=== PATIENT | male | born 1950 | race Caucasian/White ===

== ENCOUNTER 2023-04-24 13:19 | Outpatient (OUT) | payer MEDICARE, SELFPAY ==
[2023-04-20 15:20] LABS: Prostate Specific Antigen Dx 0.36 ng/mL (<=4.00)
== END 2023-04-24 13:20 | disposition home or self-care (01) ==
LOC: LAB 13:19
PROVIDERS: PCP Internal Medicine; Visit Provider Urology
DX: C61 Malignant neoplasm of prostate (principal)
CPT/HCPCS: 36415; 84153

== ENCOUNTER 2023-06-10 14:20 | Outpatient (OUT) | payer MEDICARE, SELFPAY ==
--- NOTE | 2023-06-10 | US_ITS ---
The [address] [address] Patient Name: MONET LOPEZ MRN: [id number] date: 1950 Sex: M Assigned Patient Location: Current Patient Location: US Accession/Order Number: [id number] Exam Date: 06/10/2023 14:40 Report Date: 06/10/2023 16:54 At the request of: JACKELINE LO Procedure: US renal BI EXAMINATION: US renal BI HISTORY: Asymptomatic microscopic hematuria R31.21 COMPARISON: No relevant comparison available. TECHNIQUE: Ultrasound examination was performed of the bladder. FINDINGS: Right Kidney: Normal in size, contour and echotexture. No solid cortical mass, hydronephrosis or obstructing nephrolithiasis. The cortex measures 1.5 cm. Height: 5.8 cm Length: 9.3 cm Width: 4.9 cm Left Kidney: Normal in size, contour and echotexture. No solid cortical mass, hydronephrosis or obstructing nephrolithiasis. The cortex measures 1.5 cm Height: 6.7 cm Length: 9.9 cm Width: 5.1 cm Urinary bladder is prominent in size measuring 12.8 x 8.8 x 10.7 cm with volume of 839 mL US/US renal BI IMPRESSION: Large urinary bladder volume of 839 mL Electronically authenticated by: JACINTO VERONICA Date: 06/10/2023 16:54
== END 2023-06-10 14:21 | disposition home or self-care (01) ==
LOC: US 14:20
PROVIDERS: PCP Internal Medicine; Visit Provider Urology
DX: R31.21 Asymptomatic microscopic hematuria (principal)
CPT/HCPCS: 76775

== ENCOUNTER 2023-07-23 15:19 | Outpatient (OUT) | payer MEDICARE, SELFPAY ==
--- NOTE | 2023-07-23 15:21 | CA_ITS ---
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: : 1950 Requested By: MARI TAMEZ Order Number: [id number] Reading MD: MARI TAMEZ Interpretive Statements Predominant rhythm is sinus with average rate of 64 bpm Tachycardia - max rate of 148 bpm - 52 episodes of PSVT w/ longest duration of 13 beats - longest episode of 10min 59sec with rates between 105-119 bpm Bradycardia - min rate of 32 bpm - longest episode of 5hr 21min 6sec with rates between 30-52 bpm - several episodes of Mobitz type I AV block Ventricular ectopy - 66 total - 63 PVC Patient triggered events: none IMpression: Predominant rhythm is sinus with average rate of 64 bpm Fastest rate of 148 bpm and slowest rate of 32 bpm Minimum rate associated with Mobitz type I AV block 63 PVC 1 episode of NSVT of 3 beat duration No atrial fibrillation or significant pauses Electronically Signed On 08-05-2023 7:25:34 EDT by MARI TAMEZ
[2023-07-23 15:50] LABS: Thyroid Stimulating Hormone 1.858 uIU/mL (0.358-3.740)
== END 2023-07-23 15:20 | disposition home or self-care (01) ==
LOC: CARD 15:19
PROVIDERS: PCP Internal Medicine; Visit Provider Internal Medicine
DX: I48.0 Paroxysmal atrial fibrillation (principal); R55 Syncope and collapse
CPT/HCPCS: 36415; 84443; 93242

== ENCOUNTER 2023-08-21 12:37 | Outpatient (OUT) | payer MEDICARE, SELFPAY ==
--- NOTE | 2023-08-21 13:25 | CA_ITS ---
Patient Name: MONET LOPEZ MR#: [id number] : 1950 Exam Date: 08/21/2023 Ordering Doctor: DR MARI TAMEZ D.O. ECHOCARDIOGRAM REPORT PROCEDURE: CA ECHO DOPPLER COMPLETE INDICATIONS: Paroxysmal atrial fibrillation, syncope, hypertension COMPARISON: None. DESCRIPTION: COMPLETE ECHOCARDIOGRAM Real-time transthoracic echocardiography with 2D, M-mode, spectral and color flow Doppler performed. QUALITY: Technical quality was good. LEFT VENTRICLE: Normal chamber size. Mild concentric left ventricular hypertrophy. LV EF: Global left ventricular systolic function is normal; visually estimated ejection fraction is 55 to 60%. DIASTOLIC: Normal diastolic function. ATRIAL SEPTUM: Not well visualized. LEFT ATRIUM: Normal chamber size. RIGHT ATRIUM: Normal chamber size. RIGHT VENTRICLE: Normal chamber size. Normal right ventricular systolic function. TRICUSPID VALVE: Normal mobility and thickness. No stenosis with mild regurgitation. No evidence of pulmonary hypertension. RVSP 25 mmHg MITRAL VALVE: Normal mobility and thickness. No evidence of mitral valve stenosis. No mitral regurgitation. AORTIC VALVE: Normal trileaflet appearance. Moderately calcified aortic valve. No evidence of aortic valve stenosis. Trivial aortic regurgitation. AORTIC ROOT: Normal diameter and appearance. Aortic arch is normal in size. PULMONIC VALVE: Normal thickness and mobility. No stenosis. Trivial regurgitation. PERICARDIUM: No evidence of pericardial effusion. IVC: Not well visualized. CONCLUSION: 1. Global left ventricular systolic function is normal; visually estimated ejection fraction is 55 to 60% 2. Right ventricle is normal in size and systolic function 3. Mildly increased left ventricular wall thickness 4. Mild tricuspid regurgitation Adult Echocardiography Procedure Report Left Ventricle LVEDD (3.7 - 5.6 cm): 4.66 cm LVESD (2.2 - 4.0 cm): 3.28 cm LVIVS thickness (0.6 - 1.2 cm): 1.16 cm LVPW thickness (0.5 - 1.0 cm): 1.10 cm e': 0.10 m/s E - e': 7.15 LVOT Max Gradient: 2.47 mm[Hg] LVOT Area (cm2): 0.79 m/s Peak Velocity (LVOT): 0.79 m/s Mean Velocity (LVOT): 0.50 m/s LVOT Diameter 2.46 cm Left Atrium LA Volume Index (2D A2C): 35.65 ml/m2 Left Atrium Systolic Dimension: 5.15 cm Mitral Valve MV E to A Ratio: 1.06 Mitral Valve A-Wave Peak Velocity: 0.65 m/s Mitral Valve E-Wave Peak Velocity: 0.70 m/s Right Ventricle Aorta AO Root Diam: 3.87 cm Ascending Ao Diam: 3.17 cm Aortic Valve AoV Area (Peak Spenser): 2.98 cm2, 2.97 cm2 AoV Area (VTI): 2.91 cm2, 2.83 cm2 Peak Velocity(Antegrade Flow): 1.26 m/s, 1.25 m/s Peak Gradient(Antegrade Flow): 6.37 mm[Hg], 6.26 mm[Hg] Mean Velocity(Antegrade Flow): 0.84 m/s, 0.89 m/s Mean Gradient(Antegrade Flow): 3.36 mm[Hg], 3.56 mm[Hg] Velocity Time Integral: 29.14 cm, 27.44 cm Tricuspid Valve Peak Velocity (Regurgitant Flow): 2.33 m/s Pulmonic Valve Peak Velocity: 1.02 m/s Peak Gradient: 4.18 mm[Hg] Right Atrium Right Atrium Systolic Pressure: 41.63 ml, 41.63 ml Dictated by: Isaias Bazan M.D. on 08/21/2023 at 16:05 Approved by: Isaias Bazan M.D. on 08/21/2023 at 16:09
== END 2023-08-21 12:38 | disposition home or self-care (01) ==
LOC: CARD 12:37
PROVIDERS: PCP Internal Medicine; Visit Provider Internal Medicine
DX: I48.0 Paroxysmal atrial fibrillation (principal); R55 Syncope and collapse; I07.1 Rheumatic tricuspid insufficiency
CPT/HCPCS: 93306

== ENCOUNTER 2023-10-26 12:18 | Outpatient (OUT) | payer MEDICARE, SELFPAY ==
--- OUTSIDE RECORDS SUMMARY | 2023-10-26 12:22 | XMS_ITS | CCD ---
Author Name Unknown Address [address] [place] [address] Organization [facility] Care Team Providers Care [place] Name Role Phone MISC, DR BRADEN Admitting Unavailable MISC, DR BRADEN Attending Unavailable BALL, DR GUERRA Primary Care Unavailable MISC, DR BRADEN Consulting Unavailable MISC, DR BRADEN Admitting Unavailable MISC, DR BRADEN Attending Unavailable BALL, DR GUERRA Primary Care Unavailable BALL, DR GUERRA Admitting Unavailable BALL, DR GUERRA Attending Unavailable BALL, DR GUERRA Consulting Unavailable BALL, DR GUERRA Primary Care Unavailable MISC, DR BRADEN Consulting Unavailable MISC, DR BRADEN Admitting Unavailable MISC, DR BRADEN Attending Unavailable BALL, DR GUERRA Primary Care Unavailable Ball, Giacomo Unavailable MYA JOHNSON Attending Unavailable CHRISTIANSEN, Lexa Barlow Attending Unavailable CHRISTIANSEN, Lexa Barlow Attending Unavailable CHRISTIANSENLexa Attending Unavailable Allergies Allergy Classification Reported Allergen(s) Allergy Type Date of Onset Reaction(s) Facility (3 sources) Penicillins; Translations: [PENICILLINS] Drug allergy (disorder) 6 [facility] Repository (3 sources) Penicillin Drug Allergy Unknown Diurnal Other (6 sources) Substance with penicillin structure and antibacterial mechanism of action (substance) Drug allergy Comment:Azalea white Diurnal Other Medications Current Medications Medication Drug Class(es) Dates Sig (Normalized) Sig (Original) apixaban 5 mg oral tablet (7 sources) Factor Xa Inhibitor Start: 04-14-2023 take 1 tablet by mouth every twelve hours Eliquis 5 MG 1 tablet Orally Twice a day for 90 days Apr, Active atorvastatin 10 mg oral tablet (18 sources) HMG-CoA Reductase Inhibitor Start: 10-27-2022 take 1 tablet by mouth every twenty-four hours Atorvastatin Calcium 10 MG 1 tablet Orally Once a day Oct, Active finasteride 5 mg oral tablet (9 sources) 5-alpha Reductase Inhibitor Start: 10-31-2022 take 1 tablet by mouth every twenty-four hours Finasteride 5 MG 1 tablet Orally Once a day for 90 days Oct, Active metoprolol tartrate 25 mg oral tablet (18 sources) beta-Adrenergic Jay Start: 10-27-2022 take 1 tablet by mouth every twelve hours Metoprolol Tartrate 25 MG 1 tablet with food Orally Twice a day Oct, Active rivaroxaban (18 sources) Factor Xa Inhibitor Start: 10-27-2022 Xarelto 20 20 Once Orally Once a day Oct, Active take 1 tablet by tanvir th every twenty-four hours Xarelto 20 MG 1 tablet with food Orally Once a day Active tamsulosin hydrochloride 0.4 mg oral capsule (18 sources) alpha-Adrenergic Jay Start: 10-27-2022 take 1 capsule by mouth every twenty-four hours Tamsulosin HCl 0.4 MG 1 capsule Orally Once a day Oct, Active telmisartan 40 mg oral tablet (18 sources) Angiotensin 2 Receptor Jay Start: 10-27-2022 take 1 tablet by mouth every twenty-four hours Telmisartan 40 MG 1 tablet Orally Once a day Oct, Active Problems Active Problems Problem Classification Problem Date Documented Date Episodic/Chronic Acute bronchitis (9 sources) Acute bronchitis; Translations: [Acute bronchitis due to other specified organisms] Episodic Anxiety disorders (9 sources) Generalized anxiety disorder; Translations: [Generalized anxiety disorder] Chronic Cancer of prostate (16 sources) Malignant neoplasm of prostate; Translations: [Carcinoma of prostate] Onset: 12-31-2022 Chronic Cardiac dysrhythmias (17 sources) Paroxysmal atrial fibrillation; Translations: [Paroxysmal atrial fibrillation] Onset: 06-10-2023 Chronic Disorders of lipid metabolism (12 sources) Familial hypercholesterolemia; Translations: [Pure hypercholesterolemia] Onset: 01-01-2023 Chronic Essential hypertension (14 sources) Essential (primary) hypertension; Translations: [Essential hypertension] Onset: 01-01-2023 Chronic Genitourinary symptoms and ill-defined conditions (2 sources) Nocturia Episodic Hyperplasia of prostate (12 sources) Lower urinary tract symptoms due to benign prostatic hypertrophy; Translations: [Benign prostatic hyperplasia with lower urinary tract symptoms] Chronic Osteoarthritis (9 sources) Localized, primary osteoarthritis of the pelvic region and thigh; Translations: [Unilateral primary osteoarthritis, left hip] Chronic Other aftercare (1 source) Other senior living (current) drug therapy; Translations: [OTH ALF CURRENT DRUG THERAPY] Onset: 01-01-2023 Episodic Other aftercare (9 sources) H/O: high risk medication; Translations: [Other senior living (current) drug therapy] Episodic Other connective tissue disease (9 sources) History of total replacement of left hip joint; Translations: [Presence of left artificial hip joint] Chronic Other nutritional; endocrine; and metabolic disorders (9 sources) Obese class I; Translations: [Obesity, unspecified] Chronic Other nutritional; endocrine; and metabolic disorders (1 source) Obesity, unspecified Chronic Other upper respiratory infections (9 sources) Acute maxillary sinusitis; Translations: [Acute maxillary sinusitis, unspecified] Episodic Residual codes; unclassified (1 source) Procedure and treatment not carried out because of patient's decision for unspecified reasons Episodic Spondylosis; intervertebral disc disorders; other back problems (9 sources) Lumbar spondylosis; Translations: [Spondylosis without myelopathy or radiculopathy, lumbar region] Chronic Syncope (2 sources) Syncope and collapse Episodic Past or Other Problems Problem Classification Problem Date Documented Da te Episodic/Chronic Other screening for suspected conditions (not mental disorders or infectious disease) (4 sources) Encounter for screening, unspecified; Translations: [ENCOUNTER FOR SCREENING UNSPECIFIED] Onset: 06-23-2022 Episodic Results Test Name Value Interpretation Reference Range Facil ity RAD - Ultrasound Reporton RAD - Ultrasound Report [id number]. 00CD:127 Normal [facility] Office Visiton 06-10-2023 Follow-up visit [id number] Monet Bustillos II 1950 M Date Provider Department Center 06/10/2023 MYA WILSON Family History Problem Relation Age of Onset Alzheimer's disease Father Family Status - Relation Status Age at Father Level of Service:73760 [place] OFFICE/OUTPATIENT ESTABLISHED LOW MDM 20-29 MIN Reason for Visit and Comments: Follow-up [529507] - F/U [address] [facility] Operative Reporton Operative Report [id number]# 1.00CD:127 Normal [facility] Consent for Procedure/Surger yon 05-05-2023 Consent for Procedure/Surgery [id number]# 1.00CD:127 Normal [facility] Ambulatory Visit Summaryon 0 05-04-2023 Ambulatory Visit Summary MONET BUSTILLOS :1950 Visit Date:05/04/2023 Ambulatory Visit Instructions Your Diagnosis Prostate cancer BPH with urinary obstruction Asymptomatic microscopic hematuria Nocturia Erectile dysfunction Your Care Team Attending Physician - Lexa CHRISTIANSEN MD Primary Care Physician - GIACOMO RAGSDALE DO This Is Your Medications List Contact prescribing physician if questions or concerns apixaban (Eliquis 5 mg oral tablet) atorvastatin (atorvastatin 10 mg Tab) finasteride (finasteride 5 mg Tab) metoprolol (metoprolol 25 mg ER Tab) multivitamin (Multi Vitamin+) tamsulosin (Flomax 0.4 mg Cap) telmisartan (telmisartan 40 mg Tab) Procedures Performed Mixed beam EBRT (external beam radiation therapy) (03/06/2022), MRI-US fusion guided transrectal biopsy of prostate (12/12/2021), MRI of prostate (11/20/2021), Catheterization of right heart, Hip replacement. Discharge Vitals Heart Rate (Peripheral) 68 Respiratory Rate 16 Blood Pressure 130/74 Height 187 cm Height 74 in Weight 101 kg Weight 222.2 lb BMI 28.88 What to do next You Need to Schedule the Following Appointments Follow Up with WALLY PERALTA, Lexa Barlow, URL When: Comments: sched cysto 6 months w/ PSA Where: [facility] [address] , [place] [address] [phone] Medications What How Much When Instructions Unchanged apixaban (Eliquis 5 mg oral tablet) Contact prescribing physician if questions or concerns Unchanged atorvastatin (atorvastatin 10 mg Tab) By Mouth Every day Contact prescribing physician if questions or concerns Unchanged finasteride (finasteride 5 mg Tab) Contact prescribing physician if questions or concerns Unchanged metoprolol (metoprolol 25 mg ER Tab) By Mouth Every day Contact prescribing physician if questions or concerns Unchanged multivitamin (Multi Vitamin+) Contact prescribing physician if questions or concerns Unchanged tamsulosin (Flomax 0.4 mg Cap) 1 Capsules By Mouth 2 times a day Contact prescribing physician if questions or concerns Unchanged telmisartan (telmisartan 40 mg Tab) Contact prescribing physician if questions or concerns Allergies penicillins (Moderate) Problems Ongoing - Any problem that you are currently receiving treatment for. Anticoagulated Asymptomatic microscopic hematuria Atrial fibrillation Benign prostatic hyperplasia (BPH) with post-void dribbling BPH with urinary obstruction Elevated PSA Erectile dysfunction Hypertension Nocturia Prostate cancer Education Materials Prostate Cancer The prostate is a small gland that produces fluid that makes up semen (seminal fluid). It is located below the bladder in men, in front of the rectum. Prostate cancer is the abnormal growth of cells in the prostate gland. What are the causes? The exact cause of this condition is not known. What increases the risk? You are more likely to develop this condition if: ? You are 65 years of age or older. ? You have a family history of prostate cancer. ? You have a family history of breast and ovarian cancer. ? You have genes that are passed from parent to child (inherited), such as BRCA1 and BRCA2. ? You have White syndrome. men and men of descent are diagnosed with prostate cancer at higher rates than other men. The reasons for this are not well understood and are likely due to a combination of genetic and environmental factors. What are the signs or symptoms? Symptoms of this condition include: ? Problems with urination. This may include: ? A weak or interrupted flow of urine. ? Trouble starting or stopping urination. ? Trouble emptying the bladder all the way. ? The need to urinate more often, especially at night. ? Blood in urine or semen. ? Persistent pain or discomfort in the lower back, lower abdomen, or hips. ? Trouble getting an erection. ? Weakness or numbness in the legs or feet. How is this diagnosed? This condition can be diagnosed with: ? A digital rectal exam. For this exam, a health care provider inserts a gloved finger into the rectum to feel the prostate gland. ? A blood test called a prostate-specific antigen (PSA) test. ? A procedure in which a sample of tissue is taken from the prostate and checked under a microscope (prostate biopsy). ? An imaging test called transrectal ultrasonography. Once the condition is diagnosed, tests will be done to determine how far the cancer has spread. This is called staging the cancer. Staging may involve imaging tests, such as a bone scan, CT scan, PET scan, or MRI. Stages of prostate cancer The stages of prostate cancer are as follows: ? Stage 1 (I). At this stage, the cancer is found in the prostate only. The cancer is not visible on imaging tests, and it is usually found by accident, such as during prostate surgery. ? Stage 2 (II). (more content not included)... Normal [facility] Patient Educationon 05-04-20 Patient Education Oncology Prostate Cancer The prostate is a small gland that produces fluid that makes up semen (seminal fluid). It is located below the bladder in men, in front of the rectum. Prostate cancer is the abnormal growth of cells in the prostate gland. What are the causes? The exact cause of this condition is not known. What increases the risk? You are more likely to develop this condition if: ? You are 65 years of age or older. ? You have a family history of prostate cancer. ? You have a family history of breast and ovarian cancer. ? You have genes that are passed from parent to child (inherited), such as BRCA1 and BRCA2. ? You have White syndrome. men and men of descent are diagnosed with prostate cancer at higher rates than other men. The reasons for this are not well understood and are likely due to a combination of genetic and environmental factors. What are the signs or symptoms? Symptoms of this condition include: ? Problems with urination. This may include: ? A weak or interrupted flow of urine. ? Trouble starting or stopping urination. ? Trouble emptying the bladder all the way. ? The need to urinate more often, especially at night. ? Blood in urine or semen. ? Persistent pain or discomfort in the lower back, lower abdomen, or hips. ? Trouble getting an erection. ? Weakness or numbness in the legs or feet. How is this diagnosed? This condition can be diagnosed with: ? A digital rectal exam. For this exam, a health care provider inserts a gloved finger into the rectum to feel the prostate gland. ? A blood test called a prostate-specific antigen (PSA) test. ? A procedure in which a sample of tissue is taken from the prostate and checked under a microscope (prostate biopsy). ? An imaging test called transrectal ultrasonography. Once the condition is diagnosed, tests will be done to determine how far the cancer has spread. This is called staging the cancer. Staging may involve imaging tests, such as a bone scan, CT scan, PET scan, or MRI. Stages of prostate cancer The stages of prostate cancer are as follows: ? Stage 1 (I). At this stage, the cancer is found in the prostate only. The cancer is not visible on imaging tests, and it is usually found by accident, such as during prostate surgery. ? Stage 2 (II). At this stage, the cancer is more advanced than it is in stage 1, but the cancer has not spread outside the prostate. ? Stage 3 (III). At this stage, the cancer has spread beyond the outer layer of the prostate to nearby tissues. The cancer may be found in the seminal vesicles, which are near the bladder and the prostate. ? Stage 4 (IV). At this stage, the cancer has spread to other parts of the body, such as the lymph nodes, bones, bladder, rectum, liver, or lungs. Prostate cancer grading Prostate cancer is also graded according to how the cancer cells look under a microscope. This is called the Sudheer score and the total score can range from 6?10, indicating how likely it is that the cancer will spread (metastasize) to other parts of the body. The higher the score, the greater the likelihood that the cancer will spread. ? Sudheer 6 or lower: This indicates that the cancer cells look similar to normal prostate cells (well differentiated). ? [place] 7: This indicates that the cancer cells look somewhat similar to normal prostate cells (moderately differentiated). ? Sudheer 8, 9, or 10: This indicates that the cancer cells look very different than normal prostate cells (poorly differentiated). How is this treated? Treatment for this condition depends on several factors, including the stage of the cancer, your age, personal preferences, and your overall health. Talk with your health care provider about treatment options that are recommended for you. Common treatments include: ? Observation for early stage prostate cancer (active surveillance). This involves having exams, blood tests, and in some cases, more biopsies. For some men, this is the only treatment needed. ? Surgery. Types of surgeries include: ? Open surgery (radical prostatectomy). In this surgery, a larger incision is made to remove the prostate. ? A laparoscopic radical prostatectomy. This is a surgery to remove the prostate and lymph nodes through several small incisions. It is often referred to as a minimally invasive surgery. ? A robotic radical prostatectomy. This is laparoscopic surgery to remove the prostate and lymph nodes with the help of robotic arms that are controlled by the surgeon. ? Cryoablation. This is surgery to freeze and destroy cancer cells. ? Radiation treatment. Types of radiation treatment include: ? External beam radiation. This type aims beams of radiation from outside the body at the prostate to destroy cancerous cells. ? Brachytherapy. This type uses radioactive needles, seeds, wires, or tubes that are implanted into the prostate gland. Like external be (more content not included)... Normal [facility] Reminderson 05-04-2023 Reminders - From: Colleen Souza To: EMETERIO Christiansen; Sent: 05/04/2023 16:42:47 EDT Show up: 10/04/2023 15:42:00 EST Subject: PSA Reminder Message Please Remember to:_have pt get PSA done prior to appt. Comments:_ Normal [facility] Urology Office/Clinic Noteon 05-04-2023 Urology Office/Clinic Note Chief Complaint Follow up to Radiation Therapy HPI Staff 16m DX: Prostate Cancer, BPH & Elevated PSA *Finasteride 5mg (last filled by Dr Ragsdale) QD & Tamsulosin 0.4mg BID therapy. Pt was referred to Dr Hammonds for radiation consult at time of last encounter. However pt went and saw Dr Surendra Alanis from [facility]. S/P EBRT 03/06/22. PSA 07/02/22 0.87 PSA 12/30/22 0.47 PSA 04/20/23 0.36 Per pt, will not follow up with Radiation Oncology. Will continue to see PRW for PSA monitoring. Occasional weak stream. Denies pain and blood in urine. Occasional burning sensation. Not often. Still getting up 1-3x/night to void. Occasional hesitancy. Occasional mild post void dribbling. Feels empty after voiding. History of Present Illness Tests reviewed: reviewed UA, PSA I have reviewed the previous health record information and history for this patient from Dr. Christiansen. I have reviewed and verified the staff HPI to be accurate for this encounter. There have been no associated fever, chills, flank pain, or blood in the urine. Denies any urinary infections since last encounter. Review of Systems PHQ Score Initial Depression Screen Score: 0 ROS - Provider Constitutional: denies weight loss, denies hot flashes. Eyes: denies eye problems. Gastrointestinal: denies nausea, denies vomiting. Cardiovascular: denies chest pain or angina. Integumentary: no dryness Musculoskeletal: denies musculoskeletal symptoms. ENMT: denies otolaryngeal symptoms. Respiratory: no shortness of breath. Heme/Lymph: denies easy bleeding tendency, denies easy bruising tendency. Psychiatric: no confusion, no anxiety. Genitourinary: See HPI. Physical Exam Vitals & Measurements HR: 68(Peripheral) RR: 16 BP: 130/74 HT: 74 in HT: 187 cm WT: 101 kg WT: 222.2 lb BMI: 28.88 General Appearance: alert, no distress, well nourished, well developed male. Genitourinary: normal scrotum, normal testes, normal urethra, normal epididymis, normal vas deferens/spermatic cord. Flank Pain: none. Bladder: nonpalpable. Assessment/Plan 1. Prostate cancer (C61: Malignant neoplasm of prostate) MRI fusion Bx done 12/12/21 shows 80% of 4 cores POS w/Sudheer 3+4= 7 w/perineural invasion.[1] Pt saw Dr. Alanis at [facility] for radiation treatment for 4-6 weeks (pt is unsure how long) which was completed in 03/2022. PSA 10/17/21 - 2.6 (Finasteride 5.2) 07/02/22 - 0.87 (Finasteride 1.74) 12/30/22 - 0.47 (Finasteride 0.94) 04/20/23 - 0.36 (Finasteride 0.72) Follow up in 6 months with PSA. All questions/concerns were discussed. Pt to call the office if he encounters any issues prior. Pt acknowledges understanding. 2. BPH with urinary obstruction (N40.1: Benign prostatic hyperplasia with lower urinary tract symptoms) Pt continues taking Finasteride 5mg QD and Tamsulosin 0.4mg BID. Pt reports he does have some hesitancy but has always been able to void. Unsure if he empties completely but feels he may empty due to steady stream. States his sxs have improved in the past year. Explained to pt he is on both classes of prostate medications at this time. Discussed option to switch to Dutasteride but pt is uninterested at this time due to reduced urinary complications. 3. Asymptomatic microscopic hematuria (R31.21: Asymptomatic microscopic hematuria) UA today shows moderate blood. Denies seeing any visible blood. Advised pt this is likely due to radiation but will need further evaluation. Will schedule cystoscopy. The risks and benefits for cystoscopy have been discussed. The risks include bleeding, infection, and irritation of the bladder and urinary channel, among others. The patient, after being informed of procedural details and after questions have been answered, wishes to proceed. Full informed consent has been obtained. Will order Local anesthesia. 4. Nocturia (R35.1: Nocturia) 2-3x/night. Unchanged from prior office visit. 5. Erectile dysfunction (N52.9: Male erectile dysfunction, unspecified) Pt states he is able to achieve an erection but is unable to ejaculate. Pt understands this can occur after radiation treatment. Pt states this is not of concern at his age. Follow-up With When Contact Information WALLY PERALTA, Lexa Barlow, URL [facility] [address] [place] [address] [phone] Additional Instructions: sched cysto 6 months w/ PSA Patient Education Prostate Cancer Colleen Shankar, personally scribed for Dr. Christiansen on 05/04/2023 11:26:02. . Documentation recorded by the thuibColleen estevez, accurately reflects the services(s) I performed and decisions made by me. Authenticated by Dr. Christiansen on 05/04/2023 11:34:30. Problem List/Past Medical History Ongoing Anticoagulated Asymptomatic microscopic hematuria Atrial fibrillation Benign prostatic hyperplasia (BPH) with post-void dribbling BPH with urinary obstruction Elevated PSA Erectile dysfunction Hypertension N (more content not included)... Normal [facility] Comment on above: Result Comment: Elec tronically Signed By: Lexa CHRISTIANSEN MD\.br\Date and Time Signed: 05/04/23 11:34 EDT\.br\Electronically Co-Signed By: Colleen Souza\.br\Date and Time Co-Signed: 05/04/23 11:26 EDT Lab Reportson 04-21-2023 Lab Reports [id number] .00CD:127 Normal [facility] Consultation Noteon 01-21-20 Consultation Note [id number] .00CD:127 Normal [facility] CBC AUTO DIFFon 12-31-2022 BASO # 0.0 103/ul Normal 0.0-0.1 [facility] Comment on above: Performed By: #### C BC #### [facility] [address] [place] [address] Dr. Henry Marin Basophils/100 WBC (Bld) 0.8 % Normal 0.2-2.0 [facility] Comment on above: Performed By: #### C BC #### [facility] [address] [address] [address] Henry Marin EO # 0.2 103/ul Normal 0.0-0.7 [facility] Comment on above: Performed By: #### C BC #### [facility] [address] [place] [address] Dr. Henry Marin Eosinophils/100 WBC (Bld) 3.6 % Normal 0.9-7.0 [facility] Comment on above: Performed By: #### C BC #### [facility] [address] [place] [address] Dr. Henry Marin Erythrocyte distribution width (RBC) [Ratio] 13.2 % Normal 11.0-15.0 [facility] Comment on above: Performed By: #### C BC #### [facility] [address] [place] [address] Dr. Henry Marin Hematocrit (Bld) [Volume fraction] 45.3 % Normal 42.0-54.0 [facility] Comment on above: Performed By: #### C BC #### [facility] [address] [place] [address] Dr. Henry Marin Hemoglobin (Bld) [Mass/Vol] 15.7 g/dL Normal 14.0-18.0 [facility] Comment on above: Performed By: #### C BC #### [facility] [address] [place] [address] Dr. Henry Marin IG # 0.00 10e3/ul Normal 0.00-0.03 [facility] Comment on above: Performed By: #### C BC #### [facility] [address] [place] [address] Dr. Henry Marin IG % 0.0 % Normal 0.0-0.5 [facility] Comment on above: Performed By: #### C BC #### [facility] [address] [place] [address] Dr. Henry Marin LYMPH # 1.7 103/ul Normal 1.2-3.8 [facility] Comment on above: Performed By: #### C BC #### [facility] [facility] [address] [place] [address] Dr. Henry Marin Lymphocytes/100 WBC (Bld) 34.8 % Normal 20.5-60.0 [facility] Comment on above: Performed By: #### C BC #### [facility] [address] [place] [address] Dr. Henry Marin MANUAL DIFF REQ NO Normal [facility] Comment on above: Performed By: #### C BC #### [facility] [address] [place] [address] Dr. Henry Marin MCH (RBC) [Entitic mass] 32.6 pg Normal 25.9-34.0 [facility] Comment on above: Performed By: #### C BC #### [facility] [address] [place] [address] Dr. Henry Marin MCHC (RBC) [Mass/Vol] 34.7 g/dL Normal 29.9-35.2 [facility] Comment on above: Performed By: #### C BC #### [facility] [address] [place] [address] Dr. Henry Marin MCV (RBC) [Entitic vol] 94.0 fL Normal 80.0-94.0 [facility] Comment on above: Performed By: #### C BC #### [facility] [address] [place] [address] Dr. Henry Marin MONO # 0.6 103/ul Normal 0.3-0.8 [facility] Comment on above: Performed By: #### C BC #### [facility] [address] [place] [address] Dr. Henry Marin Monocytes/100 WBC (Bld) 13.0 % Critically high 1.7-12.0 [facility] Comment on above: Performed By: #### C BC #### [facility] [address] [place] [address] Dr. Henry Marin NEUT # 2.3 103/ul Normal 1.4-6.5 [facility] Comment on above: Performed By: #### C BC #### [facility] [address] [place] [address] Dr. Henry Marin Neutrophils/100 WBC (Bld) 47.8 % Normal 43.0-75.0 [facility] Comment on above: Performed By: #### C BC #### [facility] [address] [place] [address] Dr. Henry Marin Platelet mean volume (Bld) [Entitic vol] 9.7 fL Normal 9.5-13.5 [facility] Comment on above: Performed By: #### C BC #### [facility] [address] [place] [address] Dr. Henry Marin PLT 135 103/ul Critically low 150-[address] [facility] Comment on above: Performed By: #### C BC #### [facility] [address] [place] [address] Dr. Henry Marin RBC 4.82 106/ul Normal 4.70-6.10 [facility] Comment on above: Performed By: #### C BC #### [facility] [address] [place] [address] Dr. Henry Marin WBC 4.8 103/ul Normal 4.0-11.0 [facility] Comment on above: Performed By: #### C BC #### [facility] [address] [address] [address] Henry Marin LIPID PROFILEon 12-31-2022 CHOL-HDL RATIO NORM SEE BELOW Normal [facility] Comment on above: Result Comment: 3.3 - 4.4 LOW RISK 4.4 - 7.1 AVERAGE RISK 7.1 - 11.0 MODERATE RISK >11.0 HIGH RISK Performed By: #### B MP, ALT, LIPID #### [facility] [address] [address] [address] Henry Marin Cholesterol [Mass/Vol] 169 mg/dL Normal <=200 [facility] Comment on above: Performed By: #### B MP, ALT, LIPID #### [facility] [address] [address] [address] Henry Marin Cholesterol in HDL [Mass/Vol] 59 mg/dL Normal 40-60 [facility] Comment on above: Performed By: #### B MP, ALT, LIPID #### [facility] [address] [address] [address] Henry Marin Cholesterol in LDL [Mass/Vol] 91.6 mg/dL Normal [facility] Comment on above: Performed By: #### B MP, ALT, LIPID #### [facility] [address] [address] [address] Henry Marin Cholesterol.total/ Cholesterol in HDL [Mass ratio] 2.9 {ratio} Normal [facility] Comment on above: Performed By: #### B MP, ALT, LIPID #### [facility] [address] [address] [address] Henry Marin HDL NORMAL > or = 60 mg/dl - LO W CARDIOVASCULAR RISK <40 mg/dl - HIGH CARDIOVASCULAR RISK Normal [facility] Comment on above: Performed By: #### B MP, ALT, LIPID #### [facility] [address] [address] [address] Henry Marin LDL CALC NORMAL SEE BELOW Normal [facility] Comment on above: Result Comment: <100 mg/dl OPTIMAL 100 - 129 mg/dl NEAR OR ABOVE OPTIMAL 130 - 159 mg/dl BORDERLINE HIGH 160 - 189 mg/dl HIGH >190 mg/dl VERY HIGH Performed By: #### B MP, ALT, LIPID #### [facility] [address] [place] [address] Dr. Henry Marin Triglyceride [Mass/Vol] 92 mg/dL Normal <=150 [facility] Comment on above: Performed By: #### B MP, ALT, LIPID #### [facility] [address] [place] [address] Dr. Henry Marin VLDL CALC 18.4 mg/dL Normal [facility] Comment on above: Performed By: #### B MP, ALT, LIPID #### [facility] [address] [place] [address] Dr. Henry Marin PROF CHEM 8 (BAS METB)on Anion gap [Moles/Vol] 11.8 mmol/L Normal [facility] Comment on above: Performed By: #### B MP, ALT, LIPID #### [facility] [address] [place] [address] Dr. Henry Marin Calcium [Mass/Vol] 8.6 mg/dL Normal 8.5-10.1 [facility] Comment on above: Performed By: #### B MP, ALT, LIPID #### [facility] [address] [place] [address] Dr. Henry Marin Chloride [Moles/Vol] 106 mmol/L Normal 98-107 [facility] Comment on above: Performed By: #### B MP, ALT, LIPID #### [facility] [address] [place] [address] Dr. Henry Marin CO2 [Moles/Vol] 28.3 mmol/L Normal 21.0-32.0 [facility] Comment on above: Performed By: #### B MP, ALT, LIPID #### [facility] [address] [place] [address] Dr. Henry Marin Creatinine [Mass/Vol] 1.01 mg/dL Normal 0.70-1.30 [facility] Comment on above: Performed By: #### B MP, ALT, LIPID #### [facility] [address] [address] [address] Henry Marin EGFR-AF SLOVAK >60 Normal >=60 [facility] Comment on above: Performed By: #### B MP, ALT, LIPID #### [facility] [address] [address] [address] Henry Marin EGFR-NON AF [place]OVAK >60 Normal >=60 [facility] Comment on above: Performed By: #### B MP, ALT, LIPID #### [facility] [address] [address] [address] Henry Marin Glucose [Mass/Vol] 106 mg/dL Normal 74-106 [facility] Comment on above: Performed By: #### B MP, ALT, LIPID #### [facility] [address] [place] [address] Dr. Henry Marin Potassium [Moles/Vol] 4.1 mmol/L Normal 3.5-5.1 [facility] Comment on above: Performed By: #### B MP, ALT, LIPID #### [facility] [address] [place] [address] Dr. Henry Marin Sodium [Moles/Vol] 142 mmol/L Normal 136-145 [facility] Comment on above: Performed By: #### B MP, ALT, LIPID #### [facility] [address] [place] [address] Dr. Henry Marin Urea nitrogen [Mass/Vol] 13.0 mg/dL Normal 7.0-18.0 [facility] Comment on above: Performed By: #### B MP, ALT, LIPID #### [facility] [address] [place] [address] Dr. Henry Marin Urea nitrogen/Creatinin e [Mass ratio] 12.9 mg/mg Normal [facility] Comment on above: Performed By: #### B MP, ALT, LIPID #### [facility] [address] [place] [address] Dr. Henry Marin SGPTon 12-31-2022 ALT [Catalytic activity/Vol] 23 U/L Normal 16-63 [facility] Comment on above: Performed By: #### B MP, ALT, LIPID #### [facility] [address] [address] [address] Henry Marin Consultation Noteon 07-16-20 Consultation Note [id number] Normal [facility] Blood Urea Nitrogenon 2021 Urea nitrogen [Mass/Vol] 10 mg/dL Normal 9-23 [facility] Comment on above: Order Comment: STAT FOR MRI Performed By: #### C REAT, BUN #### [facility] [address] [place] [address] [place] Creatinineon 11-20-2021 Creatinine [Mass/Vol] 1.00 mg/dL Normal 0.64-1.27 [facility] Comment on above: Order Comment: STAT FOR MRI Performed By: #### C REAT, BUN #### [facility] [address] [place] [address] [place] Creatinine Clr Calc Pharmacy 86.83 [facility] Comment on above: Order Comment: STAT FOR MRI Result Comment: PERF ORMED BY: [place] [address] PATHOLOGIST SENIOR BIOSTATISTICIAN GUSTAVO CHANDLER M.D. Performed By: #### C REAT, BUN #### [facility] [address] [place] [address] Estimated GFR ( Arielle > 60 [facility] Comment on above: Order Comment: STAT FOR MRI Result Comment: GFR estimated reference range: According to KDOQI guidelines, <60 ml/min/1.73m2 is sufficient to diagnose a patient with chronic kidney disease. Performed By: #### C REAT, BUN #### [facility] [address] [place] [address] [place] Estimated GFR (Non- Am > 60 [facility] Comment on above: Order Comment: STAT FOR MRI Performed By: #### C REAT, BUN #### [facility] [address] [place] [address] [place] MR prostate wo/w conon 11-20 MR prostate wo/w con [facility] [place] [address] [place] [address] MRI Report Signed Patient: Monet Bustillos MR#: [id number] : 1950 Acct:[id number] Age/Sex: 70 / M ADM Date: 11/20/21 Loc: MR Room: Type: [facility] Attending Dr: Lexa Christiansen MD Ordering Provider: Lexa Christiansen MD Date of Service: 11/20/21 MR/MR prostate wo/w con: ELEVATED PSA, R97.20 Copies to: Lexa Christiansen MD EXAMINATION: MR prostate wo/w con HISTORY: Elevated PSA COMPARISON: NONE TECHNIQUE: Multiparametric imaging of the prostate gland was performed with IV contrast. FINDINGS: Prostate Dimensions: 4.3 x 3.9 x 4.2 cm Prostate Volume: 37 mL Peripheral Zone: A focal area of T2 hypointensity is identified involving the posterolateral aspect of the right peripheral zone at the level of the base measuring 13 x 7 mm with associated restricted diffusion and low ADC value. Please see series 5 image 31, series 950 image 17. There is associated abnormal enhancement. There appears to be subtle extension past the prostate capsule suggestive of extracapsular extension. Additional focal area of T2 hypointensity is identified involving the posterior aspect of the right peripheral zone at the level of the mid gland measuring 4 x 4 mm with associated low ADC value. Please see series 5 image 33 and series 950 image 19. There is associated abnormal enhancement. Central/Transitional Zone: BPH changes. No focal T2 or ADC map abnormalities identified to suggest prostate malignancy. No suspicious abnormal enhancement. Seminal Vesicles: Unremarkable Neurovascular bundles: Questionable right-sided neurovascular bundle involvement. Lymphadenopathy: No evidence of lymphadenopathy. Bladder: No focal abnormality. Bowel: The visualized bowel is without acute abnormality. Peritoneal Cavity: No free fluid. Bones: No suspicious bony lesion. MR/MR prostate wo/w con IMPRESSION: 1. A focal area of T2 hypointensity is identified involving the posterolateral aspect of the right peripheral zone at the level of the base measuring 13 x 7 mm with associated restricted diffusion and low ADC value. There is evidence of extracapsular extension with possibly right neurovascular bundle involvement. PI-RADS 5. Targeting on biopsy is recommended. 2. Additional focal area of T2 hypointensity is identified involving the posterior aspect of the right peripheral zone at the level of the mid gland measuring 4 x 4 mm with associated low ADC value. PI-RADS 4. Targeting of this area on biopsy is suggested. Impression dictated by: Kolby Dinero Jr., D.O.11/20/2021 3:11 PM Dictation Location: [place] [address] Transcribed By: [facility] 11/20/21 1511 Dictated By: Kolby Dinero Jr, DO 11/20/21 1454 Signed By: 11/20/21 1511 [facility] Vital Signs Date Time Vital Sign Value Performing Clinician Facility 07-21-2023 14:00-0400 Body height 182.88 cm Giacomo Ball Other [facility] 07-21-2023 14:00-0400 Body mass index (BMI) [Ratio] 29.83 kg/m2 Giac[facility] Ball Other [facility] 07-21-2023 14:00-0400 Body weight 99.79 kg Giacomo Ball Other [facility] 07-21-2023 14:00-0400 Diastolic blood pressure 65 mm[Hg] Giacomo Ball Other [facility] Other 07-21-2023 14:00-0400 Respiratory rate 12 /min Giacomo Ball Other [facility] Other 07-21-2023 14:00-0400 Systolic blood pressure 114 mm[Hg] Giacomo Ball Other [facility] 01-16-2023 12:00-0400 Body height 182.88 cm Giacomo Ball Other [facility] 01-16-2023 12:00-0400 Body mass index (BMI) [Ratio] 30.92 kg/m2 Giacomo Ball Other [facility] 01-16-2023 12:00-0400 Body weight 103.42 kg Giacomo Ragsdale Other [facility] Other 01-16-2023 12:00-0400 Diastolic blood pressure 67 mm[Hg] Giacomo Ball Other [facility] Other 01-16-2023 12:00-0400 Respiratory rate 12 /min Giacomo Ball Other [facility] Other 01-16-2023 12:00-0400 Systolic blood pressure 115 mm[Hg] Giacomo Ball Other [facility] Other Encounters Encounter Date Encounter Type Care Provider Facility Start: 08-24-2023 End: 08-24-2023 ambulatory Giacomo Ragsdale Other [facility] Other Start: 08-24-2023 Telephone encounter Giacomo Ball [facility] Start: 08-06-2023 End: 08-06-2023 ambulatory Giacomo Ball Other [facility] Start: 08-06-2023 Telephone encounter Giacomo Ball [facility] Start: 08-05-2023 End: 08-05-2023 ambulatory Giacomo Ball Other [facility] Start: 08-05-2023 Telephone encounter Giacomo Ball [facility] Start: 07-23-2023 End: 07-23-2023 ambulatory Giacomo Ball Other [facility] Start: 07-23-2023 Telephone encounter Giacomo Ball [facility] Start: 07-21-2023 End: 07-21-2023 ambulatory Giacomo Ball Other [facility] Start: 07-21-2023 Office outpatient visit 25 minutes Giacomo Ball [facility] Start: 06-10-2023 End: 06-10-2023 ambulatory [facility] Start: 05-19-2023 End: 05-20-2023 ambulatory Lexa Barlow [place] Facility:CD:[id number] Start: 05-04-2023 End: 05-05-2023 ambulatory Lexa CHRISTIANSEN Facility:[facility] Start: 04-14-2023 End: 04-14-2023 ambulatory Giacomo Ragsdale Other [facility] Start: 04-14-2023 Telephone encounter Giacomo Ragsdale [facility] Start: 01-19-2023 End: 01-19-2023 ambulatory Giacomo Ragsdale Other [facility] Start: 01-19-2023 Telephone encounter [facility] Start: 01-16-2023 End: 01-16-2023 ambulatory Giacomo Jn Other [facility] Start: 01-16-2023 Patient encounter procedure Giacomo Ragsdale [facility] Start: 12-31-2022 End: 01-01-[address] DOCTOR MORE Facility:[facility] Start: 07-02-2022 End: 07-03-[address] DOCTOR MORE Facility:[facility] Start: 06-23-2022 End: 06-24-[address] DOCTOR MORE Facility: Procedures Date Procedure Procedure Detail Performing Clinician Start: 12-31-[address] DOCTOR MORE Comment on above: Performed By: #### P SAD #### [facility] [address] [place] [address] Dr. Henry Marin Start: 07-02-[address] DOCTOR MORE Comment on above: Performed By: #### P SAD #### [facility] [address] [place] [address] Dr. Henry Marin Plan of Treatment Date Care Activity Detail Author Start: 11-02-2023 ambulatory Ambulatory Facility:[facility] Immunizations Immunization Date Immunization Notes Care Provider Fa cility 06-18-2022 COVID-19 Moderna (BIvalent) Giacomo Ragsdale Other [facility] 08-04-2021 COVID-19 Vaccine Moderna - Documentation Purposes Only Giacomo Ragsdale Other [facility] Other 12-13-2020 COVID-19 Vaccine Moderna - Documentation Purposes Only Giacomo Ragsdale Other [facility] Other 11-15-2020 COVID-19 Vaccine Moderna - Documentation Purposes Only Giacomo Ragsdale Other [facility] Other 07-17-2017 diphtheria, tetanus toxoids and acellular pertussis vaccine, unspecified formulation Giacomo Ragsdale Other [facility] Other Payers Date Payer Category Payer Medicare [id number] 1961 Private Health Insurance CLI [id number] 1950 Unknown [id number] 2.16.84 [id number] 1950 Unknown [id number] 2.16.84 [id number] 1950 Unknown [id number] 2.16.84 [id number] 1950 Unknown [id number] 2.16.84 [id number] 1950 Unknown [id number] 2.16.8 [id number] 1950 Unknown [id number] 2.16.8 [id number] 1950 Unknown [id number] 2.16.8 [id number] Unknown [id number] [id number]. [id number] Social History Date Type Detail Facility Sex Assigned At [facility] Other Evaluation note 08-05-2023 Note Date & Type Note Facility 08-05-2023 Evaluation note Encounter Date Diagnosis Assessment Notes Aug, Paroxysmal atrial fibrillation (ICD-10 - I48.0) Aug, Syncope, unspecified syncope type (ICD-10 - R55) [facility] Other Evaluation note 07-23-2023 Note Date & Type Note Facility 07-23-2023 Evaluation note Encounter Date Diagnosis Assessment Notes Jul, Benign prostatic hyperplasia with lower urinary tract symptoms (ICD-10 - N40.1) [facility] Other Evaluation note 07-21-2023 Note Date & Type Note Facility 07-21-2023 Evaluation note Encounter Date Diagnosis Assessment Notes Jul, Primary hypertension (ICD-10 - I10) This patient is instructed to consume a healthy, low-fat, low-salt diet. They are also encouraged to continue exercise to achieve/maintain a normal BMI. Discussed possible overtreatment, monitor for now. Jul, Paroxysmal atrial fibrillation (ICD-10 - I48.0) This patient is in NSR or rate controlled. This patient is anticoagulated to prevent thromboembolic events. 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 No bleeding complications Jul, Hyperlipidemia type II (ICD-10 - E78.01) Instructed on diet and exercise with continued statin therapy.Discussed the beneficial effects of lowering cholesterol in reducing the risk for cerebrovascular and cardiovascular disease. Jul, Syncope, unspecified syncope type (ICD-10 - R55) Abrupt loss of consciousness w/o apparent warning or prodrome. No postictal confusion and no loss of bowel/bladder function. Not associated w/ straining or change in body position. Suggest Holter and TSH - bradycardia? Jul, Benign prostatic hyperplasia with lower urinary tract symptoms (ICD-10 - N40.1) Symptoms tolerable - taking Flomax bid Jul, Nocturia (ICD-10 - R35.1) Jul, Prostate cancer (ICD-10 - C61) Group 2, [place] 3+4, External beam radiation No s/s recurrence, f/u [facility] Other Progress note 06-10-2023 Note Date & Type Note Facility 06-10-2023 Note [facility] Subjective Monet Bustillos II is a 72 y.o. year old male patient being seen for Follow-up (F/U 1 year ) Patient Active Problem List Diagnosis Paroxysmal atrial fibrillation (CMS/HCC) Primary hypertension PAC (premature atrial contraction) Family History Problem Relation Name Age of Onset Alzheimer's disease Father HPI Mr Bustillos is seen in follow up on paroxysmal atrial fibrillation currently on eliquis. He has normal coronaries by cardiac catheterization in 2016. He has hypertension on treatment with telmisartan. At a prior visit I reduced metoprolol to 12.5 mg twice daily due to bradycardia. He has been well. He has no chest pain. He has no dyspnea on exertion. He does not feel palpitations. He has mild lower extremity swelling. In the past year he was diagnosed with prostate cancer and received radiation therapy. He otherwise is doing well. Review of Systems Cardiovascular: Negative for chest pain, dyspnea on exertion, irregular heartbeat, leg swelling, orthopnea, palpitations and syncope. Respiratory: Negative for cough and shortness of breath. Musculoskeletal: Negative for arthritis, falls and neck pain. Gastrointestinal: Negative for diarrhea and dysphagia. Neurological: Negative for light-headedness and loss of balance. Objective Visit Vitals BP 119/74 (BP Location: Right arm, Patient Position: Sitting, BP Cuff Size: Adult) Pulse 59 Ht 1.83 m (6' 0.05 ) Wt 101 kg (222 lb 6.4 oz) SpO2 99% BMI 30.12 kg/m??? BSA 2.27 m??? Physical Exam Constitutional: Appearance: He is well-developed. He is not ill-appearing. HENT: Head: Normocephalic and atraumatic. Nose: Nose normal. Eyes: General: No scleral icterus. Pupils: Pupils are equal, round, and reactive to light. Neck: Thyroid: No thyromegaly. Vascular: No JVD. Cardiovascular: Rate and Rhythm: Normal rate and regular rhythm. Pulses: Radial pulses are 2+ on the right side and 2+ on the left side. Heart sounds: Normal heart sounds. No murmur heard. No friction rub. No gallop. Pulmonary: Effort: Pulmonary effort is normal. No respiratory distress. Breath sounds: Normal breath sounds. No wheezing or rales. Chest: Chest wall: No tenderness. Abdominal: General: Bowel sounds are normal. There is no distension. Palpations: Abdomen is soft. Tenderness: There is no abdominal tenderness. Musculoskeletal: General: No swelling. Cervical back: Neck supple. Skin: General: Skin is warm and dry. Neurological: General: No focal deficit present. Mental Status: He is alert and oriented to person, place, and time. Psychiatric: Mood and Affect: Mood normal. Behavior: Behavior is cooperative. Judgment: Judgment normal. Allergies Allergies Allergen Reactions Penicillins GI intolerance Medications Current Outpatient Medications: atorvastatin (Lipitor) 10 mg tablet, Take 1 tablet by mouth once daily as directed., Disp: , Rfl: Eliquis 5 mg tablet, Take 1 tablet by mouth in the morning and at bedtime., Disp: , Rfl: metoprolol tartrate (Lopressor) 25 mg tablet, Take 12.5 mg by mouth in the morning and at bedtime., Disp: , Rfl: multivitamin with iron-minerals 9 mg iron/15 mL liquid, Take by mouth in the morning., Disp: , Rfl: tamsulosin (Flomax) 0.4 mg 24 hr capsule, Take 1 capsule by mouth in the morning and at bedtime., Disp: , Rfl: telmisartan (MIcarDIS) 40 mg tablet, Take 1 tablet by mouth once daily as directed., Disp: , Rfl: Recent Labs blood testing 12/31/2022: Hemoglobin 15.7, platelets 135, potassium 4.1, BUN 13, creatinine 1.01, EGFR more than 60, cholesterol 169, HDL 59, LDL 92, triglycerides 92. Blood testing 12/05/2021: Hemoglobin 16.1, platelets 125, BUN 14, creatinine 1.07, potassium 4.6. CBC, BMP 08/31/2018: normal Imaging and other tests Prior testing: ECG 09/06/2018: sinus bradycardia with 1st degree AV block and PACs. HR 53 bpm. No change since last visit of 07/04/2016: In 11/2015 he underwent a stress test due to dyspnea on exertion. He developed SVT and then AF, was started on pradaxa and metoprolol. Cardiac cath showed normal coronary arteries and normal LV function. His echocardiogram had shown mild biatrial dilatation. His thyroid testing was ok. He was also found to have PACs on ECG in clinic in 12/14/2015. His event recorder in November 2015 showed sinus bradycardia, PACs, rate 49-60 bpm. His EP study in 11/2015 failed to induce arrhythmias. Cardiac cath 11/2015 1. The coronary arteries are normal. 2. The left ventricular systolic function is normal with an ejection fraction estimated at 60% Assessment/Plan Diagnoses and all orders for this visit: Paroxysmal atrial fibrillation (CMS/HCC) Primary hypertension PAC (premature atrial contraction) He seems to be doing well. He has no major issues. His blood pressure and heart rate are well controlled. 1. continue metoprolol 12.5 mg t (more content not included)... [facility] Evaluation note 04-14-2023 Note Date & Type Note Facility 04-14-2023 Evaluation note Encounter Date Diagnosis Assessment Notes Apr, Paroxysmal atrial fibrillation (ICD-10 - I48.0) [facility] [employer] Other Evaluation note 01-19-2023 Note Date & Type Note Facility 01-19-2023 Evaluation note Encounter Date Diagnosis Assessment Notes Jan, Prostate cancer (ICD-10 - C61) Group 2, [place] 3+4, External beam radiation [facility] [employer] Other Evaluation note 01-16-2023 Note Date & Type Note Facility 01-16-2023 Evaluation note Encounter Date Diagnosis Assessment Notes Jan, Medicare annual wellness visit, subsequent (ICD-10 - Z00.00) Personalized health advice was given to the beneficiary including a written plan for screenings discussed and provided. Advanced care planning reviewed and/or information given as requested. Additional counseling was provided here today in regards to, [ ]. The above visit was performed by [ ], under direct supervision of [ ]. Document reviewed and amended by provider signed below. Jan, Primary hypertension (ICD-10 - I10) This patient is instructed to consume a healthy, low-fat, low-salt diet. They are also encouraged to continue exercise to achieve/maintain a normal BMI. Jan, Paroxysmal atrial fibrillation (ICD-10 - I48.0) This patient is in NSR or rate controlled. This patient is anticoagulated to prevent thromboembolic events. 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 Discussed switching Xarelto to Eliquis. Jan, Hyperlipidemia type II (ICD-10 - E78.01) Diet and exercise with continued statin therapy. 14 Jan, 2023 Prostate cancer (ICD-10 - C61) Group 2, Sudheer 3+4, External beam radiation No s/s recurrence. f/u Urology Jan, Obesity (BMI 30.0-34.9) (ICD-10 - E66.9) This patient has been instructed on a low-fat, high-fiber diet. They are instructed to reduce calories, portion sizes and snacks. It is recommended that they exercise for 30 minutes, 3-5 times weekly. 14 Jan, 2023 Benign prostatic hyperplasia with lower urinary tract symptoms (ICD-10 - N40.1) Jan, Nocturia (ICD-10 - R35.1) Jan, Colon cancer screening declined (ICD-10 - Z53.20) Diurnal Other Evaluation note Note Date & Type Note Facility Evaluation note No Information [facility] Other History general Narrative - Reported Note Date & Type Note Facility History general Narrative - Reported Type Medical History Prostate cancer Medical History Obesity Medical History Paroxysmal atrial fibrillation Medical History Benign prostatic hyp erplasia with lower urinary tract symptoms Medical History Primary localized os teoarthritis of left hip Medical History Hyperlipidemia type II Medical History History of total lef t hip replacement Medical History FRANCIS (generalized anxiety disorde r) Medical History High risk medication use Medical History Lumbar spondylosis Medical History Acute non-recurrent maxillary sinusitis Medical History Acute bronchitis due to other specified organisms Surgical History BIOPSY OF PROSTATE U SING MRI-ULTRASOUND FUSION GUIDANCE Surgical History LEFT TOTAL HIP ARTHROPLASTY 2019 Surgical History RIGHT TIB FIB FIXATION 2006 Surgical History LHC 11/2015 Hospitalization History see surgical history Diurnal Other History general Narrative - Reported Note Date & Type Note Facility History general Narrative - Reported Type Medical History Prostate cancer Medical History Obesity Medical History Paroxysmal atrial fibrillation Medical History Benign prostatic hyp erplasia with lower urinary tract symptoms Medical History Primary localized os teoarthritis of left hip Medical History Hyperlipidemia type II Medical History History of total lef t hip replacement Medical History FRANCIS (generalized anxiety disorde r) Medical History High risk medication use Medical History Lumbar spondylosis Medical History Acute non-recurrent maxillary sinusitis Medical History Acute bronchitis due to other specified organisms Surgical History BIOPSY OF PROSTATE U SING MRI-ULTRASOUND FUSION GUIDANCE Surgical History LEFT TOTAL HIP ARTHROPLASTY 2019 Surgical History RIGHT TIB FIB FIXATION 2006 Surgical History C 11/2015 Surgical History Cystoscopy 05/2023 Hospitalization History see surgical history Diurnal Other Summary Purpose Family History No Family History Records FoundNo Family History Records FoundNo Family History Records FoundNo Family History Records Found Advance Directives No Advanced Directives Records FoundNo Advanced Directives Records FoundNo Advanced Directives Records FoundNo Advanced Directives Records Found Additional Source Comments (unrecognized sect ion and content) No Status Records FoundNo Status Records FoundNo Status Records FoundNo Status Records Found INFORMATION SOURCE (unrecogn ized section and content) DATE CREATED AUTHOR 12/23/2021 [facility] DATE CREATED AUTHOR AUTHOR'S ORGANIZ ATION 01/03/2023 [facility] DATE CREATED AUTHOR AUTHOR'S ORGANIZ ATION 06/11/2023 [facility] DATE CREATED AUTHOR AUTHOR'S ORGANIZ ATION 06/14/2023 [facility] REASON FOR VISIT (unrecogniz ed section and content) wellnessNo InformationSwitch ing to Eliquis6 month Follow upLab resultsNo InformationNo InformationHolter resultsEcho results FOR RECORDS PERTAINING TO PATIENTS WHO ARE OR HAVE BEEN ENROLLED IN A CHEMICAL DEPENDENCY/SUBSTANCEABUSE PROGRAM, SOME INFORMATION MAY BE OMITTED. This clinical summary was aggregated from multiple sources. Caution should be exercised in using it in the provision of clinical care. This summary normalizes information from multiple sources, and as a consequence, information in this document may materially change the coding, format and clinical context of patient data. In addition, data may be omitted in some cases. CLINICAL DECISIONS SHOULD BE BASED ON THE PRIMARY CLINICAL RECORDS. [facility]. provides no warranty or guarantee of the accuracy or completeness of information in this document.
[2023-10-26 14:18] LABS: Prostate Specific Antigen Dx 0.24 ng/mL (<=4.00)
== END 2023-10-26 12:19 | disposition home or self-care (01) ==
LOC: LAB 12:19
PROVIDERS: PCP Internal Medicine; Visit Provider Urology
DX: C61 Malignant neoplasm of prostate (principal)
CPT/HCPCS: 36415; 84153

== ENCOUNTER 2023-11-04 16:51 | Outpatient (OUT) | payer MEDICARE, SELFPAY ==
--- OUTSIDE RECORDS SUMMARY | 2023-11-04 16:56 | XMS_ITS | CCD ---
Author Name Unknown Address [address] [place] [address] Organization [facility] Care Team Providers Care Abatement Worker Name Role Phone MISC, DR BRADEN Admitting [...] MISC, DR BRADEN Consulting Unavailable MISC, DR BARDEN Admitting Unavailable MISC, DR BRADEN Attending Unavailable BALL, DR GUERRA Primary Care Unavailable Giacomo Ragsdale Unavailable MYA JOHNSON Attending Unavailable GIACOMO RAGSDALE Primary Care Physician Lexa CHRISTIANSEN Attending Unavailable WALLY, Lexa Barlow Attending Unavailable Lexa CHRISTIANSEN Attending Unavailable Lexa CHRISTIANSEN Attending Unavailable Allergies Allergy Classification Reported Allergen(s) Allergy Type Date of Onset Reaction(s) Facility (4 sources) Penicillins; Translations: [PENICILLINS] Drug allergy (disorder) 6 Vomiting (disorder), Moderate (severity modifier) (qualifier value) [facility] (3 sources) Penicillin Drug Allergy Unknown Adform Other (6 sources) Substance with penicillin structure and antibacterial mechanism of action (substance) Drug allergy Comment:Azalea white Adform Other Medications Current Medications Medication Drug Class(es) Dates Sig (Normalized) Sig (Original) apixaban 5 mg oral tablet (8 sources) Factor Xa Inhibitor Start: 04-14-2023 Eliquis 5 mg oral tablet Refills(s) 0 Start Date: 05/04/23 Status: Ordered atorvastatin 10 mg oral tablet (19 sources) HMG-CoA Reductase Inhibitor Start: 12-24-2020 take 1 tablet by mouth every twenty-four hours Atorvastatin Calcium 10 MG 1 tablet Orally Once a day Oct, Active doxycycline hyclate 100 mg oral capsule (1 source) Tetracycline-cla ss Drug Start: 11-02-2023 End: 12-02-2023 take 1 capsule by mouth once daily doxycycline hyclate 100 mg Cap 100 mg = 1 cap(s), Oral, Daily, X 30 day(s), # 30 cap(s), Refills(s) 0, Pharmacy: [facility] [id number], 187, cm, 11/02/23 13:01:00 EST, Height/Length Dosing, 101, kg, 11/02/23 13:01:00 EST, Weight Dosing Start Date: 11/02/23 Stop Date: 12/02/23 Status: Ordered finasteride 5 mg oral tablet (10 sources) 5-alpha Reductase Inhibitor Start: 11-02-2023 End: 10-27-2024 take 1 tablet by mouth once daily finasteride 5 mg Tab 5 mg = 1 tab(s), Oral, Daily, X 90 day(s), # 90 tab(s), Refills(s) 3, Pharmacy: [facility], 187, cm, 11/02/23 13:01:00 EST, Height/Length Dosing, 101, kg, 11/02/23 13:01:00 EST, Weight Dosing Start Date: 11/02/23 Stop Date: 10/27/24 Status: Ordered Start: 10-31-2022 take 1 tablet by tanvir every twenty-four hours Finasteride 5 MG 1 tablet Orally Once a day for 90 days Oct, Active metoprolol tartrate 25 mg oral tablet (19 sources) beta-Adrenergic Jay Start: 10-27-2022 take 1 tablet by mouth every twelve hours Metoprolol Tartrate 25 MG 1 tablet with food Orally Twice a day Oct, Active Start: 10-12-2019 take 1 mg by mouth once daily metoprolol 25 mg ER Tab mg tab(s), Oral, Daily, Refills(s) 0 Start Date: 10/12/19 Status: Ordered Multi Vitamin+ (1 source) Start: 10-12-2019 Multi Vitamin+ Refill(s) 0 Start Date: 10/12/19 Status: Ordered rivaroxaban (18 sources) Factor Xa Inhibitor Start: 10-27-2022 Xarelto 20 20 Once Orally Once a day Oct, Active take 1 tablet by tanvir every twenty-four hours Xarelto 20 MG 1 tablet with food Orally Once a day Active tamsulosin hydrochloride 0.4 mg oral capsule (19 sources) alpha-Adrenergic Jay Start: 11-02-2023 take 1 capsule by mouth twice daily Flomax 0.4 mg Cap 0.4 mg = 1 cap(s), Oral, BID, # 180 cap(s), Refills(s) 3, Pharmacy: [facility], 187, cm, 11/02/23 13:01:00 EST, Height/Length Dosing, 101, kg, 11/02/23 13:01:00 EST, Weight Dosing Start Date: 11/02/23 Status: Ordered Start: 10-27-2022 take [address] [facility] every twenty-four hours Tamsulosin HCl 0.4 MG 1 capsule Orally Once a day Oct, Active telmisartan 40 mg oral tablet (19 sources) Angiotensin 2 Receptor Jay Start: 10-27-2022 telmisartan 40 mg Ta b Refills(s) 0 Start Date: 05/04/23 Status: Ordered Problems Problem Classification Problem Date Documented Date Episodic/Chronic Acute bronchitis (9 sources) Acute bronchitis; Translations: [Acute bronchitis due to other specified organisms] Episodic Anxiety disorders (9 sources) Generalized anxiety disorder; Translations: [Generalized anxiety disorder] Chronic Cancer of prostate (18 sources) Malignant neoplasm of prostate; Translations: [Carcinoma of prostate] Onset: 12-31-2022 Chronic Cardiac dysrhythmias (18 sources) Paroxysmal atrial fibrillation; Translations: [Paroxysmal atrial fibrillation] Onset: 06-10-2023 Chronic Disorders of lipid metabolism (12 sources) Familial hypercholesterolemia; Translations: [Pure hypercholesterolemia] Onset: 01-01-2023 Chronic Essential hypertension (15 sources) Essential (primary) hypertension; Translations: [Essential hypertension] Onset: 01-01-2023 Chronic Genitourinary symptoms and ill-defined conditions (7 sources) Nocturia; Translations: [Nocturia] Onset: 11-02-2023 Episodic Hyperplasia of prostate (15 sources) Lower urinary tract symptoms due to benign prostatic hypertrophy; Translations: [Benign prostatic hyperplasia with lower urinary tract symptoms] Onset: 11-02-2023 Chronic Osteoarthritis (9 sources) Localized, primary osteoarthritis of the pelvic region and thigh; Translations: [Unilateral primary osteoarthritis, left hip] Chronic Other aftercare (1 source) Other correction (current) drug therapy; Translations: [[facility] CURRENT DRUG [facility]ERAPY] Onset: 01-01-2023 Episodic Other aftercare (9 sources) H/O: high risk medication; Translations: [Other moth exterminator (current) drug therapy] Episodic Other connective tissue disease (9 sources) History of total replacement of left hip joint; Translations: [Presence of left artificial hip joint] Chronic Other male genital disorders (2 sources) Male erectile dysfunction, unspecified; Translations: [Erectile dysfunction] Onset: 11-02-2023 Chronic Other nutritional; endocrine; and metabolic disorders (9 sources) Obese class I; Translations: [Obesity, unspecified] Chronic Other nutritional; endocrine; and metabolic disorders (1 source) Obesity, unspecified Chronic Other screening for suspected conditions (not mental disorders or infectious disease) (5 sources) Encounter for screening, unspecified; Translations: [Raised prostate specific antigen] Onset: 06-23-2022 Episodic Other upper respiratory infections (9 sources) Acute maxillary sinusitis; Translations: [Acute maxillary sinusitis, unspecified] Episodic Residual codes; unclassified (1 source) Procedure and treatment not carried out because of patient's decision for unspecified reasons Episodic Spondylosis; intervertebral disc disorders; other back problems (9 sources) Lumbar spondylosis; Translations: [Spondylosis without myelopathy or radiculopathy, lumbar region] Chronic Syncope (2 sources) Syncope and collapse Episodic Unclassified (1 source) Asymptomatic microscopic hematuria 05-04-2023 Unclassified (1 source) Drug therapy finding 10-17-2019 Results Test Name Value Interpretation Reference Range Facil ity Patient Educationon 11-02-19 24 Patient Education Urology Clean Intermittent Catheterization, Male Clean intermittent catheterization (CIC) is a procedure to remove urine from the bladder by placing a small, flexible tube (catheter) into the bladder though the urethra. The urethra is a tube in the body that carries urine from the bladder out of the body. CIC may be done when: ? You cannot completely empty your bladder on your own. This may be due to a blockage in the bladder or urethra. ? Your bladder leaks urine. This may happen when the muscles or nerves near the bladder are not working normally, so the bladder overflows. Your health care provider will show you how to perform CIC and will help you to become comfortable performing this procedure at home. Your health care provider will also help you to get the home care supplies that are needed for this procedure. Supplies needed: ? Germ-free (sterile), water-based lubricant. ? A container for urine collection. You may also use the toilet to dispose of urine from the catheter. ? A catheter. Your health care provider will determine the best size for you. ? Use this catheter size: ? Clean gloves. ? Soap and water. ? Towel. How to perform this procedure: Most people need CIC at least 4 times per day to adequately empty the bladder. Your health care provider will tell you how often you should perform CIC. ? Number of times per day to perform CIC: To perform CIC, follow these steps: 1. Wash your hands with soap and water. If soap and water are not available, use hand iron and steel work supervisor. 2. Clean your penis with soap and water. Dry the tip of your penis completely. 3. Prepare the supplies that you will use during the procedure. Open the catheter package and lubricant. 4. Get in a comfortable position. Possible positions include: ? Sitting on a toilet, a chair, or the edge of a bed. ? Standing near a toilet. ? Lying down with your head raised on pillows and your knees pointing to the ceiling. You may wish to place a waterproof mat or pad under you. 5. If you are using a urine collection container, position it between your legs. 6. Urinate, if you are able. 7. Put on gloves. 8. Apply lubricant to about 2 inches (5 cm) of the tip of the catheter. 9. Set the catheter down on a clean, dry surface within reach. 10. Gently stretch your penis out from your body. Pull back any skin that covers the end of your penis (foreskin). Clean the end of your penis with medicated sterile swabs as told by your health care provider. 11. Hold your penis upward at a 45?60 degree angle. This helps to straighten the urethra. 12. Slowly insert the lubricated catheter straight into your urethra until urine flows freely. This is usually about 6?8 inches (15?20 cm). 13. When urine starts to flow freely, insert the catheter 1 inch (3 cm) more. Allow urine to drain into the toilet or the urine collection container. 14. When urine stops flowing, slowly remove the catheter. 15. Note the color, amount, and odor of the urine. 16. Measure your urine and note the amount, if told by your health care provider. 17. Discard the urine in the toilet. 18. Clean your penis using soap and water. 19. Move the foreskin back in place, if applicable. 20. If you are using a single-use catheter, discard the catheter and supplies. 21. Wash your hands with soap and water. 22. If you are using a reusable catheter, follow package instructions about how to clean the catheter after each use. How often should I perform this procedure? ? Do CIC to empty your bladder every 4?6 hours or as often as told by your health care provider. ? If you have symptoms of too much urine in your bladder (overdistension) and you are not able to urinate, perform CIC. Symptoms of overdistension may include: ? Restlessness. ? Sweating or chills. ? Headache. ? Flushed or pale skin. ? Bloated lower abdomen. What are the risks? Generally, this is a safe procedure, however problems may occur, including: ? Infection. ? Injury to the urethra. ? Irritation of the urethra. Follow these instructions at home General instructions ? Drink enough fluid to keep your urine pale yellow. ? Dispose of a multiple use catheter when it becomes dry, brittle, or cloudy. This usually happens after you use the catheter for 1 week. ? Avoid caffeine. Caffeine may make you need to urinate more frequently and more urgently. ? When traveling, bring extra supplies with you in case of delays. Keep supplies with you in a place that you can access easily. If traveling by plane: ? Make sure that the lubricant in your carry-on bag is less than 3.4 ounces (100 mL). ? Use a single-use catheter. It may be difficult to clean a reusable catheter in a small bathroom. ? Take [id number] and prescription medicines only as told by your he (more content not included)... Normal [facility] Urology Office/Clinic Noteon 11-02-2023 Urology Office/Clinic Note Chief Complaint 6m PSA HPI Staff 6 month f//u with PSA. Previous dx of prostate cancer (radiation completed by Dr. Alanis 03/2022), BPH with urinary obstruction, asymptomatic microhematuria, nocturia and erectile dysfunction. Current PSA done 10/26/23 is 0.24 and previous done 04/20/23 was 0.36. Finasteride 5mg QD and Tamsulosin 0.4mg BID. S/P Cysto 05/19/23 MICHELLE 06/10/23 PSA 10/26/23- 0.24 Pt voided in RR located in waiting room. Unable to provide additional urine specimen. Denies pain/burning and visible blood in urine. Occasional hesitancy & unsteady stream, has been getting better. Getting up 1-2x/night to void. No changes. Occasional leaking after he has finished voiding. Denies any concerns at this time. PVR >759ml History of Present Illness Tests reviewed: reviewed PSA, PVRs I have reviewed the previous health record information and history for this patient from Dr. Christiansen. I have reviewed and verified the staff HPI to be accurate for this encounter. Review of Systems PHQ Score Initial Depression Screen Score: 0 SCORE ROS - Provider Constitutional: denies weight loss, [...] HPI. Physical Exam Vitals & Measurements HR: 57(Peripheral) RR: 16 BP: 132/77 HT: 74 in HT: 187 cm WT: 101 kg WT: 222.2 lb BMI: 28.88 General Appearance: alert, no distress, well nourished, well developed male. Genitourinary: normal scrotum, normal testes, normal urethra, normal epididymis, normal vas deferens/spermatic cord. Flank Pain: none. Bladder: nonpalpable. Assessment/Plan Pt here with his today. 1. Urinary retention (R33.9: Retention of urine, unspecified) MICHELLE 06/10/23 [facility] - Large urinary bladder volume 839mL. No hydro. States he voids and his stream stops but he is unable to restart it. PVR today >759mL. Advised pt he is retaining a significant amount of urine. Recommended him to try emptying again. Repeat PVR was >450mL. States he felt he emptied well. Pt's reports pt seems he empties well but admits he does not void very often. Also if he sits to void, pt does dribble some. Denies any infections. UA today negative for blood and infection. Discussed he is still not emptying completely. Educated pt on etiologies of urinary retention, such as enlarged prostate causing obstruction and weakened bladder muscle. Advised pt operative intervention is not recommended due to increased risk with hx of radiation. Discussed options of CIC vs Vaughn catheter placement. Recommended pt to start CIC (clean intermittent catheterization) to intermittently empty the urinary bladder. We taught the technique, with instruction to measure the residual urine by straight catheterizing after first attempting to void. The risks of CIC were discussed, including bleeding, infection and causing UTI's (although urinary retention itself is also a risk). Questions were answered and the patient verbalized understanding. Straight catheters are provided. Prescription for catheters will be provided in the near future. Due to pt starting to CIC and likely being colonized, recommended pt to start low dose daily abx to prevent infection. Pt agrees with plan. -Record PVRs when CIC, pt to call with volumes after 1wk -Take doxycycline 100mg qd #30. Rx sent to [facility]. 2. BPH with urinary obstruction (N40.1: Benign prostatic hyperplasia with lower urinary tract symptoms) Taking Finasteride 5mg QD and Tamsulosin 0.4mg BID. -See #1 3. Prostate cancer (C61: Malignant neoplasm of prostate) PSA 10/17/21 - 2.6 (Finasteride 5.2) 07/02/22 - 0.87 (Finasteride 1.74) 12/30/22 - 0.47 (Finasteride 0.94) 04/20/23 - 0.36 (Finasteride 0.72) 10/26/23 - 0.24 (Finasteride 0.48) MRI fusion Bx done 12/12/21 shows 80% of 4 cores POS w/[place] 3+4= 7 w/perineural invasion.[ Pt saw Dr. Alanis at [facility] for radiation treatment for 4-6 weeks (pt is unsure how long) which was completed in 03/2022. Discussed PSA level w/ pt. Has decreased from prior. Will continue to monitor. -PSA in 6 mos 4. Asymptomatic microscopic hematuria (R31.21: Asymptomatic microscopic hematuria) S/p Cysto 05/19/23 - no bladder tumors. MICHELLE 06/10/23 [facility] - neg for stones. No sample provided for UA today. UA previously showed moderate blood. Denies gross hematuria. 5. Nocturia (R35.1: Nocturia) 1-2x/night, unchanged from prior office visit. 6. Erectile dysfunction (N52.9: Male erectile dysfunction, unspecified) Secondary to prostate radiation treatment. Not of concern. Follow-up With When Contact Information Lexa CHRISTIANSEN MD, URL [facility] 2 (more content not included)... Normal [facility] Comment on above: Result Comment: Elec tronically Signed By: Lexa CHRISTIANSEN MD\.br\Date and Time Signed: 11/02/23 14:45 EST\.br\Electronically Co-Signed By: Colleen Souza\.br\Date and Time Co-Signed: 11/02/23 14:42 EST Lab Reportson 10-27-2023 Lab Reports [id number]#1. 00TIFF [facility] RAD - Ultrasound Reporton RAD - Ultrasound Report [id number]#1. 00CD:127 [facility] Office Visiton 06-10-2023 Follow-up visit [id number] Monet Bustillos Paul II 1950 M Date Provider Department Center 06/10/2023 MYA WILSON [place] Family History Problem Relation Age of Onset Alzheimer's disease Father Family Status - Relation Status Age at Father Level of Service:31261 [place] OFFICE/OUTPATIENT ESTABLISHED LOW MDM 20-29 MIN Reason for Visit and Comments: Follow-up [727802] - F/U 1 year Normal [facility] Operative Reporton Operative Report [id number]# 1.00CD:127 Normal [facility] Consent for Procedure/Surger yon 05-05-2023 Consent for Procedure/Surgery [id number]# 1.00CD:127 Normal [facility] Ambulatory Visit Summaryon 0 05-04-2023 Ambulatory Visit Summary JESSICA MONET Paul :1950 Visit Date:05/04/2023 Ambulatory Visit Instructions Your [...] Schedule the Following Appointments Follow Up with Lexa CHRISTIANSEN MD, URL When: Comments: sched cysto 6 months w/ PSA Where: [facility] [address], [place] [address]- [phone] Medications What How Much When Instructions Unchanged [...] 2 (II). (more content not included)... Normal [facility] Patient Educationon 05-04-20 23 Patient Education Oncology Prostate Cancer The prostate [...] under a microscope. This is called the [place] score and the total score can range from 6?10, indicating how likely it is that the cancer will spread (metastasize) to other parts of the body. The higher the score, the greater the likelihood that the cancer will spread. ? [place] 6 or lower: This indicates that the cancer cells look similar to normal prostate cells (well differentiated). ? Sudheer 7: This indicates that the cancer cells look somewhat similar to normal prostate cells (moderately differentiated). ? [place] 8, 9, or 10: This indicates that [...] external be (more content not included)... Normal [facility] Reminderson 05-04-2023 Reminders - From: Colleen Souza To: EMETERIO Christiansen; Sent: 05/04/2023 16:42:47 EDT Show up: 10/04/2023 15:42:00 EST Subject: PSA Reminder Message Please Remember to:_have pt get PSA done prior to appt. Comments:_ Normal [facility] Urology Office/Clinic Noteon 05-04-2023 Urology Office/Clinic Note Chief Complaint Follow up to Radiation Therapy HPI Staff 16m DX: Prostate Cancer, BPH & Elevated PSA *Finasteride 5mg (last filled by Dr Ragsdale) QD & Tamsulosin 0.4mg BID therapy. Pt was referred to Dr Hammonds for radiation consult at time of last encounter. However pt went and saw Dr Surendra Alanis from [facility]. S/P EBRT 03/06/22. PSA 07/02/22 0.87 PSA [...] 12/12/21 shows 80% of 4 cores POS w/[place] 3+4= 7 w/perineural invasion.[1] Pt saw Dr. Alanis at [facility] for radiation treatment for 4-6 weeks (pt [...] Lexa Barlow, URL [facility] [address], [place] [address]- [phone] Additional Instructions: sched cysto 6 months w/ PSA Patient Education Prostate Cancer IColleen, personally scribed for Dr. Christiansen on 05/04/2023 11:26:02. . Documentation recorded by the scribe, Colleen Souza, accurately reflects the services(s) I performed and decisions made by me. Authenticated by Dr. Christiansen on 05/04/2023 11:34:30. Problem List/Past Medical History Ongoing Anticoagulated Asymptomatic microscopic hematuria Atrial fibrillation Benign prostatic hyperplasia (BPH) with post-void dribbling BPH with urinary obstruction Elevated PSA Erectile dysfunction Hypertension N (more content not included)... Normal [facility] Comment on above: Result Comment: Elec tronically Signed By: Lexa CHRISTIANSEN MD\.br\Date and Time Signed: 05/04/23 11:34 EDT\.br\Electronically Co-Signed By: Colleen Souza\.br\Date and Time Co-Signed: 05/04/23 11:26 EDT Lab Reportson 04-21-2023 Lab Reports [id number] .00CD:127 Normal [facility] Consultation Noteon 01-21-20 Consultation Note [id number] .00CD:127 Normal [facility] CBC AUTO DIFFon 12-31-2022 BASO # 0.0 103/ul Normal 0.0-0.1 [facility] Comment on above: Performed By: #### C BC #### [facility] [address] [place] [address] Dr. Henry Marin Basophils/100 WBC (Bld) 0.8 % Normal 0.2-2.0 [facility] Comment on above: Performed By: #### C BC #### [facility] [address] [place] [address] Dr. Henry Marin EO # 0.2 103/ul Normal 0.0-0.7 [facility] Comment on above: Performed By: #### C BC #### [facility] [address] [place] [address] Dr. Henry Marin Eosinophils/100 WBC (Bld) 3.6 % Normal 0.9-7.0 [facility] Comment on above: Performed By: #### C BC #### [facility] [address] [place] [address] Dr. Henry Marin Erythrocyte distribution width (RBC) [Ratio] 13.2 % Normal 11.0-15.0 [facility] Comment on above: Performed By: #### C BC #### [facility] [address] [place] [address] Dr. Henry Marin Hematocrit (Bld) [Volume fraction] 45.3 % Normal 42.0-54.0 [facility] Comment on above: Performed By: #### C BC #### [facility] [address] [place] [address] Dr. Henry Marin Hemoglobin (Bld) [Mass/Vol] 15.7 g/dL Normal 14.0-18.0 [facility] Comment on above: Performed By: #### C BC #### [facility] [address] [place] [address] Dr. Henry Marin IG # 0.00 10e3/ul Normal 0.00-0.03 [facility] Comment on above: Performed By: #### C BC #### [facility] [address] [place] [address] Dr. Henry Marin IG % 0.0 % Normal 0.0-0.5 [facility] Comment on above: Performed By: #### C BC #### [facility] [address] [place] [address] Dr. Henry Marin LYMPH # 1.7 103/ul Normal 1.2-3.8 [facility] Comment on above: Performed By: #### C BC #### [facility] [address] [place] [address] Dr. Henry Marin Lymphocytes/100 WBC (Bld) 34.8 % Normal 20.5-60.0 [facility] Comment on above: Performed By: #### C BC #### [facility] [address] [place] [address] Dr. Henry Marin MANUAL DIFF REQ NO Normal [facility] Comment on above: Performed By: #### C BC #### [facility] [address] [place] [address] Dr. Henry Marin MCH (RBC) [Entitic mass] 32.6 pg Normal 25.9-34.0 [facility] Comment on above: Performed By: #### C BC #### [facility] [address] [place] [address] Dr. Henry Marin MCHC (RBC) [Mass/Vol] 34.7 g/dL Normal 29.9-35.2 [facility] Comment on above: Performed By: #### C BC #### [facility] [address] [place] [address] Dr. Henry Marin MCV (RBC) [Entitic vol] 94.0 fL Normal 80.0-94.0 [facility] Comment on above: Performed By: #### C BC #### [facility] [address] [place] [address] Dr. Henry Marin MONO # 0.6 103/ul Normal 0.3-0.8 [facility] Comment on above: Performed By: #### C BC #### [facility] [address] [place] [address] Dr. Henry Marin Monocytes/100 WBC (Bld) 13.0 % Critically high 1.7-12.0 [facility] Comment on above: Performed By: #### C BC #### [facility] [address] [place] [address] Dr. Henry Marin NEUT # 2.3 103/ul Normal 1.4-6.5 [facility] Comment on above: Performed By: #### C BC #### [facility] [address] [place] [address] Dr. Henry Marin Neutrophils/100 WBC (Bld) 47.8 % Normal 43.0-75.0 [facility] Comment on above: Performed By: #### C BC #### [facility] [address] [place] [address] Dr. Henry Marin Platelet mean volume (Bld) [Entitic vol] 9.7 fL Normal 9.5-13.5 [facility] Comment on above: Performed By: #### C BC #### [facility] [address] [place] [address] Dr. Henry Marin PLT 135 103/ul Critically low 150-450 [facility] Comment on above: Performed By: #### C BC #### [facility] [address] [address] [address] Henry Marin RBC 4.82 106/ul Normal 4.70-6.10 [facility] Comment on above: Performed By: #### C BC #### [facility] [address] [address] [address] Henry Marin WBC 4.8 103/ul Normal 4.0-11.0 [facility] Comment on above: Performed By: #### C BC #### [facility] [address] [address] [address] Henry Marin LIPID PROFILEon 12-31-2022 CHOL-HDL RATIO NORM SEE BELOW Normal [facility] Comment on above: Result Comment: 3.3 - 4.4 LOW RISK 4.4 - 7.1 AVERAGE RISK 7.1 - 11.0 MODERATE RISK >11.0 HIGH RISK Performed By: #### B MP, ALT, LIPID #### [facility] [address] [place] [address] Dr. Henry Marin Cholesterol [Mass/Vol] 169 mg/dL Normal <=200 [facility] Comment on above: Performed By: #### B MP, ALT, LIPID #### [facility] [address] [place] [address] Dr. Henry Marin Cholesterol in HDL [Mass/Vol] 59 mg/dL Normal 40-60 [facility] Comment on above: Performed By: #### B MP, ALT, LIPID #### [facility] [address] [address] [address] Henry Marin Cholesterol in LDL [Mass/Vol] 91.6 mg/dL Normal [facility] Comment on above: Performed By: #### B MP, ALT, LIPID #### [facility] [address] [place] [address] Dr. Henry Marin Cholesterol.total/ Cholesterol in HDL [Mass ratio] 2.9 {ratio} Normal [facility] Comment on above: Performed By: #### B MP, ALT, LIPID #### [facility] [address] [address] [address] Henry Marin HDL NORMAL > or = 60 mg/dl - LO W CARDIOVASCULAR RISK <40 mg/dl - HIGH CARDIOVASCULAR RISK Normal [facility] Comment on above: Performed By: #### B MP, ALT, LIPID #### [facility] [address] [address] [address] Henry Marin LDL CALC NORMAL SEE BELOW Normal [facility] Comment on above: Result Comment: <100 mg/dl OPTIMAL 100 - 129 mg/dl NEAR OR ABOVE OPTIMAL 130 - 159 mg/dl BORDERLINE HIGH 160 - 189 mg/dl HIGH >190 mg/dl VERY HIGH Performed By: #### B MP, ALT, LIPID #### [facility] [address] [address] [address] Henry Marin Triglyceride [Mass/Vol] 92 mg/dL Normal <=150 [facility] Comment on above: Performed By: #### B MP, ALT, LIPID #### [facility] [address] [address] [address] Henry Marin VLDL CALC 18.4 mg/dL Normal [facility] Comment on above: Performed By: #### B MP, ALT, LIPID #### [facility] [address] [address] [address] Henry Marin PROF CHEM 8 (BAS METB)on Anion gap [Moles/Vol] 11.8 mmol/L Normal [facility] Comment on above: Performed By: #### B MP, ALT, LIPID #### [facility] [address] [address] [address] Henry Marin Calcium [Mass/Vol] 8.6 mg/dL Normal 8.5-10.1 [facility] Comment on above: Performed By: #### B MP, ALT, LIPID #### [facility] [address] [address] [address] Henry Marin Chloride [Moles/Vol] 106 mmol/L Normal 98-107 [facility] Comment on above: Performed By: #### B MP, ALT, LIPID #### [facility] [address] [address] [address] Henry Marin CO2 [Moles/Vol] 28.3 mmol/L Normal 21.0-32.0 [facility] Comment on above: Performed By: #### B MP, ALT, LIPID #### [facility] [address] [address] [address] Henry Marin Creatinine [Mass/Vol] 1.01 mg/dL Normal 0.70-1.30 [facility] Comment on above: Performed By: #### B MP, ALT, LIPID #### [facility] [address] [address] [address] Henry Marin EGFR-AF IVORIAN >60 Normal >=60 [facility] Comment on above: Performed By: #### B MP, ALT, LIPID #### [facility] [address] [address] [address] Henry Marin EGFR-NON AF IVORIAN >60 Normal >=60 [facility] Comment on above: Performed By: #### B MP, ALT, LIPID #### [facility] [address] [address] [address] Henry Marin Glucose [Mass/Vol] 106 mg/dL Normal 74-106 [facility] Comment on above: Performed By: #### B MP, ALT, LIPID #### [facility] [address] [address] [address] Henry Marin Potassium [Moles/Vol] 4.1 mmol/L Normal 3.5-5.1 [facility] Comment on above: Performed By: #### B MP, ALT, LIPID #### [facility] [address] [address] [address] Henry Marin Sodium [Moles/Vol] 142 mmol/L Normal 136-145 [facility] Comment on above: Performed By: #### B MP, ALT, LIPID #### [facility] [address] [address] [address] Henry Marin Urea nitrogen [Mass/Vol] 13.0 mg/dL Normal 7.0-18.0 [facility] Comment on above: Performed By: #### B MP, ALT, LIPID #### [facility] [address] [place], [place] [address] Dr. Henry Marin Urea nitrogen/Creatinin e [Mass ratio] 12.9 mg/mg Normal [facility] Comment on above: Performed By: #### B MP, ALT, LIPID #### [facility] [address] [place], [place] [address] Dr. Henry Marin SGPTon 12-31-2022 ALT [Catalytic activity/Vol] 23 U/L Normal 16-63 [facility] Comment on above: Performed By: #### B MP, ALT, LIPID #### [facility] [address] [place], [place] [address] Dr. Henry Marin Blood Urea Nitrogenon 2021 Urea nitrogen [Mass/Vol] 10 mg/dL Normal 9-23 [facility] Comment on above: Order Comment: STAT FOR MRI Performed By: #### C REAT, BUN #### [facility] [address] [place] [address] [place] Creatinineon 11-20-2021 Creatinine [Mass/Vol] 1.00 mg/dL Normal 0.64-1.27 [facility] Comment on above: Order Comment: STAT FOR MRI Performed By: #### C REAT, BUN #### [facility] [address] [place] [address] [place] Creatinine Clr Calc Pharmacy 86.83 Normal [facility] Comment on above: Order Comment: STAT FOR MRI Result Comment: PERF ORMED BY: [place] [address] PATHOLOGIST [employer] GUSTAVO CHANDLER M.D. Performed By: #### C REAT, BUN #### [facility] [address] Estimated GFR ( Arielle > 60 Normal [facility] Comment on above: Order Comment: STAT FOR MRI Result Comment: GFR estimated reference range: According to KDOQI guidelines, <60 ml/min/1.73m2 is sufficient to diagnose a patient with chronic kidney disease. Performed By: #### C REAT, BUN #### [facility] [address] [place] [address] [place] Estimated GFR (Non- Am > 60 Normal [facility] Comment on above: Order Comment: STAT FOR MRI Performed By: #### C GHULAM CANTU #### [facility] [address] MR prostate wo/w conon 11-20 MR prostate wo/w con [facility] [place] [address] [place] [address] MRI Report Signed Patient: Monet Bustillos MR#: [id number] : 1950 Acct:[id number] Age/Sex: 70 / M ADM Date: 11/20/21 Loc: MR Room: Type: [facility] Attending Dr: Lexa Christiansen MD Ordering Provider: [...] suggested. Impression dictated by: Kolby Dinero Jr., Anatoly11/20/2021 3:11 PM Dictation Location: [facility]--11 Transcribed By: [facility] 11/20/21 1511 Dictated By: Kolby Dinero Jr, DO 11/20/21 1454 Signed By: 11/20/21 1511 [facility] Vital Signs Date Time Vital Sign Value Performing Clinician Facility 11-02-2023 12:57-0500 Blood Pressure Location Lexa CHRISTIANSEN [facility] 11-02-2023 12:57-0500 Diastolic blood pressure 77 mm[Hg] Lexa CHRISTIANSEN [facility] 11-02-2023 12:57-0500 Heart rate 57 /min Lexa CHRISTIANSEN [facility] 11-02-2023 12:57-0500 Respiratory rate 16 /min Lexa CHRISTIANSEN [facility] 11-02-2023 12:57-0500 Systolic blood pressure 132 mm[Hg] Lexa CHRISTIANSEN [facility] 07-21-2023 14:00-0400 Body height 182.88 cm Giacomo Ragsdale Other [facility] Other 07-21-2023 14:00-0400 Body mass index (BMI) [Ratio] 29.83 kg/m2 Giacomo Ragsdale Other [facility] 07-21-2023 14:00-0400 Body weight 99.79 kg Giacomo Ball Other [facility] Other 07-21-2023 14:00-0400 Diastolic blood pressure 65 mm[Hg] Giacomo Ball Other [facility] Other 07-21-2023 14:00-0400 Respiratory rate 12 /min Giacomo Ball Other [facility] Other 07-21-2023 14:00-0400 Systolic blood pressure 114 mm[Hg] Giacomo Ball Other [facility] Other 01-16-2023 12:00-0400 Body height 182.88 cm Giacomo Ball Other [facility] Other 01-16-2023 12:00-0400 Body mass index (BMI) [Ratio] 30.92 kg/m2 Giacomo Ball Other [facility] Other 01-16-2023 12:00-0400 Body weight 103.42 kg Giacomo Ball Other [facility] Other 01-16-2023 12:00-0400 Diastolic blood pressure 67 mm[Hg] Giacomo Ball Other [facility] Other 01-16-2023 12:00-0400 Respiratory rate 12 /min Giacomo Ball Other [facility] Other 01-16-2023 12:00-0400 Systolic blood pressure 115 mm[Hg] Giacomo Ball Other [facility] Other Encounters Encounter Date Encounter Type Care Provider Facility Start: 05-06-2024 ambulatory Lexa Tejeda ty:[facility] Start: 11-02-2023 End: 11-03-2023 ambulatory Lexa CHRISTIANSEN Facility:[facility] Start: 11-02-2023 End: 11-02-2023 Patient encounter procedure Lexa CHRISTIANSEN [facility] Start: 08-24-2023 End: 08-24-2023 ambulatory Giacomo Jn Other [facility] Other Start: 08-24-2023 Telephone encounter Giacomo Ragsdale [facility] Start: 08-06-2023 End: 08-06-2023 ambulatory Giacomo Ragsdale Other [facility] Other Start: 08-06-2023 Telephone encounter Giacomo Jn [facility] Start: 08-05-2023 End: 08-05-2023 ambulatory Giacomo Ragsdale Other [facility] Other Start: 08-05-2023 Telephone encounter Giacomo Ragsdale [facility] Start: 07-23-2023 End: 07-23-2023 ambulatory Giacomo Ragsdale Other [facility] Other Start: 07-23-2023 Telephone encounter Giacomo Ragsdale [facility] Start: 07-21-2023 End: 07-21-2023 ambulatory Giacomo Ragsdale Other [facility] Other Start: 07-21-2023 Office outpatient visit 25 minutes Giacomo Ragsdale [facility] Start: 06-10-2023 End: 06-10-2023 ambulatory [facility] Start: 05-19-2023 End: 05-20-2023 ambulatory Lexa CHRISTIANSEN Facility:[id number] Start: 05-04-2023 End: 05-05-2023 ambulatory Lexa CHRISTIANSEN Facility:[facility] Start: 04-14-2023 End: 04-14-2023 ambulatory Giacomo Ragsdale Other [facility] Other Start: 04-14-2023 Telephone encounter Giacomo Oh [facility] Start: 01-19-2023 End: 01-19-2023 ambulatory Giacomo Ragsdale Other [facility] Other Start: 01-19-2023 Telephone encounter Giacomo [facility] Start: 01-16-2023 End: 01-16-2023 ambulatory Giacomo Ragsdale Other [facility] Other Start: 01-16-2023 Patient encounter procedure Giacomo Ragsdale [facility] Start: 12-31-2022 End: 01-01-[address] DOCTOR MORE Facility:[facility] Start: 07-02-2022 End: 07-03-[address] DOCTOR MORE Facility:[facility] Start: 06-23-2022 End: 06-24-[address] DOCTOR MORE Facility:[facility] Procedures Date Procedure Procedure Detail Performing Clinician Start: 05-19-2023 Transurethral cystoscopy Lexa CHRISTIANSEN Start: 12-31-[address] DOCTOR MORE Comment on above: Performed By: #### P SAD #### [facility] [address] [place] [address] Dr. Henry Marin Start: 07-02-[address] DOCTOR MORE Comment on above: Performed By: #### P SAD #### [facility] [address] [place] [address] Dr. Henry Marin Start: 03-06-2022 Mixed beam external beam radiation therapy Lexa CHRISTIANSEN Start: 12-12-2021 MRI-US fusion guided transrectal biopsy of prostate Lexa CHRISTIANSEN Start: 11-20-2021 MRI of prostate Lexa CHRISTIANSEN Catheterization of r ight heart Lexa CHRISTIANSEN Prosthetic arthropla sty of the hip Lexa CHRISTIANSEN Immunizations Immunization Date Immunization Notes Care Provider Marquez corral 06-18-2022 COVID-19 Moderna (BIvalent) Giacomo Ragsdale Other [facility] Comment on above: Result Comment: 2022: [id number] 08-04-2021 COVID-19 Vaccine Moderna - Documentation Purposes Only Giacomo Ragsdale Other [facility] 12-19-2020 SARS-CoV-2 (COVID-19 ) Ad26 vaccine, recombinant Lexabruce CHRISTIANSEN [facility] 12-13-2020 COVID-19 Vaccine Moderna - Documentation Purposes Only Giacomo Ragsdale Other [facility] Comment on above: Result Comment: 2022: [id number] 11-15-2020 COVID-19 Vaccine Moderna - Documentation Purposes Only Giacomo Ragsdale Other [facility] Other 11-15-2020 SARS-CoV-2 (COVID-19 ) Ad26 vaccine, recombinant Lexa CHRISTIANSEN [facility] 07-17-2017 diphtheria, tetanus toxoids and acellular pertussis vaccine, unspecified formulation Giacomo Ragsdale Other [facility] Other Payers Date Payer Category Payer Medicare [id number] 1961 Private Health Insurance CLI [id number] 1950 Unknown [id number] 2.16.84 [id number] 1950 Unknown [id number] 2.16.84 [id number] 1950 Unknown [id number] 2.16.84 [id number] 1950 Unknown [id number] 2.16.84 [id number] 1950 Unknown [id number] 2.16.8 [id number] 1950 Unknown [id number] 2.16.8 [id number] 1950 Unknown [id number] 2.16.8 [id number] 1950 Unknown [id number] 2.16.8 [id number] Unknown [id number] [id number]. [id number] Social History Date Type Detail Facility Sex Assigned At [facility] Start: 11-02-2023 Tobacco smoking status Ex-smoker (fi nding) [facility] Tobacco smoking status Never [facility] Functional Status Date Assessment Result Facility 11-02-2023 Functional Status N/A [facility] Clinical Notes 01-16-2023 to 11-02-2023 Note Date & Type Note Facility 11-02-2023 Hospital Discharg e instructions Patient Education 11/02/2023 14:27:57 Clean Intermittent Catheterization, Male Clean Intermittent Catheterization, Male Clean intermittent catheterization (CIC) is a procedure to remove urine from the bladder by placing a small, flexible tube (catheter) into the bladder though the urethra. The urethra is a tube in the body that carries urine from the bladder out of the body. CIC may be done when: You cannot completely empty your bladder on your own. This may be due to a blockage in the bladder or urethra. Your bladder leaks urine. This may happen when the muscles or nerves near the bladder are not working normally, so the bladder overflows. Your health care provider will show you how to perform CIC and will help you to become comfortable performing this procedure at home. Your health care provider will also help you to get the home care supplies that are needed for this procedure. Supplies needed: Germ-free (sterile), water-based lubricant. A container for urine collection. You may also use the toilet to dispose of urine from the catheter. A catheter. Your health care provider will determine the best size for you. ?Use this catheter size: Clean gloves. Soap and water. Towel. How to perform this procedure: Most people need CIC at least 4 times per day to adequately empty the bladder. Your health care provider will tell you how often you should perform CIC. Number of times per day to perform CIC: To perform CIC, follow these steps: 1.Wash your hands with soap and water. If soap and water are not available, use hand iron and steel work supervisor. 2.Clean your penis with soap and water. Dry the tip of your penis completely. 3.Prepare the supplies that you will use during the procedure. Open the catheter package and lubricant. 4.Get in a comfortable position. Possible positions include: Sitting on a toilet, a chair, or the edge of a bed. Standing near a toilet. Lying down with your head raised on pillows and your knees pointing to the ceiling. You may wish to place a waterproof mat or pad under you. 5.If you are using a urine collection container, position it between your legs. 6.Urinate, if you are able. 7.Put on gloves. 8.Apply lubricant to about 2 inches (5 cm) of the tip of the catheter. 9.Set the catheter down on a clean, dry surface within reach. 10.Gently stretch your penis out from your body. Pull back any skin that covers the end of your penis (foreskin). Clean the end of your penis with medicated sterile swabs as told by your health care provider. 11.Hold your penis upward at a 45 60 degree angle. This helps to straighten the urethra. 12.Slowly insert the lubricated catheter straight into your urethra until urine flows freely. This is usually about 6 8 inches (15 20 cm). 13.When urine starts to flow freely, insert the catheter 1 inch (3 cm) more. Allow urine to drain into the toilet or the urine collection container. 14.When urine stops flowing, slowly remove the catheter. 15.Note the color, amount, and odor of the urine. 16.Measure your urine and note the amount, if told by your health care provider. 17.Discard the urine in the toilet. 18.Clean your penis using soap and water. 19.Move the foreskin back in place, if applicable. 20.If you are using a single-use catheter, discard the catheter and supplies. 21.Wash your hands with soap and water. 22.If you are using a reusable catheter, follow package instructions about how to clean the catheter after each use. How often should I perform this procedure? Do CIC to empty your bladder every 4 6 hours or as often as told by your health care provider. If you have symptoms of too much urine in your bladder (overdistension) and you are not able to urinate, perform CIC. Symptoms of overdistension may include: ?Restlessness. ?Sweating or chills. ?Headache. ?Flushed or pale skin. ?Bloated lower abdomen. What are the risks? Generally, this is a safe procedure, however problems may occur, including: Infection. Injury to the urethra. Irritation of the urethra. Follow these instructions at home General instructions Drink enough fluid to keep your urine pale yellow. Dispose of a multiple use catheter when it becomes dry, brittle, or cloudy. This usually happens after you use the catheter for 1 week. Avoid caffeine. Caffeine may make you need to urinate more frequently and more urgently. When traveling, bring extra supplies with you in case of delays. Keep supplies with you in a place that you can access easily. If traveling by plane: ?Make sure that the lubricant in your carry-on bag is less than 3.4 ounces (100 mL). ?Use a single-use catheter. It may be difficult to clean a reusable catheter in a small bathroom. Take iphb-rdm-riacese and prescription medicines only as told by your health care provider. Keep all follow-up visits as told by your health care provider. This is important. Contact a health care provider if you: Have difficulty performing CIC. Have urine leaking during CIC. Have: ?Dark or cloudy urine. ?Blood in your urine or in your catheter. ?A change in the smell of your urine or discharge. ?A burning feeling while you urinate. Feel nauseous or you vomit. Have pain in your abdomen, your back, or your sides below your ribs. Have swelling or redness around the opening of your urethra. Develop a rash or sores on your skin. Get help right away if you have: A fever. Symptoms that do not go away after 3 days. Symptoms that suddenly get worse. Severe pain. A decrease in the amount of urine that drains from your bladder. Summary Clean intermittent catheterization (CIC) is a procedure to remove urine from the bladder by placing a small, flexible tube (catheter) into the bladder though the urethra. Your health care provider will show you how to perform CIC and will help you to become comfortable performing this procedure at home. Most people need CIC at least 4 times per day to adequately empty the bladder. This information is not intended to replace advice given to you by your health care provider. Make sure you discuss any questions you have with your health care provider. Document Revised: 07/28/2022 Document Reviewed: 07/28/2022 [employer] Patient Education 2022 [email or web address] 11/02/2023 14:17:10 Acute Urinary Retention, Male Acute Urinary Retention, Male Acute urinary retention is a condition in which a person is unable to pass urine or can only pass a little urine. This condition can happen suddenly and last for a short time. If left untreated, it can become long-term (chronic) and result in kidney damage or other serious complications. What are the causes? This condition may be caused by: Obstruction or narrowing of the tube that drains the bladder (urethra). This may be caused by surgery, problems with nearby organs, or injury to the bladder or urethra. Problems with the nerves in the bladder. Tumors in the area of the pelvis, bladder, or urethra. Certain medicines. Bladder or urinary tract infection. Constipation. What increases the risk? This condition is more likely to develop in older men. As men age, their prostate may become larger and may start to press or squeeze on the bladder or the urethra. Other chronic health conditions can increase the risk of acute urinary retention. These include: Diseases such as multiple sclerosis. Spinal cord injuries. Diabetes. Degenerative cognitive conditions, such as delirium or dementia. Psychological conditions. A man may hold his urine due to trauma or because he does not want to use the bathroom. What are the signs or symptoms? Symptoms of this condition include: Trouble urinating. Pain in the lower abdomen. How is this diagnosed? This condition is diagnosed based on a physical exam and your medical history. You may also have other tests, including: An ultrasound of the bladder or kidneys or both. Blood tests. A urine analysis. Additional tests may be needed, such as a CT scan, MRI, and kidney or bladder function tests. How is this treated? Treatment for this condition may include: Medicines. Placing a thin, sterile tube (catheter) into the bladder to drain urine out of the body. This is called an indwelling urinary catheter. After it is inserted, the catheter is held in place with a small balloon that is filled with sterile water. Urine drains from the catheter into a collection bag outside of the body. Behavioral therapy. Treatment for other conditions. If needed, you may be treated in the hospital for kidney function problems or to manage other complications. Follow these instructions at home: Medicines Take xiyf-gso-uwzxiah and prescription medicines only as told by your health care provider. Avoid certain medicines, such as decongestants, antihistamines, and some prescription medicines. Do not take any medicine unless your health care provider approves. If you were prescribed an antibiotic medicine, take it as told by your health care provider. Do not stop using the antibiotic even if you start to feel better. General instructions Do not use any products that contain nicotine or tobacco. These products include cigarettes, chewing tobacco, and vaping devices, such as e-cigarettes. If you need help quitting, ask your health care provider. Drink enough fluid to keep your urine pale yellow. If you have an indwelling urinary catheter, follow the instructions from your health care provider. Monitor any changes in your symptoms. Tell your health care provider about any changes. If instructed, monitor your blood pressure at home. Report changes as told by your health care provider. Keep all follow-up visits. This is important. Contact a health care provider if: You have uncomfortable bladder contractions that you cannot control (spasms). You leak urine with the spasms. Get help right away if: You have chills or a fever. You have blood in your urine. You have a catheter and the following happens: ?Your catheter stops draining urine. ?Your catheter falls out. Summary Acute urinary retention is a condition in which a person is unable to pass urine or can only pass a little urine. If left untreated, this condition can result in kidney damage or other serious complications. An enlarged prostate may cause this condition. As men age, their prostate gland may become larger and may press or squeeze on the bladder or the urethra. Treatment for this condition may include medicines and placement of an indwelling urinary catheter. Monitor any changes in your symptoms. Tell your health care provider about any changes. This information is not intended to replace advice given to you by your health care provider. Make sure you discuss any questions you have with your health care provider. Document Revised: 06/12/2021 Document Reviewed: 06/12/2021 [employer] Patient Education 2022 [email or web address]. Follow Up Care 05/04/2023 11:36:31 With:WALLY PERALTA, Lexa Barlow, URL Address: [facility] [address] , [place] [address]- [phone] When: Unknown Comments:f/u in 6 mos w/ PSA [facility] [place] 08-05-2023 Evaluation note Encounter Date Diagnosis Assessment Notes Aug, Paroxysmal atrial fibrillation (ICD-10 - I48.0) Aug, Syncope, unspecified syncope type (ICD-10 - R55) [facility] Other 10-19-2023 Evaluation note* Encounter Date Diagnosis Assessment Notes Treatment Notes Treatment Clinical Notes Jul, Benign prostatic hyperplasia with lower urinary tract symptoms (ICD-10 - N40.1) [facility] Other 10-17-2023 Evaluation note* Encounter Date Diagnosis Assessment Notes Treatment Notes Treatment Clinical Notes Jul, Primary hypertension (ICD-10 - I10) [...] are maintaining regular scheduled 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 No bleeding complications Jul, Hyperlipidemia type II [...] Prostate cancer (ICD-10 - C61) Group 2, [place] 3+4, External beam radiation No s/s recurrence, f/u [employer] Other 09-06-2023 [facility] Subjective Monet Bustillos II is a [...] metoprolol 12.5 mg t (more content not included)...[facility]07-11-2023 Evaluation note* Encounter Date Diagnosis Assessment Notes Treatment Notes Treatment Clinical Notes Apr, Paroxysmal atrial fibrillation (ICD-10 - I48.0) [employer] Other 04-17-2023 Evaluation note* Encounter Date Diagnosis Assessment Notes Treatment Notes Treatment Clinical Notes Jan, Prostate cancer (ICD-10 - C61) Group 2, [place] 3+4, External beam radiation [facility] Other 04-14-2023 Evaluation note* Encounter Date Diagnosis Assessment Notes Treatment Notes Treatment Clinical Notes Jan, Medicare annual wellness visit, subsequent [...] are maintaining regular scheduled 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 Discussed switching Xarelto to Eliquis. Jan, Hyperlipidemia type II (ICD-10 - E78.01) Diet and exercise with continued statin therapy. Jan, Prostate cancer (ICD-10 - C61) Group 2, [place] 3+4, External beam radiation No s/s recurrence. f/u Urology Jan, Obesity (BMI 30.0-34.9) (ICD-10 - E66.9) This patient has been instructed on a low-fat, high-fiber diet. They are instructed to reduce calories, portion sizes and snacks. It is recommended that they exercise for 30 minutes, 3-5 times weekly. Jan, Benign prostatic hyperplasia with lower urinary tract symptoms (ICD-10 - N40.1) Jan, Nocturia (ICD-10 - R35.1) Jan, Colon cancer screening declined (ICD-10 - Z53.20) [facility] Other Evaluation + Plan note Future Appointments Appointment Date:05/06/2024 08:00:00 AM Scheduled Provider:Lexa CHRISTIANSEN MD Location:[facility] Appointment Type:URO Office Visit Diagnostic Tests Pending * PSA Total 11/02/23 [facility] evaluation noteNo Information[employer] Other History general Narrative - Reported* Type Description Date Medical History Prostate cancer Medical History Obesity Medical History Paroxysmal atrial fibrillation Medical History Benign prostatic hyp erplasia with lower urinary tract symptoms Medical History Primary localized osteoarthritis of left hip Medical History Hyperlipidemia type II Medical History History of total left hip replac ement Medical History FRANCIS (generalized anxiety disorde r) Medical History High risk medication use Medical History Lumbar spondylosis Medical History Acute non-recurrent maxillary si nusitis Medical History Acute bronchitis due to other sp ecified organisms Surgical History BIOPSY OF PROSTATE U SING MRI-ULTRASOUND FUSION GUIDANCE Surgical History LEFT TOTAL HIP ARTHROPLASTY 2019 Surgical History RIGHT TIB FIB FIXATION 2006 Surgical History [facility] 11/2015 Hospitalization History see surgical history [facility] Other Histipl general Narrative - Reported* Type Description Date Medical History Prostate cancer Medical History Obesity Medical History Paroxysmal atrial fibrillation Medical History Benign prostatic hyp erplasia with lower urinary tract symptoms Medical History Primary localized osteoarthritis of left hip Medical History Hyperlipidemia type II Medical History History of total left hip replac ement Medical History FRANCIS (generalized anxiety disorde r) Medical History High risk medication use Medical History Lumbar spondylosis Medical History Acute non-recurrent maxillary si nusitis Medical History Acute bronchitis due to other sp ecified organisms Surgical History BIOPSY OF PROSTATE U SING MRI-ULTRASOUND FUSION GUIDANCE Surgical History LEFT TOTAL HIP ARTHROPLASTY 2019 Surgical History RIGHT TIB FIB FIXATION 2006 Surgical History [facility] 11/2015 Surgical History Cystoscopy 05/2023 Hospitalization History see surgical history [facility] Other Hospital course Narrative No data available for this section [facility] progress note No data available for this section [facility] Summary Purpose Family History No Family History Records FoundNo Family History Records FoundNo Family History Records Found No data available for this section No Family History Records Found Advance Directives No Advanced Directives Records FoundNo Advanced Directives Records FoundNo Advanced Directives Records FoundNo Advanced Directives Records Found Additional Source Comments (unrecognized sect ion and content) No Status Records FoundNo Status Records FoundNo Status Records FoundNo Status Records Found INFORMATION SOURCE (unrecogn ized section and content) DATE CREATED AUTHOR 12/23/2021 [facility] DATE CREATED AUTHOR AUTHOR'S ORGANIZ ATION 01/03/2023 [facility] [place] [facility] DATE CREATED AUTHOR AUTHOR'S ORGANIZ ATION 06/11/2023 [facility] DATE CREATED AUTHOR AUTHOR'S ORGANIZ ATION 11/03/2023 [facility] REASON FOR VISIT (unrecogniz ed section and content) wellnessNo InformationSwitch ing to Eliquis6 month Follow upLab resultsNo InformationNo InformationHolter resultsEcho results Patient Care team informatio n (unrecognized section and content) Personnel Name: GIACOMO RAGSDALE DO Address: Address: [address] [facility] [place], [place] [address] FOR RECORDS PERTAINING TO PATIENTS WHO ARE [...] BE BASED ON THE PRIMARY CLINICAL RECORDS. [facility] provides no warranty or guarantee of the accuracy or completeness of information in this document.
[2023-11-04 17:35] LABS: Basophils Percent Auto 0.6 % (0.2-2.0); Eosinophils Absolute Auto 0.1 10^3/uL (0.0-0.7); Eosinophils Percent Auto 2.3 % (0.9-7.0); Hematocrit 43.5 % (42.0-54.0); Hemoglobin 14.8 g/dL (14.0-18.0); Immature Granulocytes Abs Auto 0.01 10^3/uL (0.00-0.03); Immature Granulocytes Pct Auto 0.2 % (0.0-0.5); Lymphocytes Absolute Auto 1.7 10^3/uL (1.2-3.8); Lymphocytes Percent Auto 31.6 % (20.5-60.0); Mean Corpuscular Hemoglobin 32.1 pg (25.9-34.0); Mean Corpuscular Volume 94.4 fL (80.0-94.0); Mean Platelet Volume 10.6 fL (9.5-13.5); Monocytes Absolute Auto 0.7 10^3/uL (0.3-0.8); Monocytes Percent Auto 12.8 % (1.7-12.0); Neutrophils Absolute Auto 2.7 10^3/uL (1.4-6.5); Neutrophils Percent Auto 52.5 % (43.0-75.0); Platelet Count 131 10^3/uL (150-450); Red Blood Count 4.61 10^6/uL (4.70-6.10); Red Cell Distribution Width 13.3 % (11.0-15.0); White Blood Count 5.2 10^3/uL (4.0-11.0)
== END 2023-11-04 16:52 | disposition home or self-care (01) ==
PROVIDERS: PCP Internal Medicine; Visit Provider Internal Medicine
DX: K62.5 Hemorrhage of anus and rectum (principal)
CPT/HCPCS: 36415; 85025

== ENCOUNTER 2024-01-13 12:14 | Outpatient (OUT) | payer MEDICARE, SELFPAY ==
[2024-01-13 14:16] LABS: Alanine Aminotransferase 19 U/L (16-63); Albumin Globulin Ratio 1.2; Albumin Level 3.6 g/dL (3.4-5.0); Alkaline Phosphatase 74 U/L (46-116); Aspartate Amino Transferase 18 U/L (15-37); BUN Creatinine Ratio 11.6; Bilirubin Total 1.7 mg/dL (0.2-1.0); Calcium 9.2 mg/dL (8.5-10.1); Carbon Dioxide 25.6 mmol/L (21.0-32.0); Chloride 105 mmol/L (98-107); Chol HDL Ratio 2.6; Cholesterol 155 mg/dL (<=200); Estimated GFR (African America >60 (>=60); Estimated GFR (Non-African Ame >60 (>=60); Globulin 3.1 g/dL; Glucose 97 mg/dL (74-106); HDL Cholesterol 59 mg/dL (40-60); LDL Cholesterol Calculated 84.8 mg/dL; Potassium 4.6 mmol/L (3.5-5.1); Sodium 140 mmol/L (136-145); Total Protein 6.7 g/dL (6.4-8.2); Triglycerides 56 mg/dL (<=150); VLDL CHOLESTEROL 11.2 mg/dL
[2024-01-13 14:39] LABS: Prostate Specific Antigen Scrn 0.24 ng/mL (<=4.00)
[2024-01-13 14:44] LABS: Basophils Percent Auto 0.7 % (0.2-2.0); Eosinophils Absolute Auto 0.1 10^3/uL (0.0-0.7); Eosinophils Percent Auto 2.4 % (0.9-7.0); Hematocrit 44.1 % (42.0-54.0); Hemoglobin 14.8 g/dL (14.0-18.0); Lymphocytes Absolute Auto 1.5 10^3/uL (1.2-3.8); Lymphocytes Percent Auto 32.5 % (20.5-60.0); Mean Corpuscular HGB Conc 33.6 g/dL (29.9-35.2); Mean Corpuscular Volume 95.2 fL (80.0-94.0); Monocytes Absolute Auto 0.7 10^3/uL (0.3-0.8); Monocytes Percent Auto 14.7 % (1.7-12.0); Neutrophils Absolute Auto 2.3 10^3/uL (1.4-6.5); Neutrophils Percent Auto 49.7 % (43.0-75.0); Platelet Count 133 10^3/uL (150-450); Red Blood Count 4.63 10^6/uL (4.70-6.10); Red Cell Distribution Width 13.2 % (11.0-15.0); White Blood Count 4.6 10^3/uL (4.0-11.0)
== END 2024-01-13 12:15 | disposition home or self-care (01) ==
LOC: LAB 12:14
PROVIDERS: PCP Internal Medicine; Visit Provider Internal Medicine
DX: E78.00 Pure hypercholesterolemia, unspecified (principal); I10 Essential (primary) hypertension; I48.0 Paroxysmal atrial fibrillation; Z79.01 Long term (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 of anticoagulants; Z12.5 Encounter for screening for malignant neoplasm of prostate
CPT/HCPCS: 36415; 80053; 80061; 85025; G0103

== ENCOUNTER 2024-04-04 16:44 | Outpatient (OUT) | payer MEDICARE, SELFPAY ==
--- NOTE | 2024-04-04 16:48 | XR_ITS ---
The [address] [address] Patient Name: MONET LOPEZ MRN: [id number] date: 1950 Sex: M Assigned Patient Location: [facility] Current Patient Location: Accession/Order Number: [id number] Exam Date: 04/04/2024 16:49 Report Date: 04/06/2024 06:52 At the request of: MARI TAMEZ Procedure: XR chest 2V EXAMINATION: XR chest 2V HISTORY: Cough R05.9 COMPARISON: XR chest 12/05/2021 FINDINGS: LUNGS: No significant pulmonary parenchymal abnormalities. VASCULATURE: No increased pulmonary vasculature. PLEURA: No pneumothorax, effusion, or pleural thickening. CARDIAC: No cardiomegaly or cardiac silhouette abnormality. MEDIASTINUM: No visible mass or adenopathy. BONES: No fracture or visible bone lesion. OTHER: Negative. XR/XR chest 2V IMPRESSION: 1. No appreciable acute cardiopulmonary process. 2. Stable mild chronic interstitial changes. Electronically authenticated by: BRIGIDA RANGEL Date: 04/06/2024 06:52
--- OUTSIDE RECORDS SUMMARY | 2024-04-04 16:50 | XMS_ITS | CCD ---
Author Organization [facility] Care Team Providers Care Music Supervisor Name Role Phone ROSALVAC, DOCTOR Admitting Unavailable MISC, DR BRADEN Attending Unavailable [...] Unavailable BALL, DR GUERRA Primary Care Unavailable Jn, Giacomo Unavailable MYA JOHNSON Attending Unavailable BALL, GIACOMO Primary Care Physician Lexa CHRISTIANSEN Attending Unavailable CHRISTIANSEN, Lexa Barlow Attending Unavailable CHRISTIANSEN, Lexa Barlow Attending Unavailable CHRISTIANSEN, Lexa Barlow Attending Unavailable CHRISTIANSEN, Lexa Barlow Attending Unavailable CHRISTIANSEN, Lexa R Attending Unavailable CHRISTIANSEN, Lexa R Attending Unavailable CHRISTIANSEN, Lexa Barlow Admitting Unavailable CHRISTIANSEN, Lexa Barlow Attending Unavailable NILL, Yadiel Barlow Attending Unavailable BALL, GIACOMO Referring Unavailable JR. MIKA, MYA Kwan Attending Unavaila ble JR. MIKA, MYA Kwan Referring Unavaila ble Allergies Allergy Classification Reported Allergen(s) Allergy Type Date of Onset Reaction(s) Facility (9 sources) Penicillins; Translations: [PENICILLINS] Drug allergy (disorder) 6 Vomiting (disorder), Moderate (severity modifier) (qualifier value) [facility] Repository (3 sources) Penicillin Drug Allergy Unknown blinkbox music Other (8 sources) Substance with penicillin structure and antibacterial mechanism of action (substance) Drug allergy Comment:Azalea white blinkbox music Other Medications Current Medications Medication Drug Class(es) Dates Sig (Normalized) Sig (Original) apixaban 5 mg oral tablet (14 sources) Factor Xa Inhibitor Start: 04-14-2023 take 1 tablet by mouth twice daily Eliquis 5 mg oral tablet 5 mg = 1 tab(s), Oral, BID, Refills(s) 0 Start Date: 05/04/23 Status: Ordered atorvastatin 10 mg oral tablet (20 sources) HMG-CoA Reductase Inhibitor Start: 12-24-2020 take 1 tablet by mouth once daily atorvastatin 10 mg Tab 10 mg = 1 tab(s), Oral, Daily, Refills(s) 0 Start Date: 12/24/20 Status: Ordered doxycycline hyclate 100 mg oral capsule (5 sources) Tetracycline-cla ss Drug Start: 12-07-2023 take 1 capsule by mouth once daily at mealtime doxycycline hyclate 100 mg Cap 100 mg = 1 cap(s), Oral, Daily, may take with food to minimize abdominal discomfort, # 30 cap(s), Refills(s) 0, Pharmacy: [facility] [id number], 187, cm, 11/02/23 13:01:00 EST, Height/Length Dosing, 101, kg, 11/02/23 13:01:00 EST, Weight Dosing Start Date: 12/07/23 Status: Ordered Start: 11-02-2023 End: 12-02-2023 take 1 capsule by mouth once daily doxycycline hyclate 100 mg Cap 100 mg = 1 cap(s), Oral, Daily, X 30 day(s), # 30 cap(s), Refills(s) 0, Pharmacy: [facility] [id number], 187, cm, 11/02/23 13:01:00 EST, Height/Length Dosing, 101, kg, 11/02/23 13:01:00 EST, Weight Dosing Start Date: 11/02/23 Stop Date: 12/02/23 Status: Ordered finasteride 5 mg oral tablet (16 sources) 5-alpha Reductase Inhibitor Start: 10-31-2022 End: 10-27-2024 take 1 tablet by mouth once daily finasteride 5 mg Tab 5 mg = 1 tab(s), Oral, Daily, X 90 day(s), # 90 tab(s), Refills(s) 3, Pharmacy: [facility], 187, cm, 11/02/23 13:01:00 EST, Height/Length Dosing, 101, kg, 11/02/23 13:01:00 EST, Weight Dosing Start Date: 11/02/23 Stop Date: 10/27/24 Status: Ordered levoFLOXacin 500 mg oral tablet (2 sources) Quinolone Antimicrobial Start: 12-14-2023 End: 12-28-2023 take 1 tablet by mouth every twenty-four hours Levaquin 500 mg Tab 500 mg = 1 tab(s), Oral, q24hr, X 14 day(s), # 14 tab(s), Refills(s) 0, Pharmacy: [facility] [id number], 187, cm, 12/14/23 10:52:00 EDT, Height/Length Dosing, 101, kg, 12/14/23 10:52:00 EDT, Weight Dosing Start Date: 12/14/23 Stop Date: 12/28/23 Status: Ordered lidocaine hydrochloride 0.02 mg/mg topical gel (3 sources) Antiarrhythmic, Amide Local Anesthetic Start: 11-30-2023 apply 0.1 g topically once lidocaine Top 2% Gel w/Appl 30 mL 0.1 gm, 5 mL, Topical, Once, 30 mL, Refill(s) 2, Apply topically prior to cathing, [facility] [id number], 187, cm, 11/02/23 13:01:00 EST, Height/Length Dosing, 101, kg, 11/02/23 13:01:00 EST, Weight Dosing Start Date: 11/30/23 Status: Ordered metoprolol tartrate 25 mg oral tablet (20 sources) beta-Adrenergic Jay Start: 11-27-2023 take 1 tablet by mouth twice daily Metoprolol tartrate 25 mg Tab 25 mg = 1 tab(s), Oral, BID, Refills(s) 0 Start Date: 11/27/23 Status: Ordered Start: 10-27-2022 take 1 tablet by tanvir th every twelve hours Metoprolol Tartrate 25 MG 1 tablet with food Orally Twice a day Oct, Active Start: 10-12-2019 take 1 mg by mouth once daily metoprolol 25 mg ER Tab mg tab(s), Oral, Daily, Refills(s) 0 Start Date: 10/12/19 Status: Ordered Multi Vitamin+ (5 sources) Start: 10-12-2019 Multi Vitamin+ Refill(s) 0 Start Date: 10/12/19 Status: Ordered rivaroxaban (20 sources) Factor Xa Inhibitor Start: 10-27-2022 Xarelto 20 20 Once Orally Once a day Oct, Active take 1 tablet by tanvir every twenty-four hours Xarelto 20 MG 1 tablet with food Orally Once a day Active tamsulosin hydrochloride 0.4 mg oral capsule (20 sources) alpha-Adrenergic Jay Start: 11-02-2023 take 1 capsule by mouth twice daily Flomax 0.4 mg Cap 0.4 mg = 1 cap(s), Oral, BID, # 180 cap(s), Refills(s) 3, Pharmacy: [facility], 187, cm, 11/02/23 13:01:00 EST, Height/Length Dosing, 101, kg, 11/02/23 13:01:00 EST, Weight Dosing Start Date: 11/02/23 Status: Ordered Start: 10-27-2022 take 1 capsule by [facility] [place] every twenty-four hours Tamsulosin HCl 0.4 MG 1 capsule Orally Once a day Oct, Active telmisartan 40 mg oral tablet (20 sources) Angiotensin 2 Receptor Jay Start: 10-27-2022 take 1 tablet by mouth once daily telmisartan 40 mg Tab 40 mg = 1 tab(s), Oral, Daily, Refills(s) 0 Start Date: 05/04/23 Status: Ordered Problems Problem Classification Problem Date Documented Da te Episodic/Chronic Acute bronchitis (11 sources) Acute bronchitis; Translations: [Acute bronchitis due to other specified organisms] Episodic Anal and rectal conditions (1 source) Radiation proctitis Episodic Anxiety disorders (14 sources) Generalized anxiety disorder; Translations: [Generalized anxiety disorder] 11-27-2023 Chronic Cancer of prostate (20 sources) Malignant neoplasm of prostate; Translations: [Carcinoma of prostate] Onset: 12-31-2022 Chronic Cardiac dysrhythmias (20 sources) Paroxysmal atrial fibrillation; Translations: [Paroxysmal atrial fibrillation] Onset: 06-10-2023 Chronic Disorders of lipid metabolism (17 sources) Familial hypercholesterolemia ; Translations: [Pure hypercholesterolemia ] Onset: 01-01-2023 Chronic Essential hypertension (20 sources) Essential (primary) hypertension; Translations: [Essential hypertension] Onset: 01-01-2023 Chronic Gastrointestinal hemorrhage (1 source) Hemorrhage of anus and rectum Episodic Genitourinary symptoms and ill-defined conditions (19 sources) Nocturia; Translations: [Nocturia] Onset: 11-02-2023 Episodic Hyperplasia of prostate (20 sources) Lower urinary tract symptoms due to benign prostatic hypertrophy; Translations: [Benign prostatic hyperplasia with lower urinary tract symptoms] Onset: 11-02-2023 Chronic Inflammatory conditions of male genital organs (3 sources) Prostatitis; Translations: [Inflammatory disease of prostate, unspecified] Onset: 12-14-2023 Episodic Osteoarthritis (11 sources) Localized, primary osteoarthritis of the pelvic region and thigh; Translations: [Unilateral primary osteoarthritis, left hip] Chronic Other aftercare (1 source) Other care home (current) drug therapy; Translations: [OTH LONGTERM CURRENT DRUG THERAPY] Onset: 01-01-2023 Episodic Other aftercare (11 sources) H/O: high risk medication; Translations: [Other care home (current) drug therapy] Episodic Other aftercare (2 sources) Long-term current use of anticoagulant; Translations: [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 (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 of anticoagulants] Episodic Other aftercare (1 source) 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 helper (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 of anticoagulants Episodic Other connective tissue disease (11 sources) History of total replacement of left hip joint; Translations: [Presence of left artificial hip joint] Chronic Other male genital disorders (7 sources) Male erectile dysfunction, unspecified; Translations: [Erectile dysfunction] Onset: 11-02-2023 Chronic Other nutritional; endocrine; and metabolic disorders (11 sources) Obese class I; Translations: [Obesity, unspecified] Chronic Other nutritional; endocrine; and metabolic disorders (1 source) Obesity, unspecified Chronic Other nutritional; endocrine; and metabolic disorders (3 sources) Obesity 11-27-2023 Chronic Other screening for suspected conditions (not mental disorders or infectious disease) (9 sources) Encounter for screening, unspecified; Translations: [Raised prostate specific antigen] Onset: 06-23-2022 Episodic Other upper respiratory infections (11 sources) Acute maxillary sinusitis; Translations: [Acute maxillary sinusitis, unspecified] Episodic Residual codes; unclassified (1 source) Procedure and treatment not carried out because of patient's decision for unspecified reasons Episodic Spondylosis; intervertebral disc disorders; other back problems (14 sources) Lumbar spondylosis; Translations: [Spondylosis without myelopathy or radiculopathy, lumbar region] 11-27-2023 Chronic Syncope (2 sources) Syncope and collapse Episodic Unclassified (5 sources) Asymptomatic microscopic hematuria 05-04-2023 Unclassified (5 sources) Drug therapy finding 10-17-2019 Results Test Name Value Interpretation Reference Range Facil ity Retail - Clinical Noteon Retail - Clinical Note [id number] .00TIFF Normal [facility] Retail - Clinical Noteon Retail - Clinical Note [id number] .00TIFF Normal [facility] C Urineon 12-16-2023 Bacteria identified Cx Nom (U) Microbiology PROCEDURE: Urine Culture [R1] SOURCE: U Cath BODY SITE: COLLECTED DATE/TIME: 12/14/2023 10:54 EDT RECEIVED DATE/TIME: 12/14/2023 17:56 EDT START DATE/TIME: 12/14/2023 17:56 EDT FREE TEXT SOURCE: mora CHRISTIANSEN MD, Lexa CHRISTIANSEN MD, Lexa Barlow FINAL REPORTS Final Report [] Verified Date/Time: 12/16/2023 09:41 EDT >100,000 cfu/ml Klebsiella pneumoniae SUSCEPTIBILITY RESULTS LEGEND: S=Susceptible, N/R=Not Reported, Blank=Data not available, or drug not advisable or tested, I=Intermediate, ESBL=Extended spectrum beta-lactamase, R=Resistant, TFG=Thymidine-depende nt strain, BARNEY=Beta-lactamase positive, LILLY=mcg/m;(mg/L), S*=Predicted susceptible interp, R*=Predicted resistant interp Klepne Antibiotic LILLY Dilutn LILLY Interp Amikacin <=16 S Ampicillin >16 R Ampicillin/ >16/8 R Sulbactam Aztreonam <=4 S Cefazolin 8 S Cefepime <=2 S Cefoxitin 16 I Ceftazidime <=1 S Ceftazidime/ <=8 S Avibactam Ceftriaxone <=1 S Ciprofloxacin <=1 S Ertapenem <=0.5 S Gentamicin <=4 S Levofloxacin <=2 S Meropenem <=1 S Nitrofurantoin >64 R Piperacillin/ <=16 S Tazobactam Tetracycline >8 R Tigecycline <=2 S Tobramycin <=4 S Trimethoprim/ <=2/38 S Sulfa Performing Locations R1: This test was performed at: [facility], [address] [place] [address], [id number] , , [facility] Comment on above: Performed By: #### [id number] ####[facility] [id number] [place] [address] Ambulatory Visit Summaryon 0 12-14-2023 Ambulatory Visit Summary MONET BUSTILLOS :1950 Visit Date:12/14/2023 Ambulatory Visit Instructions Your Diagnosis Urinary retention Prostatitis BPH with urinary obstruction Prostate cancer Asymptomatic microscopic hematuria Erectile dysfunction Your Care Team Attending Physician - KULDIP PERALTA, Lexa Barlow Primary Care Physician - GIACOMO RAGSDALE DO This Is Your Medications List levofloxacin (Levaquin 500 mg Tab) Contact prescribing physician if questions or concerns apixaban (Eliquis 5 mg oral tablet) atorvastatin (atorvastatin 10 mg Tab) doxycycline (doxycycline hyclate 100 mg Cap) finasteride (finasteride 5 mg Tab) lidocaine topical (lidocaine Top 2% Gel w/Appl 30 mL) metoprolol (Metoprolol tartrate 25 mg Tab) multivitamin (Multi Vitamin+) tamsulosin (Flomax 0.4 mg Cap) telmisartan (telmisartan 40 mg Tab) Procedures Performed Cystoscopy (05/19/2023), Mixed beam EBRT (external beam radiation therapy) (03/06/2022), MRI-US fusion guided transrectal biopsy of prostate (12/12/2021), MRI of prostate (11/20/2021), Catheterization of right heart, Closed fracture of tibia AND fibula, Hip replacement. Discharge Vitals Height 187 cm Height 74 in Weight 101 kg Weight 222.2 lb BMI 28.88 What to do next Scheduled Follow-Up Appointments Thursday 8:00 AM EDT With: KULDIP PERALTA, Lexa Barlow Where: [facility] Patient Educationon 12-14-19 Patient Education Urology Indwelling Urinary Catheter Insertion, Care After This sheet gives you information about how to care for yourself after your procedure. Your health care provider may also give you more specific instructions. If you have problems or questions, contact your health care provider. What can I expect after the procedure? After the procedure, it is common to have: ? Slight discomfort around your urethra where the catheter enters your body. Follow these instructions at home: General instructions ? Keep the drainage bag at or below the level of your bladder. By doing this, your urine can only drain out instead of going back into your body. ? Secure the catheter tubing and drainage bag to your leg or thigh to keep it from moving. ? Check the catheter tubing regularly to make sure there are no kinks or blockages. ? Take showers daily to keep the catheter clean. Do not take a bath. ? Do not pull on your catheter. ? Disconnect the tubing and drainage bag as little as possible. ? Empty the drainage bag every 2?4 hours, or more often if needed. Do not let the bag get completely full. ? Wash your hands with soap and water before and after touching the catheter, tubing, or drainage bag. ? Do not let the drainage bag or catheter tubing touch the floor. ? Drink enough fluids to keep your urine pale yellow, or as told by your health care provider. How to remove the catheter Remove the catheter only if told by your health care provider. Follow instructions from your health care provider about when and how to remove the catheter. For most catheters, you will need to take the following steps: 1. Prepare your supplies. You will need a: ? Syringe. This would be given to you by your health care provider. ? Towel. ? Wastebasket. 2. Empty the drainage bag if needed. 3. Wash your hands with soap and warm water. 4. Remove the tape that secures the catheter to your leg or thigh. 5. Get into a comfortable position, such as: ? Lying down with your head raised on pillows and your knees pointing to the ceiling. ? Sitting on a chair or the edge of a bed. 6. Place the towel under you to catch any spilled urine. 7. Put the syringe into the balloon port of the catheter. Use a firm push and twist motion to fit the syringe into the balloon port. 8. The water from the balloon will empty into the syringe. 9. Gently pull out the catheter once the balloon is empty. ? If the catheter doesn't slide easily, do not use force. Let your health care provider know that you are not able to remove the catheter. 10. Throw the used catheter and the syringe in the wastebasket. 11. Wipe any spilled urine or water with the towel. 12. Wash your hands with soap and warm water. Safety Let your health care provider know if: ? Your bladder is full, but you are not able to urinate. ? You have removed the catheter, but you are not able to urinate after 8 hours. Contact a health care provider if: ? Your urine: ? Looks cloudy. ? Has a bad smell. ? Stops flowing into the drainage bag. ? Your catheter: ? Gets clogged. ? Starts to leak. ? You feel pain or pressure in the bladder area. ? You have back pain. ? Your drainage bag or tubing looks dirty. Get help right away if: ? You have a fever or chills. ? You have severe pain in your back or your lower abdomen. ? You have warmth, redness, swelling, or pain in the urethra area. ? You notice blood in your urine. ? Your catheter gets pulled out. Summary ? Wash your hands with soap and water before and after touching the catheter, tubing, or drainage bag. ? Do not pull on your catheter or try to remove it. ? Keep the drainage bag at or below the level of your bladder, but do not let the drainage bag or catheter tubing touch the floor. ? Get help right away if you have a fever, chills, or any other signs of infection. This information is not intended to replace advice given to you by your health care provider. Make sure you discuss any questions you have with your health care provider. Document Revised: 12/11/2021 Document Reviewed: 09/06/2021 [employer] Patient Education ? 2021 [employer]. Indwelling Urinary Catheter Insertion For people with certain conditions, urine is not able to move normally through the urethra. The urethra is the part of the body that drains urine from the bladder. An indwelling urinary catheter may be needed if you have urinary retention problems or bladder obstruction. It may also be needed during and after surgical procedures and for other medical conditions. An indwelling urinary catheter is a thin, germ-free (sterile) tube that is placed into the bladder through the urethra to help drain urine out of the body. After the catheter is inserted, it is held in place by a small balloon on the catheter. The small balloon is filled with sterile water. Urine d (more content not included)... Normal [facility] Urology Office/Clinic Noteon 12-14-2023 Urology Office/Clinic Note Chief Complaint uti symptoms-retention HPI Staff Patient here today for UTI symptoms ongoing since thursday- Abdomen pain, fever( on Thursday and Thu), states that patient has been having pinkish urine when he self caths and intermittent burning when he urinates on his own. also stated that the only catheter that has been working for them is the red rubber coude cath. Patient does take doxycycline 100mg qd and states she has been having him take it BID since symptoms started. PVR today IO was 575ml History of Present Illness Tests reviewed: reviewed UA, PVRs I have reviewed the previous health [...] See HPI. Physical Exam Vitals & Measurements HT: 74 in HT: 187 cm WT: 101 kg WT: 222.2 lb BMI: 28.88 General Appearance: alert, no distress, well nourished, well developed male. Genitourinary: normal scrotum, normal testes, normal urethra, normal epididymis, normal vas deferens/spermatic cord. Flank Pain: none. Bladder: nonpalpable. 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 1. Urinary retention (R33.9: Retention of urine, unspecified) MICHELLE 06/10/23 [facility] - Large urinary bladder volume 839mL. No hydro. Not a candidate for operative intervention due to increased risk with hx of radiation. PVR (cc): 11/02/23 - >759, >450 after voiding again 11/16/23 - 609 12/14/23 - 575 Given doxycycline 100mg qd #30 at last OV due to starting CIC to prevent infection. Pt's has been doing CIC. Had difficulty using 16 Fr coude catheters supplied so switched to rubber coude catheter. Did have some blood in urine, likely due to resistance with CIC. Reports they ran out of catheters over the weekend and were unable to obtain any. PVR today 575 mL. Advised pt that he is not emptying well and will require catheterization. Discussed placing Vaughn catheter for a few weeks to prevent renal failure. Pt agrees to proceed. The Vaughn was placed in the office today with no difficulties, and flushes appropriately to ensure proper placement. -Increase water intake - to remove catheter in 2 wks then restart CIC 2. Prostatitis (N41.9: Inflammatory disease of prostate, unspecified) Had a fever this past Thursday. Has been having frequency and burning with urination over the past 4 days. Pt was already taking doxycycline 100mg qd for CIC. states she increased dosage to bid. UA today shows large blood, large leuks, and positive nitrites. Discussed he likely has prostatitis. Will need to consider other abx given UTI sxs have not subsided. Has been drinking cranberry juice and water. Recommended pt to increase water intake to 10 bottles per day as urine is concentrated. -Urine sample sent for culture. -Take Levaquin 500mg q24hr x14 days. Rx sent to [place]. SEs discussed. Pt to stop and call our office if he experiences any SEs. -Increase water intake 3. BPH with urinary obstruction (N40.1: Benign prostatic hyperplasia with lower urinary tract symptoms) Taking Finasteride 5mg QD and Tamsulosin 0.4mg BID. -See #1 [1] 4. Prostate cancer (C61: Malignant neoplasm of prostate) PSA 10/17/21 - 2.6 (Finasteride 5.2) 07/02/22 - 0.87 (Finasteride 1.74) 12/30/22 - 0.47 (Finasteride 0.94) 04/20/23 - 0.36 (Finasteride 0.72) 10/26/23 - 0.24 (Finasteride 0.48) MRI fusion Bx done 12/12/21 shows 80% of 4 cores POS w/Sudheer 3+4= 7 w/perineural invasion.[ Pt saw Dr. Alanis at [facility] for radiation treatment for 4-6 weeks (pt is unsure how long) which was completed in 03/2022. [2] -PSA in 5 mos 5. Asymptomatic microscopic hematuria (R31.21: Asymptomatic microscopic hematuria) S/p Cysto 05/19/23 - no bladder tumors. MICHELLE 06/10/23 [facility] - neg for stones. -See #1 and 2 6. Erectile dysfunction (N52.9: Male erectile dysfunction, unspecified) Secondary to prostate radiation treatment. Not of concern. [3] Follow-up With When Contact Information KULDIP PERALTA, Lexa Barlow, URL [facility] [address], [place] [address] [phone] Additional Instructions: pt to call w/ update Patient Education Indwelling Urinary Catheter Insertion, Care After Indwelling Urinary Catheter Insertion IColleen, personally scribed for Dr. Christiansen on 12/14/2023 11:44:53. Electronically signed by ed (more content not included)... Normal [facility] Comment on above: Result Comment: Elec tronically Signed By: Lexa CHRISTIANSEN MD\.br\Date and Time Signed: 12/14/23 11:46 EDT\.br\Electronically Co-Signed By: Colleen Souza\.br\Date and Time Co-Signed: 12/14/23 11:45 EDT Retail - Clinical Noteon Retail - Clinical Note [id number] .00TIFF Normal [facility] Urology Office/Clinic Noteon 12-09-2023 Urology Office/Clinic Note Chief Complaint 6m PSA [...] 12/12/21 shows 80% of 4 cores POS w/Pryor 3+4= 7 w/perineural invasion.[ Pt saw Dr. Alanis at [facility] for radiation treatment for 4-6 [...] of concern. Follow-up With When Contact Information KULDIP PERALTA, Lexa Barlow, [facility] 2 (more content not included)... Normal [facility] Comment on above: Result Comment: Elec tronically Signed By: Aleena Akins\Date and Time Signed: 12/09/23 15:45 EST Pre-Certification Formon Pre-Certification Form [id number] .00TIFF [facility] Ambulatory Visit Summaryon 0 12-07-2023 Ambulatory Visit Summary MONET BUSTILLOS :1950 Visit Date:12/07/2023 Ambulatory Visit Instructions Your Diagnosis Urinary retention Your Care Team Attending Physician - Lexa CHRISTIANSEN MD Primary Care Physician - GIACOMO RAGSDALE DO This Is Your Medications List apixaban (Eliquis 5 mg oral tablet) atorvastatin (atorvastatin 10 mg Tab) doxycycline (doxycycline hyclate 100 mg Cap) finasteride (finasteride 5 mg Tab) lidocaine topical (lidocaine Top 2% Gel w/Appl 30 mL) metoprolol (Metoprolol tartrate 25 mg Tab) multivitamin (Multi Vitamin+) tamsulosin (Flomax 0.4 mg Cap) telmisartan (telmisartan 40 mg Tab) Procedures Performed Cystoscopy (05/19/2023), Mixed beam EBRT (external beam radiation therapy) (03/06/2022), MRI-US fusion guided transrectal biopsy of prostate (12/12/2021), MRI of prostate (11/20/2021), Catheterization of right heart, Closed fracture of tibia AND fibula, Hip replacement. What to do next Scheduled Follow-Up Appointments Thursday 8:00 AM EDT With: Lexa CHRISTIANSEN MD Where: [facility] Physician Referralon 024 Physician Referral [id number] .[id number] [facility] Patient Educationon 11-02-19 24 Patient Education Urology [...] and water are not available, use hand technology professional. 2. Clean your penis with soap and [...] catheter in a small bathroom. ? Take kmsv-byx-ackispb and prescription medicines only as told by your he (more content not included)... Normal [facility] Lab Reportson 10-27-2023 Lab Reports [id number]. 00TIFF Normal [facility] RAD - Ultrasound Reporton RAD - Ultrasound Report [id number]. 00CD:127 Normal [facility] Office Visiton 06-10-2023 Follow-up visit [id number] Monet Bustillos II 1950 M Date Provider Department Center 06/10/2023 Betito-MYA JOHNSON [facility] [place] Family History Problem Relation Age of Onset Alzheimer's disease Father Family Status - Relation Status Age at Father Level of Service:98133 GA OFFICE/OUTPATIENT ESTABLISHED LOW MDM 20-29 MIN Reason for Visit and Comments: Follow-up [657883] - F/U 1 year Normal [facility] Operative Reporton Operative Report [id number]# 1.00CD:127 [facility] Consent for Procedure/Surger yon 05-05-2023 Consent for Procedure/Surgery [id number] 1.00CD:127 [facility] Ambulatory Visit Summaryon 0 05-04-2023 Ambulatory Visit Summary MONET BUSTILLOS :1950 Visit Date:05/04/2023 Ambulatory Visit Instructions Your Diagnosis Prostate cancer BPH with urinary obstruction Asymptomatic microscopic hematuria Nocturia Erectile dysfunction Your Care Team Attending Physician - KULDIP PERALTA, Lexa Barlow Primary Care Physician - GIACOMO RAGSDALE DO [...] Schedule the Following Appointments Follow Up with KULDIP PERALTA, Lexa Barlow, [facility]vy When: Comments: sched cysto 6 months w/ PSA Where: [facility] [address], [place] [address]- [phone] Medications What How Much When Instructions Unchanged [...] 2 (II). (more content not included)... Normal [facility] Patient Educationon 05-04-20 Patient Education Oncology Prostate [...] likelihood that the cancer will spread. ? Pryor 6 or lower: This indicates that the [...] external be (more content not included)... Normal [facility] Reminderson 05-04-2023 Reminders - From: Colleen Souza To: EMETERIO Gonzalez Recalls Kuldip; Sent: 05/04/2023 16:42:47 EDT Show up: 10/04/2023 15:42:00 EST Subject: PSA Reminder Message Please Remember to:_have pt get PSA done prior to appt. Comments:_ Normal [facility] Urology Office/Clinic Noteon 05-04-2023 Urology Office/Clinic Note Chief Complaint Follow up to Radiation Therapy HPI Staff 16m DX: Prostate Cancer, BPH & Elevated PSA *Finasteride 5mg (last filled by Dr Ragsdale) QD & Tamsulosin 0.4mg BID therapy. Pt was referred to Dr Hammonds for radiation consult at time of last encounter. However pt went and saw Dr Surendra Alanis from [facility]. S/P EBRT 03/06/22. PSA 07/02/22 [...] w/perineural invasion.[1] Pt saw Dr. Alanis at [facility] for radiation treatment for 4-6 [...] his age. Follow-up With When Contact Information Lexa CHRISTIANSEN MD, URL [facility] [address] [place] [address] [phone] Additional Instructions: sched cysto 6 months w/ PSA Patient Education Prostate Cancer I, Colleen Souza, personally scribed for Dr. Christiansen on 05/04/2023 11:26:02. . Documentation recorded by the scribeColleen, accurately reflects the services(s) I performed and decisions made by me. Authenticated by Dr. Christiansen on 05/04/2023 11:34:30. Problem List/Past Medical History Ongoing Anticoagulated Asymptomatic microscopic hematuria Atrial fibrillation Benign prostatic hyperplasia (BPH) with post-void dribbling BPH with urinary obstruction Elevated PSA Erectile dysfunction Hypertension N (more content not included)... Normal [facility] Comment on above: Result Comment: Elec tronically Signed By: Lexa CHRISTIANSEN MD\.br\Date and Time Signed: 05/04/23 11:34 EDT\.br\Electronically Co-Signed By: Colleen Souza\.br\Date and Time Co-Signed: 05/04/23 11:26 EDT Lab Reportson 04-21-2023 Lab Reports [id number] .00CD:127 Normal [facility] Consultation Noteon 01-21-20 Consultation Note [id number] .00CD:127 Normal [facility] CBC AUTO DIFFon 12-31-2022 BASO # 0.0 103/ul Normal 0.0-0.1 [facility] Comment on above: Performed By: #### C BC #### [facility] [address] [place] [address] Dr. Henry Marin Basophils/100 WBC (Bld) 0.8 % Normal 0.2-2.0 [facility] Comment on above: Performed By: #### C BC #### [facility] [address] [address] [address] Henry Marin EO # 0.2 103/ul Normal 0.0-0.7 [facility] Comment on above: Performed By: #### C BC #### [facility] [address] [place] [address] Dr. Henry Marin Eosinophils/100 WBC (Bld) 3.6 % Normal 0.9-7.0 [facility] Comment on above: Performed By: #### C BC #### [facility] [address] [place] [address] Dr. Henry Marin Erythrocyte distribution width (RBC) [Ratio] 13.2 % Normal 11.0-15.0 [facility] Comment on above: Performed By: #### C BC #### [facility] [address] [place] [address] Dr. Henry Marin Hematocrit (Bld) [Volume fraction] 45.3 % Normal 42.0-54.0 [facility] Comment on above: Performed By: #### C BC #### [facility] [address] [place] [address] Dr. Henry Marin Hemoglobin (Bld) [Mass/Vol] 15.7 g/dL Normal 14.0-18.0 [facility] Comment on above: Performed By: #### C BC #### [facility] [address] [place] [address] Dr. Henry Marin IG # 0.00 10e3/ul Normal 0.00-0.03 [facility] Comment on above: Performed By: #### C BC #### [facility] [address] [place] [address] Dr. Henry Marin IG % 0.0 % Normal 0.0-0.5 [facility] Comment on above: Performed By: #### C BC #### [facility] [address] [place] [address] Dr. Henry Marin LYMPH # 1.7 103/ul Normal 1.2-3.8 [facility] Comment on above: Performed By: #### C BC #### [facility] [address] [place] [address] Dr. Henry Marin Lymphocytes/100 WBC (Bld) 34.8 % Normal 20.5-60.0 [facility] Comment on above: Performed By: #### C BC #### [facility] [address] [place] [address] Dr. Henry Marin MANUAL DIFF REQ NO Normal [facility] Comment on above: Performed By: #### C BC #### [facility] [address] [place] [address] Dr. Henry Marin MCH (RBC) [Entitic mass] 32.6 pg Normal 25.9-34.0 [facility] Comment on above: Performed By: #### C BC #### [facility] [address] [place] [address] Dr. Henry Marin MCHC (RBC) [Mass/Vol] 34.7 g/dL Normal 29.9-35.2 [facility] Comment on above: Performed By: #### C BC #### [facility] [address] [place] [address] Dr. Henry Marin MCV (RBC) [Entitic vol] 94.0 fL Normal 80.0-94.0 [facility] Comment on above: Performed By: #### C BC #### [facility] [address] [place] [address] Dr. Henry Marin MONO # 0.6 103/ul Normal 0.3-0.8 [facility] Comment on above: Performed By: #### C BC #### [facility] [address] [place] [address] Dr. Henry Marin Monocytes/100 WBC (Bld) 13.0 % Critically high 1.7-12.0 [facility] Comment on above: Performed By: #### C BC #### [facility] [address] [place] [address] Dr. Henry Marin NEUT # 2.3 103/ul Normal 1.4-6.5 [facility] Comment on above: Performed By: #### C BC #### [facility] [address] [place] [address] Dr. Henry Marin Neutrophils/100 WBC (Bld) 47.8 % Normal 43.0-75.0 [facility] Comment on above: Performed By: #### C BC #### [facility] [address] [place] [address] Dr. Henry Marin Platelet mean volume (Bld) [Entitic vol] 9.7 fL Normal 9.5-13.5 [facility] Comment on above: Performed By: #### C BC #### [facility] [address] [place] [address] Dr. Henry Marin PLT 135 103/ul Critically low 150-450 [facility] Comment on above: Performed By: #### C BC #### [facility] [address] [place] [address] Dr. Henry Marin RBC 4.82 106/ul Normal 4.70-6.10 [facility] Comment on above: Performed By: #### C BC #### [facility] [address] [place] [address] Dr. Henry Marin WBC 4.8 103/ul Normal 4.0-11.0 [facility] Comment on above: Performed By: #### C BC #### [facility] [address] [place] [address] Dr. Henry Marin LIPID PROFILEon 12-31-2022 CHOL-HDL RATIO NORM SEE BELOW Normal [facility] Comment on above: Result Comment: 3.3 - 4.4 LOW RISK 4.4 - 7.1 AVERAGE RISK 7.1 - 11.0 MODERATE RISK >11.0 HIGH RISK Performed By: #### B MP, ALT, LIPID #### [facility] [address] [place] [address] Dr. Henry Marin Cholesterol [Mass/Vol] 169 mg/dL Normal <=200 [facility] Comment on above: Performed By: #### B MP, ALT, LIPID #### [facility] [address] [place] [address] Dr. Henry Marin Cholesterol in HDL [Mass/Vol] 59 mg/dL Normal 40-60 [facility] Comment on above: Performed By: #### B MP, ALT, LIPID #### [facility] [address] [place], [place] [id number] Dr. Henry Marin Cholesterol in LDL [Mass/Vol] 91.6 mg/dL Normal [facility] Comment on above: Performed By: #### B MP, ALT, LIPID #### [facility] [address] [place] [address] Dr. Henry Marin Cholesterol.total/ Cholesterol in HDL [Mass ratio] 2.9 {ratio} Normal [facility] Comment on above: Performed By: #### B MP, ALT, LIPID #### [facility] [address] [place] [address] Dr. Henry Marin HDL NORMAL > or = 60 mg/dl - LO W CARDIOVASCULAR RISK <40 mg/dl - HIGH CARDIOVASCULAR RISK Normal [facility] Comment on above: Performed By: #### B MP, ALT, LIPID #### [facility] [address] [place] [address] Dr. Henry Mairn LDL CALC NORMAL SEE BELOW Normal [facility] Comment on above: Result Comment: <100 mg/dl OPTIMAL 100 - 129 mg/dl NEAR OR ABOVE OPTIMAL 130 - 159 mg/dl BORDERLINE HIGH 160 - 189 mg/dl HIGH >190 mg/dl VERY HIGH Performed By: #### B MP, ALT, LIPID #### [facility] [address] [place] [address] Dr. Henry Marin Triglyceride [Mass/Vol] 92 mg/dL Normal <=150 [facility] Comment on above: Performed By: #### B MP, ALT, LIPID #### [facility] [address] [place] [address] Dr. Henry Marin VLDL CALC 18.4 mg/dL Normal [facility] Comment on above: Performed By: #### B MP, ALT, LIPID #### [facility] [address] [address] [address] Henry Marin PROF CHEM 8 (BAS METB)on Anion gap [Moles/Vol] 11.8 mmol/L Normal [facility] Comment on above: Performed By: #### B MP, ALT, LIPID #### [facility] [address] [place] [address] Dr. Henry Marin Calcium [Mass/Vol] 8.6 mg/dL Normal 8.5-10.1 [facility] Comment on above: Performed By: #### B MP, ALT, LIPID #### [facility] [address] [address] [address] Henry Marin Chloride [Moles/Vol] 106 mmol/L Normal 98-107 [facility] Comment on above: Performed By: #### B MP, ALT, LIPID #### [facility] [address] [address] [address] Henry Marin CO2 [Moles/Vol] 28.3 mmol/L Normal 21.0-32.0 [facility] Comment on above: Performed By: #### B MP, ALT, LIPID #### [facility] [address] [place] [address] Dr. Henry Marin Creatinine [Mass/Vol] 1.01 mg/dL Normal 0.70-1.30 [facility] Comment on above: Performed By: #### B MP, ALT, LIPID #### [facility] [address] [place] [address] Dr. Henry Marin EGFR-AF MACEDONIAN >60 Normal >=60 [facility] Comment on above: Performed By: #### B MP, ALT, LIPID #### [facility] [address] [place] [address] Dr. Henry Marin EGFR-NON AF MACEDONIAN >60 Normal >=60 [facility] Comment on above: Performed By: #### B MP, ALT, LIPID #### [facility] [address] [address] [address] Henry Marin Glucose [Mass/Vol] 106 mg/dL Normal 74-106 [facility] Comment on above: Performed By: #### B MP, ALT, LIPID #### [facility] [address] [place] [address] Dr. Henry Marin Potassium [Moles/Vol] 4.1 mmol/L Normal 3.5-5.1 [facility] Comment on above: Performed By: #### B MP, ALT, LIPID #### [facility] [address] [place] [address] Dr. Henry Marin Sodium [Moles/Vol] 142 mmol/L Normal 136-145 [facility] Comment on above: Performed By: #### B MP, ALT, LIPID #### [facility] [address] [address] [address] Henry Marin Urea nitrogen [Mass/Vol] 13.0 mg/dL Normal 7.0-18.0 [facility] Comment on above: Performed By: #### B MP, ALT, LIPID #### [facility] [address] [address] [address] Henry Marin Urea nitrogen/Creatinin e [Mass ratio] 12.9 mg/mg Normal [facility] Comment on above: Performed By: #### B MP, ALT, LIPID #### [facility] [address] [address] [address] Henry Marin SGPTon 12-31-2022 ALT [Catalytic activity/Vol] 23 U/L Normal 16-63 [facility] Comment on above: Performed By: #### B MP, ALT, LIPID #### [facility] [address] [address] [address] Henry Marin Blood Urea Nitrogenon 2021 Urea nitrogen [Mass/Vol] 10 mg/dL Normal 9-23 [facility] Comment on above: Order Comment: STAT FOR MRI Performed By: #### C REAT, BUN #### [facility] [address] [place] [address] [place] Creatinineon 11-20-2021 Creatinine [Mass/Vol] 1.00 mg/dL Normal 0.64-1.27 [facility] Comment on above: Order Comment: STAT FOR MRI Performed By: #### C REAT, BUN #### [facility] [address] [place] [address] [place] Creatinine Clr Calc Pharmacy 86.[address] [facility] Comment on above: Order Comment: STAT FOR MRI Result Comment: PERF ORMED BY: [place] [address] PATHOLOGIST SURGERY AIDE GUSTAVO CHANDLER M.D. Performed By: #### C REAT, BUN #### [facility] [address] [place] [address] [place] Estimated GFR ( Arielle > [address] [facility] Comment on above: Order Comment: STAT FOR MRI Result Comment: GFR estimated reference range: According to KDOQI guidelines, <60 ml/min/1.73m2 is sufficient to diagnose a patient with chronic kidney disease. Performed By: #### C REAT, BUN #### [facility] [address] Estimated GFR (Non- Am > [address] [facility] Comment on above: Order Comment: STAT FOR MRI Performed By: #### C REAT, BUN #### [facility] [address] MR prostate wo/w conon 11-20 MR prostate wo/w con [facility] [place] [address] [place] [address] MRI Report Signed Patient: Monet Bustillos MR#: [id number] : 1950 Acct:[id number] Age/Sex: 70 / M ADM Date: 11/20/21 Loc: Room: Type: [facility] Attending Dr: Lexa Christiansen MD Ordering Provider: [...] Dinero Jr., D.O.11/20/2021 3:11 PM Dictation Location: [facility]- Transcribed By: [facility] 11/20/21 1511 Dictated By: Kolby Dinero Jr, DO 11/20/21 1454 Signed By: 11/20/21 1511 [facility] Vital Signs Date Time Vital Sign Value Performing Clinician Facility 11-04-2023 15:45-0500 Body height 182.88 cm Giacomo Ragsdale Other [employer] Other 11-04-2023 15:45-0500 Body mass index (BMI) [Ratio] 30.11 kg/m2 Giacomo [employer] Other [employer] Other 11-04-2023 15:45-0500 Body weight 100.7 kg Giacomo [employer] Other [employer] Other 11-04-2023 15:45-0500 Diastolic blood pressure 78 mm[Hg] Giacomo [employer] Other [employer] Other 11-04-2023 15:45-0500 Respiratory rate 12 /min Giacomo Ball Other [employer] Other 11-04-2023 15:45-0500 Systolic blood pressure 123 mm[Hg] Giacomo Ball Other [employer] Other 11-02-2023 12:57-0500 Blood Pressure Location Lexabruce CHRISTIANSEN [facility] 11-02-2023 12:57-0500 Diastolic blood pressure 77 mm[Hg] Lexa CHRISTIANSEN [facility] 11-02-2023 12:57-0500 Heart rate 57 /min Lexabruce CHRISTIANSEN [facility] 11-02-2023 12:57-0500 Respiratory rate 16 /min Lexabruce CHRISTIANSEN [facility] 11-02-2023 12:57-0500 Systolic blood pressure 132 mm[Hg] Lexa CHRISTIANSEN [facility] 07-21-2023 14:00-0400 Body height 182.88 cm Giacomo Ball Other [facility] [employer] Other 07-21-2023 14:00-0400 Body mass index (BMI) [Ratio] 29.83 kg/m2 Giacomo Ball Other [employer] Other 07-21-2023 14:00-0400 Body weight 99.79 kg Giacomo Ball Other [employer] Other 07-21-2023 14:00-0400 Diastolic blood pressure 65 mm[Hg] Giacomo Ball Other [employer] Other 07-21-2023 14:00-0400 Respiratory rate 12 /min Giacomo Ball Other [employer] Other 07-21-2023 14:00-0400 Systolic blood pressure 114 mm[Hg] Giacomo Ball Other [employer] Other 01-16-2023 12:00-0400 Body height 182.88 cm Giacomo Ball Other [employer] Other 01-16-2023 12:00-0400 Body mass index (BMI) [Ratio] 30.92 kg/m2 Giacomo Ball Other [employer] Other 01-16-2023 12:00-0400 Body weight 103.42 kg Giacomo Ball Other [employer] Other 01-16-2023 12:00-0400 Diastolic blood pressure 67 mm[Hg] Giacomo Ball Other [employer] Other 01-16-2023 12:00-0400 Respiratory rate 12 /min Giacomo Ball Other [employer] Other 01-16-2023 12:00-0400 Systolic blood pressure 115 mm[Hg] Giacomo Ball Other [employer] Other Encounters Encounter Date Encounter Type Care Provider Facility Start: 03-21-2024 End: 03-21-2024 ambulatory MYA PAN Not Available Start: 12-14-2023 End: 12-15-2023 ambulatory Lexa CHRISTIANSEN Facility:[place] Start: 12-14-2023 End: 12-14-2023 Patient encounter procedure Lexa CHRISTIANSEN [facility] Start: 12-14-2023 End: 12-14-2023 Lab Drop off Lexa CHRISTIANSEN [facility] Start: 12-09-2023 ambulatory Yadiel Barlow CHAYA Facility : [place] Start: 12-07-2023 End: 12-08-2023 ambulatory Lexa CHRISTIANSEN Facility:[facility] [place] Start: 12-07-2023 End: 12-07-2023 Patient encounter procedure [facility]STIANSEN [facility] Start: 11-16-2023 End: 11-17-2023 ambulatory Lexa CHRISTIANSEN Facility:[facility] [place] Start: 11-16-2023 End: 11-16-2023 Patient encounter procedure Lexa CHRISTIANSEN [facility] Start: 11-09-2023 ambulatory Lexa CHRISTIANSEN Facility : [place] Start: 11-05-2023 End: 11-05-2023 ambulatory Giacomo Jn Other [employer] Other Start: 11-05-2023 Telephone encounter [address]omo Ragsdale [facility] Start: 11-04-2023 End: 11-04-2023 ambulatory Giacomo Ragsdale Other [employer] Other Start: 11-04-2023 Office outpatient visit 15 minutes Giacomo Ragsdale [facility] Start: 11-02-2023 End: 11-03-2023 ambulatory Lexabruce CHRISTIANSEN Facility:[facility] [place] Start: 11-02-2023 End: 11-02-2023 Patient encounter procedure Lexa CHRISTIANSEN [facility] Start: 08-24-2023 End: 08-24-2023 ambulatory Giacomo Ragsdale Other [employer] Other Start: 08-24-2023 Telephone encounter Giacomo Ragsdale [facility] Start: 08-06-2023 End: 08-06-2023 ambulatory Giacomo Ragsdale Other [employer] Other Start: 08-06-2023 Telephone encounter Giacomo Ragsdale [facility] Start: 08-05-2023 End: 08-05-2023 ambulatory Giacomo Ragsdale Other [employer] Other Start: 08-05-2023 Telephone encounter Giacomo Ragsdale [facility] Start: 07-23-2023 End: 07-23-2023 ambulatory Giacomo Ragsdale Other [employer] Other Start: 07-23-2023 Telephone encounter Giacomo Ragsdale [facility] Start: 07-21-2023 End: 07-21-2023 ambulatory Giacomo Ragsdale Other [employer] Other Start: 07-21-2023 Office outpatient visit 25 minutes Giacomo Ragsdale [facility] Start: 06-10-2023 End: 06-10-2023 ambulatory [facility] Start: 05-19-2023 End: 05-20-2023 ambulatory Lexa CHRISTIANSEN Facility:[id number] Start: 05-04-2023 End: 05-05-2023 ambulatory Lexa CHRISTIANSEN Facility:[facility] [place] Start: 04-14-2023 End: 04-14-2023 ambulatory Giacomo Ragsdale Other [employer] Other Start: 04-14-2023 Telephone encounter Giacomo Ragsdale [facility] Start: 01-19-2023 End: 01-19-2023 ambulatory Giacomo Ragsdale Other [employer] Other Start: 01-19-2023 Telephone encounter Giacomo Ragsdale [facility] Start: 01-16-2023 End: 01-16-2023 ambulatory Giacomo Ragsdale Other [employer] Other Start: 01-16-2023 Patient encounter procedure Giacomo Ragsdale [facility] Start: 12-31-2022 End: 01-01-[address] DOCTOR MORE Facility:[facility] Start: 07-02-2022 End: 07-03-[address] DOCTOR MORE Facility:[facility] Start: 06-23-2022 End: 06-24-[address] DOCTOR MORE Facility:[facility] Procedures Date Procedure Procedure Detail Performing Clinician Start: 05-19-2023 Transurethral cystoscopy Lexa CHRISTIANSEN Start: 12-31-[address] DOCTOR MORE Comment on above: Performed By: #### P SAD #### [facility] [address] [place] [address] Dr. Henry Marin Start: 07-02-[address] DOCTOR MORE Comment on above: Performed By: #### P SAD #### [facility] [address] [place] [address] Dr. Henry Marin Start: 03-06-2022 Mixed beam external beam radiation therapy Lexa CHRISTIANSEN Start: 12-12-2021 MRI-US fusion guided transrectal biopsy of prostate Lexa CHRISTIANSEN Start: 11-20-2021 MRI of prostate Lexa CHRISTIANSEN Catheterization of r ight heart Lexa CHRISTIANSEN Closed fracture of t ibia AND fibula (disorder) Lexa CHRISTIANSEN Prosthetic arthropla sty of the hip Lexa CHRISTIANSEN Plan of Treatment Date Care Activity Detail Author Start: 05-06-2024 ambulatory Ambulatory Facility:[facility] [place] Immunizations Immunization Date Immunization Notes Care Provider Fa cility 06-18-2022 COVID-19 Moderna (BIvalent) Giacomo Ragsdale Other [facility] Comment on above: Result Comment: 2022: [id number] 08-04-2021 COVID-19 Vaccine Moderna - Documentation Purposes Only Giacomo Ragsdale Other [facility] 12-19-2020 SARS-CoV-2 (COVID-19 ) Ad26 vaccine, recombinant Lexa CHRISTIANSEN [facility] 12-13-2020 COVID-19 Vaccine Moderna - Documentation Purposes Only Giacomo Ragsdale Other [facility] Comment on above: Result Comment: 2022: TPV70 11-15-2020 COVID-19 Vaccine Moderna - Documentation Purposes Only Giacomo Ragsdale Other [employer] Other 11-15-2020 SARS-CoV-2 (COVID-19 ) Ad26 vaccine, recombinant Lexabruce CHRISTIANSEN [facility] 07-17-2017 diphtheria, tetanus toxoids and acellular pertussis vaccine, unspecified formulation Giacomo Ragsdale Other [employer] Other Payers Date Payer Category Payer Medicare [id number] 1959 Private Health Insurance CLI [id number] 1950 Unknown [id number] 2.16.84 [id number] 1948 Unknown [id number] 2.16.84 0.1.704868.3.579.2.593 1948 Unknown [id number] 2.16.84 0.1.157254.3.579.2.593 1948 Unknown [id number] 2.16.84 0.1.082651.3.579.2.593 1948 Unknown [id number] 2.16.8 40.1.122460.3.579.2.727 1948 Unknown [id number] 2.16.8 40.1.678348.3.579.2.727 1948 Unknown [id number] 2.16.8 40.1.970832.3.579.2.727 1948 Unknown [id number] 2.16.8 40.1.821123.3.579.2.727 1948 Unknown [id number] 2.16.8 40.1.800143.3.579.2.727 1948 Unknown [id number] 2.16.8 40.1.122177.3.579.2.727 1948 Unknown [id number] 2.16.8 40.1.470532.3.579.2.727 1948 Unknown [id number] 2.16.8 40.1.003259.3.579.2.727 1948 Unknown [id number] 2.16.8 40.1.840402.3.579.2.727 1948 Unknown [id number] 2.16.84 0.1.041073.3.579.2.1259 1948 Unknown [id number] 2.16.84 0.1.852276.3.579.2.1259 Unknown [id number] 2.16. [id number] Social History Date Type Detail Facility Sex Assigned At [facility] Start: 11-02-2023 Tobacco smoking status Ex-smoker (fi nding) [facility] Tobacco smoking status Never [facility] Functional Status Date Assessment Result Facility 12-14-2023 Functional Status N/A [facility] 11-02-2023 Functional Status N/A [facility] Clinical Notes 01-16-2023 to 12-14-2023 Note Date & Type Note Facility 12-14-2023 Hospital Discharg e instructions Patient Education 12/14/2023 11:40:01 Indwelling Urinary Catheter Insertion, Care After Indwelling Urinary Catheter Insertion, Care After This sheet gives you information about how to care for yourself after your procedure. Your health care provider may also give you more specific instructions. If you have problems or questions, contact your health care provider. What can I expect after the procedure? After the procedure, it is common to have: Slight discomfort around your urethra where the catheter enters your body. Follow these instructions at home: General instructions Keep the drainage bag at or below the level of your bladder. By doing this, your urine can only drain out instead of going back into your body. Secure the catheter tubing and drainage bag to your leg or thigh to keep it from moving. Check the catheter tubing regularly to make sure there are no kinks or blockages. Take showers daily to keep the catheter clean. Do not take a bath. Do not pull on your catheter. Disconnect the tubing and drainage bag as little as possible. Empty the drainage bag every 2 4 hours, or more often if needed. Do not let the bag get completely full. Wash your hands with soap and water before and after touching the catheter, tubing, or drainage bag. Do not let the drainage bag or catheter tubing touch the floor. Drink enough fluids to keep your urine pale yellow, or as told by your health care provider. How to remove the catheter Remove the catheter only if told by your health care provider. Follow instructions from your health care provider about when and how to remove the catheter. For most catheters, you will need to take the following steps: 1.Prepare your supplies. You will need a: Syringe. This would be given to you by your health care provider. Towel. Wastebasket. 2.Empty the drainage bag if needed. 3.Wash your hands with soap and warm water. 4.Remove the tape that secures the catheter to your leg or thigh. 5.Get into a comfortable position, such as: Lying down with your head raised on pillows and your knees pointing to the ceiling. Sitting on a chair or the edge of a bed. 6.Place the towel under you to catch any spilled urine. 7.Put the syringe into the balloon port of the catheter. Use a firm push and twist motion to fit the syringe into the balloon port. 8.The water from the balloon will empty into the syringe. 9.Gently pull out the catheter once the balloon is empty. If the catheter doesn't slide easily, do not use force. Let your health care provider know that you are not able to remove the catheter. 10.Throw the used catheter and the syringe in the wastebasket. 11.Wipe any spilled urine or water with the towel. 12.Wash your hands with soap and warm water. Safety Let your health care provider know if: Your bladder is full, but you are not able to urinate. You have removed the catheter, but you are not able to urinate after 8 hours. Contact a health care provider if: Your urine: ?Looks cloudy. ?Has a bad smell. ?Stops flowing into the drainage bag. Your catheter: ?Gets clogged. ?Starts to leak. You feel pain or pressure in the bladder area. You have back pain. Your drainage bag or tubing looks dirty. Get help right away if: You have a fever or chills. You have severe pain in your back or your lower abdomen. You have warmth, redness, swelling, or pain in the urethra area. You notice blood in your urine. Your catheter gets pulled out. Summary Wash your hands with soap and water before and after touching the catheter, tubing, or drainage bag. Do not pull on your catheter or try to remove it. Keep the drainage bag at or below the level of your bladder, but do not let the drainage bag or catheter tubing touch the floor. Get help right away if you have a fever, chills, or any other signs of infection. This information is not intended to replace advice given to you by your health care provider. Make sure you discuss any questions you have with your health care provider. Document Revised: 12/11/2021 Document Reviewed: 09/06/2021 [employer] Patient Education 2021 [email or web address]. 12/14/2023 11:40:01 Indwelling Urinary Catheter Insertion Indwelling Urinary Catheter Insertion For people with certain conditions, urine is not able to move normally through the urethra. The urethra is the part of the body that drains urine from the bladder. An indwelling urinary catheter may be needed if you have urinary retention problems or bladder obstruction. It may also be needed during and after surgical procedures and for other medical conditions. An indwelling urinary catheter is a thin, germ-free (sterile) tube that is placed into the bladder through the urethra to help drain urine out of the body. After the catheter is inserted, it is held in place by a small balloon on the catheter. The small balloon is filled with sterile water. Urine drains from the catheter into a drainage bag outside of the body. Tell a health care provider about: Any allergies you have. Any surgeries you have had. Any medical conditions you have. Any bleeding problems you have. What are the risks? Generally, this is a safe procedure. However, problems may occur, including: Infection. Bleeding. Damage to nearby structures or organs. What happens before the procedure? Your health care provider will inspect your urethra before inserting the catheter. Ask your health care provider what steps will be taken to help prevent infection. These steps may include washing your skin with a germ-killing soap. What happens during the procedure? A lubricant will be placed on the catheter to make it easy to insert it into the urethra. The catheter will be inserted into the urethra until you can see urine flowing into the drainage bag. After the urine starts to flow, the catheter may be inserted another couple of inches (about 5 cm). Sterile water will be used to inflate the balloon to hold the catheter in place. After the catheter balloon is inflated, it will be pulled back so it is against the narrow opening at the end of the bladder. Your health care provider will check for urine flow into the drainage bag. The procedure may vary among health care providers and hospitals. What happens after the procedure? Urine in the drainage bag will be emptied and measured by your health care provider while you are in the hospital. Your health care provider will remove the catheter for you. This will be done when the catheter is no longer necessary, which is likely to be before you leave the hospital. Summary An indwelling catheter is a sterile tube that is placed into the bladder through the urethra to help drain urine out of the body. The catheter will be removed when it is no longer needed. This information is not intended to replace advice given to you by your health care provider. Make sure you discuss any questions you have with your health care provider. Document Revised: 05/21/2022 Document Reviewed: 05/21/2022 [employer] Patient Education 2022 [email or web address]. Follow Up Care 12/14/2023 08:48:07 With:KULDIP PERALTA, Lexa Barlow, URL Address: [facility] [address] , [place] [address]- [phone] When: Unknown Comments:pt to call w/ update [facility] [place] 11-04-2023 Evaluation note Encounter Date Diagnosis Assessment Notes Oct, Rectal bleeding (ICD-10 - K62.5) Continue Xarelto but if bleeding increases, notify the office immediately. CBC to exclude severe anemia. Oct, Radiation proctitis (ICD-10 - K62.7) Avoid straining, increase fluids and fiber. Oct, Prostate cancer (ICD-10 - C61) Group 2, Pryor 3+4, External beam radiation No s/s recurrence Oct, Chronic anticoagulation (ICD-10 - Z79.01) May increase severity of bleeding. [employer] Other 01-29-2024 Hospital Discharge instructions Patient Education 11/02/2023 14:27:57 Clean Intermittent Catheterization, Male Clean Intermittent Catheterization, Male Clean intermittent catheterization (CIC) is a procedure to remove urine from the bladder by placinga small, flexible tube (catheter) into the bladder though the urethra. The urethra is a tube in thebody that carries urine from the bladder out [...] also help you to get the home caresupplies that are needed for this procedure. Supplies [...] and water are not available, use hand technology professional. 2.Clean your penis with soap and water. [...] pointing to the ceiling. You may wish toplace a waterproof mat or pad under you. [...] reusable catheter in a small bathroom. Take qipo-rud-subfwpr and prescription medicines only as told by [...] to remove urine from the bladder by placinga small, flexible tube (catheter) into the bladder [...] provider. Document Revised: 07/28/2022 Document Reviewed: 07/28/2022 [employer] Patient Education 2022 [email or web address]. 11/02/2023 14:17:10 Acute Urinary Retention, Male Acute Urinary Retention, Male Acute urinary retention is a condition in which a person is unable to pass urine or can only pass alittle urine. This condition can happen suddenly and [...] As men age, their prostate may become largerand may start to press or squeeze on the bladder or the urethra. Other chronic health conditions can increase the risk of acute urinary retention. These include: Diseases such as multiple sclerosis. Spinal cord injuries. Diabetes. Degenerative cognitive conditions, such as delirium or dementia. Psychological conditions. A man may hold his urine due to trauma or because he does not want to usethe bathroom. What are the signs or symptoms? [...] Follow these instructions at home: Medicines Take mesi-qzu-jbgcxii and prescription medicines only as told by your health care provider. Avoid certain medicines, such as decongestants, antihistamines, and some prescription medicines. Do not take any medicine unless your health care provider approves. If you were prescribed an antibiotic medicine, take it as told by your health care provider. Do notstop using the antibiotic even if you start to feel better. General instructions Do not use any products that contain nicotine or tobacco. These products include cigarettes, chewing tobacco, and vaping devices, such as e-cigarettes. If you need help quitting, ask your health careprovider. Drink enough fluid to keep your urine [...] to pass urine or can only pass alittle urine. If left untreated, this condition can [...] provider. Document Revised: 06/12/2021 Document Reviewed: 06/12/2021 [employer] Patient Education 2022 LayerGloss Follow Up Care 05/04/2023 11:36:31 With:KULDIP PERALTA, Lexa Barlow, URL Address: [facility] [address], [place] [address]- [phone] When: Unknown Comments:f/[facility] in 6 mos w/ [facility]* Encounter Date Diagnosis Assessment Notes Treatment Notes Treatment Clinical Notes Aug, Paroxysmal atrial fibrillation (ICD-10 - I48.0) Aug, Syncope, unspecified syncope type (ICD-10 - R55) [employer] Other 10-19-2023 Evaluation note* Encounter Date Diagnosis Assessment Notes Treatment Notes Treatment Clinical Notes Jul, Benign prostatic hyperplasia with lower urinary tract symptoms (ICD-10 - N40.1) [employer] Other 10-17-2023 Evaluation note* Encounter Date Diagnosis [...] 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 No bleeding complications Jul, Hyperlipidemia type II [...] Sudheer 3+4, External beam radiation No s/s recurrence, f/u [employer] Other 09-06-2023 [facility] Subjective Monet Bustillos II is a [...] metoprolol 12.5 mg t (more content not included)...[facility]07-11-2023 Evaluation note* Encounter Date Diagnosis Assessment Notes Treatment Notes Treatment Clinical Notes Apr, Paroxysmal atrial fibrillation (ICD-10 - I48.0) [facility] [employer] Other 04-17-2023 Evaluation note* Encounter Date Diagnosis Assessment Notes Treatment Notes Treatment Clinical Notes Jan, Prostate cancer (ICD-10 - C61) Group 2, Sudheer 3+4, External beam radiation [facility] [employer] Other 04-14-2023 Evaluation note* Encounter Date Diagnosis [...] 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 Discussed switching Xarelto to Eliquis. 14 Jan, 2023 Hyperlipidemia type II (ICD-10 - E78.01) Diet and exercise with continued statin therapy. 14 Jan, 2023 Prostate cancer (ICD-10 - C61) Group 2, Pryor 3+4, External beam radiation No s/s recurrence. [...] Colon cancer screening declined (ICD-10 - Z53.20) [employer] Other Evaluation + Plan note Future Appointments Appointment Date:05/06/2024 08:00:00 AM Scheduled Provider:Lexa CHRISTIANSEN MD Location:[facility] Appointment Type:URO Office Visit Diagnostic Tests Pending * PSA Total 11/02/23 [facility] evaluation + Plan note Future Appointments Appointment Date:12/09/2023 01:20:00 PM Scheduled Provider:Yadiel JAIN MD Location: [place] Appointment Type: Appointment Date:05/06/2024 08:00:00 AM Scheduled Provider:Lexa CHRISTIANSEN MD Location:[facility] Appointment Type:URO Office Visit [facility] evaluation + Plan note Future Appointments Appointment Date:05/06/2024 08:00:00 AM Scheduled Provider:Lexa CHRISTIANSEN MD Location:[facility] Appointment Type:URO Office Visit [facility] evaluation + Plan note Future Appointments Appointment Date:05/06/2024 08:00:00 AM Scheduled Provider:Lexa CHRISTIANSEN MD Location:[facility] Appointment Type:URO Office Visit Diagnostic Tests Pending * [facility] note[facility] InformationNort J C Lads Other History general Narrative - Reported* Type [...] RIGHT TIB FIB FIXATION 2006 Surgical History [facility] 11/2015 Hospitalization History see surgical history [employer] Other Hiswtwy general Narrative - Reported* Type Description Date [...] RIGHT TIB FIB FIXATION 2006 Surgical History [facility] 11/2015 Surgical History Cystoscopy 05/2023 Hospitalization History see surgical history [employer] Other Hospital course Narrative No data available for this section [facility] Hospital Discharge instructions No data available for this section [facility] progress note No data available for this section [facility] reason for referral (narrative)* Reason Referral for colonos copy Diagnosis 1 Rectal bleeding (K62 .5) Referral Organization [facility] joni Referring Provider First Name Giacomo Referring Provider Last Name Jn Referring Provider Specialty Internal Me dicine Referred Organization [facility] Referred Provider Yadiel Jain Referred Address [address], [place],[address] Referred Provider Specialty Surgery Referral Priority Routine General Notes Mr. Bustillos, who is anticoagulated for atrial fibrillation with a history of pelvic radiation for prostate cancer, presents w/ rectal bleeding. He has notice blood with wiping and on his underwear. He is being referred for colonoscopy. Clinical Notes Include [employer] Other Summary Purpose Family History No Family History Records FoundNo Family History Records FoundNo Family History Records Found No data available for this section No data available for this section No data available for this section No data available for this section No data available for this section No Family History Records FoundNo Family History [...] content) DATE CREATED AUTHOR 12/23/2021 [facility] DATE CREATED AUTHOR AUTHOR'S ORGANIZ ATION 01/03/[address] [facility] DATE CREATED AUTHOR AUTHOR'S ORGANIZ ATION 06/11/2023 [facility] DATE CREATED AUTHOR AUTHOR'S ORGANIZ ATION 12/24/2023 [facility] DATE CREATED AUTHOR AUTHOR'S ORGANIZ ATION 03/26/2024 [facility] EPIC REASON FOR VISIT (unrecogniz ed section and content) wellnessNo InformationSwitch ing to Eliquis6 month Follow upLab resultsNo InformationNo InformationHolter resultsEcho resultsLab resultsRECTAL BLEEDOING Patient Care team informatio n (unrecognized section and content) Personnel Name: GIACOMO RAGSDALE DO Address: Address: [address] [facility] [place] Personnel Name: GIACOMO RAGSDALE DO Address: Address: [address] [facility] [place] [address] Personnel Name: GIACOMO RAGSDALE DO Address: Address: [address] [facility] [place] [address] Personnel Name: GIACOMO RAGSDALE DO Address: Address: [address] [facility] [place] [address] Personnel Name: GIACOMO RAGSDALE DO Address: Address: [address] [facility] [place] [address] FOR RECORDS PERTAINING TO PATIENTS WHO ARE [...] BE BASED ON THE PRIMARY CLINICAL RECORDS. [facility]. provides no warranty or guarantee of the accuracy or completeness of information in this document.
== END 2024-04-04 16:45 | disposition home or self-care (01) ==
LOC: RAD 16:44
PROVIDERS: PCP Internal Medicine; Visit Provider Internal Medicine
DX: R05.9 Cough, unspecified (principal)
CPT/HCPCS: 71046

== ENCOUNTER 2024-04-26 08:27 | Outpatient (OUT) | payer MEDICARE, SELFPAY ==
--- OUTSIDE RECORDS SUMMARY | 2024-04-26 08:30 | XMS_ITS | CCD ---
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 BRENNAN GEORGE C Attending Unavaila kasia BRENNAN JR., GEORGE C Referring Unavaila ble KULDIP, Lexa Barlow Attending Unavailable CHRISTIANSEN, Lexa Barlow Attending Unavailable CHRISTIANSEN, Lexa Barlow Attending Unavailable CHRISTIANSEN, Lexa Barlow Attending Unavailable CHRISTIANSEN, Lexa R Attending Unavailable CHRISTIANSEN, Lexa Barlow Attending Unavailable CHRISTIANSEN, Lexa Barlow Attending Unavailable CHRISTIANSEN, Lexa Barlow Admitting Unavailable CHRISTIANSEN, Lexa Barlow Attending Unavailable NILL, Yadiel Barlow Attending Unavailable BALL, GIACOMO Referring Unavailable Allergies Allergy Classification Reported Allergen(s) Allergy Type Date of Onset Reaction(s) Facility (9 sources) Penicillins; Translations: [PENICILLINS] Drug allergy (disorder) 6 Vomiting (disorder), Moderate (severity modifier) (qualifier value) [facility] Repository (3 sources) Penicillin Drug Allergy Unknown [facility] Other (8 sources) Substance with penicillin structure and antibacterial mechanism of action (substance) Drug allergy Comment:Azalea white [facility] Other Medications Current Medications Medication Drug Class(es) [...] discomfort, # 30 cap(s), Refills(s) 0, Pharmacy: [facility] [id number], 187, cm, 11/02/23 13:01:00 EST, Height/Length Dosing, 101, kg, 11/02/23 13:01:00 EST, Weight Dosing Start Date: 12/07/23 Status: Ordered Start: 11-02-2023 End: 12-02-2023 take 1 capsule by mouth once daily doxycycline hyclate 100 mg Cap 100 mg = 1 cap(s), Oral, Daily, X 30 day(s), # 30 cap(s), Refills(s) 0, Pharmacy: [facility] [id number], 187, cm, 11/02/23 13:01:00 EST, Height/Length Dosing, [...] day(s), # 14 tab(s), Refills(s) 0, Pharmacy: [facility] [id number], 187, cm, 12/14/23 10:52:00 EDT, Height/Length Dosing, 101, kg, 12/14/23 10:52:00 EDT, Weight Dosing Start Date: 12/14/23 Stop Date: 12/28/23 Status: Ordered lidocaine hydrochloride 0.02 mg/mg topical gel (3 sources) Antiarrhythmic, Amide Local Anesthetic Start: 11-30-2023 apply 0.1 g topically once lidocaine Top 2% Gel w/Appl 30 mL 0.1 gm, 5 mL, Topical, Once, 30 mL, Refill(s) 2, Apply topically prior to cathing, 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] Onset: 01-01-2023 Episodic Other aftercare (11 sources) H/O: high risk medication; Translations: [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) drug therapy] Episodic Other aftercare (2 sources) Long-term current use of anticoagulant; Translations: [alf (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 of anticoagulants] Episodic Other aftercare (1 source) 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 Episodic Other connective [...] - Clinical Noteon Retail - Clinical Note [id number] .00TIFF Normal [facility] Retail - Clinical Noteon Retail - Clinical Note [id number] .00TIFF Normal [facility] C Urineon 12-16-2023 Bacteria identified Cx Nom [...] Locations R1: This test was performed at: [facility], [address] [place] [address], [address]- , , [facility] Comment on above: Performed By: #### 2 [id number] ####[facility] [address] [place] [address] Ambulatory Visit Summaryon 0 12-14-2023 Ambulatory Visit [...] PERALTA, Lexa Barlow Where: [facility] Patient Educationon 12-14-19 Patient Education Urology Indwelling [...] provider. Document Revised: 12/11/2021 Document Reviewed: 09/06/2021 [employer] Patient Education ? 2021 [employer]. Indwelling Urinary Catheter Insertion For people with [...] Urine d (more content not included)... 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 Alanis at [facility] for radiation treatment for 4-6 weeks [...] [facility] [address], [place] [address] [phone] Additional Instructions: pt to call w/ update Patient Education Indwelling Urinary Catheter Insertion, Care After Indwelling Urinary Catheter Insertion IColleen, personally scribed for Dr. Christiansen on 12/14/2023 11:44:53. Electronically signed by ed (more content not included)... Normal [facility] Comment on above: Result Comment: Elec tronically Signed By: Lexa CHRISTIANSEN MD\.br\Date and Time Signed: 12/14/23 11:46 EDT\.br\Electronically Co-Signed By: Colleen Souza\.br\Date and Time Co-Signed: 12/14/23 11:45 EDT Retail - Clinical Noteon Retail - Clinical Note [id number] .00TIFF Normal [facility] Urology Office/Clinic Noteon 12-09-2023 Urology Office/Clinic Note [...] w/perineural invasion.[ Pt saw Dr. Alanis at [facility] for radiation treatment for 4-6 weeks [...] Urology 2 (more content not included)... Normal [facility] Comment on above: Result Comment: Elec tronically Signed By: Aleena Akins\Date and Time Signed: 12/09/23 15:45 EST Pre-Certification Formon Pre-Certification Form [id number] .00TIFF [facility] Ambulatory Visit Summaryon 0 12-07-2023 Ambulatory Visit [...] Lexa CHRISTIANSEN MD Where: [facility] Physician Referralon 024 Physician Referral [id number] .00TIFF [facility] Patient Educationon 11-02-19 24 Patient Education Urology [...] and water are not available, use hand supervisor type disk quality control. 2. Clean your penis with soap and [...] catheter in a small bathroom. ? Take abyg-zrn-ysebopq and prescription medicines only as told by your he (more content not included)... Normal [facility] Lab Reportson 10-27-2023 Lab Reports [id number]. 00TIFF Normal [facility] RAD - Ultrasound Reporton RAD - Ultrasound Report [id number]. 00CD:127 Normal [facility] Office Visiton 06-10-2023 Follow-up visit [id number] Monet Bustillos II 1950 M Date Provider Department Center 06/10/2023 Betito-MYA JOHNSON [facility] Kenton Parrish Family History Problem Relation Age of Onset Alzheimer's disease Father Family Status - Relation Status Age at Father Level of Service:11281 NM OFFICE/OUTPATIENT ESTABLISHED LOW MDM 20-29 MIN Reason for Visit and Comments: Follow-up [183985] - F/U 1 year Normal [facility] Operative Reporton Operative Report [id number] 1.00CD:127 [facility] Consent for Procedure/Surger yon 05-05-2023 Consent for Procedure/Surgery [id number] 1.00CD:127 [facility] Ambulatory Visit Summaryon 0 05-04-2023 Ambulatory Visit [...] PSA Where: [facility] [address], [place] [address]- [phone] Medications What How Much When Instructions Unchanged [...] 2 (II). (more content not included)... Normal [facility] Patient Educationon 05-04-20 Patient Education Oncology Prostate [...] to normal prostate cells (well differentiated). ? Dryden 7: This indicates that the cancer cells look somewhat similar to normal prostate cells (moderately differentiated). ? Dryden 8, 9, or 10: This indicates that [...] external be (more content not included)... Normal [facility] Reminderson 05-04-2023 Reminders - From: Colleen Souza To: EMETERIO Gonzalez Recalls Kuldip; Sent: 05/04/2023 16:42:47 EDT Show up: 10/04/2023 15:42:00 EST Subject: PSA Reminder Message Please Remember to:_have pt get PSA done prior to appt. Comments:_ Normal [facility] Urology Office/Clinic Noteon 05-04-2023 Urology Office/Clinic Note Chief Complaint Follow up to Radiation Therapy HPI Staff 16m DX: Prostate Cancer, BPH & Elevated PSA *Finasteride 5mg (last filled by Dr Ragsdale) QD & Tamsulosin 0.4mg BID therapy. Pt was referred to Dr Hammonds for radiation consult at time of last encounter. However pt went and saw Dr Surendra Alanis from [facility]. S/P EBRT 03/06/22. 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 Alanis at [facility] for radiation treatment for 4-6 weeks [...] MD, URL [facility] [address] [place] [phone] Additional Instructions: sched cysto 6 months w/ [...] Hypertension N (more content not included)... Normal [facility] Comment on above: Result Comment: Elec tronically Signed By: Lexa CHRISTIANSEN MD\.br\Date and Time Signed: 05/04/23 11:34 EDT\.br\Electronically Co-Signed By: Colleen Souza\.br\Date and Time Co-Signed: 05/04/23 11:26 EDT CBC AUTO DIFFon 12-31-2022 BASO # 0.0 103/ul Normal 0.0-0.1 [facility] Comment on above: Performed By: #### C BC #### [facility] [address] [address] [address] Henry Marin Basophils/100 WBC (Bld) 0.8 % Normal 0.2-2.0 [facility] Comment on above: Performed By: #### C BC #### [facility] [address] [address] [address] Henry Marin EO # 0.2 103/ul Normal 0.0-0.7 [facility] Comment on above: Performed By: #### C BC #### [facility] [address] [address] [address] Henry Marin Eosinophils/100 WBC (Bld) 3.6 % Normal 0.9-7.0 [facility] Comment on above: Performed By: #### C BC #### [facility] [address] [place] [address] Dr. Henry Marin Erythrocyte distribution width (RBC) [Ratio] 13.2 % Normal 11.0-15.0 [facility] Comment on above: Performed By: #### C BC #### [facility] [address] [place] [address] Dr. Henry Marin Hematocrit (Bld) [Volume fraction] 45.3 % Normal 42.0-54.0 [facility] Comment on above: Performed By: #### C BC #### [facility] [address] [place] [address] Dr. Henry Marin Hemoglobin (Bld) [Mass/Vol] 15.7 g/dL Normal 14.0-18.0 [facility] Comment on above: Performed By: #### C BC #### [facility] [address] [place] [address] Dr. Henry Marin IG # 0.00 10e3/ul Normal 0.00-0.03 [facility] Comment on above: Performed By: #### C BC #### [facility] [address] [place] [address] Dr. Henry Marin IG % 0.0 % Normal 0.0-0.5 [facility] Comment on above: Performed By: #### C BC #### [facility] [address] [place] [address] Dr. Henry Marin LYMPH # 1.7 103/ul Normal 1.2-3.8 [facility] Comment on above: Performed By: #### C BC #### [facility] [address] [place] [address] Dr. Henry Marin Lymphocytes/100 WBC (Bld) 34.8 % Normal 20.5-60.0 [facility] Comment on above: Performed By: #### C BC #### [facility] [address] [place] [address] Dr. Henry Marin MANUAL DIFF REQ NO Normal [facility] Comment on above: Performed By: #### C BC #### [facility] [address] [place] [address] Dr. Henry Marin MCH (RBC) [Entitic mass] 32.6 pg Normal 25.9-34.0 [facility] Comment on above: Performed By: #### C BC #### [facility] [address] [place] [address] Dr. Henry Marin MCHC (RBC) [Mass/Vol] 34.7 g/dL Normal 29.9-35.2 [facility] Comment on above: Performed By: #### C BC #### [facility] [address] [place] [address] Dr. Henry Marin MCV (RBC) [Entitic vol] 94.0 fL Normal 80.0-94.0 [facility] Comment on above: Performed By: #### C BC #### [facility] [address] [place] [address] Dr. Henry Marin MONO # 0.6 103/ul Normal 0.3-0.8 [facility] Comment on above: Performed By: #### C BC #### [facility] [address] [place] [address] Dr. Henry Marin Monocytes/100 WBC (Bld) 13.0 % Critically high 1.7-12.0 [facility] Comment on above: Performed By: #### C BC #### [facility] [address] [place] [address] Dr. Henry Marin NEUT # 2.3 103/ul Normal 1.4-6.5 [facility] Comment on above: Performed By: #### C BC #### [facility] [address] [place] [address] Dr. Henry Marin Neutrophils/100 WBC (Bld) 47.8 % Normal 43.0-75.0 [facility] Comment on above: Performed By: #### C BC #### [facility] [address] [place] [address] Dr. Henry Marin Platelet mean volume (Bld) [Entitic vol] 9.7 fL Normal 9.5-13.5 [facility] Comment on above: Performed By: #### C BC #### [facility] [address] [address] [address] Henry Marin PLT 135 103/ul Critically low 150-[address] [facility] Comment on above: Performed By: #### C BC #### [facility] [address] [address] [address] Henry Marin RBC 4.82 106/ul Normal 4.70-6.10 [facility] Comment on above: Performed By: #### C BC #### [facility] [address] [address] [address] Henry Marin WBC 4.8 103/ul Normal 4.0-11.0 [facility] Comment on above: Performed By: #### C BC #### [facility] [address] [place] [address] Dr. Henry Marin LIPID PROFILEon 12-31-2022 CHOL-HDL RATIO NORM SEE BELOW Normal [facility] Comment on above: Result Comment: 3.3 - 4.4 LOW RISK 4.4 - 7.1 AVERAGE RISK 7.1 - 11.0 MODERATE RISK >11.0 HIGH RISK Performed By: #### B MP, ALT, LIPID #### [facility] [address] [place] [address] Dr. Henry Marin Cholesterol [Mass/Vol] 169 mg/dL Normal <=200 [facility] Comment on above: Performed By: #### B MP, ALT, LIPID #### [facility] [address] [place] [address] Dr. Henry Marin Cholesterol in HDL [Mass/Vol] 59 mg/dL Normal 40-60 [facility] Comment on above: Performed By: #### B MP, ALT, LIPID #### [facility] [address] [place] [address] Dr. Henry Marin Cholesterol in LDL [Mass/Vol] 91.6 mg/dL Normal [facility] Comment on above: Performed By: #### B MP, ALT, LIPID #### [facility] [address] [place] [address] Dr. Henry Marin Cholesterol.total/ Cholesterol in HDL [Mass ratio] 2.9 {ratio} Normal [facility] Comment on above: Performed By: #### B MP, ALT, LIPID #### [facility] [address] [address] [address] Henry Marin HDL NORMAL > or = 60 mg/dl - LO W CARDIOVASCULAR RISK <40 mg/dl - HIGH CARDIOVASCULAR RISK Normal [facility] Comment on above: Performed By: #### B MP, ALT, LIPID #### [facility] [address] [address] [address] Henry Marin LDL CALC NORMAL SEE BELOW Normal [facility] Comment on above: Result Comment: <100 mg/dl OPTIMAL 100 - 129 mg/dl NEAR OR ABOVE OPTIMAL 130 - 159 mg/dl BORDERLINE HIGH 160 - 189 mg/dl HIGH >190 mg/dl VERY HIGH Performed By: #### B MP, ALT, LIPID #### [facility] [address] [place] [address] Dr. Henry Marin Triglyceride [Mass/Vol] 92 mg/dL Normal <=150 [facility] Comment on above: Performed By: #### B MP, ALT, LIPID #### [facility] [address] [address] [address] Henry Marin VLDL CALC 18.4 mg/dL Normal [facility] Comment on above: Performed By: #### B MP, ALT, LIPID #### [facility] [address] [address] [address] Henry Marin PROF CHEM 8 (BAS METB)on Anion gap [Moles/Vol] 11.8 mmol/L Normal [facility] Comment on above: Performed By: #### B MP, ALT, LIPID #### [facility] [address] [address] [address] Henry Marin Calcium [Mass/Vol] 8.6 mg/dL Normal 8.5-10.1 [facility] Comment on above: Performed By: #### B MP, ALT, LIPID #### [facility] [address] [address] [address] Henry Marin Chloride [Moles/Vol] 106 mmol/L Normal 98-107 [facility] Comment on above: Performed By: #### B MP, ALT, LIPID #### [facility] [address] [address] [address] Henry Mrain CO2 [Moles/Vol] 28.3 mmol/L Normal 21.0-32.0 [facility] Comment on above: Performed By: #### B MP, ALT, LIPID #### [facility] [address] [address] [address] Henry Marin Creatinine [Mass/Vol] 1.01 mg/dL Normal 0.70-1.30 [facility] Comment on above: Performed By: #### B MP, ALT, LIPID #### [facility] [address] [address] [address] Henry Marin EGFR-AF TURKMEN >60 Normal >=60 [facility] Comment on above: Performed By: #### B MP, ALT, LIPID #### [facility] [address] [address] [address] Henry Marin EGFR-NON AF TURKMEN >60 Normal >=60 [facility] Comment on above: Performed By: #### B MP, ALT, LIPID #### [facility] [address] [address] [address] Henry Marin Glucose [Mass/Vol] 106 mg/dL Normal 74-106 [facility] Comment on above: Performed By: #### B MP, ALT, LIPID #### [facility] [address] [address] [address] Henry Marin Potassium [Moles/Vol] 4.1 mmol/L Normal 3.5-5.1 [facility] Comment on above: Performed By: #### B MP, ALT, LIPID #### [facility] [address] [address] [address] Henry Marin Sodium [Moles/Vol] 142 mmol/L Normal 136-145 [facility] Comment on above: Performed By: #### B MP, ALT, LIPID #### [facility] [address] [address] [address] Henry Marin Urea nitrogen [Mass/Vol] 13.0 mg/dL Normal 7.0-18.0 [facility] Comment on above: Performed By: #### B MP, ALT, LIPID #### [facility] [address] [address] [address] Henry Marin Urea nitrogen/Creatinin e [Mass ratio] 12.9 mg/mg Normal [facility] Comment on above: Performed By: #### B MP, ALT, LIPID #### [facility] [address] [address] [address] Henry Marin SGPTon 12-31-2022 ALT [Catalytic activity/Vol] 23 U/L Normal 16-63 [facility] Comment on above: Performed By: #### B MP, ALT, LIPID #### [facility] [address] [place] [address] Dr. Henry Marin Blood Urea Nitrogenon 2021 Urea nitrogen [Mass/Vol] 10 mg/dL Normal 9-23 [facility] Comment on above: Order Comment: STAT FOR MRI Performed By: #### C REAT, BUN #### [facility] [address] [place] [address] [place] Creatinineon 11-20-2021 Creatinine [Mass/Vol] 1.00 mg/dL Normal 0.64-1.27 [facility] Comment on above: Order Comment: STAT FOR MRI Performed By: #### C REAT, BUN #### [facility] [address] [place] [address] [place] Creatinine Clr Calc Pharmacy 86.83 Normal [facility] Comment on above: Order Comment: STAT FOR MRI Result Comment: PERF ORMED BY: [place] [address] PATHOLOGIST BANK TELLER MACHINE MECHANIC GUSTAVO CHANDLER M.D. Performed By: #### C REAT, BUN #### [facility] [address] [place] [address] Estimated GFR ( Arielle > 60 Normal [facility] Comment on above: Order Comment: STAT FOR MRI Result Comment: GFR estimated reference range: According to KDOQI guidelines, <60 ml/min/1.73m2 is sufficient to diagnose a patient with chronic kidney disease. Performed By: #### C REAT, BUN #### [facility] [address] Estimated GFR (Non- Am > 60 Normal [facility] Comment on above: Order Comment: STAT FOR MRI Performed By: #### C GHULAM CANTU #### [facility] [address] MR prostate wo/w conon 11-20 MR prostate wo/w con [facility] [address] [place] [address] [place] [address] MRI Report Signed Patient: Monet Bustillos MR#: [id number] : 1950 Acct:[id number] Age/Sex: 70 / M ADM Date: 11/20/21 Loc: Room: Type: [facility] Attending Dr: Lexa Christiansen MD Ordering [...] suggested. Impression dictated by: Kolby Dinero Jr., ManOPeggy11/20/2021 3:11 PM Dictation Location: [place] [address] Transcribed By: [facility] 11/20/21 1511 Dictated By: Kolby Dinero Jr, DO 11/20/21 1454 Signed By: 11/20/21 1511 [facility] Vital Signs Date Time Vital Sign Value Performing Clinician Facility 11-04-2023 15:45-0500 Body height 182.88 cm [employer] Other [facility] Other 11-04-2023 15:45-0500 Body mass index (BMI) [Ratio] 30.11 kg/m2 Giacomo Playhem Other [facility] Other 11-04-2023 15:45-0500 Body weight 100.7 kg Giacomo Playhem Other [facility] Other 11-04-2023 15:45-0500 Diastolic blood pressure 78 mm[Hg] Giacomo Playhem Other [facility] Other 11-04-2023 15:45-0500 Respiratory rate 12 /min Giacomo Playhem Other [facility] Other 11-04-2023 15:45-0500 Systolic blood pressure 123 mm[Hg] Giacomo Playhem Other [facility] Other 11-02-2023 12:57-0500 Blood Pressure Location Lexa CHRISTIANSEN [facility] 11-02-2023 12:57-0500 Diastolic blood pressure 77 mm[Hg] Lexa CHRISTIANSEN [facility] 11-02-2023 12:57-0500 Heart rate 57 /min Lexabruce CHRISTIANSEN [facility] 11-02-2023 12:57-0500 Respiratory rate 16 /min Lexa CHRISTIANSEN [facility] 11-02-2023 12:57-0500 Systolic blood pressure 132 mm[Hg] Lexa CHRISTIANSEN [facility] 07-21-2023 14:00-0400 Body height 182.88 cm Giacomo Ball Other [facility] [employer] Other 07-21-2023 14:00-0400 Body mass index (BMI) [Ratio] 29.83 kg/m2 Giacomo Ball Other [facility] [employer] Other 07-21-2023 14:00-0400 Body weight 99.79 kg Giacomo Ball Other [facility] [employer] Other 07-21-2023 14:00-0400 Diastolic blood pressure 65 mm[Hg] Giacomo Ball Other [facility] Other 07-21-2023 14:00-0400 Respiratory rate 12 /min Giacomo Ball Other [facility] Other 07-21-2023 14:00-0400 Systolic blood pressure 114 mm[Hg] Giacomo Ball Other [facility] Other 01-16-2023 12:00-0400 Body height 182.88 cm Giacomo Ball Other [facility] Other 01-16-2023 12:00-0400 Body mass index (BMI) [Ratio] 30.92 kg/m2 Giacomo Ball Other [facility] Other 01-16-2023 12:00-0400 Body weight 103.42 kg Giacomo Ball Other [facility] Other 01-16-2023 12:00-0400 Diastolic blood pressure 67 mm[Hg] Giacomo Ball Other [facility] Other 01-16-2023 12:00-0400 Respiratory rate 12 /min Giacomo Ball Other [facility] Other 01-16-2023 12:00-0400 Systolic blood pressure 115 mm[Hg] Giacomo Ball Other [facility] Other Encounters Encounter Date Encounter Type Care Provider Facility Start: 03-21-2024 End: 03-21-2024 ambulatory MYA PAN Not Available Start: 12-14-2023 End: 12-14-2023 Patient encounter procedure Lexa CHRISTIANSEN [facility] Start: 12-14-2023 End: 12-14-2023 ambulatory Lexa CHRISTIANSEN Facility: [place] Start: 12-14-2023 End: 12-14-2023 Lab Drop off Lexa CHRISTIANSEN [facility] Start: 12-09-2023 ambulatory Yadiel JAIN Facility : [place] Start: 12-07-2023 End: 12-07-2023 ambulatory Lexa CHRISTIANSEN Facility:[facility] Start: 12-07-2023 End: 12-07-2023 Patient encounter procedure Lexa R KULDIP [facility] Start: 11-16-2023 End: 11-16-2023 ambulatory Lexabruce [facility]ANSEN [facility] Start: 11-16-2023 End: 11-16-2023 Patient encounter procedure Lexa R KULDIP [facility] Start: 11-09-2023 ambulatory Lexa [facility]STIANSEN [facility] Start: 11-05-2023 End: 11-05-2023 ambulatory Giacomo Ragsdale Other [facility] Other Start: 11-05-2023 Telephone encounter [facility] Start: 11-04-2023 End: 11-04-2023 ambulatory Giacomo Ragsdale Other [facility] Other Start: 11-04-2023 Office outpatient visit 15 minutes Giacomo PRADO [facility] Start: 11-02-2023 End: 11-02-2023 ambulatory Lexabruce CHRISTIANSEN Facility:[facility] Start: 11-02-2023 End: 11-02-2023 Patient encounter procedure Lexa Barlow CHRISTIANSEN [facility] Start: 08-24-2023 End: 08-24-2023 ambulatory Giacomo Ragsdale Other [facility] Other Start: 08-24-2023 Telephone encounter [facility] Start: 08-06-2023 End: 08-06-2023 ambulatory Giacomo Ragsdale Other [facility] Other Start: 08-06-2023 Telephone encounter [facility]acomo [facility] Start: 08-05-2023 End: 08-05-2023 ambulatory Giacomo Ragsdale Other [facility] Other Start: 08-05-2023 Telephone encounter Giacomo Ragsdale [facility] Start: 07-23-2023 End: 07-23-2023 ambulatory Giacomo Ragsdale Other [facility] Other Start: 07-23-2023 Telephone encounter Giacomo Ragsdale [facility] Start: 07-21-2023 End: 07-21-2023 ambulatory Giacomo Ragsdale Other [facility] Other Start: 07-21-2023 Office outpatient visit 25 minutes Giacomo Ragsdale [facility] Start: 06-10-2023 End: 06-10-2023 ambulatory [facility] Start: 05-19-2023 End: 05-19-2023 ambulatory Lexa CHRISTIANSEN Facility:[id number] Start: 05-04-2023 End: 05-04-2023 ambulatory Lexa CHRISTIANSEN Facility:[facility] [place] Start: 04-14-2023 End: 04-14-2023 ambulatory Giacomo Ragsdale Other [facility] Other Start: 04-14-2023 Telephone encounter Giacomo Ragsdale [facility] Start: 01-19-2023 End: 01-19-2023 ambulatory Giacomo Ragsdale Other [facility] Other Start: 01-19-2023 Telephone encounter Giacomo Ragsdale [facility] Start: 01-16-2023 End: 01-16-2023 ambulatory Giacomo Ragsdael Other [facility] Other Start: 01-16-2023 Patient encounter procedure Giacomo Ragsdale [facility] Start: 12-31-2022 End: 01-01-[address] DOCTOR MORE Facility:[facility] Start: 07-02-2022 End: 07-03-[address] DOCTOR MORE Facility:[facility] Start: 06-23-2022 End: 06-24-[address] DOCTOR MORE Facility:[facility] Procedures Date Procedure Procedure Detail Performing Clinician Start: 05-19-2023 Transurethral cystoscopy Lexa CHRISTIANSEN Start: 12-31-[address] DOCTOR MORE Comment on above: Performed By: #### P SAD #### [facility] [address] [place] [address] Dr. Henry Marin Start: 07-02-[address] DOCTOR MORE Comment on above: Performed By: #### P SAD #### [facility] [address] [address] [address] Henry Marin Start: 03-06-2022 Mixed beam [...] Activity Detail Author Start: 05-06-2024 ambulatory Ambulatory Facility:[facility] Immunizations Immunization Date Immunization Notes Care Provider Fa ellis 06-18-2022 COVID-19 Moderna (BIvalent) Giacoom Ragsdale Other [facility] Comment on above: Result Comment: 2022: [id number] 08-04-2021 COVID-19 Vaccine Moderna - Documentation Purposes Only Giacomo Ragsdale Other [facility] 12-19-2020 SARS-CoV-2 (COVID-19 ) Ad26 vaccine, recombinant Lexa CHRISTIANSEN [facility] 12-13-2020 COVID-19 Vaccine Moderna - Documentation Purposes Only Giacomo Ragsdale Other [facility] Comment on above: Result Comment: 2022: [id number] 11-15-2020 COVID-19 Vaccine Moderna - Documentation Purposes Only Giacomo Ragsdale Other [facility] Other 11-15-2020 SARS-CoV-2 (COVID-19 ) Ad26 vaccine, recombinant Lexa CHRISTIANSEN [facility] 07-17-2017 diphtheria, tetanus toxoids and acellular pertussis vaccine, unspecified formulation Giacomo Ragsdale Other [facility] Other Payers Date Payer Category Payer Medicare [id number] 1959 Private Health Insurance CLI [id number] 1950 Unknown [id number] 2.16.84 0.1.271269.3.579.2.593 1948 Unknown [id number] 2.16.84 0.1.757405.3.579.2.593 1948 Unknown [id number] 2.16.84 0.1.849465.3.579.2.593 1948 Unknown [id number] 2.16.84 0.1.722293.3.579.2.593 1948 Unknown [id number] 2.16.84 0.1.532871.3.579.2.1259 1948 Unknown [id number] 2.16.84 0.1.267575.3.579.2.1259 1948 Unknown [id number] 2.16.8 40.1.159913.3.579.2.727 1948 Unknown [id number] 2.16.8 40.1.539406.3.579.2.727 1948 Unknown [id number] 2.16.8 40.1.352994.3.579.2.727 1948 Unknown [id number] 2.16.8 40.1.703345.3.579.2.727 1948 Unknown [id number] 2.16.8 40.1.244508.3.579.2.727 1948 Unknown [id number] 2.16.8 40.1.450892.3.579.2.72 1948 Unknown [id number] 2.16.8 40.1.799080.3.579.2.727 1948 Unknown [id number] 2.16.8 40.1.441880.3.579.2.727 1948 Unknown [id number] 2.16.8 40.1.489299.3.579.2. Unknown [id number] 2.16. [id number] Social History Date Type Detail Facility Sex Assigned At [facility] Start: 11-02-2023 Tobacco smoking status Ex-smoker (fi nding) [facility] Tobacco smoking status Never [facility] Functional Status Date Assessment Result Facility 12-14-2023 Functional Status N/A [facility] 11-02-2023 Functional Status N/A [facility] Clinical Notes 01-16-2023 to 12-14-2023 Note [...] provider. Document Revised: 12/11/2021 Document Reviewed: 09/06/2021 [employer] Patient Education 2021 [employer]. 12/14/2023 11:40:01 Indwelling Urinary Catheter Insertion Indwelling [...] provider. Document Revised: 05/21/2022 Document Reviewed: 05/21/2022 [employer] Patient Education 2022 [employer]. Follow Up Care 12/14/2023 08:48:07 With:KULDIP PERALTA, Lexa Barlow, URL Address: [facility] [address] , [place] [address]- [phone] When: Unknown Comments:pt to call w/ update [facility] 11-04-2023 Evaluation note Encounter Date Diagnosis Assessment Notes Oct, Rectal bleeding (ICD-10 - K62.5) Continue Xarelto but if bleeding increases, notify the office immediately. CBC to exclude severe anemia. Oct, Radiation proctitis (ICD-10 - K62.7) Avoid straining, increase fluids and fiber. Oct, Prostate cancer (ICD-10 - C61) Group 2, Dryden 3+4, External beam radiation No s/s recurrence Oct, Chronic anticoagulation (ICD-10 - Z79.01) May increase severity of bleeding. [facility] Other 01-29-2024 Hospital Discharge instructions Patient Education [...] and water are not available, use hand supervisor type disk quality control. 2.Clean your penis with soap and water. [...] reusable catheter in a small bathroom. Take otmz-duh-afeuglu and prescription medicines only as told by [...] provider. Document Revised: 07/28/2022 Document Reviewed: 07/28/2022 [employer] Patient Education 2022 [employer]. 11/02/2023 14:17:10 Acute Urinary Retention, Male Acute [...] Follow these instructions at home: Medicines Take fgjr-ghp-imzkbzv and prescription medicines only as told by [...] provider. Document Revised: 06/12/2021 Document Reviewed: 06/12/2021 [employer] Patient Education 2022 [employer]. Follow Up Care 05/04/2023 11:36:31 With:KULDIP PERALTA, Lexa Barlow, URL Address: [facility] [address], [place] [address]- [phone] When: Unknown Comments:f/u in 6 mos w/ PSA [facility] [place] 11-01-2023 Evaluation note* Encounter Date Diagnosis Assessment Notes Treatment Notes Treatment Clinical Notes Aug, Paroxysmal atrial fibrillation (ICD-10 - I48.0) Aug, Syncope, unspecified syncope type (ICD-10 - R55) [facility] Other 10-19-2023 Evaluation note* Encounter Date Diagnosis Assessment Notes Treatment Notes Treatment Clinical Notes Jul, Benign prostatic hyperplasia with lower urinary tract symptoms (ICD-10 - N40.1) [facility] Other 10-17-2023 Evaluation note* Encounter Date Diagnosis [...] are maintaining regular scheduled appts with their mapping technician. No bleeding complications Jul, Hyperlipidemia type II [...] External beam radiation No s/s recurrence, f/u [facility] Other 09-06-2023 [facility] Subjective Monet Bustillos II [...] metoprolol 12.5 mg t (more content not included)...[facility]07-11-2023 Evaluation note* Encounter Date Diagnosis Assessment Notes Treatment Notes Treatment Clinical Notes Apr, Paroxysmal atrial fibrillation (ICD-10 - I48.0) [facility] Other 04-17-2023 Evaluation note* Encounter Date Diagnosis Assessment Notes Treatment Notes Treatment Clinical Notes Jan, Prostate cancer (ICD-10 - C61) Group 2, Dryden 3+4, External beam radiation [facility] Other 04-14-2023 Evaluation note* Encounter Date Diagnosis [...] are maintaining regular scheduled appts with their mapping technician. Discussed switching Xarelto to Eliquis. Jan, Hyperlipidemia type II (ICD-10 - E78.01) Diet and exercise with continued statin therapy. 14 Jan, 2023 Prostate cancer (ICD-10 - C61) Group 2, Dryden 3+4, External beam radiation No s/s recurrence. f/u Urology 14 Jan, 2023 Obesity (BMI 30.0-34.9) (ICD-10 - E66.9) This [...] Colon cancer screening declined (ICD-10 - Z53.20) [facility] Other Evaluation + Plan note Future Appointments Appointment Date:05/06/2024 08:00:00 AM Scheduled Provider:Lexa CHRISTIANSEN MD Location:[facility] Appointment Type:URO Office Visit Diagnostic Tests Pending * PSA Total 11/02/23 [facility] evaluation + Plan note Future Appointments Appointment Date:12/09/2023 01:20:00 PM Scheduled Provider:Yadiel JAIN MD Location:[facility] Appointment Type: Appointment Date:05/06/2024 08:00:00 AM Scheduled Provider:Lexa CHRISTIANSEN MD Location:[facility] Appointment Type:URO Office Visit [facility] evaluation + Plan note Future Appointments Appointment Date:05/06/2024 08:00:00 AM Scheduled Provider:Lexa CHRISTIANSEN MD Location:[facility] Appointment Type:URO Office Visit [facility] evaluation + Plan note Future Appointments Appointment Date:05/06/2024 08:00:00 AM Scheduled Provider:Lexa CHRISTIANSEN MD Location:[facility] Appointment Type:URO Office Visit Diagnostic Tests Pending * [facility] note[facility] InformationNort Doorman Other History general Narrative - Reported* Type [...] RIGHT TIB FIB FIXATION 2006 Surgical History [facility] 11/2015 Hospitalization History see surgical history [facility] Other History general Narrative - Reported* Type [...] RIGHT TIB FIB FIXATION 2006 Surgical History [facility] 11/2015 Surgical History Cystoscopy 05/2023 Hospitalization History see surgical history [facility] Other Hospital course Narrative No data available for this section [facility] Hospital Discharge instructions No data available for this section [facility] progress note No data available for this section [facility] reason for referral (narrative)* Reason Referral for colonos copy Diagnosis 1 Rectal bleeding (K62 .5) Referral Organization [facility] Referring Provider First Name Giacomo Referring Provider Last Name Jn Referring Provider Specialty Internal Me dicine Referred Organization [facility] Referred Provider Yadiel Jain Referred Address [address] [facility],[place], [place],[address] Referred Provider Specialty Surgery Referral Priority Routine General Notes Mr. Bustillos, who is anticoagulated for atrial fibrillation with a history of pelvic radiation for prostate cancer, presents w/ rectal bleeding. He has notice blood with wiping and on his underwear. He is being referred for colonoscopy. Clinical Notes Include [employer] Other Summary Purpose Family History No Family [...] section and content) DATE CREATED AUTHOR 12/23/2021 [facility] DATE CREATED AUTHOR AUTHOR'S ORGANIZ ATION 01/03/2023 [facility] DATE CREATED AUTHOR AUTHOR'S ORGANIZ ATION 06/11/2023 [facility] DATE CREATED AUTHOR AUTHOR'S ORGANIZ ATION 03/26/2024 [facility] EPIC DATE CREATED AUTHOR AUTHOR'S ORGANIZ ATION 04/22/2024 [facility] REASON FOR VISIT (unrecogniz ed section and content) wellnessNo InformationSwitch ing to Eliquis6 month Follow upLab resultsNo InformationNo InformationHolter resultsEcho resultsLab resultsRECTAL BLEEDOING Patient Care team informatio n (unrecognized section and content) Personnel Name: GIACOMO RAGSDALE DO Address: Address: [address] Personnel Name: GIACOMO RAGSDALE DO Address: Address: [address] Personnel Name: GIACOMO RAGSDALE DO Address: Address: [address] [place] [address]- Personnel Name: GIACOMO RAGSDALE DO Address: [address] [place] [address]- Personnel Name: GIACOMO RAGSDALE DO Address: Address: [address], [address] FOR RECORDS PERTAINING TO PATIENTS WHO [...] BE BASED ON THE PRIMARY CLINICAL RECORDS. [facility], [facility]. provides no warranty or guarantee of the accuracy or completeness of information in this document.
[2024-04-26 09:29] LABS: Prostate Specific Antigen Dx 0.16 ng/mL (<=4.00)
== END 2024-04-26 08:28 | disposition home or self-care (01) ==
LOC: LAB 08:27
PROVIDERS: PCP Internal Medicine; Visit Provider Urology
DX: C61 Malignant neoplasm of prostate (principal)
CPT/HCPCS: 36415; 84153

== ENCOUNTER 2024-06-30 10:21 | Outpatient (OUT) | payer MEDICARE, SELFPAY ==
--- OUTSIDE RECORDS SUMMARY | 2024-06-30 10:33 | XMS_ITS | CCD ---
Author Organization [facility] Care Team Providers Care Pipe Changer Name Role Phone ROSALVAC, DOCTOR Admitting Unavailable [...] GUERRA Primary Care Unavailable Giacomo Ragsdale Unavailable GIACOMO RAGSDALE Primary Care Physician JR. MIKA, MYA Kwan Attending Unavaila ble JR. MIKA, MYA Kwan Referring Unavaila ble JR. MIKA, MYA Kwan Attending Unavaila ble JR. MIKA, MYA Kwan Referring Unavaila ble JR. MIKA, MYA Kwan Attending Unavaila ble JR. MIKA, MYA Kwan Attending Unavaila JANAE Che Attending Unavailable CHRISTIANSENLexa Attending Unavailable CHRISTIANSENLexa Attending Unavailable CHRISTIANSEN, Lexa Barlow Admitting Unavailable CHRISTIANSEN, Lexa Barlow Attending Unavailable NILLYadiel Attending Unavailable BALLGIACOMO Referring Unavailable CHRISTIANSENLexa Attending Unavailable CHRISTIANSENLexa Attending Unavailable CHRISTIANSENLexa Attending Unavailable Allergies Allergy Classification Reported Allergen(s) Allergy Type Date of Onset Reaction(s) Facility (10 sources) Penicillins; Translations: [penicillins] Drug allergy (disorder) 6 Vomiting (disorder), Moderate (severity modifier) (qualifier value) [facility] Repository (3 sources) Penicillin Drug Allergy Unknown soup.me Other (8 sources) Substance with penicillin structure and antibacterial mechanism of action (substance) Drug allergy Comment:Penicil cindy soup.me Other Medications Current Medications Medication Drug Class(es) Dates Sig (Normalized) Sig (Original) apixaban 5 mg oral tablet (15 sources) Factor Xa Inhibitor Start: 04-14-2023 take [...] discomfort, # 30 cap(s), Refills(s) 0, [facility] [id number], 187, cm, 11/02/23 13:01:00 EST, Height/Length Dosing, 101, kg, 11/02/23 13:01:00 EST, Weight Dosing Start Date: 12/07/23 Status: Ordered Start: 11-02-2023 End: 12-02-2023 take 1 capsule by mouth once daily doxycycline hyclate 100 mg Cap 100 mg = 1 cap(s), Oral, Daily, X 30 day(s), # 30 cap(s), Refills(s) 0, [facility] [id number], 187, cm, 11/02/23 13:01:00 EST, Height/Length Dosing, 101, kg, 11/02/23 13:01:00 EST, Weight Dosing Start Date: 11/02/23 Stop Date: 12/02/23 Status: Ordered finasteride 5 mg oral tablet (17 sources) 5-alpha Reductase Inhibitor Start: 10-31-2022 End: 10-27-2024 take 1 tablet by mouth once daily finasteride 5 mg Tab 5 mg = 1 tab(s), Oral, Daily, X 90 day(s), # 90 tab(s), Refills(s) 3, Pharmacy: [facility], 187, cm, 11/02/23 13:01:00 EST, [...] day(s), # 14 tab(s), Refills(s) 0, Pharmacy: [facility] [id number], 187, cm, 12/14/23 10:52:00 EDT, Height/Length Dosing, 101, kg, 12/14/23 10:52:00 EDT, Weight Dosing Start Date: 12/14/23 Stop Date: 12/28/23 Status: Ordered lidocaine hydrochloride 0.02 mg/mg topical gel (4 sources) Antiarrhythmic, Amide Local Anesthetic Start: 11-30-2023 apply 0.1 g topically once lidocaine Top 2% Gel w/Appl 30 mL 0.1 gm, 5 mL, Topical, Once, 30 mL, Refill(s) 2, Apply topically prior to cathing, [facility] [id number], 187, cm, 11/02/23 13:01:00 EST, Height/Length Dosing, [...] Start Date: 10/12/19 Status: Ordered Multi Vitamin+ (6 sources) Start: 10-12-2019 Multi Vitamin+ Refill(s) 0 Start Date: 10/12/19 Status: Ordered rivaroxaban (20 sources) Factor Xa Inhibitor Start: 10-27-2022 Xarelto 20 20 Once Orally Once a day Oct, Active take 1 tablet by [facility] every twenty-four hours Xarelto 20 MG 1 tablet with food Orally Once a day Active tamsulosin hydrochloride 0.4 mg oral capsule (20 sources) alpha-Adrenergic Jay Start: 11-02-2023 take 1 capsule by mouth twice daily Flomax 0.4 mg Cap 0.4 mg = 1 cap(s), Oral, BID, # 180 cap(s), Refills(s) 3, Pharmacy: [facility], 187, cm, 11/02/23 13:01:00 EST, Height/Length Dosing, 101, kg, 11/02/23 13:01:00 EST, Weight Dosing Start Date: 11/02/23 Status: Ordered Start: 10-27-2022 take 1 capsule by mo [facility] every twenty-four hours Tamsulosin HCl 0.4 MG 1 capsule Orally Once a day Oct, Active telmisartan 40 mg oral tablet (20 sources) Angiotensin 2 Receptor Jay Start: 10-27-2022 take 1 tablet by mouth once daily telmisartan 40 mg Tab 40 mg = 1 tab(s), Oral, Daily, Refills(s) 0 Start Date: 05/04/23 Status: Ordered Completed/Discontinued Medications Medication Drug Class(es) Dates Sig (Normalized) Sig (Original) ciprofloxacin 500 mg oral tablet (1 source) Quinolone Antimicrobial Start: 06-27-2024 take 1 tablet by mouth once daily Cipro 500 mg Tab 500 mg = 1 tab(s), Oral, Daily, take one tab day before procedure and one tab after procedure, # 2 tab(s), Refills(s) 0, Pharmacy: [facility] [id number], 184, cm, 06/27/24 11:52:00 EDT, Height/Length Dosing, 90, kg, 06/27/24 11:52:00 EDT, Weight Dosing Start Date: 06/27/24 Status: Ordered Problems Active Problems Problem Classification Problem Date Documented Da te Episodic/Chronic Acute bronchitis (11 sources) Acute bronchitis; Translations: [Acute bronchitis due to other specified organisms] Episodic Anal and rectal conditions (1 source) Radiation proctitis Episodic Anxiety disorders (15 sources) Generalized anxiety disorder; Translations: [Generalized anxiety disorder] 11-27-2023 Chronic Cancer of prostate (20 sources) Malignant neoplasm of prostate; Translations: [Carcinoma of prostate] Onset: 12-31-2022 Chronic Cardiac dysrhythmias (20 sources) Paroxysmal atrial fibrillation; Translations: [Paroxysmal atrial fibrillation] Onset: 06-10-2023 Chronic Disorders of lipid metabolism (18 sources) Familial hypercholesterolemia ; Translations: [Pure hypercholesterolemia ] Onset: 01-01-2023 Chronic Essential hypertension (20 sources) Essential (primary) hypertension; Translations: [Essential hypertension] Onset: 01-01-2023 Chronic Gastrointestinal hemorrhage (1 source) Hemorrhage of anus and rectum Episodic Genitourinary symptoms and ill-defined conditions (20 sources) Nocturia; Translations: [Nocturia] Onset: 11-02-2023 Episodic Hyperplasia of prostate (20 sources) Lower urinary tract symptoms due to benign prostatic hypertrophy; Translations: [Benign prostatic hyperplasia with lower urinary tract symptoms] Onset: 11-02-2023 Chronic Inflammatory conditions of male genital organs (5 sources) Prostatitis; Translations: [Inflammatory disease of prostate, unspecified] Onset: 12-14-2023 Episodic Osteoarthritis (11 sources) Localized, primary osteoarthritis of the pelvic region and thigh; Translations: [Unilateral primary osteoarthritis, left hip] Chronic Other aftercare (1 source) 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; Translations: [OTH PURSE SEINER CURRENT DRUG THERAPY] Onset: 01-01-2023 Episodic Other aftercare (11 sources) H/O: high risk medication; Translations: [Other long-term (current) drug therapy] Episodic Other aftercare (2 sources) Long-term current use of anticoagulant; Translations: [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] Episodic Other aftercare (1 source) [facility] (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 of anticoagulants Episodic Other connective tissue disease (11 sources) History of total replacement of left hip joint; Translations: [Presence of left artificial hip joint] Chronic Other male genital disorders (9 sources) Male erectile dysfunction, unspecified; Translations: [Erectile dysfunction] Onset: 11-02-2023 Chronic Other nutritional; endocrine; and metabolic disorders (11 sources) Obese class I; Translations: [Obesity, unspecified] Chronic Other nutritional; endocrine; and metabolic disorders (1 source) Obesity, unspecified Chronic Other nutritional; endocrine; and metabolic disorders (4 sources) Obesity 11-27-2023 Chronic Other screening for suspected conditions (not mental disorders or infectious disease) (12 sources) Encounter for screening, unspecified; Translations: [Raised prostate specific antigen] Onset: 06-23-2022 Episodic Other upper respiratory infections (11 sources) Acute maxillary sinusitis; Translations: [Acute maxillary sinusitis, unspecified] Episodic Residual codes; unclassified (1 source) Procedure and treatment not carried out because of patient's decision for unspecified reasons Episodic Spondylosis; intervertebral disc disorders; other back problems (15 sources) Lumbar spondylosis; Translations: [Spondylosis without myelopathy or radiculopathy, lumbar region] 11-27-2023 Chronic Syncope (2 sources) Syncope and collapse Episodic Unclassified (6 sources) Asymptomatic microscopic hematuria 05-04-2023 Unclassified (6 sources) Drug therapy finding 10-17-2019 Unclassified (1 source) Other ventricular tachycardia; Translations: [Other ventricular tachycardia] Onset: 06-22-2024 Unclassified (1 source) Finding of sensation of bladder 06-27-2024 Past or Other Problems Problem Classification Problem Date Documented Da te Episodic/Chronic Unclassified (1 source) Other ventricular tachycardia; Translations: [Other ventricular tachycardia] Onset: 06-22-2024 Results Test Name Value Interpretation Reference Range Facility Ambulatory Visit Summaryon 0 06-27-2024 Ambulatory Visit Summary Ambulatory Visit Summary MONET BUSTILLOS :1950 Visit Date:06/27/2024 Ambulatory Visit Instructions Your Diagnosis Urinary retention Feeling of incomplete bladder emptying BPH with urinary obstruction Prostatitis Prostate cancer Asymptomatic microscopic hematuria Erectile dysfunction Your Care Team Attending Physician - WALLY PERALTA, Lexa Barlow Primary Care Physician - GIACOMO RAGSDALE DO This Is Your Medications List finasteride (finasteride 5 mg Tab) tamsulosin (Flomax 0.4 mg Cap) Contact prescribing physician if questions or concerns apixaban (Eliquis 5 mg oral tablet) atorvastatin (atorvastatin 10 mg Tab) lidocaine topical (lidocaine Top 2% Gel w/Appl 30 mL) metoprolol (Metoprolol tartrate 25 mg Tab) multivitamin (Multi Vitamin+) Procedures Performed Cystoscopy (05/19/2023), Mixed beam EBRT (external beam radiation therapy) (03/06/2022), MRI-US fusion guided transrectal biopsy of prostate (12/12/2021), MRI of prostate (11/20/2021), Catheterization of right heart, Closed fracture of tibia AND fibula, Hip replacement. Discharge Vitals Heart Rate (Peripheral) 70 Blood Pressure 136/70 Height 184 cm Height 72 in Weight 90 kg Weight 198 lb BMI 26.58 What to do next You Need to Schedule the Following Appointments Follow Up with WALLY PERALTA, Lexa Barlow, [facility] When: Comments: sched cysto Where: [facility] [address], [place] [address]- [phone] Medications What How Much When Instructions Unchanged finasteride (finasteride 5 mg Tab) 1 Tablets By Mouth Every day Duration: 90 Days Unchanged tamsulosin (Flomax 0.4 mg Cap) 1 Capsules By Mouth 2 times a day Unchanged apixaban (Eliquis 5 mg oral tablet) 1 Tablets By Mouth 2 times a day Contact prescribing physician if questions or concerns Unchanged atorvastatin (atorvastatin 10 mg Tab) 1 Tablets By Mouth Every day Contact prescribing physician if questions or concerns Unchanged lidocaine topical (lidocaine Top 2% Gel w/ Appl 30 mL) 5 Milliliter Topical Once Apply topically prior to cathing Contact prescribing physician if questions or concerns Unchanged metoprolol (Metoprolol tartrate 25 mg Tab) 1 Tablets By Mouth 2 times a day Contact prescribing physician if questions or concerns Unchanged multivitamin (Multi Vitamin+) Contact prescribing physician if questions or concerns Allergies penicillins (Vomiting) Problems Ongoing - Any problem that you are currently receiving treatment for. Anticoagulated Asymptomatic microscopic hematuria Atrial fibrillation Benign prostatic hyperplasia (BPH) with post-void dribbling BPH with urinary obstruction Elevated PSA Erectile dysfunction Feeling of incomplete bladder emptying FRANCIS (generalized anxiety disorder) Hyperlipidemia Hypertension Lumbar spondylosis Nocturia Obesity Premature atrial contraction Prostate cancer Prostatitis Supraventricular tachycardia Urinary retention Patient Survey You may receive a survey via text or e-mail asking about your office visit. Please share your experience with us by completing your survey. We appreciate your feedback and thank you for choosing us for your care. Education Materials Acute Urinary Retention, Male Acute urinary retention [...] causes? This condition may be caused by: ? Obstruction or narrowing of the tube that drains the bladder (urethra). This may be caused by surgery, problems with nearby organs, or injury to the bladder or urethra. ? Problems with the nerves in the bladder. ? Tumors in the area of the pelvis, bladder, or urethra. ? Certain medicines. ? Bladder or urinary tract infection. ? Constipation. What increases the risk? This condition is more likely to develop in older men. As men age, their prostate may become larger and may start to press or squeeze on the bladder or the urethra. Other chronic health conditions can increase the risk of acute urinary retention. These include: ? Diseases such as multiple sclerosis. ? Spinal cord injuries. ? Diabetes. ? Degenerative cognitive conditions, such as delirium or dementia. ? Psychological conditions. A man may hold his urine due to trauma or because he does not want to use the bathroom. What are the signs or symptoms? Symptoms of this condition include: ? Trouble urinating. ? Pain in the lower abdomen. How is this diagnosed? This condition is diagnosed based on a physical exam and your medical history. You may also have other tests, including: ? An ultrasound of the bladder or kidneys or both. ? Blood tests. ? A urine analysis. ? Add (more content not included)... [facility]rology Office/Clinic Noteon 06-27-2024 Urology Office/Clinic Note Urology Office/Clinic Note Chief Complaint Urinary retention HPI Staff 6m PSA DX: Urinary Retention, BPH, Prostate Cancer, Microscopic Hematuria,Nocturia & ED *Tx'd with 30day Doxycycline therapy at time of encounter in October Continues Finasteride 5mg qd & Tamsulosin 0.4mg bid Pt has since then been seen in our office 12/14/23 due to UTI like sx. PVR 575ml at that time. Catheter was placed, then removed 2wks later. Pt to continue CIC. pt states he is not self cathing pvr today 584 PSA 04/26/24- 0.16 Dysuria: no Incomplete bladder emptying: pt does not feel he empties his bladder, PVR today was 584 Hematuria: _no Frequency: occasionally Urgency: _occasionally Nocturia: _1-2x Stream: _weak at times Leaking: _no Post void dripping: _no Wearing pads/ Depends: _no Urge incontinence: _no Stress incontinence: _no Incontinence without Sensory Awareness: _no Abdominal pain: _no Flank pain: _no Sexual complaints: _no History of Present Illness Tests reviewed: reviewed UA, PSA, ucx, PVR I have reviewed the previous health record [...] HPI. Physical Exam Vitals & Measurements HR: 70(Peripheral) BP: 136/70 HT: 72 in HT: 184 cm WT: 90 kg WT: 198 lb BMI: 26.58 General Appearance: alert, no distress, well nourished, well developed male. 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 1. Urinary retention (R33.9: Retention of urine, unspecified) MICHELLE 06/10/23 [facility] - Large urinary bladder volume 839mL. No hydro. Not a candidate for operative intervention due to increased risk with hx of radiation. PVR (cc): 11/02/23 - >759, >450 after voiding again 11/16/23 - 609 12/14/23 - 575. Pt had run out of catheter supplies over the weekend for CIC. Catheter was placed. removed this 2wks later. 06/27/24 - 584 Taught CIC 11/02/23. Was given doxycycline 100mg qd #30 to prevent infection. Pt's was doing CIC, had difficulty using 16 Fr coude catheters supplied so switched to rubber coude catheter. Has not been doing CIC regularly since catheter removal after last OV. shares she continued to have difficulty passing catheter even after trying application of xylocaine to help with discomfort. Advised pt he continues to not empty well. Voiding 2-3x/day. Has never felt he empties. Shares he always presses on his abdomen/bladder to help with emptying. Volunteers he had one episode of incontinence, did not have urge to void. shares pt would chronically hold his urine which likely contributed to bladder damage. Discussed risks/benefits of pt not emptying. Mentioned cysto to evaluate prostate/bladder for radiation changes and scar tissue. Pt is hesitant to proceed given possible need for catheterization for the rest of his life. Discussed if pt does not proceed with this, it could lead to chronic catheter placement. After lengthy discussion, pt is willing to proceed. -Will schedule cystoscopy with possible catheter placement. The risks and benefits for cystoscopy have been discussed. The risks include bleeding, infection, and irritation of the bladder and urinary channel, among others. Will order Local anesthesia. -Consider UD pending cysto findings 2. Feeling of incomplete bladder emptying (R39.14: Feeling of incomplete bladder emptying) See #1. 3. BPH with urinary obstruction (N40.1: Benign prostatic hyperplasia with lower urinary tract symptoms) Taking Finasteride 5mg qd and Tamsulosin 0.4mg bid. Shares stream starts strong but weakens as he voids. -See #1 4. Prostatitis (N41.9: Inflammatory disease of prostate, unspecified) UCx 12/14/23 - >100k K. pneumoniae. Pt had frequency and burning with urination as well as a fever. Was taking doxycycline 100mg qd for CIC, and increased it to bid. However pt was then rx'd Levaquin 500mg q24hr x14 days given no sx improvement. UA today negative for blood and infection. 5. Prostate cancer (C61: Malignant neoplasm of prostate) PSA 10/17/21 - 2.6 (Finasteride 5.2) 07/02/22 - 0.87 (Finasteride 1.74) 12/30/22 - 0.47 (Finasteride 0.94) 04/20/23 - 0.36 (Finasteride 0.72) 10/26/23 - 0.24 (Finasteride 0.48) 04/26/24 - 0.16 (Finasteride 0.32) MRI fusion Bx 12/12/21 - 80% of 4 cores POS w/Sudheer 3+4= 7 w/perineural invasio (more content not included)... [facility] Comment on above: Result Comment: Elec tronically Signed By: Lexa CHRISTIANSEN MD\.br\Date and Time Signed: 06/27/24 13:00 EDT\.br\Electronically Co-Signed By: Colleen Souza\.br\Date and Time Co-Signed: 06/27/24 12:56 EDT Office Visiton 06-22-2024 Follow-up visit [id number] Monet Bustillos Paul II 1950 M Date Provider Department Center 06/22/2024 JANAE MITTAL Family History Problem Relation Age of Onset Alzheimer's disease Father Family Status - Relation Status Age at Father Level of Service:52596 [place] OFFICE/OUTPATIENT ESTABLISHED MOD MDM 30 MIN Reason for Visit and Comments: Pre-op Exam [167083] Atrial Fibrillation [80] Hypertension [115658] Normal [facility] MR SHOULDER RIGHT WO IV CONT Denise 04-26-2024 MR SHOULDER RIGHT WO IV CONTRAST EXAM: MR SHOULDER RIGHT WO IV CONTRAST HISTORY: Shoulder pain. Lifting injury 6 months ago. TECHNIQUE: Multiplanar multisequence MRI of the shoulder was performed Without contrast. COMPARISON: Shoulder radiographs March 21, 2024. FINDINGS: Moderate degenerative changes of the acromioclavicular joint with moderate undersurface osteophyte formation. Slight lateral downsloping of the acromion. The acromion is curved. Coracoclavicular ligament intact. Trace subacromial/subdeltoid bursal fluid. Full-thickness tear of distal mid/posterior fibers of supraspinatus tendon at the footprint measuring approximately 3 mm in AP dimension. High-grade partial-thickness articular surface tear of distal anterior/mid fibers of supraspinatus tendon at the footprint also measuring approximately 3 mm in AP dimension. There are a few tiny low-grade partial-thickness articular surface tears of distal subscapularis tendon. Infraspinatus and teres minor tendons are intact. A 1.7 cm septated hyperintense T2 structure along the anterior margin of the humeral head adjacent to the distal subscapularis tendon is most likely a ganglion secondary to distal subscapularis tears. No atrophy or fatty infiltration of the rotator cuff musculature. The intra-articular and extra-articular long head biceps tendon is intact. The biceps tendon resides within the bicipital groove. Anterior superior through posterior superior labral degeneration without definitive tear. No well-defined or measurable cartilage defect. No glenohumeral joint effusion . IMPRESSION: Supraspinatus and subscapularis tendon tears as detailed. ELECTRONICALLY SIGNED BY: Nabeel Nova, DO Normal Not Available Retail - Clinical Noteon Retail - Clinical Note [id number] 0TIFF [facility] Retail - Clinical Noteon Retail - Clinical Note [id number] 0TIFF [facility] C Urineon 12-16-2023 Bacteria identified Cx Nom (U) Microbiology PROCEDURE: Urine Culture [R1] SOURCE: U Cath BODY SITE: COLLECTED DATE/TIME: 12/14/2023 10:54 EDT RECEIVED DATE/TIME: 12/14/2023 17:56 EDT START DATE/TIME: 12/14/2023 17:56 EDT FREE TEXT SOURCE: mora CHRISTIANSEN MD, Lexa CHRISTIANSEN MD, Lexa Barlow FINAL REPORTS Final Report [] Verified Date/Time: 12/16/2023 09:41 EDT >100,000 cfu/ml Klebsiella pneumoniae SUSCEPTIBILITY RESULTS __ LEGEND: S=Susceptible, N/R=Not Reported, Blank=Data not available, or drug not advisable or tested, I=Intermediate, ESBL=Extended spectrum beta-lactamase, R=Resistant, TFG=Thymidine-dependen t strain, BARNEY=Beta-lactamase positive, LILLY=mcg/m;(mg/L), S*=Predicted susceptible interp, [...] Locations R1: This test was performed at: [facility], [address] [place] [address], [facility]- , , [facility] Comment on above: Performed By: #### 2 [id number] ####[facility] [id number] [place] [address] Ambulatory Visit Summaryon 0 12-14-2023 Ambulatory Visit Summary MONET BUSTILLOS :1950 Visit Date:12/14/2023 Ambulatory Visit Instructions Your Diagnosis Urinary retention Prostatitis BPH with urinary obstruction Prostate cancer Asymptomatic microscopic hematuria Erectile dysfunction Your Care Team Attending Physician - WALLY PERALTA, Lexa Barlow Primary Care Physician - [...] Follow-Up Appointments Thursday 8:00 AM EDT With: WALLY PERALTA, Lexa Barlow Where: [facility] Patient Educationon 12-14-19 Patient Education [...] provider. Document Revised: 12/11/2021 Document Reviewed: 09/06/2021 [employer] Patient Education ? 2021 [employer]. Indwelling Urinary Catheter Insertion For people with [...] Urine d (more content not included)... [facility] Urology Office/Clinic Noteon 12-14-2023 Urology Office/Clinic [...] w/perineural invasion.[ Pt saw Dr. Alanis at [facility] for radiation treatment for 4-6 weeks [...] concern. [3] Follow-up With When Contact Information WALLY PERALTA, Lexa Barlow, [facility] [address], [place] [address]- [phone] Additional Instructions: pt to call w/ update Patient Education Indwelling Urinary Catheter Insertion, Care After Indwelling Urinary Catheter Insertion Colleen Shankar, personally scribed for Dr. Christiansen on 12/14/2023 11:44:53. Electronically signed by ed (more content not included)... [facility] Comment on above: Result Comment: Elec tronically Signed By: Lexa CHRISTIANSEN MD\.br\Date and Time Signed: 12/14/23 11:46 EDT\.br\Electronically Co-Signed By: Colleen Souza\.br\Date and Time Co-Signed: 12/14/23 11:45 EDT Retail - Clinical Noteon Retail - Clinical Note [id number] 0TIFF [facility] Urology Office/Clinic Noteon 12-09-2023 Urology [...] w/perineural invasion.[ Pt saw Dr. Alanis at [facility] for radiation treatment for 4-6 weeks [...] of concern. Follow-up With When Contact Information WALLY PERALTA, Lexa Barlow, [facility] 2 (more content not included)... [facility] Comment on above: Result Comment: Elec tronically Signed By: Aleena Akins\.br\Date and Time Signed: 12/09/23 15:45 EST Pre-Certification Formon Pre-Certification Form [id number] 0TIFF [facility] Ambulatory Visit Summaryon 0 12-07-2023 Ambulatory Visit [...] Lexa CHRISTIANSEN MD Where: [facility] Physician Referralon 024 Physician Referral [id number] 20 [id number] 0TIFF [facility] Patient Educationon 11-02-19 24 Patient Education Urology [...] of times per day to perform CIC: ____ To perform CIC, follow these steps: 1. Wash your hands with soap and water. If soap and water are not available, use hand deli cutter slicer. 2. Clean your penis with soap and [...] catheter in a small bathroom. ? Take wqnu-ctn-lektemt and prescription medicines only as told by your he (more content not included)... Normal [facility] Lab Reportson 10-27-2023 Lab Reports [id number] TIFF Normal [facility] CBC AUTO DIFFon 12-31-2022 BASO # 0.0 103/ul Normal 0.0-0.1 [facility] Comment on above: Performed By: #### C BC #### [facility] [address] [place] [address] Dr. Henry Marin Basophils/100 WBC (Bld) 0.8 % Normal 0.2-2.0 [facility] Comment on above: Performed By: #### C BC #### [facility] [address] [place] [address] Dr. Henry Marin EO # 0.2 103/ul Normal 0.0-0.7 [facility] Comment on above: Performed By: #### C BC #### [facility] [address] [place] [address] Dr. Henry Marin Eosinophils/100 WBC (Bld) 3.6 % Normal 0.9-7.0 [facility] Comment on above: Performed By: #### C BC #### [facility] [address] [place] [address] Dr. Henry Marin Erythrocyte distribution width (RBC) [Ratio] 13.2 % Normal 11.0-15.0 [facility] Comment on above: Performed By: #### C BC #### [facility] [address] [place] [address] Dr. Henry Marin Hematocrit (Bld) [Volume fraction] 45.3 % Normal 42.0-54.0 [facility] Comment on above: Performed By: #### C BC #### [facility] [address] [place] [address] Dr. Henry Marin Hemoglobin (Bld) [Mass/Vol] 15.7 g/dL Normal 14.0-18.0 [facility] Comment on above: Performed By: #### C BC #### [facility] [address] [place] [address] Dr. Henry Marin IG # 0.00 10e3/ul Normal 0.00-0.03 [facility] Comment on above: Performed By: #### C BC #### [facility] [address] [place] [address] Dr. Henry Marin IG % 0.0 % Normal 0.0-0.5 [facility] Comment on above: Performed By: #### C BC #### [facility] [address] [place] [address] Dr. Henry Marin LYMPH # 1.7 103/ul Normal 1.2-3.8 [facility] Comment on above: Performed By: #### C BC #### [facility] [address] [place] [address] Dr. Henry Marin Lymphocytes/100 WBC (Bld) 34.8 % Normal 20.5-60.0 [facility] Comment on above: Performed By: #### C BC #### [facility] [address] [place] [address] Dr. Henry Marin MANUAL DIFF REQ NO Normal [facility] Comment on above: Performed By: #### C BC #### [facility] [address] [place] [address] Dr. Henry Marin MCH (RBC) [Entitic mass] 32.6 pg Normal 25.9-34.0 [facility] Comment on above: Performed By: #### C BC #### [facility] [address] [place] [address] Dr. Henry Marin MCHC (RBC) [Mass/Vol] 34.7 g/dL Normal 29.9-35.2 [facility] Comment on above: Performed By: #### C BC #### [facility] [address] [place] [address] Dr. Henry Marin MCV (RBC) [Entitic vol] 94.0 fL Normal 80.0-94.0 [facility] Comment on above: Performed By: #### C BC #### [facility] [address] [place] [address] Dr. Henry Marin MONO # 0.6 103/ul Normal 0.3-0.8 [facility] Comment on above: Performed By: #### C BC #### [facility] [address] [place] [address] Dr. Henry Marin Monocytes/100 WBC (Bld) 13.0 % Critically high 1.7-12.0 [facility] Comment on above: Performed By: #### C BC #### [facility] [address] [place] [address] Dr. Henry Marin NEUT # 2.3 103/ul Normal 1.4-6.5 [facility] Comment on above: Performed By: #### C BC #### [facility] [address] [place] [address] Dr. Henry Marin Neutrophils/100 WBC (Bld) 47.8 % Normal 43.0-75.0 [facility] Comment on above: Performed By: #### C BC #### [facility] [address] [place] [address] Dr. Henry Marin Platelet mean volume (Bld) [Entitic vol] 9.7 fL Normal 9.5-13.5 [facility] Comment on above: Performed By: #### C BC #### [facility] [address] [place] [address] Dr. Henry Marin PLT 135 103/ul Critically low 150-450 [facility] Comment on above: Performed By: #### C BC #### [facility] [address] [place] [address] Dr. Henry Marin RBC 4.82 106/ul Normal 4.70-6.10 [facility] Comment on above: Performed By: #### C BC #### [facility] [address] [place] [address] Dr. Henry Marin WBC 4.8 103/ul Normal 4.0-11.0 [facility] Comment on above: Performed By: #### C BC #### [facility] [address] [address] [address] Henry Marin LIPID PROFILEon 12-31-2022 CHOL-HDL RATIO NORM SEE BELOW Normal [facility] Comment on above: Result Comment: 3.3 - 4.4 LOW RISK 4.4 - 7.1 AVERAGE RISK 7.1 - 11.0 MODERATE RISK >11.0 HIGH RISK Performed By: #### B MP, ALT, LIPID #### [facility] [address] [address] [address] Henry Marin Cholesterol [Mass/Vol] 169 mg/dL Normal <=200 [facility] Comment on above: Performed By: #### B MP, ALT, LIPID #### [facility] [address] [address] [address] Henry Marin Cholesterol in HDL [Mass/Vol] 59 mg/dL Normal 40-60 [facility] Comment on above: Performed By: #### B MP, ALT, LIPID #### [facility] [address] [address] [address] Henry Marin Cholesterol in LDL [Mass/Vol] 91.6 mg/dL Normal [facility] Comment on above: Performed By: #### B MP, ALT, LIPID #### [facility] [address] [address] [address] Henry Marin Cholesterol.total/ Cholesterol in HDL [Mass ratio] 2.9 {ratio} Normal [facility] Comment on above: Performed By: #### B MP, ALT, LIPID #### [facility] [address] [address] [address] Henry Marin HDL NORMAL > or = 60 mg/dl - LO W CARDIOVASCULAR RISK <40 mg/dl - HIGH CARDIOVASCULAR RISK Normal [facility] Comment on above: Performed By: #### B MP, ALT, LIPID #### [facility] [address] [address] [address] Henry Marin LDL CALC NORMAL SEE BELOW Normal [facility] Comment on above: Result Comment: <100 mg/dl OPTIMAL 100 - 129 mg/dl NEAR OR ABOVE OPTIMAL 130 - 159 mg/dl BORDERLINE HIGH 160 - 189 mg/dl HIGH >190 mg/dl VERY HIGH Performed By: #### B MP, ALT, LIPID #### [facility] [address] [place] [address] Dr. Henry Marin Triglyceride [Mass/Vol] 92 mg/dL Normal <=150 [facility] Comment on above: Performed By: #### B MP, ALT, LIPID #### [facility] [address] [address] [address] Henry Marin VLDL CALC 18.4 mg/dL Normal [facility] Comment on above: Performed By: #### B MP, ALT, LIPID #### [facility] [address] [place] [address] Dr. Henry Marin PROF CHEM 8 (BAS METB)on Anion gap [Moles/Vol] 11.8 mmol/L Normal [facility] Comment on above: Performed By: #### B MP, ALT, LIPID #### [facility] [address] [place] [address] Dr. Henry Marin Calcium [Mass/Vol] 8.6 mg/dL Normal 8.5-10.1 [facility] Comment on above: Performed By: #### B MP, ALT, LIPID #### [facility] [address] [place] [address] Dr. Henry Marin Chloride [Moles/Vol] 106 mmol/L Normal 98-107 [facility] Comment on above: Performed By: #### B MP, ALT, LIPID #### [facility] [address] [place] [address] Dr. Henry Marin CO2 [Moles/Vol] 28.3 mmol/L Normal 21.0-32.0 [place] Comment on above: Performed By: #### B MP, ALT, LIPID #### [facility] [address] [place] [address] Dr. Henry Marin Creatinine [Mass/Vol] 1.01 mg/dL Normal 0.70-1.30 [facility] Comment on above: Performed By: #### B MP, ALT, LIPID #### [facility] [address] [address] [address] Henry Marin EGFR-AF NEW ZEALANDER >60 Normal >=60 [place] Comment on above: Performed By: #### B MP, ALT, LIPID #### [facility] [address] [address] [address] Henry Marin EGFR-NON AF NEW ZEALANDER >60 Normal >=60 [facility] Comment on above: Performed By: #### B MP, ALT, LIPID #### [facility] [address] [address] [address] Henry Marin Glucose [Mass/Vol] 106 mg/dL Normal 74-106 [facility] Comment on above: Performed By: #### B MP, ALT, LIPID #### [facility] [address] [address] [address] Henry Marin Potassium [Moles/Vol] 4.1 mmol/L Normal 3.5-5.1 [facility] Comment on above: Performed By: #### B MP, ALT, LIPID #### [facility] [address] [address] [address] Henry Marni Sodium [Moles/Vol] 142 mmol/L Normal 136-145 [facility] Comment on above: Performed By: #### B MP, ALT, LIPID #### [facility] [address] [place] [address] Dr. Henry Marin Urea nitrogen [Mass/Vol] 13.0 mg/dL Normal 7.0-18.0 [facility] Comment on above: Performed By: #### B MP, ALT, LIPID #### [facility] [address] [place] [address] Dr. Henry Marin Urea nitrogen/Creatinin e [Mass ratio] 12.9 mg/mg Normal [facility] Comment on above: Performed By: #### B MP, ALT, LIPID #### [facility] [address] [address] [address] Henry Marin SGPTon 12-31-2022 ALT [Catalytic activity/Vol] 23 U/L Normal 16-63 [facility] Comment on above: Performed By: #### B MP, ALT, LIPID #### [facility] [address] [address] [address] Henry Marin Blood Urea Nitrogenon 2021 Urea nitrogen [Mass/Vol] 10 mg/dL Normal 9-23 [facility] Comment on above: Order Comment: STAT FOR MRI Performed By: #### C REAT, BUN #### [facility] [address] [place] [address] [place] Creatinineon 11-20-2021 Creatinine [Mass/Vol] 1.00 mg/dL Normal 0.64-1.27 [facility] Comment on above: Order Comment: STAT FOR MRI Performed By: #### C REAT, BUN #### [address] Creatinine Clr Calc Pharmacy 86.83 Normal [facility] Comment on above: Order Comment: STAT FOR MRI Result Comment: PERF ORMED BY: [place] [address] PATHOLOGIST ALUMINUM MOLDER GUSTAVO CHANDLER M.D. Performed By: #### C REAT, BUN #### [address] Estimated GFR ( Arielle > 60 Normal [facility] Comment on above: Order Comment: STAT FOR MRI Result Comment: GFR estimated reference range: According to KDOQI guidelines, <60 ml/min/1.73m2 is sufficient to diagnose a patient with chronic kidney disease. Performed By: #### C REAT, BUN #### [address] Estimated GFR (Non- Am > 60 Normal [facility] Comment on above: Order Comment: STAT FOR MRI Performed By: #### C REAT, BUN #### [address] MR prostate wo/w conon 11-20 MR prostate wo/w con [facility] [address] [place] [address] MRI Report Signed Patient: Monet Bustillos MR#: [id number] : 1950 Acct:[id number] Age/Sex: 70 / M ADM Date: 11/20/21 Loc: Room: Type: [facility] Attending Dr: Lexa Christiansen MD Ordering Provider: [...] Dinero Jr., D.O.11/20/2021 3:11 PM Dictation Location: [place] [address] Transcribed By: [facility] 11/20/21 1511 Dictated By: Kolby Dinero Jr, DO 11/20/21 1454 Signed By: 11/20/21 1511 [facility] Vital Signs Date Time Vital Sign Value Performing Clinician Facility 06-27-2024 11:40-0400 Diastolic blood pressure 70 mm[Hg] Lexa CHRISTIANSEN [facility] 06-27-2024 11:40-0400 Heart rate 70 /min Lexa CHRISTIANSEN [facility] 06-27-2024 11:40-0400 Systolic blood pressure 136 mm[Hg] Lexa CHRISTIANSEN [facility] 11-04-2023 15:45-0500 Body height 182.88 cm Giacomo Ball Other [facility] [employer] Other 11-04-2023 15:45-0500 Body mass index (BMI) [Ratio] 30.11 kg/m2 Giacomo Ball Other [facility] Other 11-04-2023 15:45-0500 Body weight 100.7 kg Giacomo Ball Other [facility] Other 11-04-2023 15:45-0500 Diastolic blood pressure 78 mm[Hg] Giacomo Ball Other [facility] Other 11-04-2023 15:45-0500 Respiratory rate 12 /min Giacomo Ball Other [facility] Other 11-04-2023 15:45-0500 Systolic blood pressure 123 mm[Hg] Giacomo Ball Other [facility] Other 11-02-2023 12:57-0500 Blood Pressure Location Lexa CHRISTIANSEN [facility] 11-02-2023 12:57-0500 Diastolic blood pressure 77 mm[Hg] Lexa CHRISTIANSEN [facility] 11-02-2023 12:57-0500 Heart rate 57 /min Lexa CHRISTIANSEN [facility] 11-02-2023 12:57-0500 Respiratory rate 16 /min Lexa CHRISTIANSEN [facility] 11-02-2023 12:57-0500 Systolic blood pressure 132 mm[Hg] Lexa CHRISTIANSEN [facility] 07-21-2023 14:00-0400 Body height 182.88 cm Giacomo Ball Other [facility] [employer] Other 07-21-2023 14:00-0400 Body mass index (BMI) [Ratio] 29.83 kg/m2 Giacomo Ball Other [employer] Other 07-21-2023 14:00-0400 Body weight 99.79 kg Giacomo Ball Other [employer] Other 07-21-2023 14:00-0400 Diastolic blood pressure 65 mm[Hg] Giacomo Ball Other [employer] Other 07-21-2023 14:00-0400 Respiratory rate 12 /min Giacomo Ball Other [employer] Other 07-21-2023 14:00-0400 Systolic blood pressure 114 mm[Hg] Giacomo Ball Other [facility] Other 01-16-2023 12:00-0400 Body height 182.88 cm Giacomo Ball Other [employer] Other 01-16-2023 12:00-0400 Body mass index (BMI) [Ratio] 30.92 kg/m2 Giacomo Ball Other [employer] Other 01-16-2023 12:00-0400 Body weight 103.42 kg Gicaomo Ball Other [facility] Other 01-16-2023 12:00-0400 Diastolic blood pressure 67 mm[Hg] Giacomo Ball Other [facility] Other 01-16-2023 12:00-0400 Respiratory rate 12 /min Giacomo Ball Other [facility] Other 01-16-2023 12:00-0400 Systolic blood pressure 115 mm[Hg] Giacomo Ball Other [employer] Other Encounters Encounter Date Encounter Type Care Provider Facility Start: 06-27-2024 End: 06-27-2024 ambulatory Lexa CHRISTIANSEN Facility:[facility] Start: 06-27-2024 End: 06-27-2024 Patient encounter procedure Lexa CHRISTIANSEN [facility] Start: 06-22-2024 End: 06-22-2024 ambulatory [facility] Start: 06-22-2024 End: 06-22-2024 Encounter for other preprocedural examination [facility] Start: 05-23-2024 End: 05-23-2024 ambulatory MYA PAN Not Available Start: 05-09-2024 End: 05-09-2024 ambulatory MYA PAN Not Available Start: 04-26-2024 End: 04-26-2024 ambulatory .MYA STEPANIC Not Available Start: 04-18-2024 End: 04-18-2024 ambulatory .MYA STEPANIC Not Available Start: 03-21-2024 End: 03-21-2024 ambulatory .MYA STEPANIC Not Available Start: 12-14-2023 End: 12-14-2023 Patient encounter procedure Lexa Cain CHRISTIANSEN [facility] Start: 12-14-2023 End: 12-14-2023 ambulatory Lexa CHRISTIANSEN Facility:[facility] [place] Start: 12-14-2023 End: 12-14-2023 Lab Drop off Lexa CHRISTIANSEN [facility] Start: 12-09-2023 ambulatory Yadiel JAIN Facility :[facility] Start: 12-07-2023 End: 12-07-2023 ambulatory Lexa CHRISTIANSEN Facility:[facility] Start: 12-07-2023 End: 12-07-2023 Patient encounter procedure Lexa CHRISTIANSEN [facility] Start: 11-16-2023 End: 11-16-2023 ambulatory Lexa Cain WALLY Facility:[facility] Start: 11-16-2023 End: 11-16-2023 Patient encounter procedure Lexa CHRISTIANSEN [facility] Start: 11-09-2023 ambulatory Lexa CHRISTIANSEN Facility :[facility] Start: 11-05-2023 End: 11-05-2023 ambulatory Giacomo Ragsdale Other [facility] [employer] Other Start: 11-05-2023 Telephone encounter Giacomo Ragsdale [facility] Start: 11-04-2023 End: 11-04-2023 ambulatory Giacomo Ragsdale Other [employer] Other Start: 11-04-2023 Office outpatient vi sit 15 minutes Giacomo Ball [facility] Start: 11-02-2023 End: 11-02-2023 ambulatory Lexa CHRISTIANSEN Facility:[facility] Start: 11-02-2023 End: 11-02-2023 Patient encounter procedure Lexa R WALLY [facility] Start: 08-24-2023 End: 08-24-2023 ambulatory Giacomo Ball Other [facility] Other Start: 08-24-2023 Telephone encounter Giacomo Ball [facility] Start: 08-06-2023 End: 08-06-2023 ambulatory Giacomo Ball Other [facility] Other Start: 08-06-2023 Telephone encounter Giacomo Ball [facility] Start: 08-05-2023 End: 08-05-2023 ambulatory Giacomo Ball Other [facility] Other Start: 08-05-2023 Telephone encounter Giacomo Ball [facility] Start: 07-23-2023 End: 07-23-2023 ambulatory Giacomo Ball Other [facility] Other Start: 07-23-2023 Telephone encounter Giacomo Ball [facility] Start: 07-21-2023 End: 07-21-2023 ambulatory Giacomo Ball Other [facility] Other Start: 07-21-2023 Office outpatient vi sit 25 minutes Giacomo Ball [facility] Start: 04-14-2023 End: 04-14-2023 ambulatory Giacomo Ball Other [facility] Other Start: 04-14-2023 Telephone encounter Giacomo Ball [facility] Start: 01-19-2023 End: 01-19-2023 ambulatory Giacomo Ball Other [facility] Other Start: 01-19-2023 Telephone encounter Giacomo JIMENEZ [facility] Start: 01-16-2023 End: 01-16-2023 ambulatory Giacomo Ragsdale Other [employer] Other Start: 01-16-2023 Patient encounter procedure Giacomo Ragsdale [facility] Start: 12-31-2022 End: 01-01-[address] DOCTOR MORE Facility:[facility] Start: 07-02-2022 End: 07-03-[address] DOCTOR MORE Facility:[facility] Start: 06-23-2022 End: 06-24-[address] DOCTOR MORE Facility:[facility] Procedures Date Procedure Procedure Detail Performing Clinician Start: 05-19-2023 Transurethral cystoscopy Lexa CHRISTIANSEN Start: 12-31-[address] DOCTOR MORE Comment on above: Performed By: #### P SAD #### [facility] [address] [place] [address] Dr. Henry Marin Start: 07-02-[address] DOCTOR MORE Comment on above: Performed By: #### P SAD #### [facility] [address] [place] [address] Dr. Henry Marin Start: 03-06-2022 Mixed beam [...] (BIvalent) Giacomo Ragsdale Other [facility] Comment on above: Result Comment: 2022: [id number] 08-04-2021 COVID-19 Vaccine Moderna - Documentation Purposes Only Giacomo Ragsdale Other [facility] 12-19-2020 SARS-CoV-2 (COVID-19 ) Ad26 vaccine, recombinant Lexa CHRISTIANSEN [facility] 12-13-2020 COVID-19 Vaccine Moderna - Documentation Purposes Only Giacomo Jn Other [facility] Comment on above: Result Comment: 2022: [id number] 11-15-2020 COVID-19 Vaccine Moderna - Documentation Purposes Only Giacomo Jn Other [facility] Other 11-15-2020 SARS-CoV-2 (COVID-19 ) Ad26 vaccine, recombinant Rule. [facility] 07-17-2017 diphtheria, tetanus toxoids and acellular pertussis vaccine, unspecified formulation Gi[facility]omo Jn Other [facility] Other Payers Date Payer Category Payer Medicare [id number] 1961 Private Health Insurance CLI [id number] 1950 Unknown [id number] 2.16.84 [id number] 1950 Unknown [id number] 2.16.84 0.1.779097.3.579.2.593 1950 Unknown [id number] 2.16.84 0.1.282458.3.579.2.593 1950 Unknown [id number] 2.16.84 0.1.856075.3.579.2.593 1950 Unknown [id number] 2.16.84 0.1.238092.3.579.2.1259 1950 Unknown [id number] 2.16.84 0.1.728359.3.579.2.1259 1950 Unknown [id number] 2.16.84 0.1.074880.3.579.2.1259 1950 Unknown [id number] 2.16.84 0.1.154659.3.579.2.125 1950 Unknown [id number] 2.16.84 0.1.813696.3.579.2.125 1950 Unknown [id number] 2.16.84 0.1.745408.3.579.2.1259 1950 Unknown [id number] 2.16.8 40.1.653687.3.579.2.727 1950 Unknown [id number] 2.16.8 40.1.081808.3.579.2.727 1950 Unknown [id number] 2.16.8 40.1.417913.3.579.2.727 1950 Unknown [id number] 2.16.8 40.1.179181.3.579.2.727 1950 Unknown [id number] 2.16.8 40.1.629280.3.579.2.727 1950 Unknown [id number] 2.16.8 40.1.323881.3.579.2.727 1950 Unknown [id number] 2.16.8 40.1.859630.3.579.2.72 Unknown [id number] .16. [id number] Social History Date Type Detail Facility Sex Assigned At [facility] Start: 11-02-2023 End: 06-27-2024 Tobacco smoking status Ex-smoker (finding) [facility] Tobacco smoking status Never [facility] Functional Status Date Assessment Result Facility 06-27-2024 Functional Status N/A [facility] 12-14-2023 Functional Status N/A [facility] 11-02-2023 Functional Status N/A [facility] Clinical Notes 01-16-2023 to 06-27-2024 Note Date & Type Note Facility 06-27-2024 Hospital Discharg e instructions Patient Education 06/27/2024 12:46:05 Acute Urinary Retention, Male Acute Urinary Retention, [...] Follow these instructions at home: Medicines Take tgnn-lxf-vcdmotw and prescription medicines only as told by [...] provider. Document Revised: 06/12/2021 Document Reviewed: 06/12/2021 [employer] Patient Education 2023 [employer]. 06/27/2024 12:45:54 Cystoscopy Cystoscopy Cystoscopy is a procedure that is used to help diagnose and sometimes treat conditions that affect the lower urinary tract. The lower urinary tract includes the bladder and the urethra. The urethra is the tube that drains urine from the bladder. Cystoscopy is done using a thin, tube-shaped instrument with a light and camera at the end (cystoscope). The cystoscope may be hard or flexible, depending on the goal of the procedure. The cystoscope is inserted through the urethra, into the bladder. Cystoscopy may be recommended if you have: Urinary tract infections that keep coming back. Blood in the urine (hematuria). An inability to control when you urinate (urinary incontinence) or an overactive bladder. Unusual cells found in a urine sample. A blockage in the urethra, such as a urinary stone. Painful urination. An abnormality in the bladder found during an intravenous pyelogram (IVP) or CT scan. Cystoscopy may also be done to remove a sample of tissue to be examined under a microscope (biopsy). Tell a health care provider about: Any allergies you have. All medicines you are taking, including vitamins, herbs, eye drops, creams, and mujr-knu-jcsremw medicines. Any problems you or family members have had with anesthetic medicines. Any blood disorders you have. Any surgeries you have had. Any medical conditions you have. Whether you are or may be . What are the risks? Generally, this is a safe procedure. However, problems may occur, including: Infection. Bleeding. Allergic reactions to medicines. Damage to other structures or organs. What happens before the procedure? Medicines Ask your health care provider about: Changing or stopping your regular medicines. This is especially important if you are taking diabetes medicines or blood thinners. Taking medicines such as aspirin and ibuprofen. These medicines can thin your blood. Do not take these medicines unless your health care provider tells you to take them. Taking htub-jhl-rnpaejl medicines, vitamins, herbs, and supplements. Tests You may have an exam or testing, such as: X-rays of the bladder, urethra, or kidneys. CT scan of the abdomen or pelvis. Urine tests to check for signs of infection. General instructions Follow instructions from your health care provider about eating or drinking restrictions. Ask your health care provider what steps will be taken to help prevent infection. These steps may include: ?Washing skin with a germ-killing soap. ?Taking antibiotic medicine. Plan to have a responsible adult take you home from the hospital or clinic. What happens during the procedure? You will be given one or more of the following: ?A medicine to help you relax (sedative). ?A medicine to numb the area (local anesthetic). The area around the opening of your urethra will be cleaned. The cystoscope will be passed through your urethra into your bladder. Germ-free (sterile) fluid will flow through the cystoscope to fill your bladder. The fluid will stretch your bladder so that your health care provider can clearly examine your bladder [place]. Your doctor will look at the urethra and bladder. Your doctor may take a biopsy or remove stones. The cystoscope will be removed, and your bladder will be emptied. The procedure may vary among health care providers and hospitals. What can I expect after the procedure? After the procedure, it is common to have: Some soreness or pain in your abdomen and urethra. Urinary symptoms. These include: ?Mild pain or burning when you urinate. Pain should stop within a few minutes after you urinate. This may last for up to 1 week. ?A small amount of blood in your urine for several days. ?Feeling like you need to urinate but producing only a small amount of urine. Follow these instructions at home: Medicines Take kxcr-oxe-cbixzze and prescription medicines only as told by your health care provider. If you were prescribed an antibiotic medicine, take it as told by your health care provider. Do not stop taking the antibiotic even if you start to feel better. General instructions Return to your normal activities as told by your health care provider. Ask your health care provider what activities are safe for you. If you were given a sedative during the procedure, it can affect you for several hours. Do not drive or operate machinery until your health care provider says that it is safe. Watch for any blood in your urine. If the amount of blood in your urine increases, call your health care provider. Follow instructions from your health care provider about eating or drinking restrictions. If a tissue sample was removed for testing (biopsy) during your procedure, it is up to you to get your test results. Ask your health care provider, or the department that is doing the test, when your results will be ready. Drink enough fluid to keep your urine pale yellow. Keep all follow-up visits. This is important. Contact a health care provider if: You have pain that gets worse or does not get better with medicine, especially pain when you urinate. You have trouble urinating. You have more blood in your urine. Get help right away if: You have blood clots in your urine. You have abdominal pain. You have a fever or chills. You are unable to urinate. Summary Cystoscopy is a procedure that is used to help diagnose and sometimes treat conditions that affect the lower urinary tract. Cystoscopy is done using a thin, tube-shaped instrument with a light and camera at the end. After the procedure, it is common to have some soreness or pain in your abdomen and urethra. Watch for any blood in your urine. If the amount of blood in your urine increases, call your health care provider. If you were prescribed an antibiotic medicine, take it as told by your health care provider. Do not stop taking the antibiotic even if you start to feel better. This information is not intended to replace advice given to you by your health care provider. Make sure you discuss any questions you have with your health care provider. Document Revised: 06/04/2022 Document Reviewed: 05/03/2021 [employer] Patient Education 2023 [employer]. Follow Up Care 11/02/2023 15:01:28 With:WALLY PERALTA, Lexa Barlow, URL Address: [facility] [address] [place] [address] [phone] When: Unknown Comments:sched cysto [facility] 06-27-2024 Note Patient Education Urology Acute Urinary Retention, Male Acute urinary retention [...] causes? This condition may be caused by: ? Obstruction or narrowing of the tube that drains the bladder (urethra). This may be caused by surgery, problems with nearby organs, or injury to the bladder or urethra. ? Problems with the nerves in the bladder. ? Tumors in the area of the pelvis, bladder, or urethra. ? Certain medicines. ? Bladder or urinary tract infection. ? Constipation. What increases the risk? This condition is more likely to develop in older men. As men age, their prostate may become larger and may start to press or squeeze on the bladder or the urethra. Other chronic health conditions can increase the risk of acute urinary retention. These include: ? Diseases such as multiple sclerosis. ? Spinal cord injuries. ? Diabetes. ? Degenerative cognitive conditions, such as delirium or dementia. ? Psychological conditions. A man may hold his urine due to trauma or because he does not want to use the bathroom. What are the signs or symptoms? Symptoms of this condition include: ? Trouble urinating. ? Pain in the lower abdomen. How is this diagnosed? This condition is diagnosed based on a physical exam and your medical history. You may also have other tests, including: ? An ultrasound of the bladder or kidneys or both. ? Blood tests. ? A urine analysis. ? Additional tests may be needed, such as a CT scan, MRI, and kidney or bladder function tests. How is this treated? Treatment for this condition may include: ? Medicines. ? Placing a thin, sterile tube (catheter) into the bladder to drain urine out of the body. This is called an indwelling urinary catheter. After it is inserted, the catheter is held in place with a small balloon that is filled with sterile water. Urine drains from the catheter into a collection bag outside of the body. ? Behavioral therapy. ? Treatment for other conditions. If needed, you may be treated in the hospital for kidney function problems or to manage other complications. Follow these instructions at home: Medicines ? Take opma-zix-qizsceq and prescription medicines only as told by your health care provider. Avoid certain medicines, such as decongestants, antihistamines, and some prescription medicines. Do not take any medicine unless your health care provider approves. ? If you were prescribed an antibiotic medicine, take it as told by your health care provider. Do not stop using the antibiotic even if you start to feel better. General instructions ? Do not use any products that contain nicotine or tobacco. These products include cigarettes, chewing tobacco, and vaping devices, such as e-cigarettes. If you need help quitting, ask your health care provider. ? Drink enough fluid to keep your urine pale yellow. ? If you have an indwelling urinary catheter, follow the instructions from your health care provider. ? Monitor any changes in your symptoms. Tell your health care provider about any changes. ? If instructed, monitor your blood pressure at home. Report changes as told by your health care provider. ? Keep all follow-up visits. This is important. Contact a health care provider if: ? You have uncomfortable bladder contractions that you cannot control (spasms). ? You leak urine with the spasms. Get help right away if: ? You have chills or a fever. ? You have blood in your urine. ? You have a catheter and the following happens: ? Your catheter stops draining urine. ? Your catheter falls out. Summary ? Acute urinary retention is a condition in which a person is unable to pass urine or can only pass a little urine. If left untreated, this condition can result in kidney damage or other serious complications. ? An enlarged prostate may cause this condition. As men age, their prostate gland may become larger and may press or squeeze on the bladder or the urethra. ? Treatment for this condition may include medicines and placement of an indwelling urinary catheter. ? Monitor any changes in your symptoms. Tell your health care provider about any changes. This information is not intended to replace advice given to you by your health care provider. Make sure you discuss any questions you have with your health care provider. Document Revised: 06/12/2021 Document Reviewed: 06/12/2021 [employer] Patient Education ? 2023 [employer] Cystoscopy Cystoscopy is a procedure that is used to help diagnose and sometimes treat conditions that affect the lower urinary tract. The lower urinary tract includes the bladder and the urethra. The urethra is the tube that drains urine from the (more content not included)... [facility] 06-22-2024 Note Cardiovascular Medic [facility] SUBJECTIVE Chief Complaint Patient presents with Pre-op Exam Atrial Fibrillation Hypertension Monet Bustillos II is a 73 y.o. male here for follow-up. HPI PMHx: PAF, HTN, prostate CA s/p radiation therapy -Cardiac cath 2016: normal coronary arteries -Issues with bradycardia, metoprolol reduced to 12.5mg 06/22/2024 He is down 25# since last seen. His telmisartan was stopped per PCP. BP has been good on lopressor. He is in need of shoulder surgery. First his right then his left . He reports about 1 year ago having a dizzy episode while getting ready in the morning at the sink in his bathroom. Sx's started with dizziness and next thing he remembers he was picking himself off of the ground. He wore a holter monitor which revealed episodes of PSVT, frequent PACs, PVCs, 1 episode of NSVT, second degree type 1 heart block, and intermittent bradycardia. He has had an ECHO that was unremarkable. No further issues with syncope since. He notes occasional dizziness if working outside for longer periods of time. He typically will walk 5-7 days a week for 30mins with his without sx's. Denies c/o CP, dyspnea, orthopnea, PND, LE edema, palpitations. Patient Active Problem List Diagnosis Paroxysmal atrial fibrillation (CMS/HCC) Primary hypertension PAC (premature atrial contraction) Acute pain of right shoulder Adenocarcinoma of prostate (CMS/HCC) Dyspnea on exertion Primary osteoarthritis of left hip Supraventricular tachycardia (CMS/HCC) No past medical history on file. Family History Problem Relation Name Age of Onset Alzheimer's disease Father Allergies Allergen Reactions Penicillins GI intolerance ROS Constitutional: Positive for weight loss (25# since Jun 2023). Cardiovascular: Positive for leg swelling (LLE). Musculoskeletal: Positive for joint pain. All other systems reviewed and are negative. OBJECTIVE Visit Vitals BP 108/68 (BP Location: Right arm, Patient Position: Sitting) Pulse 77 Ht 1.829 m (6') Wt 89.4 kg (197 lb) SpO2 98% BMI 26.72 kg/m??? BSA 2.13 m??? Medications: Current Outpatient Medications: atorvastatin (Lipitor) 10 mg tablet, Take 1 tablet by mouth once daily as directed., Disp: , Rfl: Eliquis 5 mg tablet, Take 1 tablet by mouth in the morning and at bedtime., Disp: , Rfl: finasteride (Proscar) 5 mg tablet, 5 mg., Disp: , Rfl: metoprolol tartrate (Lopressor) 25 mg tablet, Take 12.5 mg by mouth in the morning and at bedtime., Disp: , Rfl: multivitamin with iron-minerals 9 mg iron/15 mL liquid, Take by mouth in the morning., Disp: , Rfl: tamsulosin (Flomax) 0.4 mg 24 hr capsule, Take 1 capsule by mouth in the morning and at bedtime., Disp: , Rfl: Physical Exam Constitutional: Appearance: Normal appearance. He is normal weight. HENT: Head: Normocephalic and atraumatic. Right Ear: External ear normal. Left Ear: External ear normal. Eyes: Extraocular Movements: Extraocular movements intact. Pupils: Pupils are equal, round, and reactive to light. Neck: Vascular: No carotid bruit. Cardiovascular: Rate and Rhythm: Normal rate and regular rhythm. Pulses: Normal pulses. Heart sounds: Normal heart sounds. Comments: Pre-mature beats noted on exam Pulmonary: Effort: Pulmonary effort is normal. Breath sounds: Normal breath sounds. Abdominal: General: Bowel sounds are normal. Palpations: Abdomen is soft. Musculoskeletal: General: Normal range of motion. Cervical back: Neck supple. Right lower leg: No edema. Left lower leg: No edema. Skin: General: Skin is warm and dry. Neurological: General: No focal deficit present. Mental Status: He is alert and oriented to person, place, and time. Psychiatric: Mood and Affect: Mood normal. Behavior: Behavior normal. Thought Content: Thought content normal. Judgment: Judgment normal. Labs: 01/13/2024 Hgb 14.8, plat 133 Cr 1.12, BUN 13, K 4.6, Na+ 140, eGFR > 60, AST 18, ALT 19 Chol 155, trig 56, LDL 84.8, HDL 59 Blood testing 12/31/2022: Hemoglobin 15.7, platelets 135, potassium 4.1, BUN 13, creatinine 1.01, EGFR more than 60, cholesterol 169, HDL 59, LDL 92, triglycerides 92. Blood testing 12/05/2021: Hemoglobin 16.1, platelets 125, BUN 14, creatinine 1.07, potassium 4.6. CBC, BMP 08/31/2018: normal Testing/Procedures: ECHO 08/21/2023 Global LV systolic function, EF 55-60% RV is normal in size an function Mildly increased LV wall thickness Mild TR Holter monitor 08/04/2023 holter monitor which revealed episodes of PSVT, frequent PACs, PVCs, 1 episode of NSVT 3beats, second degree type 1 heart block, intermittent bradycardia ECG 09/06/2018: sinus bradycardia with 1st degree AV block and PACs. HR 53 bpm. In 11/2015 he underwent a stress test due to dyspnea on exertion. He developed SVT and then AF, was started on pradaxa and metoprolol. Cardiac cath showed normal coronary arteries an (more content not included)... [facility] 06-22-2024 Note Patient here for 1 y ear follow up PAF, PAC's, and hypertension. He's also requesting clearance for upcoming shoulder surgery with Dr. Navarro. He had routine labs with lipid panel in January 2024. He states PCP stopped telmisartan due to hypotension. He's lost 25# since last year's visit. Denies chest pain, SOB, palpitations, lightheadedness/syncope, and bleeding on Eliquis. Review of Systems Constitutional: Positive for weight loss (25# since Jun 2023). Cardiovascular: Positive for leg swelling (LLE). Musculoskeletal: Positive for joint pain. All other systems reviewed and are negative. [facility] 12-14-2023 Hospital Discharg e instructions Patient Education [...] provider. Document Revised: 12/11/2021 Document Reviewed: 09/06/2021 [employer] Patient Education 2021 [employer]. 12/14/2023 11:40:01 Indwelling Urinary Catheter Insertion Indwelling [...] provider. Document Revised: 05/21/2022 Document Reviewed: 05/21/2022 [employer] Patient Education 2022 [employer]. Follow Up Care 12/14/2023 08:48:07 With:WALLY PERALTA, Lexa Barlow, URL Address: [facility] [address] , [place] [phone] When: Unknown Comments:pt to call w/ update [facility] 11-04-2023 Evaluation note Encounter Date Diagnosis Assessment Notes Oct, Rectal bleeding (ICD-10 - K62.5) Continue Xarelto but if bleeding increases, notify the office immediately. CBC to exclude severe anemia. Oct, Radiation proctitis (ICD-10 - K62.7) Avoid straining, increase fluids and fiber. Oct, Prostate cancer (ICD-10 - C61) Group 2, [place] 3+4, External beam radiation No s/s recurrence Oct, Chronic anticoagulation (ICD-10 - Z79.01) May increase severity of bleeding. [employer] Other 01-29-2024 Hospital Discharge instructions Patient Education [...] and water are not available, use hand deli cutter slicer. 2.Clean your penis with soap and water. [...] reusable catheter in a small bathroom. Take tfuj-tja-fczuplg and prescription medicines only as told by [...] provider. Document Revised: 07/28/2022 Document Reviewed: 07/28/2022 [employer] Patient Education 2022 [employer]. 11/02/2023 14:17:10 Acute Urinary Retention, Male Acute [...] Follow these instructions at home: Medicines Take oejo-twn-udbskxj and prescription medicines only as told by [...] provider. Document Revised: 06/12/2021 Document Reviewed: 06/12/2021 [employer] Patient Education 2022 [employer]. Follow Up Care 05/04/2023 11:36:31 With:WALLY PERALTA, Lexa Barlow, URL Address: [facility] [address] , [place] [address] [phone] When: Unknown Comments:f/u in 6 mos w/ PSA [facility] 11-01-2023 Evaluation note* Encounter Date Diagnosis Assessment Notes Treatment Notes Treatment Clinical Notes Aug, Paroxysmal atrial fibrillation (ICD-10 - I48.0) Aug, Syncope, unspecified syncope type (ICD-10 - R55) [employer] Other 10-19-2023 Evaluation note* Encounter Date Diagnosis Assessment Notes Treatment Notes Treatment Clinical Notes Jul, Benign prostatic hyperplasia with lower urinary tract symptoms (ICD-10 - N40.1) [employer] Other 10-17-2023 Evaluation note* Encounter Date Diagnosis [...] are maintaining regular scheduled appts with their health service coordinator. No bleeding complications Jul, Hyperlipidemia type II [...] Prostate cancer (ICD-10 - C61) Group 2, [place] 3+4, External beam radiation No s/s recurrence, f/u [employer]me Other 07-11-2023 Evaluation note* Encounter Date Diagnosis Assessment Notes Treatment Notes Treatment Clinical Notes Apr, Paroxysmal atrial fibrillation (ICD-10 - I48.0) [employer]me Other 04-17-2023 Evaluation note* Encounter Date Diagnosis Assessment Notes Treatment Notes Treatment Clinical Notes Jan, Prostate cancer (ICD-10 - C61) Group 2, Sudheer 3+4, External beam radiation soup[employer]me Other 04-14-2023 Evaluation note* Encounter Date Diagnosis [...] are maintaining regular scheduled appts with their health service coordinator. Discussed switching Xarelto to Eliquis. Jan, Hyperlipidemia type II (ICD-10 - E78.01) Diet and exercise with continued statin therapy. Jan, Prostate cancer (ICD-10 - C61) Group 2, [place] 3+4, External beam radiation No s/s recurrence. [...] Colon cancer screening declined (ICD-10 - Z53.20) soup[employer]me Other Evaluation + Plan note Future Appointments Appointment Date:05/06/2024 08:00:00 AM Scheduled Provider:Lexa CHRISTIANSEN MD Location:[facility] Appointment Type:URO Office Visit Diagnostic Tests Pending * PSA Total 11/02/23 [facility] evaluation + Plan note Future Appointments Appointment Date:12/09/2023 01:20:00 PM Scheduled Provider:Yadiel JAIN MD Location:[facility] Appointment Type: Appointment Date:05/06/2024 08:00:00 AM Scheduled Provider:Lexa CHRISTIANSEN MD Location:[facility] Appointment Type:URO Office Visit [facility] evaluation + Plan note Future Appointments Appointment Date:05/06/2024 08:00:00 AM Scheduled Provider:Lexa CHRISTIANSEN MD Location:[facility] Appointment Type:URO Office Visit [facility] evaluation + Plan note Future Appointments Appointment Date:05/06/2024 08:00:00 AM Scheduled Provider:Lexa CHRISTIANSEN MD Location:[facility] Appointment Type:URO Office Visit Diagnostic Tests Pending * [facility] InformationNortNew [facility] [employer] Other [facility] Narrative - Reported* Type Description Date [...] LHC 11/2015 Hospitalization History see surgical history soup.me Other [facility] general Narrative - Reported* Type Description Date [...] FIB FIXATION 2006 Surgical History LHC 11/2015 Surgical History Cystoscopy 05/2023 Hospitalization History see surgical history soup.me Other Hospital course Narrative No data available for this section [facility] Hospital Discharge instructions No data available for this section [facility] progress note No data available for this section [facility] reason for referral (narrative)* Reason Referral for colonos copy Diagnosis 1 Rectal bleeding (K62 .5) Referral Organization [facility] joni Referring Provider First Name Giacomo Referring Provider Last Name Iva Referring Provider Specialty Internal Me dicine Referred Organization [facility] Referred Provider Yadiel Jain Referred Address [address] [place] [phone] Referred Provider Specialty Surgery Referral Priority Routine General Notes Mr. Bustillos, who is anticoagulated for atrial fibrillation with a history of pelvic radiation for prostate cancer, presents w/ rectal bleeding. He has notice blood with wiping and on his underwear. He is being referred for colonoscopy. Clinical Notes Include [facility] soup.me Other Summary Purpose Family History No Family [...] section and content) DATE CREATED AUTHOR 12/23/2021 [facility] DATE CREATED AUTHOR AUTHOR'S ORGANIZ ATION 01/03/2023 [facility] DATE CREATED AUTHOR AUTHOR'S ORGANIZ ATION 05/23/2024 [facility] EPIC DATE CREATED AUTHOR AUTHOR'S ORGANIZ ATION 06/24/2024 [facility] DATE CREATED AUTHOR AUTHOR'S ORGANIZ ATION [facility]/30/2024 [facility] REASON FOR VISIT (unrecogniz ed section and content) wellnessNo InformationSwitch ing to Eliquis6 month Follow upLab resultsNo InformationNo InformationHolter resultsEcho resultsLab resultsRECTAL BLEEDOING Patient Care team informatio n (unrecognized section and content) Personnel Name: JN GIACOMO RODRIGUEZ Address: Address: [address] [place] [address] Personnel Name: GIACOMO RAGSDALE DO Address: Address: [address] [place] [address] [place], [address] Personnel Name: JN GIACOMO RODRIGUEZ Address: Address: [address] [place] [address] [address] Personnel Name: GIACOMO RAGSDALE DO Address: Address: [address] [place] [address] [address] Personnel Name: JN GIACOMO RODRIGUEZ Address: Address: [address] [place] [address] Personnel Name: JN GIACOMO Address: Address: [address] [place] [address] FOR RECORDS PERTAINING TO PATIENTS WHO [...] BE BASED ON THE PRIMARY CLINICAL RECORDS. [employer] provides no warranty or guarantee of the accuracy or completeness of information in this document.
--- NOTE | 2024-06-30 10:35 | NM_ITS ---
Patient Name: MONET LOPEZ MR#: [id number] : 1950 Exam Date: 06/30/2024 Ordering Doctor: DR Giacomo Ragsdale D.O. RADIOLOGY REPORT PROCEDURE: NM VALDEMAR PERF SPECT REST STR COMPARISON: None. INDICATIONS: CHEST PAIN, NONSUSTAINED VENTRICULAR TACHYCARDIA, DYSPNEA TECHNIQUE: Exam Description: Stress/Rest one day protocol gated SPECT Rest Imagin.7 mCi Tc-99m Cardiolite IV on 06/30/2024 Stress Imaging 30.6 mCi Tc-99m Cardiolite IV on 06/30/2024 Exercise Protocol: 0.4 mg Lexiscan given IV Heart Rate (bpm): Rest: 50 Max: 76 PMHR: 52 Blood Pressure: Rest: 128/66 Max: 142/76 Symptoms: Rest and peak stress ECG findings were normal and the exercise portion of the study was normal per attending physician Dr. Ta Ragsdale . For more details please see separate cardiac stress test report. FINDINGS: QUALITY OF STUDY: Excellent. PERFUSION DEFECT: None. LOCATION: N/A SIZE: N/A. SEVERITY: N/A. TYPE: N/A. WALL MOTION: Normal. LV SIZE: Normal. 107 mL. TID / TCD: None; 0.8 LVEF: Normal. Calculated EF 65%. SUMMARY: Myocardial perfusion imaging study is NORMAL. CONCLUSION: 1. Normal nuclear medicine myocardial perfusion scan. Dictated by: Hai Tijerina M.D. on 06/30/2024 at 15:47 Approved by: Hai Tijerina M.D. on 06/30/2024 at 15:50
[2024-06-30] MEDS: REGADENOSON 0.4 MG/5 ML SYRINGE IV (12:53)
--- NOTE | 2024-06-30 13:17 | PM.STRESS ---
Stress Test Stress Test Requesting physician: MYA JOHNSON Procedure: Lexiscan stress test General Information: Reason for Stress Test: Evaluation of a patient with syncope and 3 beat VT. Cardiac History and Risk Factors: Mr. Bustillos is a 73 y/o patient with known paroxysmal atrial fibrillation, HTN, HLD and NSVT. Resting 12 - Lead Electrocardiogram: Sinus bradycardia with ventricular rate of 49 bpm and first degree AV block. No pathologic Q waves and no ST/T wave abnormalities Stress Test: Protocol: Lexiscan protocol Exercise Capacity: Not applicable Blood Pressure Response: His heart rate and BP increased during infusion Rhythm: He remained in sinus rhythm with episodes of second degree AV block, type I. ST - Response: There were no ST/T wave changes during infusion Patient Response: Mr. Bustillos was asymptomatic during infusion Interpretation: There were no objective or subjective findings suspicious for myocardial ischemia during infusion. Cardiolite was injected with images and interpretation pending.
== END 2024-06-30 10:22 | disposition home or self-care (01) ==
PROVIDERS: PCP Internal Medicine; Visit Provider Internal Medicine
DX: I47.29 Other ventricular tachycardia (principal); R06.00 Dyspnea, unspecified; R07.9 Chest pain, unspecified
CPT/HCPCS: 78452; 93017; A9500; J2785

== ENCOUNTER 2024-07-13 10:02 | Outpatient (OUT) | payer MEDICARE, SELFPAY ==
--- OUTSIDE RECORDS SUMMARY | 2024-07-13 10:17 | XMS_ITS | CCD ---
Author Organization [facility] Care Team Providers Care Senior Qa Engineer Name Role Phone ROSALVAC, DR BRADEN Admitting Unavailable MISC, DR BRADEN [...] Ragsdale Unavailable GIACOMO RAGSDALE Primary Care Physician [phone] JANAE LEONARD Attending Unavailable CHRISTIANSEN, Lexa Barlow Attending Unavailable CHRISTIANSEN, Lexa Barlow Attending Unavailable CHRISTIANSEN, Lexa R Attending Unavailable CHRISTIANSEN, Lexa R Attending Unavailable CHRISTIANSEN, Lexa R Attending Unavailable CHRISTIANSEN, Lexa R Attending Unavailable CHRISTIANSEN, Lexa R Referring Unavailable CHRISTIANSEN, Lexa R Admitting Unavailable CHRISTIANSEN, Lexa R Attending Unavailable CHRISTIANSEN, Lexa R Admitting Unavailable CHRISTIANSEN, Lexa R Attending Unavailable NILL, Yadiel Barlow Attending Unavailable JN, GIACOMO Referring Unavailable JR. MIKA, MYA Kwan Attending Unavaila kasia NAVARRO JR., MYA Kwan Referring Unavaila kasia NAVARRO JR., MYA Kwan Attending Unavaila kasia NAVARRO JR., MYA Kwan Referring Unavaila kasia NAVARRO JR., MYA Kwan Attending Unavaila kasia NAVARRO JR., MYA Kwan Attending Unavaila HEATHER Power Attending Unavailable Allergies Allergy Classification Reported Allergen(s) Allergy Type Date of Onset Reaction(s) Facility (11 sources) Penicillins; Translations: [penicillins] Drug allergy (disorder) 6 Vomiting (disorder), Moderate (severity modifier) (qualifier value) [facility] Repository (3 sources) Penicillin Drug Allergy Unknown [employer] Other (8 sources) Substance with penicillin structure and antibacterial mechanism of action (substance) Drug allergy Comment:Azalea white [employer] Other Medications Current Medications Medication Drug Class(es) Dates Sig (Normalized) Sig (Original) apixaban 5 mg oral tablet (16 sources) Factor Xa Inhibitor Start: 04-14-2023 take [...] discomfort, # 30 cap(s), Refills(s) 0, Pharmacy: [facility] [id number], 187, cm, 11/02/23 13:01:00 EST, Height/Length Dosing, 101, kg, 11/02/23 13:01:00 EST, Weight Dosing Start Date: 12/07/23 Status: Ordered Start: 11-02-2023 End: 12-02-2023 take 1 capsule by mouth once daily doxycycline hyclate 100 mg Cap 100 mg = 1 cap(s), Oral, Daily, X 30 day(s), # 30 cap(s), Refills(s) 0, Pharmacy: [facility] [id number], 187, cm, 11/02/23 13:01:00 EST, Height/Length Dosing, 101, kg, 11/02/23 13:01:00 EST, Weight Dosing Start Date: 11/02/23 Stop Date: 12/02/23 Status: Ordered finasteride 5 mg oral tablet (18 sources) 5-alpha Reductase Inhibitor Start: 10-31-2022 End: 10-27-2024 take 1 tablet by mouth once daily finasteride 5 mg Tab 5 mg = 1 tab(s), Oral, Daily, X 90 day(s), # 90 tab(s), Refills(s) 3, Pharmacy: [facility], 187, cm, 11/02/23 13:01:00 EST, [...] day(s), # 14 tab(s), Refills(s) 0, Pharmacy: [facility] [id number], 187, cm, 12/14/23 10:52:00 EDT, Height/Length Dosing, 101, kg, 12/14/23 10:52:00 EDT, Weight Dosing Start Date: 12/14/23 Stop Date: 12/28/23 Status: Ordered lidocaine hydrochloride 0.02 mg/mg topical gel (5 sources) Antiarrhythmic, Amide Local Anesthetic Start: 11-30-2023 apply 0.1 g topically once lidocaine Top 2% Gel w/Appl 30 mL 0.1 gm, 5 mL, Topical, Once, 30 mL, Refill(s) 2, Apply topically prior to cathing, [facility] [id number], 187, cm, 11/02/23 13:01:00 EST, Height/Length Dosing, [...] Start Date: 10/12/19 Status: Ordered Multi Vitamin+ (7 sources) Start: 10-12-2019 Multi Vitamin+ Refill(s) 0 Start Date: 10/12/19 Status: Ordered rivaroxaban (20 sources) Factor Xa Inhibitor Start: 10-27-2022 Xarelto 20 20 Once Orally Once a day Oct, Active [facility] Xarelto 20 MG 1 tablet with food Orally Once a day Active tamsulosin hydrochloride 0.4 mg oral capsule (20 sources) alpha-Adrenergic Jay Start: 11-02-2023 take 1 capsule by mouth twice daily Flomax 0.4 mg Cap 0.4 mg = 1 cap(s), Oral, BID, # 180 cap(s), Refills(s) 3, Pharmacy: [facility], 187, cm, 11/02/23 13:01:00 EST, Height/Length Dosing, 101, kg, 11/02/23 13:01:00 EST, Weight Dosing Start Date: 11/02/23 Status: Ordered Start: 10-27-2022 take 1 capsule by mo [facility] every twenty-four hours Tamsulosin HCl 0.4 [...] Sig (Original) ciprofloxacin 500 mg oral tablet (2 sources) Quinolone Antimicrobial Start: 06-27-2024 take 1 tablet by mouth once daily Cipro 500 mg Tab 500 mg = 1 tab(s), Oral, Daily, take one tab day before procedure and one tab after procedure, # 2 tab(s), Refills(s) 0, Pharmacy: [facility] [id number], 184, cm, 06/27/24 11:52:00 EDT, Height/Length Dosing, 90, kg, 06/27/24 11:52:00 EDT, Weight Dosing Start Date: 06/27/24 Status: Ordered Problems Active Problems Problem Classification Problem Date Documented Da te Episodic/Chronic Acute bronchitis (11 sources) Acute bronchitis; Translations: [Acute bronchitis due to other specified organisms] Episodic Anal and rectal conditions (1 source) Radiation proctitis Episodic Anxiety disorders (16 sources) Generalized anxiety disorder; Translations: [Generalized anxiety disorder] 11-27-2023 Chronic Cancer of prostate (20 sources) Malignant neoplasm of prostate; Translations: [Carcinoma of prostate] Onset: 12-31-2022 Chronic Cardiac dysrhythmias (20 sources) Paroxysmal atrial fibrillation; Translations: [Paroxysmal atrial fibrillation] Onset: 06-10-2023 Chronic Disorders of lipid metabolism (19 sources) Familial hypercholesterolemia ; Translations: [Pure hypercholesterolemia [...] Chronic Inflammatory conditions of male genital organs (6 sources) Prostatitis; Translations: [Inflammatory disease of prostate, unspecified] Onset: 12-14-2023 Episodic Osteoarthritis (11 sources) Localized, primary osteoarthritis of the pelvic region and thigh; Translations: [Unilateral primary osteoarthritis, left hip] Chronic Other aftercare (1 source) Other penitentiary (current) drug therapy; Translations: [OTH RETIREMENT CURRENT DRUG THERAPY] Onset: 01-01-2023 Episodic Other aftercare (11 sources) H/O: high risk medication; Translations: [Other exterminator (current) drug therapy] Episodic Other aftercare (2 sources) Long-term current use of anticoagulant; Translations: [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 of anticoagulants] Episodic Other aftercare (1 source) [facility] (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 of anticoagulants Episodic Other connective tissue disease (11 sources) History of total replacement of left hip joint; Translations: [Presence of left artificial hip joint] Chronic Other male genital disorders (10 sources) Male erectile dysfunction, unspecified; Translations: [Erectile dysfunction] Onset: 11-02-2023 Chronic Other nutritional; endocrine; and metabolic disorders (11 sources) Obese class I; Translations: [Obesity, unspecified] Chronic Other nutritional; endocrine; and metabolic disorders (1 source) Obesity, unspecified Chronic Other nutritional; endocrine; and metabolic disorders (5 sources) Obesity 11-27-2023 Chronic Other screening for suspected conditions (not mental disorders or infectious disease) (13 sources) Encounter for screening, unspecified; Translations: [Raised prostate specific antigen] Onset: 06-23-2022 Episodic Other upper respiratory infections (11 sources) Acute maxillary sinusitis; Translations: [Acute maxillary sinusitis, unspecified] Episodic Residual codes; unclassified (1 source) Procedure and treatment not carried out because of patient's decision for unspecified reasons Episodic Spondylosis; intervertebral disc disorders; other back problems (16 sources) Lumbar spondylosis; Translations: [Spondylosis without myelopathy or radiculopathy, lumbar region] 11-27-2023 Chronic Syncope (2 sources) Syncope and collapse Episodic Unclassified (7 sources) Asymptomatic microscopic hematuria 05-04-2023 Unclassified (7 sources) Drug therapy finding 10-17-2019 Unclassified (1 source) Other ventricular tachycardia; Translations: [Other ventricular tachycardia] Onset: 06-22-2024 Unclassified (2 sources) Finding of sensation of bladder 06-27-2024 Past or Other Problems Problem Classification Problem Date Documented Da te Episodic/Chronic Unclassified (1 source) Other ventricular tachycardia; Translations: [Other ventricular tachycardia] Onset: 06-22-2024 Results Test Name Value Interpretation Reference Range Facility Main OR Intraoperative Recor don 07-05-2024 Main OR Intraoperative Record Main OR Intraoperative Record IntraOp Document Type FTURO Summary Primary Physician: Lexa CHRISTIANSEN MD Finalized Date/Time: 07/05/24 11:03:43 Pt. Name: MONET BUSTILLOS/Sex: 1950 Male Med Rec #: [id number] Physician: Lexa CHRISTIANSEN MD Financial #: [id number] Pt. Type: O Room/Bed: / Admit/Disch: 07/05/24 09:53:18 - Institution: Case Times FTURO Entry 1 Patient Times In Room 07/05/24 10:50:00 Out Room 07/05/24 11:06:00 Procedure Times Start 07/05/24 10:54:00 Stop 07/05/24 10:59:00 Anesthesia Times Last Modified By: Jose E CEDEÑO, Brandi Weiss 07/05/24 11:03:27 Case Attendance FTURO Entry 1 Entry 2 Entry 3 Case Attendee WALLY PERALTA, Lexa Dorantes RN, Brandi Calabrese CST, Jackelyn Weiss Role Performed Surgeon - Primary Wash Mill Operator - Primary Scrub - Primary Time In 07/05/24 10:50:00 07/05/24 10:50:00 07/05/24 10:50:00 Time Out 07/05/24 11:06:00 07/05/24 11:06:00 07/05/24 11:06:00 Procedure CYSTOSCOPY LOCAL(.) CYSTOSCOPY LOCAL(.) CYSTOSCOPY LOCAL(.) Comments Last Modified By: Jose E CEDEÑO, Brandi Dorantes RN, Brandi Dorantes RN, Brandi Weiss 07/05/24 Jeny Weiss 07/05/24 Jeny Weiss 07/05/24 11:03:39 11:03:39 11:03:39 Surgical Procedures FTURO Entry 1 Procedure Description Procedure CYSTOSCOPY LOCAL Modifiers . Surgeon Description CYSTOSCOPY Primary Procedure Yes Primary Surgeon WALLY PERALTA, Lexa Barlow Start 07/05/24 10:54:00 Stop 07/05/24 10:59:00 Anesthesia Type Local Surgical Service Urology Wound Class 2 - Clean-Contaminated Last Modified By: Brandi Dorantes RN 07/05/24 11:00:00 General Case Data FTURO Pre-Care Text: Classifies surgical wound, implements aseptic technique, initiates traffic control Entry 1 Case Information OR URO 1 FT Case Level None Wound Class 2 - Clean-Contaminated Specialty Urology Preop Diagnosis URINARY RETENTION, BPH Postop Same As Preop Yes WITH OBSTRUCTION AND FEELING OF INCOMPLETE EMPTYING Postop Diagnosis URINARY RETENTION, BPH Outcomes Met? Yes WITH OBSTRUCTION AND FEELING OF INCOMPLETE EMPTYING Last Modified By: Jose E CEDEÑO, Brandi Weiss 07/05/24 10:51:25 Post-Care Text: The patient is free from signs and symptoms of infection EU IntraOp - FTURO Pre-Care Text: Implements protective measures prior to operative or invasive procedure, confirms identity before the operative or invasive procedure, verifies operative procedure, surgical site, and laterality Entry 1 EU Perioperative Protocols Procedure(s) CYSTOSCOPY LOCAL(.) Patient Identity Birthday, ID Band Verified (select at Check, Patient least 2): Participation Consents / H and P H&P, Surgery/Procedure Operative Site N/A Verified Consent Marking Verified Surgical Site Yes Laterality Verified n/a Verified Procedure Verified Yes Correct Patient Yes Position Verified Availability Equipment, Medication Time Out Lexa CHRISTIANSEN MD, Verified (If Participants Brandi Dorantes RN Applicable) Guanakito Camejo CST, Jackelyn Olivares Time Out Complete 07/05/24 10:53:00 Allergies Reviewed? Yes Allergies Reviewed Self/Patient With Body Position Supine Prep Area PENIS Prep Agents Betadine Solution Skin. Condition Unable to Visualize Description PARTIALLY CLOTHED AND DRAPED Additional None Specimens Collected Vitals - EU Blood Pressure 146/87 Pulse 49 bpm Respirations 16 br/min SPO2 100 % I&O - EU Outcomes Met? Yes Last Modified By: Brandi Dorantes RN 07/05/24 10:53:15 Post-Care Text: The patient is free from signs and symptoms of injury caused by extraneous objects Sign Out FTURO Entry 1 Before Patient Leaves OR Nurse verbally Yes Nurse verbally Yes confirms with the confirms with the team the name of team that the procedure(s) instrument, sponge, recorded and needle counts are correct (or N/A) Nurse verbally n/a Nurse verbally n/a confirms with the confirms with the team how the team whether there specimen is labeled are any equipment (including patient problems to be name), if applicable addressed Sign Out Complete 07/05/24 10:59:00 Last Modified By: Brandi Dorantes RN 07/05/24 10:59:59 Case Comments Finalized By: Brandi Dorantes RN Document Signatures Signed By: Brandi Dorantes RN 07/05/24 11:03 Brandi Dorantes RN 07/05/24 11:03 Normal [facility] Main OR Preoperative Recordo n 07-05-2024 Main OR Preoperative Record Main OR Preoperative Record Holding Area Document Type FTURO Summary Primary Physician: Lexa CHRISTIANSEN MD Finalized Date/Time: 07/05/24 10:36:20 Pt. Name: MONET BUSTILLOS /Sex: 1950 Male Med Rec #: [id number] Physician: Lexa CHRISTIANSEN MD Financial #: [id number] Pt. Type: O Room/Bed: / Admit/Disch: 07/05/24 09:53:18 - Institution: Case Times Holding FTURO Pre-Care Text: Verifies consent for planned procedure, identifies individual values and wishes concerning care, includes family members in perioperative teaching Secures patient's records' belongings, and valuables, maintains patient's dignity and privacy, and maintains patient confidentiality Entry 1 In Holding 07/05/24 10:34:00 Outcomes Met? Yes Last Modified By: Dahiana Falcon 07/05/24 10:34:34 Post-Care Text: The patient participates in decisions affecting his or her perioperative plan of care The patient's right to privacy is maintained Surgery Checklist FTURO Entry 1 Patient Birthday, ID Band Procedure History and Physical, Identification: Check, Patient Verification: Surgical Consent, With Participation Patient NPO after Midnight: n/a Date/Time: 07/05/24 10:34:00 Personal Items: Jewelry Personal Items clothes Comment: Limitations: n/a Complaints of Pain: n/a Pain Comment: n/a Skin Integrity Unable to Visualize Vitals - EU Blood Pressure 146/87 Pulse 49 bpm Respirations 16 br/min SPO2 100 % Additional None Specimens Comment n/a Specimens Collected Residual Amount - 0 RN Reviewed Yes Post Void Last Modified By: Dahiana Falcon 07/05/24 10:36:18 Finalized By: Dahiana Falcon Document Signatures Signed By: Dahiana Falcon 07/05/24 10:36 Normal [facility] Operative Reporton Operative Report Operative Report Patient: MONET BUSTILLOS Age: 73 years Sex: Male : 1950 Associated Diagnoses: None Author: Lexa CHRISTIANSEN MD Procedure Operative Information Details: Date/ Time: 07/05/2024 11:21:00. Pre-Op Dx: Hx of Prostate CA - Z85.46, Incomplete Bladder Emptying - R39.14. Post-Op Dx: Same. Anesthesia Type: Local. Procedure: Local Cystoscopy. Complications: None. Risks/Benefits/Informe d Consent: Surgical risks, benefits, details of the procedure have been explained to the patient, Full informed consent has been obtained. Intraoperative Information Prepped: Patient is brought back to the endoscopy suite, Patient is placed in supine position, Patient prepped in the usual fashion with Betadine solution, 2% Xylocaine Jelly is placed per Urethra, After waiting several minutes the Cystoscope is introduced. The Urethra is: Normal. The Prostatic Urethra is: Unobstructed. The Bladder is: Abnormal, Trabeculated (Severe (3), Open diverticuli diffusely. No bladder tumors.). The ureteral orifices: Show efflux of clear urine. Devices Implanted: None. Removal: Cystoscope is removed, The patient tolerated it well. Postoperative Information Discharge: Patient is discharged home with antibiotic coverage, Follow up arranged. He will be taught CIC twice daily for PVR once again today. Normal [facility] Comment on above: Result Comment: Elec tronically Signed By: Lexa CHRISTIANSEN MD\.br\Date and Time Signed: 07/05/24 11:22 EDT Ambulatory Visit Summaryon 0 06-27-2024 Ambulatory Visit [...] Following Appointments Follow Up with WALLY PERALTA, CIERA Luna When: Comments: sched cysto Where: [facility] [address] , [place] [address]- [phone] Medications What How Much When Instructions Unchanged [...] ? Add (more content not included)... Normal [facility] Urology Office/Clinic Noteon 06-27-2024 Urology Office/Clinic [...] w/perineural invasio (more content not included)... Normal [facility] Comment on above: Result Comment: Elec tronically Signed By: Lexa CHRISTIANSEN MD\.br\Date and Time Signed: 06/27/24 13:00 EDT\.br\Electronically Co-Signed By: Colleen Souza\.br\Date and Time Co-Signed: 06/27/24 12:56 EDT Office Visiton 06-22-2024 Follow-up visit [id number] Monet Bustillos II 1950 M Date Provider Department Center 06/22/2024 JANAE MITTAL CARD [facility] Family History Problem Relation Age of Onset Alzheimer's disease Father Family Status - Relation Status Age at Father Level of Service:95460 [place] OFFICE/OUTPATIENT ESTABLISHED MOD MDM 30 MIN Reason for Visit and Comments: Pre-op Exam [201943] Atrial Fibrillation [80] Hypertension [117976] Normal [facility] MR SHOULDER RIGHT WO IV CONT Denise [...] - Clinical Noteon Retail - Clinical Note [id number] 0TIFF Normal [facility] Retail - Clinical Noteon Retail - Clinical Note [id number] 0TIFF Normal [facility] C Urineon 12-16-2023 Bacteria identified Cx [...] Locations R1: This test was performed at: [facility], [address] [place] [address], [address]- , , [facility] Comment on above: Performed By: #### 2 [id number] ####[facility] [address] [place] [address] Ambulatory Visit Summaryon 0 12-14-2023 Ambulatory Visit [...] PERALTA, Lexa Barlow Where: [facility] Patient Educationon 12-14-19 Patient [...] provider. Document Revised: 12/11/2021 Document Reviewed: 09/06/2021 [employer] Patient Education ? 2021 [employer]. Indwelling Urinary Catheter Insertion For people with [...] Urine d (more content not included)... 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 Alanis at [facility] for radiation treatment for 4-6 weeks [...] [facility] [address], [place] [address] [phone] Additional Instructions: pt to call w/ update Patient Education Indwelling Urinary Catheter Insertion, Care After Indwelling Urinary Catheter Insertion IColleen, personally scribed for Dr. Christiansen on 12/14/2023 11:44:53. Electronically signed by ed (more content not included)... Normal [facility] Comment on above: Result Comment: Elec tronically Signed By: Lexa CHRISTIANSEN MD\.br\Date and Time Signed: 12/14/23 11:46 EDT\.br\Electronically Co-Signed By: Colleen Souza\.br\Date and Time Co-Signed: 12/14/23 11:45 EDT Retail - Clinical Noteon Retail - Clinical Note [id number] 0TIFF Normal [facility] Urology Office/Clinic Noteon 12-09-2023 Urology Office/Clinic [...] w/perineural invasion.[ Pt saw Dr. Alanis at [facility] for radiation treatment for 4-6 weeks [...] Urology 2 (more content not included)... Normal [facility] Comment on above: Result Comment: Elec tronically Signed By: Aleena Akins\get\Date and Time Signed: 12/09/23 15:45 EST Pre-Certification Formon Pre-Certification Form [id number] 0TIFF [facility] Ambulatory Visit Summaryon 0 12-07-2023 Ambulatory [...] PERALTA, Lexa Barlow Where: [facility] Physician Referralon 024 Physician Referral [id number] 0TIFF [facility] Patient Educationon 11-02-19 24 Patient Education [...] and water are not available, 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 2. Clean your penis with soap and [...] catheter in a small bathroom. ? Take tkjl-nth-rqcibey and prescription medicines only as told by your he (more content not included)... Normal [facility] Lab Reportson 10-27-2023 Lab Reports [id number] TIFF Normal [facility] CBC AUTO DIFFon 12-31-2022 BASO # 0.0 103/ul Normal 0.0-0.1 [facility] Comment on above: Performed By: #### C BC #### [facility] [address] [address] [address] Henry Marin Basophils/100 WBC (Bld) 0.8 % Normal 0.2-2.0 [facility] Comment on above: Performed By: #### C BC #### [facility] [address] [place] [address] Dr. Henry Marin EO # 0.2 103/ul Normal 0.0-0.7 [facility] Comment on above: Performed By: #### C BC #### [facility] [address] [place] [address] Dr. Henry Marin Eosinophils/100 WBC (Bld) 3.6 % Normal 0.9-7.0 [facility] Comment on above: Performed By: #### C BC #### [facility] [address] [place] [address] Dr. Henry Marin Erythrocyte distribution width (RBC) [Ratio] 13.2 % Normal 11.0-15.0 [facility] Comment on above: Performed By: #### C BC #### [facility] [address] [place] [address] Dr. Henry Marin Hematocrit (Bld) [Volume fraction] 45.3 % Normal 42.0-54.0 [facility] Comment on above: Performed By: #### C BC #### [facility] [address] [place] [address] Dr. Henry Marin Hemoglobin (Bld) [Mass/Vol] 15.7 g/dL Normal 14.0-18.0 [facility] Comment on above: Performed By: #### C BC #### [facility] [address] [place] [address] Dr. Henry Marin IG # 0.00 10e3/ul Normal 0.00-0.03 [facility] Comment on above: Performed By: #### C BC #### [facility] [address] [place] [address] Dr. Henry Marin IG % 0.0 % Normal 0.0-0.5 [facility] Comment on above: Performed By: #### C BC #### [facility] [address] [place] [address] Dr. Henry Marin LYMPH # 1.7 103/ul Normal 1.2-3.8 [facility] Comment on above: Performed By: #### C BC #### [facility] [address] [place] [address] Dr. Henry Marin Lymphocytes/100 WBC (Bld) 34.8 % Normal 20.5-60.0 [facility] Comment on above: Performed By: #### C BC #### [facility] [address] [place] [address] Dr. Henry Marin MANUAL DIFF REQ NO Normal [facility] Comment on above: Performed By: #### C BC #### [facility] [address] [place] [address] Dr. Henry Marin MCH (RBC) [Entitic mass] 32.6 pg Normal 25.9-34.0 [facility] Comment on above: Performed By: #### C BC #### [facility] [address] [place] [address] Dr. Henry Marin MCHC (RBC) [Mass/Vol] 34.7 g/dL Normal 29.9-35.2 [facility] Comment on above: Performed By: #### C BC #### [facility] [address] [place] [address] Dr. Henry Marin MCV (RBC) [Entitic vol] 94.0 fL Normal 80.0-94.0 [facility] Comment on above: Performed By: #### C BC #### [facility] [address] [place] [address] Dr. Henry Marin MONO # 0.6 103/ul Normal 0.3-0.8 [facility] Comment on above: Performed By: #### C BC #### [facility] [address] [address] [address] Henry Marin Monocytes/100 WBC (Bld) 13.0 % Critically high 1.7-12.0 [facility] Comment on above: Performed By: #### C BC #### [facility] [address] [place] [address] Dr. Henry Marin NEUT # 2.3 103/ul Normal 1.4-6.5 [facility] Health Comment on above: Performed By: #### C BC #### [facility] [address] [place] [address] Dr. Henry Marin Neutrophils/100 WBC (Bld) 47.8 % Normal 43.0-75.0 [facility] Comment on above: Performed By: #### C BC #### [facility] [address] [place] [address] Dr. Henry Marin Platelet mean volume (Bld) [Entitic vol] 9.7 fL Normal 9.5-13.5 [facility] Comment on above: Performed By: #### C BC #### [facility] [address] [place] [address] Dr. Henry Marin PLT 135 103/ul Critically low 150-450 [facility] Comment on above: Performed By: #### C BC #### [facility] [address] [place] [address] Dr. Henry Marin RBC 4.82 106/ul Normal 4.70-6.10 [facility] Comment on above: Performed By: #### C BC #### [facility] [address] [place] [address] Dr. Henry Marin WBC 4.8 103/ul Normal 4.0-11.0 [facility] Comment on above: Performed By: #### C BC #### [facility] [address] [place] [address] Dr. Henry Marin LIPID PROFILEon 12-31-2022 CHOL-HDL RATIO NORM SEE BELOW Normal [facility] Comment on above: Result Comment: 3.3 - 4.4 LOW RISK 4.4 - 7.1 AVERAGE RISK 7.1 - 11.0 MODERATE RISK >11.0 HIGH RISK Performed By: #### B MP, ALT, LIPID #### [facility] [address] [address] [address] Henry Marin Cholesterol [Mass/Vol] 169 mg/dL Normal <=200 [facility] Comment on above: Performed By: #### B MP, ALT, LIPID #### [facility] [address] [address] [address] Henry Marin Cholesterol in HDL [Mass/Vol] 59 mg/dL Normal 40-60 [facility] Comment on above: Performed By: #### B MP, ALT, LIPID #### [facility] [address] [address] [address] Henry Marin Cholesterol in LDL [Mass/Vol] 91.6 mg/dL Normal [facility] Comment on above: Performed By: #### B MP, ALT, LIPID #### [facility] [address] [address] [address] Henry Marin Cholesterol.total/C holesterol in HDL [Mass ratio] 2.9 {ratio} Normal [facility] Comment on above: Performed By: #### B MP, ALT, LIPID #### [facility] [address] [address] [address] Henry Marin HDL NORMAL > or = 60 mg/dl - LO W CARDIOVASCULAR RISK <40 mg/dl - HIGH CARDIOVASCULAR RISK Normal [facility] Comment on above: Performed By: #### B MP, ALT, LIPID #### [facility] [address] [address] [address] Henry Marin LDL CALC NORMAL SEE BELOW Normal [facility] Comment on above: Result Comment: <100 mg/dl OPTIMAL 100 - 129 mg/dl NEAR OR ABOVE OPTIMAL 130 - 159 mg/dl BORDERLINE HIGH 160 - 189 mg/dl HIGH >190 mg/dl VERY HIGH Performed By: #### B MP, ALT, LIPID #### [facility] [address] [address] [address] Henry Marin Triglyceride [Mass/Vol] 92 mg/dL Normal <=150 [facility] Comment on above: Performed By: #### B MP, ALT, LIPID #### [facility] [address] [address] [address] Henry Marin VLDL CALC 18.4 mg/dL Normal [facility] Comment on above: Performed By: #### B MP, ALT, LIPID #### [facility] [address] [address] [address] Henry Marin PROF CHEM 8 (BAS METB)on Anion gap [Moles/Vol] 11.8 mmol/L Normal [facility] Comment on above: Performed By: #### B MP, ALT, LIPID #### [facility] [address] [place] [address] Dr. Henry Marin Calcium [Mass/Vol] 8.6 mg/dL Normal 8.5-10.1 [facility] Comment on above: Performed By: #### B MP, ALT, LIPID #### [facility] [address] [place] [address] Dr. Henry Marin Chloride [Moles/Vol] 106 mmol/L Normal 98-107 [facility] Comment on above: Performed By: #### B MP, ALT, LIPID #### [facility] [address] [place] [address] Dr. Henry Marin CO2 [Moles/Vol] 28.3 mmol/L Normal 21.0-32.0 [facility] Comment on above: Performed By: #### B MP, ALT, LIPID #### [facility] [address] [place] [address] Dr. Henry Marin Creatinine [Mass/Vol] 1.01 mg/dL Normal 0.70-1.30 [facility] Comment on above: Performed By: #### B MP, ALT, LIPID #### [facility] [address] [place] [address] Dr. Henry Marin EGFR-AF KOSOVAN >60 Normal >=60 [facility] Comment on above: Performed By: #### B MP, ALT, LIPID #### [facility] [address] [address] [address] Henry Marin EGFR-NON AF KOSOVAN >60 Normal >=60 [facility] Comment on above: Performed By: #### B MP, ALT, LIPID #### [facility] [address] [address] [address] Henry Marin Glucose [Mass/Vol] 106 mg/dL Normal 74-106 [facility] Comment on above: Performed By: #### B MP, ALT, LIPID #### [facility] [address] [address] [address] Henry Marin Potassium [Moles/Vol] 4.1 mmol/L Normal 3.5-5.1 [facility] Comment on above: Performed By: #### B MP, ALT, LIPID #### [facility] [address] [address] [address] Henry Marin Sodium [Moles/Vol] 142 mmol/L Normal 136-145 [facility] Comment on above: Performed By: #### B MP, ALT, LIPID #### [facility] [address] [address] [address] Henry Marin Urea nitrogen [Mass/Vol] 13.0 mg/dL Normal 7.0-18.0 [facility] Comment on above: Performed By: #### B MP, ALT, LIPID #### [facility] [address] [address] [address] Henry Marin Urea nitrogen/Creatinine [Mass ratio] 12.9 mg/mg Normal [facility] Comment on above: Performed By: #### B MP, ALT, LIPID #### [facility] [address] [address] [address] Henry aMrin SGPTon 12-31-2022 ALT [Catalytic activity/Vol] 23 U/L Normal 16-63 [facility] Comment on above: Performed By: #### B MP, ALT, LIPID #### [facility] [address] [place] [address] Dr. Henry Marin Blood Urea Nitrogenon 2021 Urea nitrogen [Mass/Vol] 10 mg/dL Normal 9-23 [facility] Comment on above: Order Comment: STAT FOR MRI Performed By: #### C REAT, BUN #### [facility] [address] [place] [address] [place] Creatinineon 11-20-2021 Creatinine [Mass/Vol] 1.00 mg/dL Normal 0.64-1.27 [facility] Comment on above: Order Comment: STAT FOR MRI Performed By: #### C REAT, BUN #### [address] Creatinine Clr Calc Pharmacy 86.83 [facility] Comment on above: Order Comment: STAT FOR MRI Result Comment: PERF ORMED BY: [place] [address] PATHOLOGIST ZONING TECHNICIAN GUSTAVO CHANDLER M.D. Performed By: #### C REAT, BUN #### [address] Estimated GFR ( Arielle > 60 [facility] Comment on above: Order Comment: STAT FOR MRI Result Comment: GFR estimated reference range: According to KDOQI guidelines, <60 ml/min/1.73m2 is sufficient to diagnose a patient with chronic kidney disease. Performed By: #### C REAT, BUN #### [address] Estimated GFR (Non- Am > 60 [facility] Comment on above: Order Comment: STAT FOR MRI Performed By: #### C REAT, BUN #### [address] MR prostate wo/w conon 11-20 MR prostate wo/w con [facility] [place] [address] [place] [address] MRI Report Signed Patient: Monet Bustillos MR#: [id number] : 1950 Acct:[id number] Age/Sex: 70 / M ADM Date: 11/20/21 Loc: MR Room: Type: [facility] Attending Dr: Lexa Christiansen MD Ordering [...] Dinero Jr., D.O.11/20/2021 3:11 PM Dictation Location: [facility]-11 Transcribed By: JOSE 11/20/21 0131 Dictated By: Kolby Dinero Jr, DO 11/20/21 1454 Signed By: 11/20/21 1511 [facility] Vital Signs Date Time Vital Sign Value Performing Clinician Facility 06-27-2024 11:40-0400 Diastolic blood pressure 70 mm[Hg] Lexa CHRISTIANSEN [facility] 06-27-2024 11:40-0400 Heart rate 70 /min Lexa CHRISTIANSEN [facility] 06-27-2024 11:40-0400 Systolic blood pressure 136 mm[Hg] Lexa CHRISTIANSEN [facility] 11-04-2023 15:45-0500 Body height 182.88 cm Giacomo Ball Other [facility] Other 11-04-2023 15:45-0500 Body mass index (BMI) [Ratio] 30.11 kg/m2 Giacomo Ball Other [facility] Other 11-04-2023 15:45-0500 Body weight 100.7 kg Giacomo Ball Other [facility] Other 11-04-2023 15:45-0500 Diastolic blood pressure 78 mm[Hg] Giacomo Ball Other [facility] Other 11-04-2023 15:45-0500 Respiratory rate 12 /min Giacomo Ball Other [facility] Other 11-04-2023 15:45-0500 Systolic blood pressure 123 mm[Hg] Giacomo Ball Other [facility] Other 11-02-2023 12:57-0500 Blood Pressure Location Lexa CHRISTIANSEN [facility] 11-02-2023 12:57-0500 Diastolic blood pressure 77 mm[Hg] Lexa CHRISTIANSEN [facility] 11-02-2023 12:57-0500 Heart rate 57 /min Lexa CHRISTIANSEN [facility] 11-02-2023 12:57-0500 Respiratory rate 16 /min Lexa CHRISTIANSEN [facility] 11-02-2023 12:57-0500 Systolic blood pressure 132 mm[Hg] Lexa CHRISTIANSEN [facility] 07-21-2023 14:00-0400 Body height 182.88 cm Giacomo Ball Other [employer] [facility] Other 07-21-2023 14:00-0400 Body mass index (BMI) [Ratio] 29.83 kg/m2 Giacomo Ball Other [employer] [facility] Other 07-21-2023 14:00-0400 Body weight 99.79 kg Giacomo Ball Other [facility] Other 07-21-2023 14:00-0400 Diastolic blood pressure 65 mm[Hg] Giacomo Ball Other [facility] Other 07-21-2023 14:00-0400 Respiratory rate 12 /min Giacomo Ball Other [facility] Other 07-21-2023 14:00-0400 Systolic blood pressure 114 mm[Hg] Giacomo Ball Other [facility] Other 01-16-2023 12:00-0400 Body height 182.88 cm Giacomo Ball Other [facility] Other 01-16-2023 12:00-0400 Body mass index (BMI) [Ratio] 30.92 kg/m2 Giacomo Ball Other [facility] Other 01-16-2023 12:00-0400 Body weight 103.42 kg Giacomo Ball Other [facility] Other 01-16-2023 12:00-0400 Diastolic blood pressure 67 mm[Hg] Giacomo Ball Other [facility] Other 01-16-2023 12:00-0400 Respiratory rate 12 /min Giacomo Ball Other [facility] Other 01-16-2023 12:00-0400 Systolic blood pressure 115 mm[Hg] Giacomo Ragsdale Other [facility] Other Encounters Encounter Date Encounter Type Care Provider Facility Start: 09-09-2024 [facility] [place] Start: 07-11-2024 End: 07-11-2024 ambulatory HEATHER YAO Not Available Start: 07-05-2024 End: 07-05-2024 ambulatory Lexa CHRISTIANSEN Facility:[facility] Start: 07-05-2024 End: 07-05-2024 Patient encounter procedure Lexa CHRISTIANSEN [facility] Start: 06-27-2024 End: 06-27-2024 ambulatory Lexa CHRISTIANSEN Facility:[facility] Start: 06-27-2024 End: 06-27-2024 Patient encounter procedure Lexa CHRISTIANSEN [facility] Start: 06-22-2024 End: 06-22-2024 ambulatory [facility] Start: 06-22-2024 End: 06-22-2024 Encounter for other preprocedural examination [facility] Start: 05-23-2024 End: 05-23-2024 ambulatory JR.MYA STEPANIC Not Available Start: 05-09-2024 End: 05-09-2024 ambulatory JR., MYA Kwan STEPANIC Not Available Start: 04-26-2024 End: 04-26-2024 ambulatory JR., MYA Kwan STEPANIC Not Available Start: 04-18-2024 End: 04-18-2024 ambulatory JR., MYA Kwan STEPANIC Not Available Start: 03-21-2024 End: 03-21-2024 ambulatory JR., MYA Kwan STEPANIC Not Available Start: 12-14-2023 End: 12-14-2023 Patient encounter procedure [facility]ANSEN [facility] Start: 12-14-2023 End: 12-14-2023 ambulatory Lexa CHRISTIANSEN Facility:[facility] [place] Start: 12-14-2023 End: 12-14-2023 Lab Drop off Lexa CHRISTIANSEN [facility] Start: 12-09-2023 ambulatory Yadiel JAIN Facility :[facility] [place] Start: 12-07-2023 End: 12-07-2023 ambulatory Lexa CHRISTIANSEN Facility:[facility] [place] Start: 12-07-2023 End: 12-07-2023 Patient encounter procedure Lexa CHRISTIANSEN [facility] [place] Start: 11-16-2023 End: 11-16-2023 ambulatory Lexa CHRISTIANSEN Facility:[facility] [place] Start: 11-16-2023 End: 11-16-2023 Patient encounter procedure Lexa CHRISTIANSEN [facility] [place] Start: 11-09-2023 ambulatory Lexa CHRISTIANSEN Facility : [place] Start: 11-05-2023 End: 11-05-2023 ambulatory Giacomo Ragsdale Other [facility] Other Start: 11-05-2023 Telephone encounter Giacomo Ball [facility] Start: 11-04-2023 End: 11-04-2023 ambulatory Giacomo Ball Other [facility] Other Start: 11-04-2023 Office outpatient vi sit 15 minutes Giacomo Ball [facility] Start: 11-02-2023 End: 11-02-2023 ambulatory Lexa CHRISTIANSEN Facility:[facility] Start: 11-02-2023 End: 11-02-2023 Patient encounter procedure Lexa CHRISTIANSEN [facility] Start: 08-24-2023 End: 08-24-2023 ambulatory Giacomo Ball Other [facility] Other Start: 08-24-2023 Telephone encounter Giacomo Ball [facility] Start: 08-06-2023 End: 08-06-2023 ambulatory Giacomo Ball Other [facility] Other Start: 08-06-2023 Telephone encounter Giacomo Ball [facility] Start: 08-05-2023 End: 08-05-2023 ambulatory Giacomo Ball Other [facility] Other Start: 08-05-2023 Telephone encounter Giacomo Ball [facility] Start: 07-23-2023 End: 07-23-2023 ambulatory Giacomo Ball Other [facility] Other Start: 07-23-2023 Telephone encounter Giacomo Ball [facility] Start: 07-21-2023 End: 07-21-2023 ambulatory Giacomo Ball Other [facility] Other Start: 07-21-2023 Office outpatient vi sit 25 minutes Giacomo Ball [facility] Start: 04-14-2023 End: 04-14-2023 ambulatory Giacomo Ball Other [facility] Other Start: 04-14-2023 Telephone encounter Giacomo [facility] Start: 01-19-2023 End: 01-19-2023 ambulatory Giacomo Ragsdale Other [facility] Other Start: 01-19-2023 Telephone encounter Giacomo Oh [facility] Start: 01-16-2023 End: 01-16-2023 ambulatory Giacomo Ragsdale Other [facility] Other Start: 01-16-2023 Patient encounter procedure Giacomo Ragsdale [facility] Start: 12-31-2022 End: 01-01-[address] DOCTOR MORE Facility:[facility] Start: 07-02-2022 End: 07-03-[address] DOCTOR MORE Facility:[facility] Start: 06-23-2022 End: 06-24-[address] DOCTOR MORE Facility:[facility] Procedures Date Procedure Procedure Detail Performing Clinician Start: 05-19-2023 Transurethral cystoscopy Lexa CHRISTIANSEN Start: 12-31-[address] DOCTOR MORE Comment on above: Performed By: #### P SAD #### [facility] [address] [place] [address] Dr. Henry Marin Start: 07-02-[address] DOCTOR MORE Comment on above: Performed By: #### P SAD #### [facility] [address] [place] [address] Dr. Henry Marin Start: 03-06-2022 Mixed beam [...] (BIvalent) Giacomo Ragsdale Other [facility] Comment on above: Result Comment: 2022: [id number] 08-04-2021 COVID-19 Vaccine Moderna - Documentation Purposes Only Giacomo Ragsdale Other [facility] 12-19-2020 SARS-CoV-2 (COVID-19 ) Ad26 vaccine, recombinant Lexa CHRISTIANSEN [facility] 12-13-2020 COVID-19 Vaccine Moderna - Documentation Purposes Only Giacomo Ragsdale Other [facility] Comment on above: Result Comment: 2022: [id number] 11-15-2020 COVID-19 Vaccine Moderna - Documentation Purposes Only Giacomo Ragsdale Other [facility] Other 11-15-2020 SARS-CoV-2 (COVID-19 ) Ad26 vaccine, recombinant Lexa CHRISTIANSEN [facility] 07-17-2017 diphtheria, tetanus toxoids and acellular pertussis vaccine, unspecified formulation Giacomo Ragsdale Other [facility] Other Payers Date Payer Category Payer Medicare [id number] 1961 Private Health Insurance CLI [id number] 1950 Unknown [id number] 2.16.84 0.1.265531.3.579.2.593 1950 Unknown [id number] 2.16.84 0.1.015621.3.579.2.593 1950 Unknown [id number] 2.16.84 0.1.938051.3.579.2.593 1950 Unknown [id number] 2.16.84 0.1.935196.3.579.2.593 1950 Unknown [id number] 2.16.8 40.1.971840.3.579.2.727 1950 Unknown [id number] 2.16.8 40.1.666448.3.579.2.727 1950 Unknown [id number] 2.16.8 40.1.857303.3.579.2.727 1950 Unknown [id number] 2.16.8 40.1.359120.3.579.2.727 1950 Unknown [id number] 2.16.8 40.1.633089.3.579.2.727 1950 Unknown [id number] 2.16.8 40.1.350112.3.579.2.727 1950 Unknown [id number] 2.16.8 40.1.897492.3.579.2.727 1950 Unknown [id number] 2.16.8 40.1.542427.3.579.2.727 1950 Unknown [id number] 2.16.8 40.1.282734.3.579.2.727 1948 Unknown [id number] 2.16.84 0.1.844619.3.579.2.1259 1948 Unknown [id number] 2.16.84 0.1.023675.3.579.2.1259 1948 Unknown [id number] 2.16.84 0.1.212787.3.579.2.1259 1948 Unknown [id number] 2.16.84 0.1.182915.3.579.2.1259 1948 Unknown [id number] 2.16.84 0.1.120215.3.579.2.1259 1948 Unknown [id number] 2.16.84 0.1.876665.3.579.2.1259 1950 Unknown [id number] 2.16.84 0.1.403288.3.579.2.1258 Unknown [id number] 2.16. 840.1.639392.19 Social History Date Type Detail Facility Sex Assigned At [facility] Start: 11-02-2023 End: 06-27-2024 Tobacco smoking status Ex-smoker (finding) [facility] Tobacco smoking status Never [facility] Functional Status Date Assessment Result Facility 07-05-2024 Functional Status N/A [facility] 06-27-2024 Functional Status N/A [facility] 12-14-2023 Functional Status N/A [facility] 11-02-2023 Functional Status N/A [facility] Clinical Notes 01-16-2023 to 07-05-2024 Note Date & Type Note Facility 07-05-2024 Hospital Discharg e instructions Patient Education 07/05/2024 11:19:37 [facility] - Cystoscopy Discharge Instructions (CUSTOM) Cystoscopy Voiding after the procedure: there may be some pain, burning, urgency, frequency and blood tinged urine following the procedure. These symptoms usually resolve within 2-5 days. Drink the amount of fluid it takes to keep the urine pink to yellow or clear in color. Drinking enough water and fluids will help to ease any discomfort after your procedure. If you are having problems that seem out of the ordinary, please call. If unable to contact your physician and you feel it is an emergency, go to the nearest emergency room or call 911 Diet you may resume your normal diet. Activity you may resume your normal activities Call if you have a fever over 100 degrees. Follow Up Care 06/28/2024 15:40:34 With:Lexa CHRISTIANSEN Address: [address] [place] [id number] Business (1) When:09/04/2024 11:17:33 Comments:With PVR log [facility] 07-05-2024 Note Patient Education Custom Cystoscopy ? Voiding after the procedure: there may be some pain, burning, urgency, frequency and blood tinged urine following the procedure. These symptoms usually resolve within 2-5 days. Drink the amount of fluid it takes to keep the urine pink to yellow or clear in color. Drinking enough water and fluids will help to ease any discomfort after your procedure. ? If you are having problems that seem out of the ordinary, please call. ? If unable to contact your physician and you feel it is an emergency, go to the nearest emergency room or call 911 ? Diet ? you may resume your normal diet. ? Activity ? you may resume your normal activities ? Call if you have a fever over 100 degrees. [facility] 06-27-2024 Hospital Discharg e instructions Patient Education [...] Follow these instructions at home: Medicines Take qqxp-rob-iplassq and prescription medicines only as told by [...] provider. Document Revised: 06/12/2021 Document Reviewed: 06/12/2021 [employer] Patient Education 2023 [employer]. 06/27/2024 12:45:54 Cystoscopy Cystoscopy Cystoscopy is a [...] including vitamins, herbs, eye drops, creams, and jxkz-ukx-esgmzmn medicines. Any problems you or family members [...] provider tells you to take them. Taking mwvb-bix-kscnpof medicines, vitamins, herbs, and supplements. Tests You [...] Follow these instructions at home: Medicines Take scjg-fas-nsiidla and prescription medicines only as told by [...] provider. Document Revised: 06/04/2022 Document Reviewed: 05/03/2021 [employer] Patient Education 2023 [employer]. Follow Up Care 11/02/2023 15:01:28 With:WALLY PERALTA, Lexa Barlow, URL Address: [facility] [address] , [place] [address]- [phone] When: Unknown Comments:sched cysto [facility] Note Patient Education Urology Acute Urinary [...] these instructions at home: Medicines ? Take kpsg-vgs-uebmpel and prescription medicines only as told by [...] provider. Document Revised: 06/12/2021 Document Reviewed: 06/12/2021 [employer] Patient Education ? 2023 [employer] Cystoscopy Cystoscopy is a procedure that is used to help diagnose and sometimes treat conditions that affect the lower urinary tract. The lower urinary tract includes the bladder and the urethra. The urethra is the tube that drains urine from the (more content not included)... [facility] 06-22-2024 Note Cardiovascular Medic [facility] SUBJECTIVE Chief Complaint Patient presents with Pre-op [...] coronary arteries an (more content not included)... [facility] 06-22-2024 Note Patient here for 1 y [...] All other systems reviewed and are negative. [facility] 12-14-2023 Hospital Discharg e instructions Patient Education [...] provider. Document Revised: 12/11/2021 Document Reviewed: 09/06/2021 [employer] Patient Education 2021 [employer]. 12/14/2023 11:40:01 Indwelling Urinary Catheter Insertion Indwelling [...] provider. Document Revised: 05/21/2022 Document Reviewed: 05/21/2022 [employer] Patient Education 2022 [employer]. Follow Up Care 12/14/2023 08:48:07 With:WALLY PERALTA, Lexa Barlow, URL Address: [facility] [address] [place] [address]- [phone] When: Unknown Comments:pt to call w/ update [facility] 11-04-2023 Evaluation note Encounter Date Diagnosis Assessment [...] - Z79.01) May increase severity of bleeding. 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 2.Clean your penis with soap and water. [...] reusable catheter in a small bathroom. Take rnan-vwc-lxankwx and prescription medicines only as told by [...] provider. Document Revised: 07/28/2022 Document Reviewed: 07/28/2022 [employer] Patient Education 2022 [employer]. 11/02/2023 14:17:10 Acute Urinary Retention, Male Acute [...] Follow these instructions at home: Medicines Take feec-zgn-edbcnqk and prescription medicines only as told by [...] provider. Document Revised: 06/12/2021 Document Reviewed: 06/12/2021 [employer] Patient Education 2022 [employer]. Follow Up Care 05/04/2023 11:36:31 With:WALLY PERALTA, Lexa Barlow, URL Address: [facility] [address] , [place] [address]- [phone] When: Unknown Comments:f/u in 6 mos w/ PSA [facility] 11-01-2023 Evaluation note* Encounter Date Diagnosis Assessment Notes Treatment Notes Treatment Clinical Notes Aug, Paroxysmal atrial fibrillation (ICD-10 - I48.0) Aug, Syncope, unspecified syncope type (ICD-10 - R55) [facility] Other 10-19-2023 Evaluation note* Encounter Date Diagnosis Assessment Notes Treatment Notes Treatment Clinical Notes Jul, Benign prostatic hyperplasia with lower urinary tract symptoms (ICD-10 - N40.1) [facility] Other 10-17-2023 Evaluation note* Encounter Date Diagnosis [...] are maintaining regular 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 Discussed switching Xarelto to Eliquis. Jan, Hyperlipidemia [...] Colon cancer screening declined (ICD-10 - Z53.20) [facility] Other Evaluation + Plan note Future Appointments Appointment Date:05/06/2024 08:00:00 AM Scheduled Provider:Lexa CHRISTIANSEN MD Location:[facility] Appointment Type:URO Office Visit Diagnostic Tests Pending * PSA Total 11/02/23 [facility] evaluation + Plan note Future Appointments Appointment Date:12/09/2023 01:20:00 PM Scheduled Provider:Yadiel JAIN MD Location:[facility] Appointment Type:[facility] Appointment Date:05/06/2024 08:00:00 AM Scheduled Provider:Lexa CHRISTIANSEN MD Location:[facility] Appointment Type:URO Office Visit [facility] evaluation + Plan note Future Appointments Appointment Date:05/06/2024 08:00:00 AM Scheduled Provider:Lexa CHRISTIANSEN MD Location:[facility] Appointment Type:URO Office Visit [facility] evaluation + Plan note Future Appointments Appointment Date:05/06/2024 08:00:00 AM Scheduled Provider:Lexa CHRISTIANSEN MD Location:[facility] Appointment Type:URO Office Visit Diagnostic Tests Pending * [facility] Future App[facility]ments Appointment Date:09/09/2024 10:15:00 AM Scheduled Provider:Lexa CHRISTIANSEN MD Location:[facility] Appointment Type:URO Office Visit [facility] Evaluation noteNo [employer] Other History general Narrative - Reported* Type [...] RIGHT TIB FIB FIXATION 2006 Surgical History [facility] 11/2015 Hospitalization History see surgical history [facility] Other History general Narrative - Reported* Type [...] RIGHT TIB FIB FIXATION 2006 Surgical History [facility] 11/2015 Surgical History Cystoscopy 05/2023 Hospitalization History see surgical history [facility] Other Hospital course Narrative No data available for this section [facility] Discharge instructions No data available for this section [facility] progress note No data available for this section [facility] reason for referral (narrative)* Reason Referral for colonos copy Diagnosis 1 Rectal bleeding (K62 .5) Referral Organization [facility] Aniya quinones Referring Provider First Name Giacomo Referring Provider Last Name Jn Referring Provider Specialty Internal Me dicine Referred Organization [facility] Referred Provider Yadiel Jain Referred Address [address], [place],[address] Referred Provider Specialty Surgery Referral Priority Routine General Notes Mr. Bustillos, who is anticoagulated for atrial fibrillation with a history of pelvic radiation for prostate cancer, presents w/ rectal bleeding. He has notice blood with wiping and on his underwear. He is being referred for colonoscopy. Clinical Notes Include [facility] Other Summary Purpose Family History No Family History Records FoundNo Family History Records Found No data available for this section No data available for this section No data available for this section No data available for this section No data available for this section No Family History Records Found No data available [...] section and content) DATE CREATED AUTHOR 12/23/2021 [facility] DATE CREATED AUTHOR AUTHOR'S ORGANIZ ATION 01/03/2023 [facility] DATE CREATED AUTHOR AUTHOR'S ORGANIZ ATION 06/24/2024 [facility] DATE CREATED AUTHOR AUTHOR'S ORGANIZ ATION 07/09/2024 [facility] DATE CREATED AUTHOR AUTHOR'S ORGANIZ ATION 07/11/2024 [facility] EPIC REASON FOR VISIT (unrecogniz ed section and content) wellnessNo InformationSwitch ing to Eliquis6 month Follow upLab resultsNo InformationNo InformationHolter resultsEcho resultsLab resultsRECTAL BLEEDOING Patient Care team informatio n (unrecognized section and content) Personnel Name: GIACOMO RAGDSALE DO Address: Address: [address] [place] [address] Personnel Name: GIACOMO RAGSDALE DO Address: Address: [address] [place] [address] Personnel Name: GIACOMO RAGSDALE DO Address: Address: [address] [place] [address] Personnel Name: GIACOMO RAGSDALE DO Address: Address: [address] [place] [address] Personnel Name: GIACOMO RAGSDALE DO Address: Address: [address] [place] [address] Personnel Name: GIACOMO RAGSDALE DO Address: Address: [address] [place] [address] Personnel Name: GIACOMO RAGSDALE DO Address: Address: [address] [place] [address] FOR RECORDS PERTAINING TO PATIENTS WHO ARE [...] BE BASED ON THE PRIMARY CLINICAL RECORDS. [facility]. provides no warranty or guarantee of the accuracy or completeness of information in this document.
[2024-07-13 10:29] LABS: Basophils Percent Auto 0.8 % (0.2-2.0); Eosinophils Absolute Auto 0.1 10^3/uL (0.0-0.7); Eosinophils Percent Auto 3.1 % (0.9-7.0); Hematocrit 43.9 % (42.0-54.0); Lymphocytes Absolute Auto 1.3 10^3/uL (1.2-3.8); Lymphocytes Percent Auto 33.5 % (20.5-60.0); Mean Corpuscular HGB Conc 34.2 g/dL (29.9-35.2); Mean Corpuscular Hemoglobin 32.5 pg (25.9-34.0); Mean Corpuscular Volume 95.2 fL (80.0-94.0); Mean Platelet Volume 10.9 fL (9.5-13.5); Monocytes Absolute Auto 0.6 10^3/uL (0.3-0.8); Monocytes Percent Auto 15.1 % (1.7-12.0); Neutrophils Absolute Auto 1.8 10^3/uL (1.4-6.5); Neutrophils Percent Auto 47.5 % (43.0-75.0); Platelet Count 122 10^3/uL (150-450); Red Blood Count 4.61 10^6/uL (4.70-6.10); Red Cell Distribution Width 13.7 % (11.0-15.0); White Blood Count 3.9 10^3/uL (4.0-11.0)
== END 2024-07-13 10:03 | disposition home or self-care (01) ==
LOC: LAB 10:03
PROVIDERS: PCP Internal Medicine; Visit Provider Internal Medicine
DX: D69.6 Thrombocytopenia, unspecified (principal)
CPT/HCPCS: 36415; 85025

== ENCOUNTER 2025-01-04 09:53 | Outpatient (OUT) | payer MEDICARE, SELFPAY ==
--- OUTSIDE RECORDS SUMMARY | 2025-01-04 09:57 | XMS_ITS | CCD ---
Author Organization [facility] Care Team Providers Care Last Dipper Name Role Phone ROSALVAC, DR BRADEN Admitting Unavailable MISC, DR BRADEN Attending Unavailable JOI, DR GUERRA Primary Care Unavailable MISC, DR BRADEN Consulting Unavailable MISC, DR BRADEN Admitting Unavailable MISC, DR BRADEN Attending Unavailable JOI, DR GUERRA Primary Care Unavailable BALL, DR GUERRA Admitting Unavailable BALL, DR GUERRA Attending Unavailable BALL, DR GUERRA Consulting Unavailable BALL, DR GUERRA Primary Care Unavailable MISC, DR BRADEN Consulting Unavailable MISC, DR BRADEN Admitting Unavailable MISC, DR BRADEN Attending Unavailable JOI, DR GUERRA Primary Care Unavailable Giacomo Ragsdale Unavailable GIACOMO RAGSDALE Primary Care Physician JANAE LEONARD Attending Unavailable Giacomo Ragsdale MD Primary Care Provider Lexa CHRISTIANSEN Attending Unavailable CHRISTIANSEN, Lexa Barlow Attending Unavailable VALENTIN DICKERSON Attending Unavailable CHRISTIANSEN, Lexa Barlow Attending Unavailable CHRISTIANSEN, Lexa Barlow Attending Unavailable CHRISTIANSEN, Lexa Barlow Attending Unavailable CHRISTIANSEN, Lexa Barlow Referring Unavailable CHRISTIANSEN, Lexa Barlow Admitting Unavailable CHRISTIANSEN, Lexa Barlow Attending Unavailable CHRISTIANSEN, Lexa R Admitting Unavailable CHRISTIANSEN, Lexa Barlow Attending Unavailable NILLYadiel Attending Unavailable GIACOMO RAGSDALE Referring Unavailable Lexa CHRISTIANSEN Attending Unavailable MYA NAVARRO JR Referring UnavailGIACOMO Yang Primary Care Unavailable MYA NAVARRO JR Referring Unavailabl e GIACOMO RAGSDALE Primary Care Unavailable MYA NAVARRO JR Referring Unavailabl e GIACOMO RAGSDALE Primary Care Unavailable MYA NAVARRO JR Admitting Unavailabl MYA Ruiz JR Attending Unavailabl e GIACOMO RAGSDALE Primary Care Unavailable JESSA PRICE Attending Unavailable GIACOMO RAGSDALE Primary Care Unavailable Giacomo Ragsdale DO Primary Care Provider BARBARA RAMÍREZ Attending Unavailable BARBARA RAMÍREZ Attending Margaux NAVARRO JR., MYA Kwan Attending Unavailmarin NAVARRO JR., MYA Kwan Referring Unavaila kasia NAVARRO JR., MYA Kwan Attending Unavailmarin NAVARRO JR., MYA Kwan Referring Unavaila kasia NAVARRO JR., MYA Kwan Attending Unavaila kasia NAVARRO JR., MYA Kwan Attending Unavaila NELY Power Attending Margaux NAVARRO JR., MYA Kwan Attending Unavaila ERIKA Hwang Attending Unavailable BARBARA RAMÍREZ Attending Unavailable JULIÁN STEVENS Attending Unavailable Allergies Allergy Classification Reported Allergen(s) Allergy Type Date of Onset Reaction(s) Facility (14 sources) Penicillins; Translations: [penicillins] Drug allergy (disorder) 11-15-19 16 Vomiting (disorder), Moderate (severity modifier) (qualifier value) [facility] Repository (3 sources) Penicillin Drug Allergy Unknown [employer] Other (8 sources) Substance with penicillin structure and antibacterial mechanism of action (substance) Drug allergy Comment:Penici llin [employer] Other (20 sources) Penicillins Drug Intolerance 03-15-20 20 GI intolerance [facility] (1 source) Penicillins Propensity to adverse reactions to drug 03-15-20 20 Vomiting [facility] Medications Current Medications Medication Drug Class(es) Dates Sig (Normalized) Sig (Original) acetaminophen 500 mg oral tablet (1 source) Start: 05-29-2020 take 2 tablets by mouth every six hours as needed for pain acetaminophen (TYLENOL) 500 mg tablet Take 2 tablets (1,000 mg total) by mouth every 6 (six) hours as needed for pain. 30 tablet 05/29/2020 Active acetaminophen 325 mg / oxyCODONE hydrochloride 5 mg oral tablet (1 source) Opioid Agonist Start: 09-19-2024 End: 09-24-2024 take 1 tablet by mouth every six hours for pain oxyCODONE-acetamino phen (Percocet) 5-325 MG tablet Indications: Internal derangement of right shoulder Take 1 tablet by mouth every 6 (six) hours if needed for moderate pain for up to 5 days 20 tablet 09/19/2024 09/24/2024 Active apixaban 5 mg oral tablet (20 sources) Factor Xa Inhibitor Start: 04-14-2023 take 1 tablet by mouth in the morning Eliquis 5 MG tablet Take 1 tablet by mouth in the morning and 1 tablet in the evening. 04/15/2023 Active atorvastatin 10 mg oral tablet (20 sources) HMG-CoA Reductase Inhibitor Start: 12-15-2019 atorvastatin (Lipitor) 10 MG tablet Take 10 mg by mouth 05/20/2023 Active diazePAM 5 mg oral tablet (13 sources) Benzodiazepine Start: 04-20-2024 End: 09-06-2024 diazePAM (Valium) 5 MG tablet Indications: Acute pain of right shoulder 1 tab 30-60 mins before procedure may repeat X1 if need for claustrophobia 2 tablet 04/20/2024 09/06/2024 Discontinued doxycycline hyclate 100 mg oral tablet (6 sources) Tetracycline-class Drug Start: 09-09-2024 take 1 tablet by mouth twice daily doxycycline hyclate 100 mg Tab 100 mg = 1 tab(s), Oral, BID, Start 3 days prior to surgery., # 10 tab(s), Refills(s) 0, Pharmacy: [facility] [id number], 184, cm, 09/09/24 10:43:00 EST, Height/Length Dosing, 89.6, kg, 09/09/24 10:43:00 EST, Weight Dosing Start Date: 09/09/24 Status: Ordered Start: 12-07-2023 take 1 capsule by [facility] once daily at mealtime doxycycline hyclate 100 mg Cap 100 mg = 1 cap(s), Oral, Daily, may take with food to minimize abdominal discomfort, # 30 cap(s), Refills(s) 0, Pharmacy: [facility] [id number], 187, cm, 11/02/23 13:01:00 EST, Height/Length Dosing, 101, kg, 11/02/23 13:01:00 EST, Weight Dosing Start Date: 12/07/23 Status: Ordered Start: 11-02-2023 End: 12-02-2023 take 1 capsule by mouth once daily doxycycline hyclate 100 mg Cap 100 mg = 1 cap(s), Oral, Daily, X 30 day(s), # 30 cap(s), Refills(s) 0, Pharmacy: [facility] [id number], 187, cm, 11/02/23 13:01:00 EST, Height/Length Dosing, 101, kg, 11/02/23 13:01:00 EST, Weight Dosing Start Date: 11/02/23 Stop Date: 12/02/23 Status: Ordered finasteride 5 mg oral tablet (20 sources) 5-alpha Reductase Inhibitor Start: 12-15-2019 End: 10-27-2024 finasteride (Proscar) 5 MG tablet 5 mg 01/02/2024 Active levoFLOXacin 500 mg oral tablet (2 sources) Quinolone Antimicrobial Start: 12-14-2023 End: 12-28-2023 take 1 tablet by mouth every twenty-four hours Levaquin 500 mg Tab 500 mg = 1 tab(s), Oral, q24hr, X 14 day(s), # 14 tab(s), Refills(s) 0, Pharmacy: [facility] [id number], 187, cm, 12/14/23 10:52:00 EDT, Height/Length Dosing, 101, kg, 12/14/23 10:52:00 EDT, Weight Dosing Start Date: 12/14/23 Stop Date: 12/28/23 Status: Ordered lidocaine hydrochloride 0.02 mg/mg topical gel (7 sources) Antiarrhythmic, Amide Local Anesthetic Start: 11-30-2023 apply 0.1 g topically once lidocaine Top 2% Gel w/Appl 30 mL 0.1 gm, 5 mL, Topical, Once, 30 mL, Refill(s) 2, Apply topically prior to cathing, [facility] [id number], 187, cm, 11/02/23 13:01:00 EST, Height/Length Dosing, [...] Orally Twice a day Oct, Active Start: 12-15-2019 take 0.5 tablet by m outh in the morning, then take 0.5 tablet by mouth at bedtime metoprolol tartrate (LOPRESSOR) 25 mg tablet Take 0.5 tablets (12.5 mg total) by mouth in the morning and 0.5 tablets (12.5 mg total) before bedtime. 12/15/2019 Active Start: 10-12-2019 take 1 mg by mouth once daily metoprolol 25 mg ER Tab mg tab(s), Oral, Daily, Refills(s) 0 Start Date: 10/12/19 Status: Ordered metoprolol tartr ate (Lopressor) 25 MG tablet Take 12.5 mg by mouth in the morning and 12.5 mg in the evening. Active Multi Vitamin+ (9 sources) Start: 10-12-2019 Multi Vitamin+ Refill(s) 0 Start Date: 10/12/19 Status: Ordered NON FORMULARY (1 source) take 1 dose by mouth in the morning NON FORMULARY Take 1 each by mouth in the morning. Med Name: Poikosagen. Active rivaroxaban (20 sources) Factor Xa Inhibitor Start: 10-27-2022 Xarelto 20 20 Once Orally Once a day Oct, Active Start: 06-09-2020 End: 08-30-2024 take 1 tablet by mouth once daily XARELTO 20 mg tablet tablet Indications: prevention of thromboembolism in paroxysmal atrial fib Take 1 tablet (20 mg total) by mouth daily Indications: prevention of thromboembolism in paroxysmal atrial fibrillation. Resume on 06/09/20 06/09/2020 08/30/2024 Discontinued tamsulosin hydrochloride 0.4 mg oral capsule (20 sources) alpha-Adrenergic Jay Start: 05-26-2023 take 1 capsule by mouth every twenty-four hours in the morning tamsulosin (Flomax) 0.4 MG 24 hr capsule Take 1 capsule by mouth in the morning and 1 capsule in the evening. 05/26/2023 Active Start: 10-27-2022 take 1 capsule by mo ut every twenty-four hours Tamsulosin HCl 0.4 MG 1 capsule Orally Once a day Oct, Active Start: 12-11-2021 take 1 capsule by mo uth twice daily Flomax 0.4 mg Cap 0.4 mg = 1 cap(s), Oral, BID, # 180 cap(s), Refills(s) 3, Pharmacy: [facility], 187, cm, 01/29/24 13:01:00 EST, Height/Length Dosing, 101, kg, 11/02/23 13:01:00 EST, Weight Dosing Start Date: 11/02/23 Status: Ordered telmisartan 40 mg oral tablet (20 sources) Angiotensin 2 Receptor Jay Start: 12-15-2019 End: 08-30-2024 take 1 tablet by mouth once daily telmisartan 40 mg Tab 40 mg = 1 tab(s), Oral, Daily, Refills(s) 0 Start Date: 05/04/23 Status: Ordered Completed/Discontinued Medications Medication Drug Class(es) Dates Sig (Normalized) Sig (Original) ciprofloxacin 500 mg oral tablet (3 sources) Quinolone Antimicrobial Start: 06-27-2024 take 1 tablet by mouth once daily Cipro 500 mg Tab 500 mg = 1 tab(s), Oral, Daily, take one tab day before procedure and one tab after procedure, # 2 tab(s), Refills(s) 0, Pharmacy: [facility] [id number], 184, cm, 06/27/24 11:52:00 EDT, Height/Length Dosing, 90, kg, 06/27/24 11:52:00 EDT, Weight Dosing Start Date: 06/27/24 Status: Ordered docusate sodium 50 mg / sennosides, mcfp 8.6 mg oral tablet (1 source) Start: 05-29-2020 End: 08-30-2024 take 1 tablet by mouth twice daily as needed for constipation sennosides-docusat e sodium (SENOKOT-S) 8.6-50 mg Take 1 tablet by mouth 2 (two) times a day as needed for constipation. 05/29/2020 08/30/2024 Discontinued multivitamin/iron/f olic acid (CENTRUM COMPLETE ORAL) (1 source) End: 08-30-2024 multivitamin/iron/ folic acid (CENTRUM COMPLETE ORAL) Take by mouth. 08/30/2024 Discontinued traMADol hydrochloride 50 mg oral tablet (1 source) Opioid Agonist End: 08-30-2024 take 1 tablet by mouth every six hours as needed for pain traMADoL (ULTRAM) 50 mg tablet Take 50 mg by mouth every 6 (six) hours as needed for pain. 08/30/2024 Discontinued Problems Active Problems Problem Classification Problem Date Documented Da te Episodic/Chronic Acute bronchitis (11 sources) Acute bronchitis; Translations: [Acute bronchitis due to other specified organisms] Episodic Anal and rectal conditions (1 source) Radiation proctitis Episodic Anxiety disorders (18 sources) Generalized anxiety disorder; Translations: [Generalized anxiety disorder] 11-27-2023 Chronic Cancer of prostate (20 sources) Malignant neoplasm of prostate; Translations: [Carcinoma of prostate] Onset: 01-02-2022 Chronic Cancer of prostate (2 sources) Personal history of malignant neoplasm of prostate; Translations: [History of malignant neoplasm of prostate] Onset: 09-09-2024 Episodic Cardiac dysrhythmias (20 sources) Paroxysmal atrial fibrillation; Translations: [Paroxysmal atrial fibrillation] Onset: 05-14-2020 Chronic Disorders of lipid metabolism (20 sources) Familial hypercholesterolemia ; Translations: [Pure hypercholesterolemia ] Onset: 01-01-2023 Chronic Essential hypertension (20 sources) Essential (primary) hypertension; Translations: [Essential hypertension] Onset: 05-09-2020 Chronic Gastrointestinal hemorrhage (1 source) Hemorrhage of anus and rectum Episodic Genitourinary symptoms and ill-defined conditions (20 sources) Nocturia; Translations: [Nocturia] Onset: 11-02-2023 Episodic Hyperplasia of prostate (20 sources) Lower urinary tract symptoms due to benign prostatic hypertrophy; Translations: [Benign prostatic hyperplasia with lower urinary tract symptoms] Onset: 11-02-2023 Chronic Inflammatory conditions of male genital organs (9 sources) Prostatitis; Translations: [Inflammatory disease of prostate, unspecified] Onset: 12-14-2023 Episodic Neoplasms of unspecified nature or uncertain behavior (2 sources) Neoplastic disease; Translations: [Neoplasm of unspecified behavior of bone, soft tissue, and skin] 07-11-2024 Episodic Osteoarthritis (12 sources) Localized, primary osteoarthritis of the pelvic region and thigh; Translations: [Unilateral primary osteoarthritis, left hip] Onset: 03-15-2020 05-28-2020 Chronic Other aftercare (1 source) 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; Translations: [OTH SENIOR LIVING CURRENT DRUG THERAPY] Onset: 01-01-2023 Episodic Other aftercare (11 sources) H/O: high risk medication; Translations: [Other mcc (current) drug therapy] Episodic Other aftercare (3 sources) Long-term current use of anticoagulant; Translations: [senior living (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 of anticoagulants] Onset: 09-09-2024 Episodic Other aftercare (1 source) senior living (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 of anticoagulants Episodic Other connective tissue disease (11 sources) History of total replacement of left hip joint; Translations: [Presence of left artificial hip joint] Chronic Other male genital disorders (13 sources) Male erectile dysfunction, unspecified; Translations: [Erectile dysfunction] Onset: 11-02-2023 Chronic Other non-epithelial cancer of skin (2 sources) Basal cell carcinoma of chest wall; Translations: [Basal cell carcinoma of skin of other part of trunk] 08-22-2024 Episodic Other non-traumatic joint disorders (3 sources) Derangement of right shoulder joint; Translations: [Other specific joint derangements of right shoulder, not elsewhere classified] 07-25-2024 Chronic Other nutritional; endocrine; and metabolic disorders (11 sources) Obese class I; Translations: [Obesity, unspecified] Chronic Other nutritional; endocrine; and metabolic disorders (1 source) Obesity, unspecified Chronic Other nutritional; endocrine; and metabolic disorders (7 sources) Obesity 11-27-2023 Chronic Other screening for suspected conditions (not mental disorders or infectious disease) (15 sources) Encounter for screening, unspecified; Translations: [Raised prostate specific antigen] Onset: 06-23-2022 Episodic Other skin disorders (2 sources) Seborrheic keratosis; Translations: [Other seborrheic keratosis] 07-11-2024 Episodic Other skin disorders (2 sources) Actinic keratosis; Translations: [Actinic keratosis] 07-11-2024 Episodic Other skin disorders (2 sources) Inflamed seborrheic keratosis; Translations: [Inflamed seborrheic keratosis] 07-11-2024 Episodic Other upper respiratory infections (11 sources) Acute maxillary sinusitis; Translations: [Acute maxillary sinusitis, unspecified] Episodic Residual codes; unclassified (1 source) Procedure and treatment not carried out because of patient's decision for unspecified reasons Episodic Residual codes; unclassified (2 sources) Patient encounter status; Translations: [Encounter for procedure for purposes other than remedying health state, unspecified] 07-11-2024 Episodic Spondylosis; intervertebral disc disorders; other back problems (18 sources) Lumbar spondylosis; Translations: [Spondylosis without myelopathy or radiculopathy, lumbar region] 11-27-2023 Chronic Syncope (2 sources) Syncope and collapse Episodic Unclassified (9 sources) Asymptomatic microscopic hematuria 05-04-2023 Unclassified (9 sources) Drug therapy finding 10-17-2019 Unclassified (1 source) Other ventricular tachycardia; Translations: [Other ventricular tachycardia] Onset: 06-22-2024 Unclassified (4 sources) Finding of sensation of bladder 06-27-2024 Unclassified (1 source) right shoulder internal derangement Onset: 09-20-2024 Past or Other Problems Problem Classification Problem Date Documented Da te Episodic/Chronic Mood disorders (1 source) Mood disorders Onset: 05-28-2020 05-28-2020 Other non-traumatic joint disorders (20 sources) Pain in right shoulder; Translations: [Pain in joint, shoulder region] Onset: 04-20-2024 04-20-2024 Episodic Unclassified (1 source) Other ventricular tachycardia; Translations: [Other ventricular tachycardia] Onset: 06-22-2024 Results Test Name Value Interpretation Reference Range Facility BASIC METABOLIC PANLon 08-30 Anion gap [Moles/Vol] 9 mmol/L Normal 5-15 [facility] Comment on above: Performed By: #### 7 -7, BMP #### [facility] ([id number]) [address], [address] [place] [address] Calcium [Mass/Vol] 9.1 mg/dL Normal 8.5-10.5 [facility] Comment on above: Performed By: #### 7 -7, BMP #### [facility] ([id number]) [address], [address] [place] [address] Chloride [Moles/Vol] 107 mmol/L Normal 98-109 [facility] Comment on above: Performed By: #### 7 18-7, BMP #### [facility] ([id number]) [address], [address] [place] [address] CO2 [Moles/Vol] 26 mmol/L Normal 22-32 [facility] Comment on above: Performed By: #### 7 18-7, BMP #### [facility] ([id number]) [address], [address] [place] [address] Creatinine [Mass/Vol] 1.00 mg/dL Normal 0.60-1.30 [facility] Comment on above: Result Comment: METH OD TRACEABLE TO IDMS STANDARD Performed By: #### 7 18-7, BMP #### [facility] ([id number]) [address], [address] [place] [address] GFR/1.73 sq M.predicted among non-blacks MDRD (S/P/Bld) [Vol rate/Area] 78 mL/min/{1.73_m2} Normal >59 [facility] Comment on above: Result Comment: Reported eGFR is based on the CKD-EPI 2020 equation that does not use a race coefficient. Performed By: #### 7 18-7, BMP #### [facility] ([id number]) [address], [address] [place] [address] Glucose [Mass/Vol] 98 mg/dL Normal 65-99 [facility] Comment on above: Performed By: #### 7 -7, BMP #### [facility] ([id number]) [address], [address] [place] [address] Potassium [Moles/Vol] 4.0 mmol/L Normal 3.5-5.0 [facility] Comment on above: Performed By: #### 7 18-7, BMP #### [facility] ([id number]) [address], [address] [place] [address] Sodium [Moles/Vol] 142 mmol/L Normal 134-146 [facility] Comment on above: Performed By: #### 7 18-7, BMP #### [facility] ([id number]) [address], [address] [place] [address] Urea nitrogen [Mass/Vol] 12 mg/dL Normal 5-27 [facility] Comment on above: Performed By: #### 7 18-7, BMP #### [facility] ([id number]) [address], [address] [place] [address] Basic Metabolic Panelon 08-06 Anion gap [Moles/Vol] 9 mmol/L 5 - 15 mmol/L [facility] Calcium [Mass/Vol] 9.1 mg/dL 8.5 - 10. 5 mg/dL [facility] Chloride [Moles/Vol] 107 mmol/L 98 - 109 mmol/L [facility] CO2 [Moles/Vol] 26 mmol/L 22 - 32 mmol/L [facility] Creatinine [Mass/Vol] 1 mg/dL 0.60 - 1.30 mg/dL [facility] Comment on above: METHOD TRACEABLE TO IDMT STANDARD eGFR (CKD-EPI)non-race dependent 78 - PINF [facility] Comment on above: Reported eGFR is based on the CKD-EPI 2020 equation that does not use a race coefficient. Glucose [Mass/Vol] 98 mg/dL 65 - 99 mg/dL [facility] Potassium [Moles/Vol] 4 mmol/L 3.5 - 5.0 mmol/L [facility] Sodium [Moles/Vol] 142 mmol/L 134 - 146 mmol/L [facility] Urea nitrogen [Mass/Vol] 12 mg/dL 5 - 27 mg/dL [facility] Basic metabolic 1998 panelon 08-30-2024 Anion gap [Moles/Vol] 9 mmol/L 5 - 15 mmol/L [facility] Calcium [Mass/Vol] 9.1 mg/dL 8.5 - 10. 5 mg/dL [facility] Chloride [Moles/Vol] 107 mmol/L 98 - 109 mmol/L [facility] CO2 [Moles/Vol] 26 mmol/L 22 - 32 mmol/L [facility] Creatine [Mass/Vol] 1 mg/dL 0.60 - 1 .30 mg/dL [facility] Comment on above: METHOD TRACEABLE TO IDMT STANDARD GFR/1.73 sq M.predicted among non-blacks MDRD (S/P/Bld) [Vol rate/Area] 78 mL/min/{1.73_m2} - PINF [facility] Comment on above: Reported eGFR is based on the CKD-EPI 2020 equation that does not use a race coefficient. PERFORMED AT [place] [address],[place] [address] Glucose [Mass/Vol] 98 mg/dL 65 - 99 mg/dL [facility] Potassium [Moles/Vol] 4 mmol/L 3.5 - 5.0 mmol/L [facility] Sodium [Moles/Vol] 142 mmol/L 134 - 146 mmol/L [facility] Urea nitrogen [Mass/Vol] 12 mg/dL 5 - 27 mg/dL [facility] HEMOGLOBINon 08-30-2024 Hemoglobin (Bld) [Mass/Vol] 14.8 g/dL Normal 13.0-17.0 [facility] Comment on above: Performed By: #### 7 18-7, BMP #### [facility] ([id number]) [address], [address] [place] [address] Hemoglobinon 08-30-2024 Hemoglobin (Bld) [Mass/Vol] 14.8 g/dL 13.0 - 17.0 g/dL [facility] Hemoglobin (Bld) [Mass/Vol]o n 08-30-2024 [facility] Hemoglobin, blood gaseson Hemoglobin (Bld) [Mass/Vol] 14.8 g/dL 13.0 - 17.0 g/dL [facility] Comment on above: PERFORMED AT [address],[place] [address] No Panel Informationon 08-30 [facility] XR CHEST 2 VWSon 08-30-2024 XR CHEST 2 VWS XR CHEST 2 VWS XR CHEST 2 VWS History: . Preop examination; Hypertension, unspecified type; Paroxysmal atrial fibrillation (CMS-HCC). Comparison: None Impression: Ill-defined right basilar parenchymal opacity, possibly scarring or atelectasis. Additional areas of coarsened pulmonary parenchymal opacification. CT may be helpful. No lobar consolidation. No pneumothorax or pleural effusion. Nonenlarged heart. Finalized by Rodrigo Dutton MD on 08/30/2024 3:18 PM Normal [facility] XR Chest PA and Lateralon XR CHEST 2 VWS History: . Preop examination; Hypertension, unspecified type; Paroxysmal atrial fibrillation (CMS-HCC). Comparison: None Impression: Ill-defined right basilar parenchymal opacity, possibly scarring or atelectasis. Additional areas of coarsened pulmonary parenchymal opacification. CT may be helpful. No lobar consolidation. No pneumothorax or pleural effusion. Nonenlarged heart. Finalized by Rodrigo Dutton MD on 08/30/2024 3:18 PM [facility] Rodrigo Dutton MD - 08/30/2024 XR CHEST 2 VWS History: . Preop examination; Hypertension, unspecified type; Paroxysmal atrial fibrillation (CMS-HCC). Comparison: None Impression: Ill-defined right basilar parenchymal opacity, possibly scarring or atelectasis. Additional areas of coarsened pulmonary parenchymal opacification. CT may be helpful. No lobar consolidation. No pneumothorax or pleural effusion. Nonenlarged heart. Finalized by Rodrigo Dutton MD on 08/30/2024 3:18 PM [facility]narrative[facility] Chest PA and LateralOrder ed By: Rodrigo Dutton on 08-30-2024 [facility]: No Panel Informationon 08-22 Complexity: simple Destruction method: electrodesiccation and curettage Informed consent: discussed and consent obtained Informed consent comment: The risks of the procedure were discussed, including, but not limited to risks of scarring, darker or general office worker pigmentary changes, recurrence, infection, and incomplete removal Timeout: patient name, date of , surgical site, and procedure verified Timeout comment: Patient and provider identified site. Site was marked. Photo was taken and shown to patient, patient verified this is the correct site. Procedure prep: Patient was prepped and draped in usual sterile fashion Prep type: Chlorhexidine Anesthesia: the lesion was anesthetized in a standard fashion Anesthetic: 1% lidocaine w/ epinephrine 1-100,000 buffered w/ 8.4% NaHCO3 Curettage performed in three different directions: Yes Electrodesiccation performed over the curetted area: Yes Curettage cycles: 3 Lesion length (cm): 1.4 Lesion width (cm): 1.2 Margin per side (cm): 0 Final wound size (cm): 1.4 Hemostasis achieved with: electrodesiccation Outcome: patient tolerated procedure well with no complications Post-procedure details: wound care instructions given Post-procedure details comment: Post-procedure instructions were given verbally and in writing. The office will be contacted if the lesion fails to resolve despite treatment, or if a side effect develops such as abnormal crusting, scabbing, reddness, discharge, or tenderness. Additional details: Amount of lidocaine used: 2.0 cc Previous accession number: [id number] [facility] Urology Office/Clinic Noteon 07-21-2024 Urology Office/Clinic Note Urology Office/Clinic Note Chief Complaint low urine output HPI Staff 73 yr old male here with c/o low urine output. pt states he has been unable to urinate on his own for the last few days. pt does CIC 3x daily. pt does claim he gets a good amount out when he does cath. pt is unable to give sample or urinate for IO today. pt also states he does not have feeling or notice any issues until he gets full of urine. PVR:212 Dysuria: no Incomplete bladder emptying: always Hematuria: states possible, it was a little dark Frequency: CIC 3x daily for last 3 days, before this he CIC 2x daily. Urgency: yes Nocturia: usually not at all, but last 2 nights he has been up often Stream: leaking: yes Post void dripping: yes Wearing pads/ Depends: no Urge incontinence: yes Stress incontinence: no Incontinence without Sensory Awareness: no Abdominal pain: no Flank pain: no Sexual complaints: _ Review of Systems PHQ Score Initial Depression Screen Score: 0 SCORE no fever, chills, malaise, myalgia. no rash/lesions. no chest pain, palpitations, or SOB. no abdominal pain, nausea, vomiting. no unilateral calf swelling, redness, pain Physical Exam Vitals & Measurements HR: 64(Peripheral) BP: 109/62 HT: 72 in HT: 184 cm WT: 90 kg WT: 198 lb BMI: 26.58 General: nontoxic, NAD Mouth: moist mucosa Lungs: normal respiratory effort Cardio: regular rate, good distal perfusion Abdomen: nondistended, no suprapubic distention or tenderness, no CVA tenderness Neurologic: Grossly normal Skin: No rashes or suspicious lesions Assessment/Plan 1. Urinary retention (R33.9: Retention of urine, unspecified) Cathing BID. Brought volume diary range 350-600ml. Lots of times around 500-550ml. Advised this is too much. Increase to TID. Worried bc hasn't been voiding between caths. Only has 200ml currently per PVR. Admits he's not drinking much. Needs to increase fluid intake. No trouble passing cath. Denies nausea, vomiting, abd pain or low back pain, malaise/myalgia. No gross hematuria. No change in clarity or odor of urine. Nontoxic appearing. f/u as previously planned w PRW. Ordered: 54464 Measure Post Void residual urine and/or bladder capacity by US- non-imaging Body Mass Index (BMI) documented 3008F Current tobacco non-user 1036F Depression Screening Negative 3352F E&M of Est. Patient Low 20-29 Min 87499 Influenza immunization status assessed 1030F Medication list documented in medical record 1159F Most recent diastolic blood pressure <80 mm Hg 3078F Patient screen for fall risk: no falls in last year or 1 fall with no injury in last year 1101F Review of all meds by a prescribing practitioner or clinical pharmacist documented in EHR 1160F Systolic BP <130 mm Hg (Most Recent) 3074F Follow-up With When Contact Information Keep previously scheduled follow up with Dr Christiansen in September Additional Instructions: Patient Education Acute Urinary Retention, Male Problem List/Past Medical History Ongoing Anticoagulated Asymptomatic microscopic hematuria Atrial fibrillation Benign prostatic hyperplasia (BPH) with post-void dribbling BPH with urinary obstruction Elevated PSA Erectile dysfunction Feeling of incomplete bladder emptying FRANCIS (generalized anxiety disorder) Hyperlipidemia Hypertension Lumbar spondylosis Nocturia Obesity Premature atrial contraction Prostate cancer Prostatitis Supraventricular tachycardia Urinary retention Historical No qualifying data Procedure/Surgical History Cystoscopy (05/19/2023), Mixed beam EBRT (external beam radiation therapy) (03/06/2022), MRI-US fusion guided transrectal biopsy of prostate (12/12/2021), MRI of prostate (11/20/2021), Catheterization of right heart, Closed fracture of tibia AND fibula, Hip replacement. Medications atorvastatin 10 mg Tab, 10 mg= 1 tab(s), Oral, Daily Cipro 500 mg Tab, 500 mg= 1 tab(s), Oral, Daily Eliquis 5 mg oral tablet, 5 mg= 1 tab(s), Oral, BID finasteride 5 mg Tab, 5 mg= 1 tab(s), Oral, Daily, 3 refills Flomax 0.4 mg Cap, 0.4 mg= 1 cap(s), Oral, BID, 3 refills lidocaine Top 2% Gel w/Appl 30 mL, 0.1 gm= 5 mL, Topical, Once, 2 refills Metoprolol tartrate 25 mg Tab, 25 mg= 1 tab(s), Oral, BID Multi Vitamin+ Allergies penicillins (Vomiting) Social History Alcohol Beer, 06/27/2024 Tobacco Former smoker, quit more than 30 days ago Tobacco Use:. Never Smokeless Tobacco Use:. Pipe, Household tobacco concerns: No. Yes, 07/21/2024 Family History Alzheimer's disease: Father. Cancer: Mother. Immunizations Vaccine Date Status Comments SARS-CoV-2 (COVID-19) mRNAMUL.ORD![id number] 06/18/2022 Recorded 2023-05-04: TPV70 influenza virus vaccine, inactivated - Not Given Temporary contraindication - reschedule SARS-CoV-2 (COVID-19) mRNA-1273 vaccine 08/04/2021 Recorded SARS-CoV-2 (COVID-19) Ad26 vaccine 12/19/2020 Recorded SARS-CoV-2 (COVID-19) mRNA-1273 vaccine 12/13/2020 Recor (more content not included)... Normal [facility] Comment on above: Result Comment: Elec tronically Signed By: VALENTIN DICKERSON PA-C\.tara\Date and Time Signed: 07/21/24 15:35 EDT No Panel Informationon 07-11 Type of biopsy: tangential Informed consent: discussed and consent obtained Informed consent comment: The risks and benefits of the biopsy were discussed. Risks include but are not limited to bleeding, infection, scarring, pain, and nerve damage. An opportunity to ask questions prior to the procedure was permitted and all questions were answered. Patient was prepped and draped in usual sterile fashion: area cleansed with alcohol. Anesthesia: the lesion was anesthetized in a standard fashion Anesthetic: 1% lidocaine w/ epinephrine 1-100,000 buffered w/ 8.4% NaHCO3 Instrument used: DermaBlade Hemostasis achieved with: electrodesiccation Outcome: patient tolerated procedure well Outcome comment: The specimen was placed in a prelabeled formalin container to be sent for pathology Post-procedure details: sterile dressing applied and wound care instructions given Post-procedure details comment: Emphasized need to contact clinic for any signs of infection, uncontrollable bleeding, or complications. Dressing type: bandage Additional details: Photo taken Amount of lidocaine used: 1.0cc [facility] Destruction method comment: Scissors Informed consent: discussed and consent obtained Procedure prep: Patient was prepped and draped in usual sterile fashion Prep type: Isopropyl alcohol Anesthesia: the lesion was anesthetized in a standard fashion Anesthetic: 1% lidocaine w/ epinephrine 1-100,000 local infiltration Hemostasis achieved with: electrodesiccation Outcome: patient tolerated procedure well with no complications [facility] Main OR Intraoperative Recor don 07-05-2024 Main OR Intraoperative Record Main OR Intraoperative Record IntraOp Document Type FTURO Summary Primary Physician: Lexa CHRISTIANSEN MD Finalized Date/Time: 07/05/24 11:03:43 Pt. Name: MONET BUSTILLOS Paul Crenshaw/Sex: 1950 Male Med Rec #: [id number] Physician: Lexa CHRISTIANSEN MD Financial #: [id number] Pt. Type: O Room/Bed: / Admit/Disch: 07/05/24 [...] Jackelyn Weiss Role Performed Surgeon - Primary Driller Helper - Primary Scrub - Primary Time In 07/05/24 10:50:00 07/05/24 10:50:00 07/05/24 10:50:00 Time Out 07/05/24 11:06:00 07/05/24 11:06:00 07/05/24 11:06:00 Procedure CYSTOSCOPY LOCAL(.) CYSTOSCOPY LOCAL(.) CYSTOSCOPY LOCAL(.) Comments Last Modified By: Jose E CEDEÑO, Brandi Dorantes RN, Brandi Dorantes RN, Brandi Weiss 07/05/24 Jeny Weiss 07/05/24 Jeny P 07/05/24 11:03:39 11:03:39 11:03:39 Surgical Procedures FTURO Entry 1 Procedure Description Procedure CYSTOSCOPY LOCAL Modifiers . Surgeon Description CYSTOSCOPY Primary Procedure Yes Primary Surgeon Lexa CHRISTIANSEN MD Start 07/05/24 10:54:00 Stop 07/05/24 10:59:00 Anesthesia Type Local Surgical Service Urology Wound Class 2 - Clean-Contaminated Last Modified By: Jose E CEDEÑO, Brandi Weiss 07/05/24 11:00:00 General Case Data FTURO Pre-Care [...] Position Verified Availability Equipment, Medication Time Out WALLY PERALTA, Lexa Barlow, Verified (If Participants Jose E CEDEÑO, Brandi Applicable) Jeny Weiss, [address] WORKER, Jackelyn A Time Out Complete 07/05/24 10:53:00 Allergies Reviewed? [...] 11:03 Brandi Dorantes RN 07/05/24 11:03 Normal [facility] Main OR Preoperative Recordo n 07-05-2024 Main OR Preoperative Record Main OR Preoperative Record Holding Area Document Type FTURO Summary Primary Physician: Lexa CHRISTIANSEN MD Finalized Date/Time: 07/05/24 10:36:20 Pt. Name: MONET BUSTILLOS/Sex: 1950 Male Med Rec #: [id number] Physician: Lexa CHRISTIANSEN MD Financial #: [id number] Pt. Type: O Room/Bed: / Admit/Disch: 07/05/24 [...] Signed By: Dahiana Falcon 07/05/24 10:36 Normal [facility] Operative Reporton Operative Report Operative Report Patient: MONET BUSTILLOS Age: 73 years Sex: Male : 1950 Associated Diagnoses: None Author: Lexa CHRISTIANSEN MD Procedure Operative Information Details: Date/ Time: 07/05/2024 11:21:00. Pre-Op Dx: Hx of Prostate CA - Z85.46, Incomplete Bladder Emptying - R39.14. Post-Op Dx: Same. Anesthesia Type: Local. Procedure: Local Cystoscopy. Complications: None. Risks/Benefits/Informed Consent: Surgical risks, benefits, details of the [...] daily for PVR once again today. Normal [facility] Comment on above: Result Comment: [...] CHRISTIANSEN MD, URL When: Comments: sched cysto Where: [facility] [address] , [place] [address]- [phone] Medications What How Much When Instructions Unchanged [...] ? Add (more content not included)... Normal [facility] Urology Office/Clinic Noteon 06-27-2024 Urology Office/Clinic [...] 12/12/21 - 80% of 4 cores POS w/Thornton 3+4= 7 w/perineural invasio (more content not included)... Normal [facility] Comment on above: Result Comment: Elec tronically Signed By: Lexa CHRISTIANSEN MD\.br\Date and Time Signed: 06/27/24 13:00 EDT\.br\Electronically Co-Signed By: Colleen Souza.br\Date and Time Co-Signed: 06/27/24 12:56 EDT Office Visiton 06-22-2024 Follow-up visit [id number] Monet Bustillos II 1950 M Date Provider Department Center 06/22/2024 166-JANAE LEONARD Family History Problem Relation Age of Onset Alzheimer's disease Father Family Status - Relation Status Age at Father Level of Service:49856 [place] OFFICE/OUTPATIENT ESTABLISHED MOD MDM 30 MIN Reason for Visit and Comments: Pre-op Exam [980089] Atrial Fibrillation [80] Hypertension [963367] Normal [facility] MR SHOULDER RIGHT WO IV CONT Denise [...] - Clinical Noteon Retail - Clinical Note [id number]#1.00T IFF Normal [facility] Retail - Clinical Noteon Retail - Clinical Note [id number]#1.00T IFF Normal [facility] C Urineon 12-16-2023 Bacteria identified Cx Nom (U) Microbiology PROCEDURE: Urine Culture [R1] SOURCE: U Cath BODY SITE: COLLECTED DATE/TIME: 12/14/2023 10:54 EDT RECEIVED DATE/TIME: 12/14/2023 17:56 EDT START DATE/TIME: 12/14/2023 17:56 EDT FREE TEXT SOURCE: mora CHRISTIANSEN MD, Lexa CHRISTIANSEN MD, Lexa Barlow FINAL REPORTS Final Report [] Verified Date/Time: 12/16/2023 09:41 EDT >100,000 cfu/ml Klebsiella pneumoniae SUSCEPTIBILITY RESULTS ____ LEGEND: S=Susceptible, N/R=Not Reported, Blank=Data not available, or drug not advisable or tested, I=Intermediate, ESBL=Extended spectrum beta-lactamase, R=Resistant, TFG=Thymidine-dependent strain, BARNEY=Beta-lactamase positive, LILLY=mcg/m;(mg/L), S*=Predicted susceptible interp, R*=Predicted resistant interp ___ Klepne Antibiotic LILLY Dilutn LILLY Interp Amikacin [...] Locations R1: This test was performed at: [facility], [address] [place] [address], [address] , [place], Normal [facility] Comment on above: Performed By: #### 2 [id number] ####[facility] [address] [place] [address] Ambulatory Visit Summaryon 0 12-14-2023 Ambulatory Visit Summary JESSICA MONET Miller :1950 Visit Date:12/14/2023 Ambulatory Visit Instructions Your [...] Lexa CHRISTIANSEN MD Where: [facility] Shiro Normal [facility] Patient Educationon 12-14-19 Patient Education [...] provider. Document Revised: 12/11/2021 Document Reviewed: 09/06/2021 [employer] Patient Education ? 2021 [employer] Indwelling Urinary Catheter Insertion For people with [...] Urine d (more content not included)... Normal [facility] Urology Office/Clinic Noteon 12-14-2023 Urology [...] 12/12/21 shows 80% of 4 cores POS w/Thornton 3+4= 7 w/perineural invasion.[ Pt saw Dr. Alanis at [facility] for radiation treatment for 4-6 [...] concern. [3] Follow-up With When Contact Information Lexa CHRISTIANSEN MD, URL [facility] [address], [place] [phone] Additional Instructions: pt to call w/ update Patient Education Indwelling Urinary Catheter Insertion, Care After Indwelling Urinary Catheter Insertion IColleen, personally scribed for Dr. Christiansen on 12/14/2023 11:44:53. Electronically signed by ed (more content not included)... Normal [facility] Comment on above: Result Comment: Elec tronically Signed By: Lexa CHRISTIANSEN MD\.br\Date and Time Signed: 12/14/23 11:46 EDT\.br\Electronically Co-Signed By: Colleen Souza\.br\Date and Time Co-Signed: 12/14/23 11:45 EDT Retail - Clinical Noteon Retail - Clinical Note [id number]#1.00T IFF Normal [facility] Urology Office/Clinic Noteon 12-09-2023 Urology [...] 12/12/21 shows 80% of 4 cores POS w/Thornton 3+4= 7 w/perineural invasion.[ Pt saw Dr. Alanis at [facility] for radiation treatment for 4-6 weeks (pt [...] Urology 2 (more content not included)... Normal [facility] Comment on above: Result Comment: Elec tronically Signed By: Aleena Akins\.br\Date and Time Signed: 12/09/23 15:45 EST Pre-Certification Formon Pre-Certification Form [id number]#1.00T IFF Normal [facility] Ambulatory Visit Summaryon 0 12-07-2023 Ambulatory Visit Summary JESSICAMONET SILVER Paul :1950 Visit Date:12/07/2023 Ambulatory Visit Instructions Your [...] Lexa CHRISTIANSEN MD Where: [facility] Normal [facility] Physician Referralon 024 Physician Referral [id number]#1.00T IFF Normal [facility] Patient Educationon 11-02-19 24 Patient [...] of times per day to perform CIC: _ To perform CIC, follow these steps: 1. Wash your hands with soap and water. If soap and water are not available, use hand watch dial printer. 2. Clean your penis with soap and [...] catheter in a small bathroom. ? Take vkcw-cad-ohhknct and prescription medicines only as told by your he (more content not included)... Normal [facility] Lab Reportson 10-27-2023 Lab Reports [id number]#1.00TI FF Normal [facility] CBC AUTO DIFFon 12-31-2022 BASO # 0.0 103/ul Normal 0.0-0.1 [facility] Comment on above: Performed By: #### C BC #### [facility] [address] [address] [address] Henry Marin Basophils/100 WBC (Bld) 0.8 % Normal 0.2-2.0 [facility] Comment on above: Performed By: #### C BC #### [facility] [address] [place] [address] Dr. Henry Marin EO # 0.2 103/ul Normal 0.0-0.7 [facility] Comment on above: Performed By: #### C BC #### [facility] [address] [place] [address] Dr. Henry Marin Eosinophils/100 WBC (Bld) 3.6 % Normal 0.9-7.0 [facility] Comment on above: Performed By: #### C BC #### [facility] [address] [place] [address] Dr. Henry Marin Erythrocyte distribution width (RBC) [Ratio] 13.2 % Normal 11.0-15.0 [facility] Comment on above: Performed By: #### C BC #### [facility] [address] [place] [address] Dr. Henry Marin Hematocrit (Bld) [Volume fraction] 45.3 % Normal 42.0-54.0 [facility] Comment on above: Performed By: #### C BC #### [facility] [address] [place] [address] Dr. Henry Marin Hemoglobin (Bld) [Mass/Vol] 15.7 g/dL Normal 14.0-18.0 [facility] Comment on above: Performed By: #### C BC #### [facility] [address] [place] [address] Dr. Henry Marin IG # 0.00 10e3/ul Normal 0.00-0.03 [facility] Comment on above: Performed By: #### C BC #### [facility] [address] [place] [address] Dr. Henry Marin IG % 0.0 % Normal 0.0-0.5 [facility] Comment on above: Performed By: #### C BC #### [facility] [address] [place] [address] Dr. Henry Marin LYMPH # 1.7 103/ul Normal 1.2-3.8 [facility] Comment on above: Performed By: #### C BC #### [facility] [address] [place] [address] Dr. Henry Marin Lymphocytes/100 WBC (Bld) 34.8 % Normal 20.5-60.0 [facility] Comment on above: Performed By: #### C BC #### [facility] [address] [place] [address] Dr. Henry Marin MANUAL DIFF REQ NO Normal [facility] Comment on above: Performed By: #### C BC #### [facility] [address] [place] [address] Dr. Henry Marin MCH (RBC) [Entitic mass] 32.6 pg Normal 25.9-34.0 [facility] Comment on above: Performed By: #### C BC #### [facility] [address] [place] [address] Dr. Henry Marin MCHC (RBC) [Mass/Vol] 34.7 g/dL Normal 29.9-35.2 [facility] Comment on above: Performed By: #### C BC #### [facility] [address] [place] [address] Dr. Henry Marin MCV (RBC) [Entitic vol] 94.0 fL Normal 80.0-94.0 [facility] Comment on above: Performed By: #### C BC #### [facility] [address] [place] [address] Dr. Henry Marin MONO # 0.6 103/ul Normal 0.3-0.8 [facility] Comment on above: Performed By: #### C BC #### [facility] [address] [place] [address] Dr. Henry Marin Monocytes/100 WBC (Bld) 13.0 % Critically high 1.7-12.0 [facility] Comment on above: Performed By: #### C BC #### [facility] [address] [place] [address] Dr. Henry Marin NEUT # 2.3 103/ul Normal 1.4-6.5 [facility] Comment on above: Performed By: #### C BC #### [facility] [address] [place], [place] [id number] Dr. Henry Marin Neutrophils/100 WBC (Bld) 47.8 % Normal 43.0-75.0 [facility] Comment on above: Performed By: #### C BC #### [facility] [address] [place] [address] Dr. Henry Marin Platelet mean volume (Bld) [Entitic vol] 9.7 fL Normal 9.5-13.5 [facility] Comment on above: Performed By: #### C BC #### [facility] [address] [place] [address] Dr. Henry Marin PLT 135 103/ul Critically low 150-450 [facility] Comment on above: Performed By: #### C BC #### [facility] [address] [place] [address] Dr. Henry Marin RBC 4.82 106/ul Normal 4.70-6.10 [facility] Comment on above: Performed By: #### C BC #### [facility] [address] [place] [address] Dr. Henry Marin WBC 4.8 103/ul Normal 4.0-11.0 [facility] Comment on above: Performed By: #### C BC #### [facility] [address] [place] [address] Dr. Henry Marin LIPID PROFILEon 12-31-2022 CHOL-HDL RATIO NORM SEE BELOW Normal [facility] Comment on above: Result Comment: 3.3 - 4.4 LOW RISK 4.4 - 7.1 AVERAGE RISK 7.1 - 11.0 MODERATE RISK >11.0 HIGH RISK Performed By: #### B MP, ALT, LIPID #### [facility] [address] [place] [address] Dr. Henry Marin Cholesterol [Mass/Vol] 169 mg/dL Normal <=200 [facility] Comment on above: Performed By: #### B MP, ALT, LIPID #### [facility] [address] [place] [address] Dr. Henry Marin Cholesterol in HDL [Mass/Vol] 59 mg/dL Normal 40-60 [facility] Comment on above: Performed By: #### B MP, ALT, LIPID #### [facility] [address] [address] [address] Henry Marin Cholesterol in LDL [Mass/Vol] 91.6 mg/dL Normal [facility] Comment on above: Performed By: #### B MP, ALT, LIPID #### [facility] [address] [address] [address] Henry Marin Cholesterol.total/C holesterol in HDL [Mass ratio] 2.9 {ratio} Normal [facility] Comment on above: Performed By: #### B MP, ALT, LIPID #### [facility] [address] [address] [address] Henry Marin HDL NORMAL > or = 60 mg/dl - LO W CARDIOVASCULAR RISK <40 mg/dl - HIGH CARDIOVASCULAR RISK Normal [facility] Comment on above: Performed By: #### B MP, ALT, LIPID #### [facility] [address] [place] [address] Dr. Henry Marin LDL CALC NORMAL SEE BELOW Normal [facility] Comment on above: Result Comment: <100 mg/dl OPTIMAL 100 - 129 mg/dl NEAR OR ABOVE OPTIMAL 130 - 159 mg/dl BORDERLINE HIGH 160 - 189 mg/dl HIGH >190 mg/dl VERY HIGH Performed By: #### B MP, ALT, LIPID #### [facility] [address] [address] [address] Henry Marin Triglyceride [Mass/Vol] 92 mg/dL Normal <=150 [facility] Comment on above: Performed By: #### B MP, ALT, LIPID #### [facility] [address] [place] [address] Dr. Henry Marin VLDL CALC 18.4 mg/dL Normal [facility] Comment on above: Performed By: #### B MP, ALT, LIPID #### [facility] [address] [place] [address] Dr. Henry Marin PROF CHEM 8 (BAS METB)on Anion gap [Moles/Vol] 11.8 mmol/L Normal [facility] Comment on above: Performed By: #### B MP, ALT, LIPID #### [facility] [address] [address] [address] Henry Marin Calcium [Mass/Vol] 8.6 mg/dL Normal 8.5-10.1 [facility] Comment on above: Performed By: #### B MP, ALT, LIPID #### [facility] [address] [address] [address] Henry Marin Chloride [Moles/Vol] 106 mmol/L Normal 98-107 [facility] Comment on above: Performed By: #### B MP, ALT, LIPID #### [facility] [address] [address] [address] Henry Marin CO2 [Moles/Vol] 28.3 mmol/L Normal 21.0-32.0 [facility] Comment on above: Performed By: #### B MP, ALT, LIPID #### [facility] [address] [place] [address] Dr. Henry Marin Creatinine [Mass/Vol] 1.01 mg/dL Normal 0.70-1.30 [facility] Comment on above: Performed By: #### B MP, ALT, LIPID #### [facility] [address] [address] [address] Henry Marin EGFR-AF BENINESE >60 Normal >=60 [facility] Comment on above: Performed By: #### B MP, ALT, LIPID #### [facility] [address] [place] [address] Dr. Henry Marin EGFR-NON AF BENINESE >60 Normal >=60 [facility] Comment on above: Performed By: #### B MP, ALT, LIPID #### [facility] [address] [address] [address] Henry Marin Glucose [Mass/Vol] 106 mg/dL Normal 74-106 [facility] Comment on above: Performed By: #### B MP, ALT, LIPID #### [facility] [address] [address] [address] Henry Marin Potassium [Moles/Vol] 4.1 mmol/L Normal 3.5-5.1 [facility] Comment on above: Performed By: #### B MP, ALT, LIPID #### [facility] [address] [place], [place] [address] Dr. Henry Marin Sodium [Moles/Vol] 142 mmol/L Normal 136-145 [facility] Comment on above: Performed By: #### B MP, ALT, LIPID #### [facility] [address] [address] [address] Henry Marin Urea nitrogen [Mass/Vol] 13.0 mg/dL Normal 7.0-18.0 [facility] Comment on above: Performed By: #### B MP, ALT, LIPID #### [facility] [address] [address] [address] Henry Marin Urea nitrogen/Creatinine [Mass ratio] 12.9 mg/mg Normal [facility] Comment on above: Performed By: #### B MP, ALT, LIPID #### [facility] [address] [address] [address] Henry Marin SGPTon 12-31-2022 ALT [Catalytic activity/Vol] 23 U/L Normal 16-63 [facility] Comment on above: Performed By: #### B MP, ALT, LIPID #### [facility] [address] [address] [address] Henry aMrin Blood Urea Nitrogenon 2021 Urea nitrogen [Mass/Vol] 10 mg/dL Normal 9-23 [facility] Comment on above: Order Comment: STAT FOR MRI Performed By: #### C PEPE BUN #### [facility] [address] [place] [address] [place] Creatinineon 11-20-2021 Creatinine [Mass/Vol] 1.00 mg/dL Normal 0.64-1.27 [facility] Comment on above: Order Comment: STAT FOR MRI Performed By: #### C PEPE BUN #### [facility] [address] Creatinine Clr Calc Pharmacy 86.83 Normal [facility] Comment on above: Order Comment: STAT FOR MRI Result Comment: PERF ORMED BY: [place] [address] PATHOLOGIST DETECTIVE BUREAU CHIEF GUSTAVO CHANDLER M.D. Performed By: #### C REAT, BUN #### [facility] [address] [place] [address] Estimated GFR ( Arielle > 60 Normal [facility] Comment on above: Order Comment: STAT FOR MRI Result Comment: GFR estimated reference range: According to KDOQI guidelines, <60 ml/min/1.73m2 is sufficient to diagnose a patient with chronic kidney disease. Performed By: #### C REAT, BUN #### [address] Estimated GFR (Non- Am > 60 Normal [facility] Comment on above: Order Comment: STAT FOR MRI Performed By: #### C REAT, BUN #### [address] MR prostate wo/w conon 11-20 MR prostate wo/w con [facility] [place] [address] [place] [address] MRI Report Signed Patient: Monet Bustillos MR#: [id number] : 1950 Acct:[id number] Age/Sex: 70 / M ADM Date: 11/20/21 Loc: Room: Type: [facility] Attending Dr: Lexa Christiansen MD Ordering [...] suggested. Impression dictated by: Kolby Dinero Jr., D.OPeggy11/20/2021 3:11 PM Dictation Location: [place] [address] Transcribed By: [facility] 11/20/21 1511 Dictated By: Kolby Dinero Jr, DO 11/20/21 1454 Signed By: 11/20/21 1511 [facility] Vital Signs Date Time Vital Sign Value Performing Clinician Facility 09-09-2024 10:38-0500 Blood Pressure Location Lexa CHRISTIANSEN [facility] 09-09-2024 10:38-0500 Body temperature 98.6 [degF] Lexa CHRISTIANSEN [facility] 09-09-2024 10:38-0500 Diastolic blood pressure 80 mm[Hg] Lexa CHRISTIANSEN [facility] 09-09-2024 10:38-0500 Heart rate 56 /min Lexa CHRISTIANSEN [facility] 09-09-2024 10:38-0500 Respiratory rate 18 /min Lexa CHRISTIANSEN [facility] 09-09-2024 10:38-0500 Systolic blood pressure 129 mm[Hg] Lexa CHRISTIANSEN [facility] 09-06-2024 10:07-0500 Body height 182.9 cm Barbara FONTENOT Work Phone: [facility] 09-06-2024 10:07-0500 Body mass index (BMI) [Ratio] 25.77 kg/m2 Barbara FONTENOT Work Phone: [facility] 09-06-2024 10:07-0500 Body weight 86.18 kg Barbara FONTENOT Work Phone: [facility] 08-30-2024 09:26-0500 Body height 182.9 cm P[facility] 2 [facility] 08-30-2024 09:26-0500 Body mass index (BMI) [Ratio] 25.9 kg/m2 Pm 2 [facility] 08-30-2024 09:26-0500 Body weight 86.64 kg Pm 2 [facility] 07-21-2024 15:12-0400 Blood Pressure Location VALENTIN DICKERSON [facility] 07-21-2024 15:12-0400 Diastolic blood pressure 62 mm[Hg] VALENTIN DICKERSON [facility] 07-21-2024 15:12-0400 Heart rate 64 /min VALENTIN DICKERSON [facility] 07-21-2024 15:12-0400 Systolic blood pressure 109 mm[Hg] VALENTIN DICKERSON [facility] 06-27-2024 11:40-0400 Diastolic blood pressure 70 mm[Hg] Lexa CHRISTIANSEN [facility] 06-27-2024 11:40-0400 Heart rate 70 /min Lexa CHRISTIANSEN [facility] 06-27-2024 11:40-0400 Systolic blood pressure 136 mm[Hg] Lexa CHRISTIANSEN [facility] 11-04-2023 15:45-0500 Body height 182.88 cm Giacomo Ball Other [employer] Other 11-04-2023 15:45-0500 Body mass index (BMI) [Ratio] 30.11 kg/m2 Giacomo Ball Other [employer] Other 11-04-2023 15:45-0500 Body weight 100.7 kg Giacomo Ball Other [employer] Other 11-04-2023 15:45-0500 Diastolic blood pressure 78 mm[Hg] Giacomo Ball Other [employer] Other 11-04-2023 15:45-0500 Respiratory rate 12 /min Giacomo Ball Other [employer] Other 11-04-2023 15:45-0500 Systolic blood pressure 123 mm[Hg] Giacomo Ball Other [employer] Other 11-02-2023 12:57-0500 Blood Pressure Location Lexa CHRISTIANSEN [facility] 11-02-2023 12:57-0500 Diastolic blood pressure 77 mm[Hg] Lexa CHRISTIANSEN [facility] 11-02-2023 12:57-0500 Heart rate 57 /min Lexa CHRISTIANSEN [facility] 11-02-2023 12:57-0500 Respiratory rate 16 /min Lexa CHRISTIANSEN [facility] 11-02-2023 12:57-0500 Systolic blood pressure 132 mm[Hg] Lexa CHRISTIANSEN [facility] 07-21-2023 14:00-0400 Body height 182.88 cm Giacomo Ball Other [employer] Other 07-21-2023 14:00-0400 Body mass index (BMI) [Ratio] 29.83 kg/m2 Giacomo Ball Other [employer] Other 07-21-2023 14:00-0400 Body weight 99.79 kg Giacomo Ball Other [employer] Other 07-21-2023 14:00-0400 Diastolic blood pressure 65 mm[Hg] Giacomo Ball Other [employer] Other 07-21-2023 14:00-0400 Respiratory rate 12 /min Giacomo Ball Other [employer] Other 07-21-2023 14:00-0400 Systolic blood pressure 114 mm[Hg] Giacomo Ball Other [employer] Other 01-16-2023 12:00-0400 Body height 182.88 cm Giacomo Ball Other [employer] Other 01-16-2023 12:00-0400 Body mass index (BMI) [Ratio] 30.92 kg/m2 Giacomo Ball Other [employer] Other 01-16-2023 12:00-0400 Body weight 103.42 kg Giacomo Ball Other [employer] Other 01-16-2023 12:00-0400 Diastolic blood pressure 67 mm[Hg] Giacomo Ball Other [employer] Other 01-16-2023 12:00-0400 Respiratory rate 12 /min Giacomo Ball Other [employer] Other 01-16-2023 12:00-0400 Systolic blood pressure 115 mm[Hg] Giacomo Ball Other [employer] Other Encounters Encounter Date Encounter Type Care Provider Facility Start: 11-29-2024 End: 11-29-2024 Bamboo flowsheet Barbara FONTENOT Work Phone: [facility] Start: 11-29-2024 End: 11-29-2024 Bamboo flowsheet Barbara FONTENOT Work Phone: [facility] Start: 11-29-2024 End: 11-29-2024 Postop follow up visit related to original px Barbara FONTENOT Work Phone: [facility] Comment on above: Status post right ro tator cuff repair (Primary Dx) Start: 11-29-2024 End: 11-29-2024 ambulatory BARBARA RAMÍREZ Not Available Start: 11-01-2024 End: 11-01-2024 Bamboo flowsheet Barbara FONTENOT Work Phone: [facility] Start: 11-01-2024 End: 11-01-2024 Bamboo flowsheet Barbara Ramírez PA Work Phone: [facility] Start: 11-01-2024 End: 11-01-2024 ambulatory BARBARA RAMÍREZ Not Available Start: 11-01-2024 End: 11-01-2024 Patient encounter procedure Barbara FONTENOT Work Phone: [facility] Comment on above: Status post right ro tator cuff repair (Primary Dx) Start: 10-03-2024 End: 10-03-2024 Bamboo flowsheet Julián Stevens MAPPER Work Phone: [facility] Start: 10-03-2024 End: 10-03-2024 Bamboo flowsheet Julián Stevens MAPPER Work Phone: [facility] Start: 10-03-2024 End: 10-03-2024 Postop follow up visit related to original px Julián Stevens MAPPER Work Phone: [facility] Comment on above: Status post right ro tator cuff repair (Primary Dx) Start: 10-03-2024 End: 10-03-2024 ambulatory JULIÁN STEVENS Not Available Start: 09-20-2024 End: 09-20-2024 Evaluation and management of inpatient JESSA PRICE [facility] Start: 09-20-2024 End: 09-20-2024 Evaluation and management of inpatient MYA Aniya NAVARRO [facility] Start: 09-19-2024 End: 09-19-2024 Refill Julián Stevens MAPPER Work Phone: [facility] Comment on above: Internal derangement of right shoulder (Primary Dx) Start: 09-09-2024 ambulatory Lexa CHRISTIANSEN Facili ty:[facility] [place] Start: 09-09-2024 End: 09-09-2024 Patient encounter procedure Lexa CHRISTIANSEN [facility] Start: 09-06-2024 End: 09-06-2024 Bamboo flowsheet Barbara FONTENOT Work Phone: [facility] Start: 09-06-2024 End: 09-06-2024 Bamboo flowsheet Barbara FONTENOT Work Phone: [facility] Start: 09-06-2024 End: 09-06-2024 Patient encounter procedure Barbara FONTENOT Work Phone: [facility] Comment on above: Pre-op examination ( Primary Dx) Start: 09-06-2024 End: 09-06-2024 Preprocedural examination done Barbara FONTENOT Work Phone: [facility] Work Phone: Start: 09-06-2024 End: 09-06-2024 ambulatory BARBARA RAMÍREZ Not Available Start: 08-30-2024 End: 08-30-2024 External Result Encounter Jr. Mya Navarro DO Work Phone: [facility] External Department Unsolicited Start: 08-30-2024 End: 08-30-2024 External Result Encounter Jr. Mya Navarro DO Work Phone: [facility] External Department Unsolicited Start: 08-30-2024 End: 08-30-2024 ambulatory MYA NAVARRO [facility] Start: 08-30-2024 Encounter for other preprocedural examination [facility] Start: 08-30-2024 End: 08-30-2024 Patient encounter procedure Pm Pre-Admission Testing 2 [facility] - Pre Admit Comment on above: Preop examination (P rimary Dx); Hypertension, unspecified type; Paroxysmal atrial fibrillation ([facility]) Start: 08-30-2024 End: 08-30-2024 Preprocedural examination done Pm 2 [facility] Start: 08-22-2024 End: 08-22-2024 Bamboo flowsheet Erika Dunn MD Work Phone: [facility] Start: 08-22-2024 End: 08-22-2024 Bamboo flowsheet Erika Dunn MD Work Phone: [facility] Start: 08-22-2024 End: 08-22-2024 Patient encounter procedure Erika Dunn MD Work Phone: [facility] Comment on above: BCC (basal cell carc inoma), chest (Primary Dx) Start: 08-22-2024 End: 08-22-2024 ambulatory ERIKA DUNN Not Available Start: 07-25-2024 End: 07-25-2024 Bamboo flowsheet Mya Navarro DO Work Phone: [facility] Start: 07-25-2024 End: 07-25-2024 Bamboo flowsheet Mya Kwan Stepbashir DO Work Phone: [facility] Start: 07-25-2024 End: 07-25-2024 Office outpatient visit 25 minutes Mya Aniya Ramon DO Work Phone: [facility] Comment on above: Internal derangement of right shoulder (Primary Dx) Start: 07-25-2024 End: 07-25-2024 ambulatory JR. MYA Aniya NAVARRO Not Available Start: 07-21-2024 End: 07-21-2024 ambulatory VALENTIN DICKERSON Facility:[facility] Start: 07-21-2024 End: 07-21-2024 Patient encounter procedure VALENTIN DICKERSON [facility] Start: 07-11-2024 End: 07-11-2024 Bamboo flowsheet Nely FONTENOT Work Phone: [facility] Start: 07-11-2024 End: 07-11-2024 Bamboo flowsheet Nely FONTENOT Work Phone: [facility] Start: 07-11-2024 End: 07-11-2024 ambulatory NELY YAO Not Available Start: 07-11-2024 End: 07-11-2024 Office outpatient visit 15 minutes Nely FONTENOT Work Phone: [facility] Comment on above: Seborrheic keratosis (Primary Dx); Actinic keratosis; Inflamed seborrheic keratosis; Neoplasm of unspecified behavior of bone, soft tissue, and skin; Elective surgery Start: 07-05-2024 End: 07-05-2024 ambulatory Lexa CHRISTIANSEN Facility:[facility] Start: 07-05-2024 End: 07-05-2024 Patient encounter procedure Lexa CHRISTIANSEN [facility] Start: 06-27-2024 End: 06-27-2024 ambulatory Lexa CHRISTIANSEN Facility:[facility] Start: 06-27-2024 End: 06-27-2024 Patient encounter procedure Lexa CHRISTIANSEN [facility] Start: 06-22-2024 End: 06-22-2024 ambulatory [facility] Start: 06-22-2024 End: 06-22-2024 Encounter for other preprocedural examination [facility] Start: 05-23-2024 End: 05-23-2024 ambulatory JR., MYA C STEPANIC Not Available Start: 05-09-2024 End: 05-09-2024 ambulatory JR., MYA C STEPANIC Not Available Start: 04-26-2024 End: 04-26-2024 ambulatory JR., MYA C STEPANIC Not Available Start: 04-18-2024 End: 04-18-2024 ambulatory JR., MYA C STEPANIC Not Available Start: 03-21-2024 End: 03-21-2024 ambulatory JR., MYA C STEPANIC Not Available Start: 12-14-2023 End: 12-14-2023 Patient encounter procedure Lexa Cain CHRISTIANSEN [facility] Start: 12-14-2023 End: 12-14-2023 ambulatory Lexa CHRISTIANSEN Facility:[facility] Start: 12-14-2023 End: 12-14-2023 Lab Drop off Lexa CHRISTIANSEN [facility] Start: 12-09-2023 ambulatory Yadiel Barlow CHAYA Facility : [facility] Start: 12-07-2023 End: 12-07-2023 ambulatory Lexa CHRISTIANSEN Facility: [facility] Start: 12-07-2023 End: 12-07-2023 Patient encounter procedure Lexa CHRISTIANSEN [facility] Start: 11-16-2023 End: 11-16-2023 ambulatory Lexa CHRISTIANSEN Facility:[facility] Start: 11-16-2023 End: 11-16-2023 Patient encounter procedure Lexa CHRISTIANSEN [facility] Start: 11-09-2023 ambulatory Lexa [facility]STIANSEN [facility] Start: 11-05-2023 End: 11-05-2023 ambulatory Giacomo Ragsdale Other [employer] Other Start: 11-05-2023 Telephone encounter Giacomo JIMENEZ G [facility] Start: 11-04-2023 End: 11-04-2023 ambulatory Giacomo Ragsdale Other [employer] Other Start: 11-04-2023 Office outpatient vi sit 15 minutes Giacomo Ragsdale [facility] Start: 11-02-2023 End: 11-02-2023 ambulatory Lexabruce [facility]ANSEN [facility] Start: 11-02-2023 End: 11-02-2023 Patient encounter procedure Lexa CHRISTIANSEN [facility] Start: 08-24-2023 End: 08-24-2023 ambulatory Giacomo Ragsdale Other [employer] Other Start: 08-24-2023 Telephone encounter Giacomo JIMENEZ G [facility] Start: 08-06-2023 End: 08-06-2023 ambulatory Giacomo Ragsdale Other [employer] Other Start: 08-06-2023 Telephone encounter Giacomo Ragsdale [facility] Start: 08-05-2023 End: 08-05-2023 ambulatory Giacomo Ragsdale Other [employer] Other Start: 08-05-2023 Telephone encounter Giacomo Ragsdale [facility] Start: 07-23-2023 End: 07-23-2023 ambulatory Giacomo Ragsdale Other [employer] Other Start: 07-23-2023 Telephone encounter Giacomo Ragsdale FP [facility] Start: 07-21-2023 End: 07-21-2023 ambulatory Giacomo Ragsdale Other [employer] Other Start: 07-21-2023 Office outpatient vi sit 25 minutes Giacomo Ragsdale [facility] Start: 04-14-2023 End: 04-14-2023 ambulatory Giacomo Ragsdale Other [employer] Other Start: 04-14-2023 Telephone encounter Giacomo Ragsdale [facility] Start: 01-19-2023 End: 01-19-2023 ambulatory Giacomo Ragsdale Other [employer] Other Start: 01-19-2023 Telephone encounter Giacomo Ragsdale [facility] Start: 01-16-2023 End: 01-16-2023 ambulatory Giacomo Ragsdale Other [employer] Other Start: 01-16-2023 Patient encounter procedure Giacomo Ragsdale [facility] Start: 12-31-2022 End: 01-01-[address] DOCTOR MORE Facility:[facility] Start: 07-02-2022 End: 07-03-[address] DOCTOR MORE Facility:[facility] Start: 06-23-2022 End: 06-24-[address] DOCTOR MORE Facility:[facility] Procedures Date Procedure Procedure Detail Performing Clinician Start: 08-30-2024 Basic metabolic pane l calcium total Jr. Mya C Stepanic DO Work Phone: Start: 08-22-2024 DESTRUCTION OF LESION E scarlett Dunn MD Work Phone: Start: 07-11-2024 SKIN / NAIL BIOPSY Janie michael Reece Jeanine FONTENOT Work Phone: Start: 07-11-2024 DESTRUCTION OF LESION A jamie Chevy FONTENOT Work Phone: Start: 07-11-2024 End: 07-11-2024 CRYOTHERAPY SKIN LESION Nely Chevy FONTENOT Work Phone: Start: 07-05-2024 Cystoscopy Lexa SR Start: 05-19-2023 Transurethral cystoscopy Lexa CHRISTIANSEN Start: 12-31-[address] DOCTOR MORE Comment on above: Performed By: #### P SAD #### [facility] [address] [place] [address] Dr. Henry Marin Start: 07-02-[address] DOCTOR MORE Comment on above: Performed By: #### P SAD #### [facility] [address] [place] [address] Dr. Henry Marin Start: 03-06-2022 Mixed beam external beam radiation therapy Lexabruce CHRISTIANSEN Start: 12-12-2021 MRI-US fusion guided transrectal biopsy of prostate Lexa CHRISTIANSEN Start: 11-20-2021 MRI of prostate Lexa WALLY Catheterization of r ight heart Lexa CHRISTIANSEN Closed fracture of t ibia AND fibula (disorder) Lexa CHRISTIANSEN History of repair of musculotendinous cuff of shoulder Status post right rotator cuff repair Julián Stevens MAPPER Work Phone: History of repair of musculotendinous cuff of shoulder Status post right rotator cuff repair Barbara Ramírez PA Work Phone: History of repair of musculotendinous cuff of shoulder Status post right rotator cuff repair Barbara FONTENOT Work Phone: Prosthetic arthropla sty of the hip Lexa CHRISTIANSEN Plan of Treatment Date Care Activity Detail Author Start: 08-30-2025 Tobacco Screening Tobacco Screening [facility] Start: 07-11-2025 End: 07-11-2025 Patient encounter procedure 07/11/2025 12:30 PM EDT Office Visit [facility] [address] [place] [address] Nely Yao PA [address] [place] [address] [facility] Start: 11-29-2024 End: 11-29-2024 Patient encounter procedure [facility] Comment on above: Status post right rotator cuff repair (P rimary Dx) Start: 10-31-2024 End: 10-31-2024 Patient encounter procedure 10/31/2024 10:45 AM EST Office Visit [facility] [address] [facility] [address] Julián Stevens, TAMELA [address] [facility] [place], [place] [id number] [facility] Start: 10-06-2024 End: 10-06-2024 Patient encounter procedure 10/06/2024 1:15 PM EST Office Visit [facility] [address] [place] [phone] Barbara Ramírez PA [address] [facility] [address] [place] [address] [facility] Start: 10-03-2024 End: 10-03-2024 Patient encounter procedure 10/03/2024 11:15 AM EST Office Visit [facility] [address] [place] [phone] Julián Stevens, MAPPER [address] [place], [place] [id number] Arrived [facility] Comment on above: Arrived Start: 09-21-2024 End: 09-21-2024 Patient encounter procedure 09/21/2024 10:00 AM EST Office Visit [facility] [address] [place] [phone] Barbara Ramírez, PA [address] [place] [address] [facility] Start: 09-20-2024 End: 09-20-2024 Admission to same day surgery center 09/20/2024 12:30 PM EST - 09/20/2024 2:30 PM EST Surgery [facility] [address] [place] [address] Mya Navarro Jr., DO [address] [facility] [address] [place] [address] ARTHROSCOPIC REPAIR ROTATOR CUFF SHOULDER [06261 (CPT )] [facility] Comment on above: ARTHROSCOPIC REPAIR ROTATOR CUFF SHOULDE R [93214 (CPT )] Start: 09-20-2024 End: 09-20-2024 Arthroscopy shoulder biceps tenodesis ARTHROSCOPIC TENODESIS BICEPS SHOULDER right shoulder internal derangement 09/20/2024 12:30 PM EST [facility] Start: 09-20-2024 End: 09-20-2024 Arthroscopy shoulder rotator cuff repair ARTHROSCOPIC REPAIR ROTATOR CUFF SHOULDER right shoulder internal derangement 09/20/2024 12:30 PM EST [facility] Start: 09-20-2024 End: 09-20-2024 Patient encounter procedure 09/20/2024 12:30 PM EST Procedure Visit [facility] Jr. Mya Navarro, DO [address] [place] [address] [facility] Start: 09-20-2024 Subsequent hospital visit by physician 09/20/2024 12:30 PM EST Hospital Encounter [facility] [address] [place] [address] Mya Navarro Jr., DO [address] [facility] [address] [place] [address] [facility] Start: 09-20-2024 End: 09-20-2024 Patient encounter procedure 09/20/2024 7:30 AM EST Procedure Visit [facility] Jr. Mya Navarro, DO [address] [facility] [address] [place] [address] [facility] Start: 09-14-2024 COVID-19 Vaccine ( season) COVID-19 Vaccine ( season) [facility] Start: 09-06-2024 End: 09-06-2024 Patient encounter procedure [facility] Comment on above: Pre-op examination (Primary Dx) Start: 08-30-2024 End: 08-30-2024 Patient encounter procedure 08/30/2024 10:00 AM EST Office Visit [facility] [address] [place] [phone] Barbara Ramírez, PA [address] [facility] [address] [place] [address] [facility] [facility] Start: 08-19-2024 End: 08-19-2024 Patient encounter procedure 08/19/2024 1:15 PM EST Office Visit [facility] [address] [place] [id number] Erika Dunn MD [address] [place] [address] [facility] Start: 07-25-2024 End: 07-25-2024 Patient encounter procedure [facility] Comment on above: Arrived Start: 06-05-2024 Influenza vaccination [facility] Start: 01-20-2023 Fall Risk Screening Fall Risk Screening [facility] Start: 2013 Abdominal aortic aneurysm screening Abdominal Aortic Aneurysm (AAA) Screen [facility] Start: 2013 Pneumococcal Vaccine: 65+ Years (1 of 1 - PCV) Pneumococcal Vaccine: 65+ Years (1 of 1 - PCV) [facility] Start: 12-27-1967 Administration of varicella zoster vaccine Zoster (Shingles) Vaccine (1 of 2) [facility] Start: 12-27-1967 DTaP,Tdap and Td Vaccines (1 - Tdap) DTaP,Tdap and Td Vaccines (1 - Tdap) [facility] Start: 1960 Depression Screening Depression Screening [facility] Start: 1948 Screening for malignant neoplasm of colon [facility] Dermatopathology exam Dermatopat hology exam Pathology and Cytology Timed Neoplasm of unspecified behavior of bone, soft tissue, and skin Release Upon Ordering for 1 Occurrences starting 07/11/2024 [facility] Healthcare Work Phone: Comment on above: Release Upon Ordering for 1 Occurrences starting 07/11/2024 Immunizations Immunization Date Immunization Notes Care Provider Marquez corral 06-18-2022 COVID-19 Moderna (BIvalent) Giacomo Ragsdale Other [facility] Comment on above: Result Comment: 2022: [id number] 08-04-2021 COVID-19 Vaccine Moderna - Documentation Purposes Only Giacomo Ragsdale Other [facility] 12-19-2020 SARS-CoV-2 (COVID-19 ) Ad26 vaccine, recombinant Lexa CHRISTIANSEN [facility] 12-13-2020 COVID-19 Vaccine Moderna - Documentation Purposes Only Giacomo Ragsdale Other [facility] Comment on above: Result Comment: 2022: [id number] 11-15-2020 COVID-19 Vaccine Moderna - Documentation Purposes Only Giacomo Ragsdale Other [facility] 11-15-2020 SARS-CoV-2 (COVID-19 ) Ad26 vaccine, recombinant Lexa CHRISTIANSEN [facility] 07-17-2017 diphtheria, tetanus toxoids and acellular pertussis vaccine, unspecified formulation Giacomo Ragsdale Other [employer] Other Payers Date Payer Category Payer Private Health Insurance [id number] 2020 Commercial Managed C are [place] [address] [id number] 2013 Medicare [id number] 1959 Medicare [id number] 1959 Private Health Insurance CLI [id number] 1948 Unknown [id number] 2.16.840.1.777254.3.579. 2.593 1948 Unknown [id number] 2.16.840.1.044912.3.579. 2.593 1948 Unknown [id number] 2.16.840.1.674086.3.579. 2.593 1948 Unknown [id number] 2.16.840.1.506380.3.579. 2.593 1948 Unknown [id number] 2.16.840.1.467848.3.579. 2.727 1948 Unknown [id number] 2.16.840.1.055291.3.579. 2.72 1948 Unknown [id number] 2.16.840.1.176885.3.579. 2.72 1948 Unknown [id number] 2.16.840.1.545679.3.579. 2. 1948 Unknown [id number] 2.16.840.1.067657.3.579. 2. 1948 Unknown [id number] 2.16.840.1.036471.3.579. 2. 1948 Unknown [id number] 2.16.840.1.509186.3.579. 2. 1948 Unknown [id number] 2.16.840.1.161624.3.579. 2. 1948 Unknown [id number] 2.16.840.1.687514.3.579. 2. 1948 Unknown [id number] 2.16.840.1.621422.3.579. 2. 1948 Unknown [id number] 2.16.840.1.096974.3.579. 2.1285 1948 Unknown [id number] 2.16840.1.340626.3.579. 2.128 1948 Unknown [id number] 2.16.840.1.454470.3.579. 2.128 1948 Unknown [id number] 2.16.840.1.361622.3.579. 2.1285 1948 Unknown [id number] 2.16.840.1.803520.3.579. 2.1285 1948 Unknown [id number] 2.16.840.1.159223.3.579. 2.128 1948 Unknown [id number] 2.16.840.1.336744.3.579. 2.125 1948 Unknown [id number] 2.16.840.1.605102.3.579. 2.125 1948 Unknown [id number] 2.16.840.1.713618.3.579. 2.125 1948 Unknown [id number] 2.16.840.1.439441.3.579. 2.125 1948 Unknown [id number] 2.16.840.1.896232.3.579. 2.1258 1948 Unknown [id number] 2.16.840.1.097452.3.579. 2.1258 1948 Unknown [id number] 2.16.840.1.643231.3.579. 2.1258 1948 Unknown [id number] 2.16.840.1.874690.3.579. 2.125 1948 Unknown [id number] 2.16.840.1.654622.3.579. 2.1258 1948 Unknown [id number] 2.16.840.1.160329.3.579. 2.1258 1948 Unknown [id number] 2.16.840.1.406205.3.579. 2.1258 1948 Unknown [id number] 2.16.840.1.863340.3.579. 2.125 1948 Unknown [id number] 2.16.840.1.714752.3.579. 2.1258 Unknown [id number] 2.16840.1.753552.19 Social History Date Type Detail Facility Start: 05-23-2024 End: 11-01-2024 Sex Assigned At [facility] Start: 11-02-2023 End: 03-21-2024 Tobacco smoking status Ex-smoker (finding) [facility] Tobacco smoking status Never [facility] End: 05-28-2010 History of tobacco use Current smoker [facility] End: 05-28-2010 History of tobacco use Pipe Smoker [facility] Start: 03-21-2024 End: 08-30-2024 Tobacco use and exposure Smokeless tobacco non-user [facility] Start: 05-23-2024 End: 11-29-2024 Alcoholic beverage intake Current drinker of alcohol (finding) [facility] Start: 05-23-2024 End: 11-01-2024 History of Social function [facility] Start: 03-21-2024 Alcohol Comment 1/DAY [facility] Start: 1950 Sex assigned at Not on file N [facility] Start: 08-30-2024 Tobacco Comment years ago for a short period [facility] Start: 05-14-2020 Alcohol Comment 2 drinks per day tot al [facility] Start: 05-10-2015 Sex Male (finding) [facility] Medical Equipment Procedure Code Equipment Code Equipment Origin al Text Equipment Identifier Dates Shl Actb 56mm Hi p 4 Hl Fin Pps - [id number] Start: 05-28-2020 Linr Actb G7 Ntr l E1 36mm F - [id number] Start: 05-28-2020 Stm Fem 121mm 13 3d 18 Hi Os - [id number] Start: 05-28-2020 Slv Fem Opt +3mm Tpr Hip Blx D Rpl 650-1067 - [id number] Start: 05-28-2020 Hd Fem 36mm Opt Shl Actb G7 Bl Rpl 650-1057 - [id number] Start: 05-28-2020 Goals Date Patient Goal Desired Activity /State Personal health goal Comment on above: Formatting of this n ote might be different from the original. Evaluation of progress towards goal: Maximize work with PT at discharge to strengthen L hip Functional Status Date Assessment Result Facility 09-09-2024 Functional Status N/A [facility] 07-21-2024 Functional Status N/A [facility] 07-05-2024 Functional Status N/A [facility] 06-27-2024 Functional Status N/A [facility] 12-14-2023 Functional Status N/A [facility] 11-02-2023 Functional Status N/A [facility] Clinical Notes 01-16-2023 to 11-29-2024 Barbara Ramírez, PO - 11/29/2024 11:00 AM Shantal Ramírez, PO - 11/01/2024 11:00 AM Julisa Stevens NP - 10/03/2024 11:15 AM ESTTelephone Adrien - Julián Stevens NP - 09/19/2024 12:05 PM EST Note Date & Type Note Facility 11-29-2024 History of Present illness Narrative Images from the original note were not included. HISTORY OF PRESENT ILLNESS: POST OP PT Monet Bustillos is an 73 y.o. @ male. (EST PT) PO (R) SHOULDER RCR, BICEP TENODESIS AND SAD 09/20/24 (10 WKS). PHYSICAL THERAPY @ [facility] [place] CONTINUES PT OVERALL IMPROVED. SOME PAIN IN THE AM, DESCRIBES FEELING BRUISED. CONTINUES PT WITH STRENGTHENING AND HEP, SOME DISCOMFORT WITH EXERCISES. NO PAIN MEDS. DENIES N/T. SLEEPING BACK IN HIS BED. REVIEW OF SYSTEMS: General: Denies fever, fatigue or weight loss Lungs: Denies SOB Cardio: Denies chest pain GI: Denies indigestion or abdominal pain Neuro: Denies numbness or tingling, denies new onset paralysis Musculoskeletal: ( see note) PHYSICAL EXAM: Right Shoulder Exam Tenderness The patient is experiencing no tenderness (compartments soft). Range of Motion Active abduction: 90 Passive abduction: 120 (gentle pendulums easily) Extension: 60 External rotation: 70 Forward flexion: 110 (PROM 135) Internal rotation 0 degrees: Sacrum (right SI joint comfortably ( pt states they have not done any internal rotation exercises/ stretches)) Muscle Strength Right shoulder normal muscle strength: Fires deltoid and rotator cuff. Other Erythema: absent Scars: absent (portals well healed) Sensation: normal Pulse: present Comments: The operative upper extremity was noted to be neurovascularly unchanged. Sensation to light touch was intact to all dermatomes to operative upper extremity. Radial and ulnar pulses were present and equal bilaterally. Patient was able to motor elbow wrist and fingers in all anatomic planes with 5 out of 5 strength on the operative upper extremity. Compartments were soft to operative upper extremity. There was no evidence of infection or ascending lymphangitis to operative extremity. Procedures Orders Placed This Encounter Procedures Ambulatory referral to Physical Therapy Standing Status: Future Standing Expiration Date: 05/29/2025 Referral Priority: Routine Referral Type: Consultation Referral Reason: Specialty Services Required Referral Location: [facility] Requested Specialty: Physical Therapy Number of Visits Requested: 1 ASSESSMENT: ICD-10-CM 1. Status post right rotator cuff repair Z98.890 Ambulatory referral to Physical Therapy S/p rotator cuff repair, SAD, Biceps tenodesis. Assessment & Plan 1. Right shoulder pain: Status post right rotator cuff repair. - Discussed progress with active and passive range of motion. - Noted stiffness and limited motion. - Emphasized that weighted activities are against medical advice until 12 weeks postoperative. Pt Verbalized understanding at this visit and prior visit, I can't explain to patient as to why the therapist would cont with weighted and resistant activities against our medical advice and he was advise to have them call with any concerns.. 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 Would appreciate them working on his full end ROM before moving ahead with weights. - Advised to achieve full range of motion before starting any weight or resistance training. - May begin a 2-week strengthening program on 12/13/2024, followed by a transition to a home exercise regimen. - Updated therapy note to reflect these recommendations. Follow-up - 6 WKS. - Spouse present during discussion of restrictions and therapist's adherence to recommended activities. PROCEDURE The patient underwent a right rotator cuff repair. Questions answered in laymen terms at the bedside. The diagnosis, home exercise plan and any ongoing restrictions/ recommendations reviewed. If unable to be reached in office, I recommend evaluation at nearest Emergency Room if any symptoms worsened or new symptoms develop for requiring urgent evaluation. documented in this encounter [facility] 11-01-2024 History of Present illness Narrative Images from the original note were not included. HISTORY OF PRESENT ILLNESS: POST OP PT Monet Bustillos is an 73 y.o. @ male. (EST PT) PO (R) SHOULDER RCR, BICEP TENODESIS AND SAD 09/20/24 (6 WKS). PHYSICAL THERAPY @ [facility] [place] WEARING ULTRA SLING. NOTES SOME IMPROVEMENT. CONTINUES PT AND HEP, SOME PAIN WITH EXERCISES. NO PAIN MEDS. PAIN WILL BE DIFFUSE IN SHOULDER. DENIES N/T. SLEEPS IN LAZY BOY, DOES NOT WAKE AT HS. DENIES ISSUES WITH INCISIONS. REVIEW OF SYSTEMS: General: Denies fever, fatigue or weight loss Lungs: Denies SOB Cardio: Denies chest pain GI: Denies indigestion or abdominal pain Neuro: Denies numbness or tingling, denies new onset paralysis Musculoskeletal: ( see note) PHYSICAL EXAM: Right Shoulder Exam Tenderness The patient is experiencing no tenderness (compartments soft). Range of Motion Active abduction: 70 Passive abduction: 100 (gentle pendulums easily) Extension: 50 External rotation: 60 Forward flexion: 80 (PROM 110) Internal rotation 0 degrees: L5 Muscle Strength Right shoulder normal muscle strength: Fires deltoid and rotator cuff. Other Erythema: absent Scars: absent (portals well healed) Sensation: normal Pulse: present Comments: The operative upper extremity was noted to be neurovascularly unchanged. Sensation to light touch was intact to all dermatomes to operative upper extremity. Radial and ulnar pulses were present and equal bilaterally. Patient was able to motor elbow wrist and fingers in all anatomic planes with 5 out of 5 strength on the operative upper extremity. Compartments were soft to operative upper extremity. There was no evidence of infection or ascending lymphangitis to operative extremity. Procedures Orders Placed This Encounter Procedures Ambulatory referral to Physical Therapy Standing Status: Future Standing Expiration Date: 05/01/2025 Referral Priority: Routine Referral Type: Consultation Referral Reason: Specialty Services Required Referral Location: [facility] Centralized Scheduling Requested Specialty: Physical Therapy Number of Visits Requested: 1 ASSESSMENT: ICD-10-CM 1. Status post right rotator cuff repair Z98.890 Ambulatory referral to Physical Therapy S/p rotator cuff repair. SAD and biceps tenodesis. Assessment & Plan 1. Post-operative status following right shoulder arthroscopy. He is currently 6 weeks post-procedure and is experiencing stiffness and limited range of motion. He was advised to initiate active range of motion exercises, including home exercises, wall walks, and arkgto-duz-crkr stretches, all of which he tolerated well. Progress with physical therapy was discussed, and he was instructed to avoid any weights or resistance training. He mentioned using a 3-pound dumbbell, and it was recommended that he refrain from lifting anything heavier than a coffee cup until further evaluation. His sling was discontinued during this visit. An updated physical therapy order was provided, and his therapist may contact with any concerns or additional directions. A follow-up appointment to reassess his range of motion is scheduled for 4 to 5 weeks from now. Follow-up The patient will follow up in 4 to 5 weeks. PROCEDURE The patient is 6 weeks status post right shoulder arthroscopy. Questions answered in laymen terms at the bedside. The diagnosis, home exercise plan and any ongoing restrictions/ recommendations reviewed. If unable to be reached in office, I recommend evaluation at nearest Emergency Room if any symptoms worsened or new symptoms develop for requiring urgent evaluation. documented in this encounter [facility] 10-03-2024 History of Present illness Narrative Images from the original note were not included. HISTORY OF PRESENT ILLNESS: Monet Bustillos is an 73 y.o. @ male. 1ST PO (R) SHOULDER RCR, BICEP TENODESIS AND SAD 09/20/24 (1 WK 6 DAYS). WEARING ULTRA SLING. PAIN HAS IMPROVED. NO PAIN MEDS. DENIES N/T. ABLE TO WIGGLE FINGERS. DOES NOT WAKE AT HS, SLEEPING IN LAZY BOY. DOING AN ELBOW EXERCISE. DENIES DRAINAGE. REVIEW OF SYSTEMS: General: Denies fever, fatigue or weight loss Lungs: Denies SOB Cardio: Denies chest pain GI: Denies indigestion or abdominal pain Neuro: Denies numbness or tingling, denies new onset paralysis Musculoskeletal: ( see note) PHYSICAL EXAM: Right Shoulder Exam Tenderness The patient is experiencing no tenderness (compartments soft). Range of Motion Right shoulder passive abduction: gentle pendulums easily. Muscle Strength Right shoulder normal muscle strength: Fires deltoid and rotator cuff, pendulums easily. Other Erythema: absent Scars: present (Portals well healing, sutures removed, no erythema, drainge or discharge, no dehisence) Sensation: normal Pulse: present Comments: The operative upper extremity was noted to be neurovascularly unchanged. Sensation to light touch was intact to all dermatomes to operative upper extremity. Radial and ulnar pulses were present and equal bilaterally. Patient was able to motor elbow wrist and fingers in all anatomic planes with 5 out of 5 strength on the operative upper extremity. Compartments were soft to operative upper extremity. There was no evidence of infection or ascending lymphangitis to operative extremity. Procedures IMAGING: ASSESSMENT: ICD-10-CM 1. Status post right rotator cuff repair Z98.890 Ambulatory referral to Physical Therapy PLAN: Patient is 13 days s/p RT RCR, SAD and BT. I reviewed surgical findings and disucssed plan of care. I recommend no lifting pushing or pulling at this time. I reviewed HEP and post op precausitons with patient. We will send referral to PT for patient to work on PROM till 6 weeks PO, AROM after 6 weeks PO and no strengthening until 12 weeks PO. Patient verabalized understading. Questions answered in laymen terms at the bedside. If unable to be reached in office, I recommend evaluation at nearest Emergency Room if any symptoms worsened or new symptoms develop for requiring urgent evaluation. Julián Stevens APRN-[facility] [place] documented in this encounter [facility] 09-19-2024 Telephone encounter Note Post op pain rx. PDMP reviewed [facility] 09-19-2024 Miscellaneous Notes Post op pain rx. PDMP reviewed documented in this encounter [facility] 09-09-2024 Hospital Discharge instructions Patient Education 09/09/2024 11:23:59 Clean Intermittent Catheterization, Male Clean Intermittent Catheterization, Male Clean intermittent catheterization (CIC) is a procedure to drain pee (urine) from the bladder by placing a soft tube (catheter) into the bladder though the urethra. The urethra is a tube in the body that carries pee from the bladder out of the body. CIC reduces the risk of infection and other problems that may arise when pee is not completely emptied from the bladder. CIC may be done when: You cannot completely empty your bladder on your own. This may be due to a blockage in the bladder or urethra. Your bladder leaks pee. This may happen when the muscles or nerves near the bladder are not working normally, so the bladder overflows. Your health care provider will show you how to do the procedure. You will also be given the supplies you need to do the procedure. Supplies needed: Germ-free (sterile), water-based lubricant. A container for pee collection. You may also use the toilet to dispose of pee from the catheter. A catheter. Your provider will determine the best size for you. ?Use this catheter size: Clean gloves. Soap and water. Clean washcloth and towel. How to perform this procedure: Most people need CIC at least 4 times per day to completely empty the bladder. Your provider will tell you how often you should do CIC. Number of times per day to perform CIC: ____ To perform CIC, follow these steps: 1.Wash your hands with soap and water for 20 seconds. If soap and water are not available, use hand watch dial printer. 2.Clean your penis with soap and water. [...] under you. 5.If you are using a pee collection container, position it between your legs. 6.Pee, if you are able. 7.Put on gloves. 8.Apply lubricant to about 2 inches (5 cm) of the tip of the catheter. 9.Set the catheter down on a clean, dry surface within reach. 10.Gently stretch your penis out from your body. Pull back any skin that covers the end of your penis (foreskin). Clean the end of your penis with sterile swabs as told by your provider. 11.Hold your penis upward at a 45 60 degree angle. This helps to straighten the urethra. 12.Slowly insert the lubricated catheter straight into your urethra until pee flows freely. This is usually about 6 8 inches (15 20 cm). 13.When pee starts to flow freely, insert the catheter 1 inch (3 cm) more. Allow pee to drain into the toilet or the pee collection container. 14.When pee stops flowing, slowly remove the catheter. 15.Note the color, amount, and odor of the pee. 16.Measure your pee and note the amount, if told by your provider. 17.Discard the pee in the toilet. 18.Clean your penis using soap and water. 19.Move the foreskin back in place, if applicable. 20.If you are using a single-use catheter, discard the catheter and supplies. 21.Wash your hands with soap and water. 22.If you are using a reusable catheter, follow package instructions about how to clean the catheter after each use. How often should I do this procedure? Do CIC to empty your bladder every 4 6 hours or as often as told by your provider. If you have symptoms of too much pee in your bladder (overdistension) and you are not able to pee, perform CIC. Symptoms of overdistension may include: ?Restlessness. ?Sweating or chills. ?Headache. ?Flushed or pale skin. ?Bloated lower abdomen. What are the risks? The provider will talk with you about the risks. These may include: Infection. Injury to the urethra. Irritation of the urethra. Follow these instructions at home General instructions Drink enough fluid to keep your pee pale yellow. Throw away a catheter when it becomes dry, brittle, or cloudy. This usually happens after you use the catheter for 1 week. Avoid caffeine. Caffeine may make you need to pee more frequently and more urgently. When traveling, [...] reusable catheter in a small bathroom. Take dgea-mhl-mxawzuj and prescription medicines only as told by your provider. Contact a health care provider if: You have difficulty doing CIC. You have pee leaking around the catheter during CIC. You have: ?Dark or cloudy pee. ?Blood in your pee or in your catheter. ?A change in the smell of your pee or discharge. ?A burning feeling while you pee. You vomit or feel like you may vomit. You have pain in your abdomen, your back, or your sides below your ribs. You have swelling or redness around the opening of your urethra. You develop a rash or sores on your skin. Get help right away if: You have a fever. You have symptoms that do not go away after 3 days. You have symptoms that suddenly get worse. You have severe pain. You start passing a little pee, or a little pee drains from your bladder. This information is not intended to replace advice given to you by your health care provider. Make sure you discuss any questions you have with your health care provider. Document Revised: 05/18/2023 Document Reviewed: 05/18/2023 [employer] Patient Education 2023 [place]. Follow Up Care 07/05/2024 11:31:08 With:WALLY PERALTA, Lexa Barlow, URL Address: [address] [place], [place] [id number]- When: Unknown [facility] 09-06-2024 History of Present illness Narrative Images from the original note were not included. GENERAL HISTORY AND PHYSICAL: NAME: Monet Bustillos : 1950 HISTORY OF PRESENT ILLNESS: Monet Bustillos is an 73 y.o. @ male. Here for surgery instructions (R) SHOULDER SCOPE 09/20/24 @ [facility] PAST MEDICAL HISTORY: Past Medical History: Diagnosis Date A-fib (CMS/HCC) Actinic keratosis Basal cell carcinoma (BCC) of chest 08/2024 High cholesterol (CMS/HCC) PAST SURGICAL HISTORY: Past Surgical History: Procedure Laterality Date BASAL CELL CARCINOMA EXCISION 08/22/2024 MID CHEST SHAVING ; [facility] ORIF ANKLE FRACTURE Right 2006 TOTAL HIP ARTHROPLASTY Left 2018 DR LEIGH SOCIAL HISTORY: Social History Occupational History Not on file Tobacco Use Smoking status: Former Types: Pipe Smokeless tobacco: Never Substance and Sexual Activity Alcohol use: Yes Comment: 1/DAY Drug use: Not on file Sexual activity: Not on file ALLERGIES: Allergies Allergen Reactions Penicillins GI intolerance Other Reaction(s): Vomiting MEDICATIONS: Current Outpatient Medications Medication Instructions atorvastatin (LIPITOR) 10 mg Eliquis 5 MG tablet 1 tablet, 2 times daily finasteride (PROSCAR) 5 mg metoprolol tartrate (LOPRESSOR) 12.5 mg, 2 times daily tamsulosin (Flomax) 0.4 MG 24 hr capsule 1 capsule, 2 times daily REVIEW OF SYSTEMS: Review of Systems Constitutional: Negative for fatigue, fever and unexpected weight change. Eyes: Negative for redness and visual disturbance. Gastrointestinal: Negative for abdominal pain. Denies Indigestion Musculoskeletal: See note: Skin: Negative for color change and rash. Neurological: Negative for light-headedness and numbness. Vitals: Body mass index is 25.77 kg/m . PHYSICAL EXAM: Physical Exam Constitutional: General: He is not in acute distress. Appearance: Normal appearance. HENT: Head: Normocephalic and atraumatic. Right Ear: External ear normal. Left Ear: External ear normal. Nose: Nose normal. No rhinorrhea. Mouth/Throat: Mouth: Mucous membranes are moist. Pharynx: No posterior oropharyngeal erythema. Eyes: Extraocular Movements: Extraocular movements intact. Conjunctiva/sclera: Conjunctivae normal. Cardiovascular: Rate and Rhythm: Rhythm irregularly irregular. Pulses: Normal pulses. Heart sounds: No murmur heard. Pulmonary: Effort: Pulmonary effort is normal. No respiratory distress. Breath sounds: Normal breath sounds. No wheezing or rhonchi. Abdominal: Palpations: Abdomen is soft. Tenderness: There is no abdominal tenderness. Musculoskeletal: Cervical back: Normal range of motion and neck supple. Lymphadenopathy: Cervical: No cervical adenopathy. Skin: General: Skin is warm and dry. Findings: No erythema or rash. Neurological: General: No focal deficit present. Mental Status: He is alert and oriented to person, place, and time. Psychiatric: Mood and Affect: Mood normal. Behavior: Behavior normal. Patient presents today for fitting of right [id number] Shoulder Orthosis, Acromioclavicular, Prefabricated, Off the Shelf today. Brace is used to immobilize and increase stability of the shoulder joint to allow for full and complete healing. Fitting and adjustments were done under physician order and supervision. Patient was placed in the brace and all straps were adjusted for proper fit. Brace was dispensed to the patient and [employer] Patient Agreement was completed and signed. Warranty information was given and explained to the patient with good understanding. Proper care and fitting was also explained to the patient with good understanding. No orders of the defined types were placed in this encounter. ASSESSMENT: ICD-10-CM 1. Pre-op examination Z01.818 PLAN: This patient presents for preadmission testing for upcoming surgery. Complete history with medical, surgery, and current allergy and medication list obtained. Consent for surgery signed and witnessed after verbal consent to perform surgery received. All questions answered and proposed surgery scheduled. SX INSTRUCTIONS, 09/06/24 @ 10:00AM PAT 08/30/24 @ 9:00AM - [facility] CARDIAC CLEARANCE / ELIQUIS RECEIVED MEDICARE - NPAR ULTRASLING DISPENSED / FITTED Follow up for 10/06/24 @ 1:15PM - [place]. documented in this encounter [facility] 08-30-2024 Instructions Tiffanie Corcoran RN - 08/30/2024 9:00 AM EST Preoperative Education Checklist- General Surgery date: 09/20/24 Surgery time: 1230p Arrival time: 1030a 1. Bring a photo ID and your insurance card with you the day of surgery. You will check in at the main lobby of the [facility]- registration desk is straight ahead as soon as you walk in. Tell them you are here for surgery. 2. If you have a Living Will/Durable Power of Associate [employer] that is not on file here, please bring a copy the day of surgery. 3. Please shower/bathe the night before surgery with the provided soap or wipes. Do not shower the morning of surgery- you will do use wipes when you arrive here at the hospital before getting into your surgical gown. Do not shave the area of your procedure for 2 days prior to your surgery. 4. NO powder, lotion, perfume/cologne, aftershave, make-up, deodorant, or hair products after you have bathed. 5. NO nail macedonian/acrylic on at least one finger. If you are having a hand, wrist or foot surgery then all nail macedonian and artificial/acrylic nails must be removed from that hand or foot. 6. Avoid ALL Aspirin and non-steroidal anti-inflammatory drugs and certain vitamins (Ibuprofen, Advil, Aleve, Excedrin, Meloxicam, Celebrex, fish/krill oil, etc.) for 7 days prior to surgery as instructed by your surgeon and/or your prescribing doctor. Tylenol IS ALLOWED. If you are on Ticlid, Xarelto, Eliquis, Pradaxa, Plavix or Coumadin, please check with your prescribing doctor for instructions for when to stop them. 7. If you use an inhaler, continue to use it routinely. 8. Nothing to eat or drink (not even water, gum, mints, or hard candy!) AFTER midnight prior to your surgery. 9. Take only medications that you are instructed to on the morning of surgery with a TINY SIP OF WATER. 10. Choose a responsible adult that will be able to drive you home when you are discharged from your hospital stay for your surgery and can stay with you in your home for 24 hours after your procedure. You must NOT drive any vehicle or operate any machinery for 24 hours after surgery. 11. When you dress for your appointment, please wear loose fitting clothing that is appropriate to accommodate your surgical area procedure. BRING WITH YOU ANY DEVICES YOU MAY NEED: ONOFRE hose, ice machine, sling/swath, brace or special shoe, oversized zip-up or button up shirt, CPAP machine if staying overnight. 12. Do NOT wear jewelry, watches, or any piercings or metal for surgery- leave these valuables and money at home. 13. Do NOT wear contact lenses for surgery- glasses are okay if needed. 14. The anesthesiologist will talk with you the day of surgery and will ask you to sign a Consent Form. 15. Refrain from smoking or any type of tobacco use for at least 8 hours and marijuana for 24 hours prior to arrival for your surgery. 16. If a GREEN BLOOD band is given to you, please bring it with you for the day of surgery. 17. Notify your surgeon if you develop any illness before your surgery. 18. If you are staying overnight, please DO NOT BRING your home medications with you. 19. If you have any questions prior to surgery, please call the Preadmission Testing office at [phone], Mon.-Fri. 7 a.m.-3 p.m. Leave a voicemail if needed. Pre-Surgery Instructions: Medication Instructions acetaminophen (TYLENOL) 500 mg tablet Stop taking 0 days prior to procedure atorvastatin (LIPITOR) 10 mg tablet Stop taking 0 days prior to procedure finasteride (PROSCAR) 5 mg tablet Stop taking 0 days prior to procedure metoprolol tartrate (LOPRESSOR) 25 mg tablet Take morning of procedure apixaban (ELIQUIS) 5 mg tablet Check with prescribing doctor for instructions NON FORMULARY Stop taking 0 days prior to procedure tamsulosin (FLOMAX) 0.4 mg capsule Stop taking 0 days prior to procedure How to Avoid an Infection after Your Surgery Your doctor will give you specific instructions, but remember: -ALWAYS wash hands before caring for your incision. -No picking, scratching, or rubbing your incision. -No creams, lotion, powder, rubbing alcohol or hydrogen peroxide on the incision (can harm the tissue and slow healing). -Your doctor will give you specific instructions for what type of dressing you will need and how often it will need changed for infection purposes. -No tight clothing on incision. -Do not allow anyone to touch your incision unless they are cleaning, checking, or redressing it (be sure they wash their hands first). -No contact of your incision with pets; avoid sleeping with pets. -Take full course of antibiotic if prescribed for you after surgery- do not stop unless directed to by your physician. You may also be given an antibiotic prior to your surgery to help prevent surgical site infections. -Eat a healthy and varied diet including proteins, fruits, and vegetables to help promote wound healing and keep blood sugars under control if you are diabetic. -Smoking slows the healing process by decreasing the amount of oxygen in your blood that is needed for tissue healing. Try to avoid or stop smoking if possible. LOOK at your incision each morning and each night to check the progress of healing. Some soreness, numbness, itching and/or mild bruising around the incision is normal. Call your doctor if you notice any of the following: -Increased redness or hardening around the incision area. -Increased pain at the incision site. -Incision feels hot to the touch. -Swelling or pulling apart of the incision edges. -Yellow or green drainage or foul odor coming from the incision. -Bleeding from the incision (apply pressure as needed). -Fever higher than 101 degrees Fahrenheit for more than 4 hours. SHOWERING: Your doctor will give you specific instructions, but remember: -Be careful getting into and out of the shower. -Showers should be quick (5 minutes or less). -Use a clean washcloth to gently wash your incision with soap and water and pat the area dry with a clean towel. -No re-using wash cloths or towels; get a fresh one to clean your incision. -Do not soak in the bathtub, go swimming or use a hot tub (Jacuzzi), or perform activities where your hand or arm are submerged in water or exposed to any fluids or substances (washing dishes, cooking, gardening, hunting, etc.) until instructed by your doctor. -If your have the sticky strips (steri-strips) over the incision, it is OK to shower with them. Do not remove them. Let them fall off on their own. If you have a question, call your doctor s office. Go to the follow-up appointment with your doctor. documented in this encounter [employer] 08-22-2024 History of Present illness Narrative Images from the original note were not included. Cryotherapy vs ED&C Diagnosis: Superficial Basal Cell Carcinoma Location: Mid chest Procedure performed: Shave biopsy Date of procedure: 07/11/24 All pertinent medical history, medications, and allergies were reviewed. General Exam: alert, oriented to person, place, and time, normal affect, well appearing Unaccompanied A focused exam completed based on patient reported problems, see below: 1. BCC (basal cell carcinoma), chest Mid chest Erythematous macule at biopsy site. Destr of lesion Complexity: simple Destruction method: electrodesiccation and curettage Informed consent: discussed and consent obtained Informed consent comment: The risks of the procedure were discussed, including, but not limited to risks of scarring, darker or general office worker pigmentary changes, recurrence, infection, and incomplete removal Timeout: patient name, date of , surgical site, and procedure verified Timeout comment: Patient and provider identified site. Site was marked. Photo was taken and shown to patient, patient verified this is the correct site. Procedure prep: Patient was prepped and draped in usual sterile fashion Prep type: Chlorhexidine Anesthesia: the lesion was anesthetized in a standard fashion Anesthetic: 1% lidocaine w/ epinephrine 1-100,000 buffered w/ 8.4% NaHCO3 Curettage performed in three different directions: Yes Electrodesiccation performed over the curetted area: Yes Curettage cycles: 3 Lesion length (cm): 1.4 Lesion width (cm): 1.2 Margin per side (cm): 0 Final wound size (cm): 1.4 Hemostasis achieved with: electrodesiccation Outcome: patient tolerated procedure well with no complications Post-procedure details: wound care instructions given Post-procedure details comment: Post-procedure instructions were given verbally and in writing. The office will be contacted if the lesion fails to resolve despite treatment, or if a side effect develops such as abnormal crusting, scabbing, reddness, discharge, or tenderness. Additional details: Amount of lidocaine used: 2.0 cc Previous accession number: [id number] Treatment options reviewed with patient, benefits and efficacy of Cryotherapy vs ED&C discussed. ED&C today, instructed patient to contact the office for any new lesions that bleed, grow in size, or are not healing. Next Visit: as scheduled documented in this encounter [facility] 07-25-2024 History of Present illness Narrative Images from the original note were not included. HISTORY OF PRESENT ILLNESS: EST PT Monet Bustillos is an 73 y.o. @ male. EST PT RECHECK RT SHOULDER PAIN- DISCUSS SURGERY TODAY - PT IS SCHEDULED FOR SURGERY 09/20/24 @ [facility] XRAY RT SHOULDER 03/21/24 EPIC MRI RT SHOULDER 04/26/24 EPIC CORTISONE INJ 03/21/24 NO MDP/PREDNISONE NO PT NO PAIN MANAGEMENT CONTINUES TO HAVE PAIN WITH CERTAIN MOVEMENTS- +WAKES HS- DENIES WEAKNESS- +TYLENOL ES PRN - C/O UPPER ARM PAIN YANDEL: PT STATES HE WENT OVERBOARD LIFTING WTS PT IS ON ELIQUIS Right Shoulder Pain ALLERGIES: Allergies Allergen Reactions Penicillins GI intolerance Other Reaction(s): Vomiting HOME MEDICATIONS: Current Outpatient Medications Medication Instructions atorvastatin (LIPITOR) 10 mg, Oral diazePAM (Valium) 5 MG tablet 1 tab 30-60 mins before procedure may repeat X1 if need for claustrophobia Eliquis 5 MG tablet 1 tablet, Oral, 2 times daily finasteride (PROSCAR) 5 mg metoprolol tartrate (LOPRESSOR) 12.5 mg, Oral, 2 times daily tamsulosin (Flomax) 0.4 MG 24 hr capsule 1 capsule, Oral, 2 times daily PHYSICAL EXAM: Shoulder Musculoskeletal Exam Inspection Right Right shoulder inspection is normal. Ecchymosis: none Peripheral edema: none Atrophy: none Masses: none Palpation Right Crepitus: no crepitus Increased warmth: none Tenderness: present Anterior shoulder: mild AC joint: mild Proximal biceps: moderate Lateral arm: mild Range of Motion Right Right shoulder range of motion is normal. Active ROM: abnormal and pain. Passive ROM: pain. Active forward elevation: 90. Passive forward elevation: 160. Shoulder active abduction: 90 (+ pain passing 90 degrees). Passive abduction: 160. Active external rotation at side: 40. Passive external rotation at side: 50. Internal rotation: L1. Strength Right External rotation: 5/5. Internal rotation: 5/5. Abduction: 3/5. Biceps: 5/5. Triceps: 5/5. Neurovascular Right Radial pulse: normal and 2+ Capillary refill: <3 sec Axillary nerve sensory distribution: normal Scapula Right Right shoulder scapula is normal. Position: normal Winging: none Special Tests Right Rotator Cuff Signs Neer's test: positive Manzano test: positive Painful arc test: positive Biceps/lynette Signs Speed's test: positive Vitals: There is no height or weight on file to calculate BMI. Tobacco Use: Medium Risk (07/11/2024) Patient History Smoking Tobacco Use: Former Smokeless Tobacco Use: Never Passive Exposure: Not on file Alcohol Use: Not on file IMAGING: Procedures No orders of the defined types were placed in this encounter. ASSESSMENT: ICD-10-CM 1. Internal derangement of right shoulder M24.811 PLAN: We have answered all the patients questions and explained the patients condition, decision making and plan including the risks and benefits associated with said plan in layman''s terms in a language the patient could understand easily. If patient''s symptoms significantly worsen and they cannot get a hold of us or their family physician, we have recommended that the patient proceed to the nearest emergency department (room). Dr. Navarro obtained history and examined the patient, I am acting as scribe for Dr. Navarro/guillermo, PLAN: We have reviewed prior (R) shoulder xrays / MRI results. After examination of his right today we have discussed both surgical and nonsurgical intervention, with the risks and benefits of both. Patient is requesting a (R) shoulder scope as the pain is affecting his ADL's - increased pain with motion. He is understanding if a repair is made he could be in a sling for at least 6 weeks and not lifting anything heavier than a coffee cup for at least 12 weeks. We have discussed his HEP and restrictions and will see him back on the day of sx. Surgery - Diagnostic and operative (R) shoulder scope w/SAD and RCR We have discussed both surgical and nonsurgical treatment options with the patient at length and the risks and benefits associated with both. The patient is requesting surgical intervention because they have not responded to outpatient treatment options including but not limited to rest ice, and home exercise program. Pain and decreased range of motion are affecting the patient''s ability to sleep and activities of daily living and we have recommended surgical intervention. Mya Navarro D.O. documented in this encounter [facility] 07-21-2024 Hospital Discharge instructions Patient Education 07/21/2024 15:34:03 Acute Urinary Retention, Male Acute Urinary Retention, [...] Follow these instructions at home: Medicines Take [id number] and prescription medicines only as told by [...] provider. Document Revised: 06/12/2021 Document Reviewed: 06/12/2021 [employer] Patient Education 2023 [place]. Follow Up Care 07/21/2024 10:59:03 With:Keep previously scheduled follow up with Dr Christiansen in September Address:Unknown When: Unknown [facility] 07-21-2024 Note Patient Education Urology Acute Urinary Retention, [...] these instructions at home: Medicines ? Take [id number] and prescription medicines only as told by [...] provider. Document Revised: 06/12/2021 Document Reviewed: 06/12/2021 [employer] Patient Education ? 2023 [place]. [facility] 07-11-2024 History of Present illness Narrative error Images from the original note were not included. Skin Check Location: Patient requests a skin examination from the waist up Dermatologic history: history of Actinic Keratosis Last visit: 09/2022 Lesion #1 Location: left elbow Duration: years Quality: itchy Modifying factors: accidentally scratches Associated symptoms: whitish Treatments: none Lesion #2 Location: right mid axillary line Duration: unsure of duration Quality: denies pain, denies itch Associated symptoms: small bump Treatments: none Lesion #3 Location: back Duration: unsure of duration Quality: denies pain, denies itch Modifying factors: noticed by Associated symptoms: dark spot Treatments: none Established patient All pertinent medical history, medications, and allergies were reviewed. General Exam: alert, oriented to person, place, and time, normal affect, well appearing Accompanied by spouse A complete skin exam was offered, pt declined. Areas not examined despite medical recommendation: From the waist down Scalp, Examined Head, Face Examined Neck Examined Chest Examined Back Examined Abdomen Examined Right arm Examined Left arm Examined Hands Examined Digits,nails: Examined Lymphatics: Not examined 1. Seborrheic keratosis (2) Face, Generalized Stuck on verrucous, variably pigmented papules and plaques. Patient was counseled regarding these benign growths. Removal is normally not necessary, but they may be removed if they are symptomatic or for cosmetic reasons. 2. Actinic keratosis (2) Dorsum of Nose, Mid Supratip of Nose Erythematous scaly papules Patient was counseled regarding these sun-induced growths that can develop into squamous cell carcinoma if left untreated. Discussed treatment with cryotherapy. It was emphasized that any treated lesions that fail to resolve should be re-evaluated. Cryotherapy performed today; see procedure note Diagnosis: Actinic keratosis Indication: Precancerous Location: see skin exam Consent: Verbal consent was obtained and risks were discussed, including, but not limited to risks of scarring, darker or general office worker pigmentary changes, recurrence, incomplete removal and infection. Method: Liquid nitrogen was used to treat the lesion(s) with two 5-10 second freeze-thaw cycles. Number of lesions treated: 2 Post-procedure instructions: Instructions were given orally and in writing. The office will be contacted if the lesion fails to resolve despite treatment, or if a side effect develops such as abnormal crusting, scabbing, redness or tenderness Cryotherapy, skin lesion - Dorsum of Nose, Mid Supratip of Nose 3. Inflamed seborrheic keratosis (4) Left Elbow - Posterior, Left Lower Back, Left Upper Back, Right Upper Back Inflamed seborrheic keratoses: pink and brown stuck on verrucous scaly papules with surrounding erythema and bloody crust. The patient was informed that symptomatic seborrheic keratoses are benign growths that become inflamed, itchy, tender, traumatized, caught on clothing, or bleed. Symptomatic lesions can be treated with cryotherapy or curretage. Thicker lesions treated with cryotherapy may require more than one treatment. The patient was instructed to notify the office if abnormal redness or tenderness develops at the treatment site. Cryotherapy today, see procedure note. Diagnosis: Inflamed seborrheic keratosis Indication: Inflamed Consent: Verbal consent was obtained and risks were discussed, including, but not limited to risks of scarring, darker or general office worker pigmentary changes, recurrence, incomplete removal and infection. Method: Liquid nitrogen was used to treat the lesion(s) with two 5-10 second freeze-thaw cycles Number of lesions treated: 4 Post-procedure instructions: Instructions were given orally and in writing. The office will be contacted if the lesion fails to resolve despite treatment, or if a side effect develops such as abnormal crusting, scabbing, redness or tenderness Cryotherapy, skin lesion - Left Elbow - Posterior, Left Lower Back, Left Upper Back, Right Upper Back 4. Neoplasm of unspecified behavior of bone, soft tissue, and skin Mid Chest [place] pearly patch Lesion biopsy Type of biopsy: tangential Informed consent: discussed and consent obtained Informed consent comment: The risks and benefits of the biopsy were discussed. Risks include but are not limited to bleeding, infection, scarring, pain, and nerve damage. An opportunity to ask questions prior to the procedure was permitted and all questions were answered. Patient was prepped and draped in usual sterile fashion: area cleansed with alcohol. Anesthesia: the lesion was anesthetized in a standard fashion Anesthetic: 1% lidocaine w/ epinephrine 1-100,000 buffered w/ 8.4% NaHCO3 Instrument used: DermaBlade Hemostasis achieved with: electrodesiccation Outcome: patient tolerated procedure well Outcome comment: The specimen was placed in a prelabeled formalin container to be sent for pathology Post-procedure details: sterile dressing applied and wound care instructions given Post-procedure details comment: Emphasized need to contact clinic for any signs of infection, uncontrollable bleeding, or complications. Dressing type: bandage Additional details: Photo taken Amount of lidocaine used: 1.0cc Specimen A - Dermatopathology exam Differential Diagnosis: BCC Check Margins: No Size of lesion: 1.4 x 1.2 cm 5. Elective surgery Right Axilla Fleshy, skin-colored sessile and pedunculated papule As lesions are benign, no treatment necessary. Lesions can be removed if patient desires. Explained to patient that due to insurance, removal is considered cosmetic. Cosmetic fee of $20 quoted and had patient sign necessary waiver at this time. Destr of lesion - Right Axilla Destruction method comment: Scissors Informed consent: discussed and consent obtained Procedure prep: Patient was prepped and draped in usual sterile fashion Prep type: Isopropyl alcohol Anesthesia: the lesion was anesthetized in a standard fashion Anesthetic: 1% lidocaine w/ epinephrine 1-100,000 local infiltration Hemostasis achieved with: electrodesiccation Outcome: patient tolerated procedure well with no complications Next Visit: 1 year documented in this encounter [facility] 07-05-2024 Hospital Discharge instructions Patient Education 07/05/2024 11:19:37 EU - [...] Up Care 06/28/2024 15:40:34 With:Lexa CHRISTIANSEN Address: [address] [place], [place] [id number] Business (1) When:09/04/2024 11:17:33 Comments:With PVR log [facility] 07-05-2024 Note Patient Education Custom Cystoscopy ? [...] you have a fever over 100 degrees. [facility] [facility] Discharge instructions Patient Education 06/27/2024 12:46:05 Acute Urinary [...] Follow these instructions at home: Medicines Take vazq-fgu-vootdny and prescription medicines only as told by [...] provider. Document Revised: 06/12/2021 Document Reviewed: 06/12/2021 [employer] Patient Education 2023 [place]. 06/27/2024 12:45:54 Cystoscopy Cystoscopy Cystoscopy is a [...] including vitamins, herbs, eye drops, creams, and jatx-ghd-qokhhtx medicines. Any problems you or family members [...] provider tells you to take them. Taking resx-erf-hlhqqjr medicines, vitamins, herbs, and supplements. Tests You [...] Follow these instructions at home: Medicines Take evha-vjp-vsbsmld and prescription medicines only as told by [...] provider. Document Revised: 06/04/2022 Document Reviewed: 05/03/2021 [employer] Patient Education 2023 [place]. Follow Up Care 11/02/2023 15:01:28 With:WALLY PERALTA, Lexa Barlow, URL Address: [facility] [address], [place] [address] [phone] When: Unknown Comments:sched cysto [facility] [place] 06-27-2024 Note Patient Education Urology Acute [...] these instructions at home: Medicines ? Take qrmd-ebt-dmconsq and prescription medicines only as told by [...] provider. Document Revised: 06/12/2021 Document Reviewed: 06/12/2021 [employer] Patient Education ? 2023 [place]. Cystoscopy Cystoscopy is a procedure that is used to help diagnose and sometimes treat conditions that affect the lower urinary tract. The lower urinary tract includes the bladder and the urethra. The urethra is the tube that drains urine from the (more content not included)... [facility] 06-22-2024 Note Cardiovascular Medic [facility] SUBJECTIVE Chief Complaint Patient presents with [...] coronary arteries an (more content not included)... [facility] 06-22-2024 Note Patient here for 1 y [...] All other systems reviewed and are negative. [facility] 12-14-2023 Hospital Discharge instructions Patient Education 12/14/2023 11:40:01 Indwelling Urinary [...] provider. Document Revised: 12/11/2021 Document Reviewed: 09/06/2021 [employer] Patient Education 2021 [place]. 12/14/2023 11:40:01 Indwelling Urinary Catheter Insertion Indwelling [...] provider. Document Revised: 05/21/2022 Document Reviewed: 05/21/2022 [employer] Patient Education 2022 [place]. Follow Up Care 12/14/2023 08:48:07 With:WALLY PERALTA, Lexa Barlow, URL Address: [facility] [address] , [place] [phone]- [phone] When: Unknown Comments:pt to call w/ update [facility] 11-04-2023 Evaluation note Encounter Date [...] - Z79.01) May increase severity of bleeding. [employer] Other 01-29-2024 Hospital Discharge instructions Patient Education [...] and water are not available, use hand watch dial printer. 2.Clean your penis with soap and water. [...] reusable catheter in a small bathroom. Take myjt-umm-fsewqqv and prescription medicines only as told by [...] provider. Document Revised: 07/28/2022 Document Reviewed: 07/28/2022 [employer] Patient Education 2022 [place]. 11/02/2023 14:17:10 Acute Urinary Retention, Male Acute [...] Follow these instructions at home: Medicines Take yskn-oxh-slkmynn and prescription medicines only as told by [...] provider. Document Revised: 06/12/2021 Document Reviewed: 06/12/2021 [employer] Patient Education 2022 [place]. Follow Up Care 05/04/2023 11:36:31 With:WALLY PERALTA, Lexa Barlow, URL Address: [facility] [address] [place] [address]- [phone] When: Unknown Comments:f/u in 6 mos w/ PSA [facility] [place] 11-01-2023 Evaluation note* Encounter Date Diagnosis Assessment Notes Treatment Notes Treatment Clinical Notes Aug, Paroxysmal atrial fibrillation (ICD-10 - I48.0) Aug, Syncope, unspecified syncope type (ICD-10 - R55) [employer] Other 10-19-2023 Evaluation note* Encounter Date Diagnosis Assessment Notes Treatment Notes Treatment Clinical Notes Jul, Benign prostatic hyperplasia with lower urinary tract symptoms (ICD-10 - N40.1) [employer] Other 10-17-2023 Evaluation note* Encounter Date Diagnosis [...] are maintaining regular scheduled appts with their data analyst report writer. No bleeding complications Jul, Hyperlipidemia type II [...] External beam radiation No s/s recurrence, f/u [employer] Other 07-11-2023 Evaluation note* Encounter Date Diagnosis Assessment Notes Treatment Notes Treatment Clinical Notes Apr, Paroxysmal atrial fibrillation (ICD-10 - I48.0) [employer] Other 04-17-2023 Evaluation note* Encounter Date Diagnosis Assessment Notes Treatment Notes Treatment Clinical Notes Jan, Prostate cancer (ICD-10 - C61) Group 2, Sudheer 3+4, External beam radiation [employer] Other 04-14-2023 Evaluation note* Encounter Date Diagnosis [...] are maintaining regular scheduled appts with their data analyst report writer. Discussed switching Xarelto to Eliquis. Jan, Hyperlipidemia [...] Colon cancer screening declined (ICD-10 - Z53.20) [employer] Other Evaluation + Plan note Future Appointments Appointment Date:05/06/2024 08:00:00 AM Scheduled Provider:Lexa CHRISTIANSEN MD Location:[facility] Appointment Type:URO Office Visit Diagnostic Tests Pending * PSA Total 11/02/23 [facility] evaluation + Plan note Future Appointments Appointment Date:12/09/2023 01:20:00 PM Scheduled Provider:Yadiel JAIN MD Location:[facility] Appointment Type:GS New 30 Appointment Date:05/06/2024 08:00:00 AM Scheduled Provider:Lexa CHRISTIANESN MD Location:[facility] Appointment Type:URO Office Visit [facility] evaluation + Plan note Future Appointments Appointment Date:05/06/2024 08:00:00 AM Scheduled Provider:Lexa CHRISTIANSEN MD Location:[facility] Appointment Type:URO Office Visit [facility] evaluation + Plan note Future Appointments Appointment Date:05/06/2024 08:00:00 AM Scheduled Provider:Lexa CHRISTIANSEN MD Location:[facility] Appointment Type:URO Office Visit Diagnostic Tests Pending * [facility]ments Appointment Date:09/09/2024 10:15:00 AM Scheduled Provider:Lexa CHRISTIANSEN MD Location:[facility] Appointment Type:URO Office [facility] Evaluation + Plan note Future Appointments Appointment Date:01/09/2025 11:45:00 AM Scheduled Provider:Lexa CHRISTIANSEN MD Location:[facility] Appointment Type:URO Office Visit Diagnostic Tests Pending * PSA Total 10/05/24 [facility] evaluation noteNo [facility] [employer] Other Evaluation note* Diagnosis Seborrheic keratosis- Primary Actinic keratosis Inflamed seborrheic keratosis Neoplasm of unspecified behavior of bone, soft tissue, and skin [facility] Diagnosis Internal derangement of right shoulder- Primary [facility]* Diagnosis BCC (basal cell carcinoma), chest- Primary [facility]* Diagnosis Pre-op examination- Primary [facility] Diagnosis Internal derangement of right shoulder- Primary [facility]* Diagnosis Status post right rotator cuff repair- Primary [facility]* Diagnosis Preop examination- Primary Unspecified pre-operative examination Hypertension, unspecified type Paroxysmal atrial fibrillation (CMS-HCC) Atrial fibrillation Preop examination Unspecified pre-operative examination Hypertension, unspecified type Paroxysmal atrial fibrillation (CMS-HCC) Atrial [facility] Status post right rotator cuff repair- Primary [facility] N[facility]ative - Reported* Type Description Date [...] RIGHT TIB FIB FIXATION 2006 Surgical History [facility] 11/2015 Hospitalization History see surgical history [employer] Other History general Narrative - Reported* Type [...] RIGHT TIB FIB FIXATION 2006 Surgical History [facility] 11/2015 Surgical History Cystoscopy 05/2023 Hospitalization History see surgical history [employer] Other Hospital course Narrative No data available for this section [facility] Discharge instructions No data available for this section [facility] progress note No data available for this section [facility] reason for referral (narrative)* Reason Referral for colonos copy Diagnosis 1 Rectal bleeding (K62 .5) Referral Organization [facility] joni Referring Provider First Name Giacomo Referring Provider Last Name Joi Referring Provider Specialty Internal Me dicine Referred Organization [facility] Referred Provider Yadiel Jain Referred Address [address], [place],[address] Referred Provider Specialty Surgery Referral Priority Routine General Notes Mr. Bustillos, who is anticoagulated for atrial fibrillation with a history of pelvic radiation for prostate cancer, presents w/ rectal bleeding. He has notice blood with wiping and on his underwear. He is being referred for colonoscopy. Clinical Notes Include [employer] Other Summary Purpose Family History No Family [...] Found Advance Directives No Advanced Directives Records Found Date Activated Date Inactivated Comments 05/28/2020 3:59 PM 05/29/2020 3:06 PM Additional Source Comments (unrecognized sect ion and content) No Status Records FoundNo Status Records FoundNo Status Records FoundNo Status Records FoundNo Status Records FoundNo Status Records Found INFORMATION SOURCE (unrecogn ized section and content) DATE CREATED AUTHOR 12/23/2021 [facility] DATE CREATED AUTHOR AUTHOR'S ORGANIZ ATION 01/03/2023 [facility] DATE CREATED AUTHOR AUTHOR'S ORGANIZ ATION 06/24/2024 [facility] DATE CREATED AUTHOR AUTHOR'S ORGANIZ ATION 09/09/2024 [facility] DATE CREATED AUTHOR AUTHOR'S ORGANIZ ATION 09/23/2024 [facility] DATE CREATED AUTHOR AUTHOR'S ORGANIZ ATION 12/01/2024 [facility] EPIC REASON FOR VISIT (unrecogniz ed section and content) Reason Comments Skin Check Reason Comments Pain Reason Comments Follow-up Reason Comments Pre-op Exam Reason Comments Post-op Reason Comments Follow-up Patient Care team informatio n (unrecognized section and content) Last Dipper Relationship Specialty Start Date End Date Giacomo Ragsdale MD [address] [facility] [place] [phone] PCP - General Internal Medicine 03/21/24 Last Dipper Relationship Specialty Start Date End Date Giacomo Ragsdale MD [address] [facility] [place] [phone] PCP - General Internal Medicine 03/21/24 Last Dipper Relationship Specialty Start Date End Date Giacomo Ragsdale MD [address] [facility] [place] [phone] PCP - General Internal Medicine 03/21/24 Last Dipper Relationship Specialty Start Date End Date Giacomo Ragsdale MD [address] [facility] [place] [address] PCP - General Internal Medicine 03/21/24 Last Dipper Relationship Specialty Start Date End Date Giacomo Ragsdale MD [address] [facility] [place] [address] PCP - General Internal Medicine 03/21/24 Last Dipper Relationship Specialty Start Date End Date Giacomo Ragsdale MD [address] [facility] [place] [phone] PCP - General Internal Medicine 03/21/24 Last Dipper Relationship Specialty Start Date End Date Giacomo Ragsdale MD [address] [facility] [place] [phone] PCP - General Internal Medicine 03/21/24 Last Dipper Relationship Specialty Start Date End Date Giacomo Ragsdale MD [address] [facility] [place] [address] PCP - General Internal Medicine 03/21/24 Last Dipper Relationship Specialty Start Date End Date Giacomo Ragsdale MD [address] [facility] [place] [address] PCP - General Internal Medicine 03/21/24 Last Dipper Relationship Specialty Start Date End Date Giacomo Ragsdale DO [address] [place], [place] [phone] PCP - General Internal Medicine 03/15/20 Last Dipper Relationship Specialty Start Date End Date Giacomo Ragsdale MD [address] [facility] [place] [address] PCP - General Internal Medicine 03/21/24 Last Dipper Relationship Specialty Start Date End Date Giacomo Ragsdale MD [address] [place] [address] PCP - General Internal Medicine 03/21/24 FOR RECORDS PERTAINING TO PATIENTS WHO ARE [...] BE BASED ON THE PRIMARY CLINICAL RECORDS. [facility] [employer] [facility] provides no warranty or guarantee of the accuracy or completeness of information in this document.
[2025-01-04 10:36] LABS: Basophils Percent Auto 0.9 % (0.2-2.0); Eosinophils Absolute Auto 0.1 10^3/uL (0.0-0.7); Eosinophils Percent Auto 2.5 % (0.9-7.0); Hematocrit 45.3 % (42.0-54.0); Hemoglobin 15.4 g/dL (14.0-18.0); Immature Granulocytes Abs Auto 0.01 10^3/uL (0.00-0.03); Immature Granulocytes Pct Auto 0.2 % (0.0-0.5); Lymphocytes Absolute Auto 1.6 10^3/uL (1.2-3.8); Lymphocytes Percent Auto 35.4 % (20.5-60.0); Mean Corpuscular Volume 94.2 fL (80.0-94.0); Mean Platelet Volume 10.3 fL (9.5-13.5); Monocytes Absolute Auto 0.6 10^3/uL (0.3-0.8); Monocytes Percent Auto 13.7 % (1.7-12.0); Neutrophils Absolute Auto 2.1 10^3/uL (1.4-6.5); Neutrophils Percent Auto 47.3 % (43.0-75.0); Platelet Count 134 10^3/uL (150-450); Red Blood Count 4.81 10^6/uL (4.70-6.10); Red Cell Distribution Width 13.5 % (11.0-15.0); White Blood Count 4.5 10^3/uL (4.0-11.0)
[2025-01-04 11:22] LABS: Alanine Aminotransferase 23 U/L (16-63); Albumin Globulin Ratio 1.2; Albumin Level 3.8 g/dL (3.4-5.0); Alkaline Phosphatase 75 U/L (46-116); Anion Gap 14.1; Aspartate Amino Transferase 20 U/L (15-37); BUN Creatinine Ratio 11.8; Bilirubin Total 1.4 mg/dL (0.2-1.0); Calcium 9.1 mg/dL (8.5-10.1); Chloride 106 mmol/L (98-107); Chol HDL Ratio 2.3; Cholesterol 153 mg/dL (<=200); Estimated GFR (African America >60 (>=60 mL/min/1.73m^2); Estimated GFR (Non-African Ame >60 (>=60 mL/min/1.73m^2); Globulin 3.2 g/dL; Glucose 94 mg/dL (74-106); HDL Cholesterol 67 mg/dL (40-60); Potassium 4.1 mmol/L (3.5-5.1); Sodium 143 mmol/L (136-145); Triglycerides 65 mg/dL (<=150)
== END 2025-01-04 09:54 | disposition home or self-care (01) ==
LOC: LAB 09:53
PROVIDERS: PCP Internal Medicine; Visit Provider Internal Medicine
DX: E78.00 Pure hypercholesterolemia, unspecified (principal); Z85.46 Personal history of malignant neoplasm of prostate; D69.6 Thrombocytopenia, unspecified; I10 Essential (primary) hypertension; I48.0 Paroxysmal atrial fibrillation
CPT/HCPCS: 36415; 80053; 80061; 84153; 85025

== ENCOUNTER 2025-01-04 09:58 | Outpatient (OUT) | payer MEDICARE, SELFPAY ==
--- OUTSIDE RECORDS SUMMARY | 2025-01-04 10:02 | XMS_ITS | CCD ---
Author Organization [facility] Care Team Providers Care Warehouse Order Selector Name Role Phone ROSALVAC, DR BRADEN Admitting [...] (disorder), Moderate (severity modifier) (qualifier value) [facility] Repository (3 sources) Penicillin Drug Allergy Unknown Problemsolutions24 Other (8 sources) Substance with penicillin structure and antibacterial mechanism of action (substance) Drug allergy Comment:Penici llin Problemsolutions24 Other (20 sources) Penicillins Drug Intolerance 03-15-20 20 GI intolerance [facility] (1 source) Penicillins Propensity to [...] surgery., # 10 tab(s), Refills(s) 0, Pharmacy: [facility] [id number], 184, cm, 09/09/24 10:43:00 EST, Height/Length Dosing, 89.6, kg, 09/09/24 10:43:00 EST, Weight Dosing Start Date: 09/09/24 Status: Ordered Start: 12-07-2023 take 1 capsule by [facility] once daily at mealtime doxycycline hyclate 100 mg Cap 100 mg = 1 cap(s), Oral, Daily, may take with food to minimize abdominal discomfort, # 30 cap(s), Refills(s) 0, Pharmacy: [facility] [id number], 187, cm, 11/02/23 13:01:00 EST, Height/Length Dosing, 101, kg, 11/02/23 13:01:00 EST, Weight Dosing Start Date: 12/07/23 Status: Ordered Start: 11-02-2023 End: 12-02-2023 take 1 capsule by mouth once daily doxycycline hyclate 100 mg Cap 100 mg = 1 cap(s), Oral, Daily, X 30 day(s), # 30 cap(s), Refills(s) 0, Pharmacy: [facility] [id number], 187, cm, 11/02/23 13:01:00 EST, Height/Length Dosing, [...] 14 tab(s), Refills(s) 0, Pharmacy: [facility] [id number], 187, cm, 12/14/23 10:52:00 EDT, Height/Length Dosing, [...] Apply topically prior to cathing, [facility] [id number], 187, cm, 11/02/23 13:01:00 EST, Height/Length Dosing, [...] by mouth in the morning. Med Name: Setgoagen. Active rivaroxaban (20 sources) Factor Xa Inhibitor [...] procedure, # 2 tab(s), Refills(s) 0, Pharmacy: [facility] [id number], 184, cm, 06/27/24 11:52:00 EDT, Height/Length Dosing, 90, kg, 06/27/24 11:52:00 EDT, Weight Dosing Start Date: 06/27/24 Status: Ordered docusate sodium 50 mg / sennosides, fci 8.6 mg oral tablet (1 source) Start: [...] 05-28-2020 Chronic Other aftercare (1 source) Other director long term care (current) drug therapy; Translations: [OTH ALF CURRENT DRUG THERAPY] Onset: 01-01-2023 Episodic Other aftercare (11 sources) H/O: high risk medication; Translations: [Other mcfp (current) drug therapy] Episodic Other aftercare (3 sources) Long-term current use of anticoagulant; Translations: [FCI (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 of anticoagulants] Onset: 09-09-2024 Episodic Other aftercare (1 source) FCI (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 of anticoagulants Episodic Other connective [...] Anion gap [Moles/Vol] 9 mmol/L Normal 5-15 [facility] Comment on above: Performed By: #### 7 -7, BMP #### [facility] ([id number]) [address], [address] [place] [address] Calcium [Mass/Vol] 9.1 mg/dL Normal 8.5-10.5 [facility] Comment on above: Performed By: #### 7 -7, BMP #### [facility] ([id number]) [address], [address] [place] [address] Chloride [Moles/Vol] 107 mmol/L Normal 98-109 [facility] Comment on above: Performed By: #### 7 18-7, BMP #### [facility] ([id number]) [address] [place] [address] CO2 [Moles/Vol] 26 mmol/L Normal 22-32 [facility] Comment on above: Performed By: #### 7 18-7, BMP #### [facility] ([id number]) [address], [address] [place] [address] Creatinine [Mass/Vol] 1.00 mg/dL Normal 0.60-1.30 [facility] Comment on above: Result Comment: METH OD TRACEABLE TO IDMS STANDARD Performed By: #### 7 18-7, BMP #### [facility] ([id number]) [address], [address] [place] [address] GFR/1.73 sq M.predicted among non-blacks MDRD (S/P/Bld) [Vol rate/Area] 78 mL/min/{1.73_m2} Normal >59 [facility] Comment on above: Result Comment: Reported eGFR is based on the CKD-EPI 2020 equation that does not use a race coefficient. Performed By: #### 7 18-7, BMP #### [facility] ([id number]) [address], [address] [place] [address] Glucose [Mass/Vol] 98 mg/dL Normal 65-99 [facility] Comment on above: Performed By: #### 7 -7, BMP #### [facility] ([id number]) [address], [address] [place] [address] Potassium [Moles/Vol] 4.0 mmol/L Normal 3.5-5.0 [facility] Comment on above: Performed By: #### 7 18-7, BMP #### [facility] ([id number]) [address], [address] [place] [address] Sodium [Moles/Vol] 142 mmol/L Normal 134-146 [facility] Comment on above: Performed By: #### 7 18-7, BMP #### [facility] ([id number]) [address], [address] [place] [address] Urea nitrogen [Mass/Vol] 12 mg/dL Normal 5-27 [facility] Comment on above: Performed By: #### 7 18-7, BMP #### [facility] ([id number]) [address], [address] [place] [address] Basic Metabolic Panelon 08-06 Anion gap [Moles/Vol] 9 mmol/L 5 - 15 mmol/L [facility] Calcium [Mass/Vol] 9.1 mg/dL 8.5 - 10. 5 mg/dL [facility] Chloride [Moles/Vol] 107 mmol/L 98 - 109 mmol/L [facility] CO2 [Moles/Vol] 26 mmol/L 22 - 32 mmol/L [facility] Creatinine [Mass/Vol] 1 mg/dL 0.60 - 1.30 mg/dL [facility] Comment on above: METHOD TRACEABLE TO IDME STANDARD eGFR (CKD-EPI)non-race dependent 78 - PINF [facility] Comment on above: Reported eGFR is based on the CKD-EPI 2020 equation that does not use a race coefficient. Glucose [Mass/Vol] 98 mg/dL 65 - 99 mg/dL [facility] Potassium [Moles/Vol] 4 mmol/L 3.5 - 5.0 mmol/L [facility] Sodium [Moles/Vol] 142 mmol/L 134 - 146 mmol/L [facility] Urea nitrogen [Mass/Vol] 12 mg/dL 5 - 27 mg/dL [facility] Basic metabolic 1998 panelon 08-30-2024 Anion gap [Moles/Vol] 9 mmol/L 5 - 15 mmol/L [facility] Calcium [Mass/Vol] 9.1 mg/dL 8.5 - 10. 5 mg/dL [facility] Chloride [Moles/Vol] 107 mmol/L 98 - 109 mmol/L [facility] CO2 [Moles/Vol] 26 mmol/L 22 - 32 mmol/L [facility] Creatine [Mass/Vol] 1 mg/dL 0.60 - 1 .30 mg/dL [facility] Comment on above: METHOD TRACEABLE TO IDME STANDARD GFR/1.73 sq M.predicted among non-blacks MDRD (S/P/Bld) [Vol rate/Area] 78 mL/min/{1.73_m2} - PINF [facility] Comment on above: Reported eGFR is based on the CKD-EPI 2020 equation that does not use a race coefficient. PERFORMED AT [place] [address],[place] [address] Glucose [Mass/Vol] 98 mg/dL 65 - 99 mg/dL [facility] Potassium [Moles/Vol] 4 mmol/L 3.5 - 5.0 mmol/L [facility] Sodium [Moles/Vol] 142 mmol/L 134 - 146 mmol/L [facility] Urea nitrogen [Mass/Vol] 12 mg/dL 5 - 27 mg/dL [facility] HEMOGLOBINon 08-30-2024 Hemoglobin (Bld) [Mass/Vol] 14.8 g/dL Normal 13.0-17.0 [facility] Comment on above: Performed By: #### 7 18-7, BMP #### [facility] ([id number]) [address], [address] [place] [address] Hemoglobinon 08-30-2024 Hemoglobin (Bld) [Mass/Vol] 14.8 g/dL 13.0 - 17.0 g/dL [facility] Hemoglobin (Bld) [Mass/Vol]o n 08-30-2024 [facility] Hemoglobin, blood gaseson Hemoglobin (Bld) [Mass/Vol] 14.8 g/dL 13.0 - 17.0 g/dL [facility] Comment on above: PERFORMED AT [address],[place] [address] No Panel Informationon 08-30 [facility] XR CHEST 2 VWSon 08-30-2024 [...] Dutton MD on 08/30/2024 3:18 PM Normal [facility] XR Chest PA and Lateralon XR CHEST [...] Rodrigo Dutton MD on 08/30/2024 3:18 PM [facility] Radiology Study observation (narrative) [facility] XR Chest PA and LateralOrder ed By: Rodrigo Dutton on 08-30-2024 [facility] Work Phone: No Panel Informationon 08-22 Complexity: simple Destruction method: electrodesiccation and curettage Informed consent: discussed and consent obtained Informed consent comment: The risks of the procedure were discussed, including, but not limited to risks of scarring, darker or assistant vice president pigmentary changes, recurrence, infection, and incomplete removal [...] lidocaine used: 2.0 cc Previous accession number: [id number] [facility] Urology Office/Clinic Noteon 07-21-2024 Urology [...] f/u as previously planned w PRW. Ordered: 62934 Measure Post Void residual urine and/or bladder capacity by US- non-imaging Body Mass Index (BMI) documented 3008F Current tobacco non-user 1036F Depression Screening Negative 3352F E&M of Est. Patient Low 20-29 Min 79224 Influenza immunization status assessed 1030F Medication list [...] Immunizations Vaccine Date Status Comments SARS-CoV-2 (COVID-19) [id number] 06/18/2022 Recorded 2023-05-04: TPV70 influenza virus vaccine, inactivated - Not Given Temporary contraindication - reschedule SARS-CoV-2 (COVID-19) mRNA-1273 vaccine 08/04/2021 Recorded SARS-CoV-2 (COVID-19) Ad26 vaccine 12/19/2020 Recorded SARS-CoV-2 (COVID-19) mRNA-1273 vaccine 12/13/2020 Recor (more content not included)... Normal [facility] Comment on above: Result Comment: [...] used: 1.0cc [facility] Destruction method comment: Scissors Informed consent: discussed and consent obtained Procedure prep: Patient was prepped and draped in usual sterile fashion Prep type: Isopropyl alcohol Anesthesia: the lesion was anesthetized in a standard fashion Anesthetic: 1% lidocaine w/ epinephrine 1-100,000 local infiltration Hemostasis achieved with: electrodesiccation Outcome: patient tolerated procedure well with no complications [facility] Main OR Intraoperative Recor don 07-05-2024 Main OR Intraoperative Record Main OR Intraoperative Record IntraOp Document Type FTURO Summary Primary Physician: Leax CHRISTIANSEN MD Finalized Date/Time: 07/05/24 11:03:43 Pt. Name: MONET BUTSILLOS Paul Crenshaw/Sex: 1950 Male Med Rec #: [id number] Physician: Lexa CHRISTIANSEN MD Financial #: [id number] Pt. Type: O Room/Bed: / Admit/Disch: 07/05/24 [...] Jackelyn Weiss Role Performed Surgeon - Primary Grain Elevator Operator - Primary Scrub - Primary Time [...] E CEDEÑO, Brandi Applicable) Jeny Weiss, [place] SPRING FORGER, Jackelyn A Time Out Complete 07/05/24 10:53:00 [...] 11:03 Brandi Dorantes RN 07/05/24 11:03 Normal [facility] Main OR Preoperative Recordo n 07-05-2024 Main OR Preoperative Record Main OR Preoperative Record Holding Area Document Type FTURO Summary Primary Physician: Lexa CHRISTIANSEN MD Finalized Date/Time: 07/05/24 10:36:20 Pt. Name: MONET BUSTILLOS/Sex: 1950 Male Med Rec #: [id number] Physician: Lexa CHRISTIANSEN MD Financial #: [id number] Pt. Type: O Room/Bed: / Admit/Disch: 07/05/24 [...] Signed By: Dahiana Falcon 07/05/24 10:36 Normal [facility] Operative Reporton Operative Report Operative [...] daily for PVR once again today. Normal [facility] Comment on above: Result Comment: [...] [facility] [address] , [place] [address]- [phone] Medications What How Much When Instructions Unchanged [...] Add (more content not included)... Normal [facility] Urology Office/Clinic Noteon 06-27-2024 Urology Office/Clinic Note [...] 12/12/21 - 80% of 4 cores POS w/[place] 3+4= 7 w/perineural invasio (more content not included)... Normal [facility] Comment on above: Result Comment: Elec tronically Signed By: Lexa CHRISTIANSEN MD\.br\Date and Time Signed: 06/27/24 13:00 EDT\.br\Electronically Co-Signed By: Colleen Souza.br\Date and Time Co-Signed: 06/27/24 12:56 EDT Office Visiton 06-22-2024 Follow-up visit [id number] Monet Bustillos II 1950 M Date Provider Department Center 06/22/2024 166-JANAE LEONARD Family History Problem Relation Age of Onset Alzheimer's disease Father Family Status - Relation Status Age at Father Level of Service:88900 MO OFFICE/OUTPATIENT ESTABLISHED MOD MDM 30 MIN Reason for Visit and Comments: Pre-op Exam [713750] Atrial Fibrillation [80] Hypertension [155947] Normal [facility] MR SHOULDER RIGHT WO IV CONT [...] - Clinical Noteon Retail - Clinical Note [id number] IFF Normal [facility] Retail - Clinical Noteon Retail - Clinical Note [id number] IFF Normal [facility] C Urineon 12-16-2023 Bacteria identified [...] Locations R1: This test was performed at: [facility], [address] [place] [address], [address] , [place], Normal [facility] Comment on above: Performed By: #### 2 [id number] ####[facility] [address] [place] [address] Ambulatory Visit Summaryon 0 12-14-2023 Ambulatory Visit [...] Lexa CHRISTIANSEN MD Where: [facility] [place] Normal [facility] Patient Educationon 12-14-19 Patient Education [...] provider. Document Revised: 12/11/2021 Document Reviewed: 09/06/2021 [employer] Patient Education ? 2021 [employer] Indwelling Urinary Catheter Insertion For people [...] d (more content not included)... 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 Alnais at [facility] for radiation treatment for 4-6 [...] [facility] [address], [place] [address] [phone] Additional Instructions: pt to call w/ update Patient Education Indwelling Urinary Catheter Insertion, Care After Indwelling Urinary Catheter Insertion IColleen, personally scribed for Dr. Christiansen on 12/14/2023 11:44:53. Electronically signed by ed (more content not included)... 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 [...] 2 (more content not included)... Normal [facility] Comment on above: Result Comment: Elec tronically Signed By: Aleena Akins\.br\Date and Time Signed: 12/09/23 15:45 EST Pre-Certification Formon Pre-Certification Form [id number] IFF Normal [facility] Ambulatory Visit Summaryon 0 12-07-2023 [...] Lexa CHRISTIANSEN MD Where: [facility] Normal [facility] Physician Referralon 024 Physician Referral [id number] IFF Normal [facility] Patient Educationon 11-02-19 24 Patient [...] and water are not available, use hand bookstore manager. 2. Clean your penis with soap and [...] catheter in a small bathroom. ? Take duif-dhw-nrekqpt and prescription medicines only as told by your he (more content not included)... Normal [facility] Lab Reportson 10-27-2023 Lab Reports [id number] FF Normal [facility] CBC AUTO DIFFon 12-31-2022 BASO # 0.0 103/ul Normal 0.0-0.[address] [facility] Comment on above: Performed By: #### C BC #### [facility] [address] [place] [address] [address] Henry Marin Basophils/100 WBC (Bld) 0.8 % Normal 0.2-2.[address] [facility] Comment on above: Performed By: #### C BC #### [facility] [address] [place] [address] Dr. Henry Marin EO # 0.2 103/ul Normal 0.0-0.7 [facility] Comment on above: Performed By: #### C BC #### [facility] [address] [place] [address] Dr. Henry Marin Eosinophils/100 WBC (Bld) 3.6 % Normal 0.9-7.0 [facility] Comment on above: Performed By: #### C BC #### [facility] [address] [place] [address] Dr. Henry Marin Erythrocyte distribution width (RBC) [Ratio] 13.2 % Normal 11.0-15.[address] [facility] Comment on above: Performed By: #### C BC #### [facility] [address] [place] [address] Dr. Henry Marin Hematocrit (Bld) [Volume fraction] 45.3 % Normal 42.0-54.[address] [facility] Comment on above: Performed By: #### C BC #### [facility] [address] [place] [address] Dr. Henry Marin Hemoglobin (Bld) [Mass/Vol] 15.7 g/dL Normal 14.0-18.[address] [facility] Comment on above: Performed By: #### C BC #### [facility] [address] [place] [address] Dr. Henry Marin IG # 0.00 10e3/ul Normal 0.00-0.03 [facility] Comment on above: Performed By: #### C BC #### [facility] [address] [place] [address] Dr. Henry Marin IG % 0.0 % Normal 0.0-0.5 [facility] Comment on above: Performed By: #### C BC #### [facility] [address] [place] [address] Dr. Henry Marin LYMPH # 1.7 103/ul Normal 1.2-3.8 [facility] Comment on above: Performed By: #### C BC #### [facility] [address] [place] [address] Dr. Henry Marin Lymphocytes/100 WBC (Bld) 34.8 % Normal 20.5-60.0 [facility] Comment on above: Performed By: #### C BC #### [facility] [address] [place] [address] Dr. Henry Marin MANUAL DIFF REQ NO Normal [facility] Comment on above: Performed By: #### C BC #### [facility] [address] [place] [address] Dr. Henry Marin MCH (RBC) [Entitic mass] 32.6 pg Normal 25.9-34.0 [facility] Comment on above: Performed By: #### C BC #### [facility] [address] [place] [address] Dr. Henry Marin MCHC (RBC) [Mass/Vol] 34.7 g/dL Normal 29.9-35.2 [facility] Comment on above: Performed By: #### C BC #### [facility] [address] [place] [address] Dr. Henry Marin MCV (RBC) [Entitic vol] 94.0 fL Normal 80.0-94.0 [facility] Comment on above: Performed By: #### C BC #### [facility] [address] [place] [address] Dr. Henry Marin MONO # 0.6 103/ul Normal 0.3-0.8 [facility] Comment on above: Performed By: #### C BC #### [facility] [address] [place] [address] Dr. Henry Marin Monocytes/100 WBC (Bld) 13.0 % Critically high 1.7-12.0 [facility] Comment on above: Performed By: #### C BC #### [facility] [address] [place] [address] Dr. Henry Marin NEUT # 2.3 103/ul Normal 1.4-6.5 [facility] Comment on above: Performed By: #### C BC #### [facility] [address] [place], [place] [address] Dr. Henry Marin Neutrophils/100 WBC (Bld) 47.8 % Normal 43.0-75.[address] [facility] Comment on above: Performed By: #### C BC #### [facility] [address] [place] [address] Dr. Henry Marin Platelet mean volume (Bld) [Entitic vol] 9.7 fL Normal 9.5-13.[address] [facility] Comment on above: Performed By: #### C BC #### [facility] [address] [place] [address] Dr. Henry Marin PLT 135 103/ul Critically low 150-450 [facility] Comment on above: Performed By: #### C BC #### [facility] [address] [place] [address] Dr. Henry Marin RBC 4.82 106/ul Normal 4.70-6.[address] [facility] Comment on above: Performed By: #### C BC #### [facility] [address] [place] [address] Dr. Henry Marin WBC 4.8 103/ul Normal 4.0-11.[address] [facility] Comment on above: Performed By: #### C BC #### [facility] [address] [place] [address] Dr. Henry Marin LIPID PROFILEon 12-31-2022 CHOL-HDL RATIO NORM SEE BELOW Normal [facility] Comment on above: Result Comment: 3.3 - 4.4 LOW RISK 4.4 - 7.1 AVERAGE RISK 7.1 - 11.0 MODERATE RISK >11.0 HIGH RISK Performed By: #### B MP, ALT, LIPID #### [facility] [address] [place] [address] Dr. Henry Marin Cholesterol [Mass/Vol] 169 mg/dL Normal <=[address] [facility] Comment on above: Performed By: #### B MP, ALT, LIPID #### [facility] [address] [place] [address] Dr. Henry Marin Cholesterol in HDL [Mass/Vol] 59 mg/dL Normal 40-[address] [facility] Comment on above: Performed By: #### B MP, ALT, LIPID #### [facility] [address] [address] [address] Henry Marin Cholesterol in LDL [Mass/Vol] 91.6 mg/dL Normal [facility] Comment on above: Performed By: #### B MP, ALT, LIPID #### [facility] [address] [address] [address] Henry Marin Cholesterol.total/C holesterol in HDL [Mass ratio] 2.9 {ratio} Normal [facility] Comment on above: Performed By: #### B MP, ALT, LIPID #### [facility] [address] [address] [address] Henry Marin HDL NORMAL > or = 60 mg/dl - LO W CARDIOVASCULAR RISK <40 mg/dl - HIGH CARDIOVASCULAR RISK Normal [facility] Comment on above: Performed By: #### B MP, ALT, LIPID #### [facility] [address] [place] [address] Dr. Henry Marin LDL CALC NORMAL SEE BELOW Normal [facility] Comment on above: Result Comment: <100 mg/dl OPTIMAL 100 - 129 mg/dl NEAR OR ABOVE OPTIMAL 130 - 159 mg/dl BORDERLINE HIGH 160 - 189 mg/dl HIGH >190 mg/dl VERY HIGH Performed By: #### B MP, ALT, LIPID #### [facility] [address] [address] [address] Henry Marin Triglyceride [Mass/Vol] 92 mg/dL Normal <=150 [facility] Comment on above: Performed By: #### B MP, ALT, LIPID #### [facility] [address] [place] [address] Dr. Henry Marin VLDL CALC 18.4 mg/dL Normal [facility] Comment on above: Performed By: #### B MP, ALT, LIPID #### [facility] [address] [place] [address] Dr. Henry Marin PROF CHEM 8 (BAS METB)on Anion gap [Moles/Vol] 11.8 mmol/L Normal [facility] Comment on above: Performed By: #### B MP, ALT, LIPID #### [facility] [address] [address] [address] Henry Marin Calcium [Mass/Vol] 8.6 mg/dL Normal 8.5-10.1 [facility] Comment on above: Performed By: #### B MP, ALT, LIPID #### [facility] [address] [address] [address] Henry Marin Chloride [Moles/Vol] 106 mmol/L Normal 98-107 [facility] Comment on above: Performed By: #### B MP, ALT, LIPID #### [facility] [address] [address] [address] Henry Marin CO2 [Moles/Vol] 28.3 mmol/L Normal 21.0-32.0 [facility] Comment on above: Performed By: #### B MP, ALT, LIPID #### [facility] [address] [place] [address] Dr. Henry Marin Creatinine [Mass/Vol] 1.01 mg/dL Normal 0.70-1.[address] [facility] Comment on above: Performed By: #### B MP, ALT, LIPID #### [facility] [address] [address] [address] Henry Marni EGFR-AF VINCENTIAN >60 Normal >=60 [facility] Comment on above: Performed By: #### B MP, ALT, LIPID #### [facility] [address] [place] [address] Dr. Henry Marin EGFR-NON AF VINCENTIAN >60 Normal >=60 [facility] Comment on above: Performed By: #### B MP, ALT, LIPID #### [facility] [address] [address] [address] Henry Marin Glucose [Mass/Vol] 106 mg/dL Normal 74-106 [facility] Comment on above: Performed By: #### B MP, ALT, LIPID #### [facility] [address] [address] [address] Henry Marin Potassium [Moles/Vol] 4.1 mmol/L Normal 3.5-5.1 [facility] Comment on above: Performed By: #### B MP, ALT, LIPID #### [facility] [address] [place], [place] [address] Dr. Henry Marin Sodium [Moles/Vol] 142 mmol/L Normal 136-145 [facility] Comment on above: Performed By: #### B MP, ALT, LIPID #### [facility] [address] [address] [address] Henry Marin Urea nitrogen [Mass/Vol] 13.0 mg/dL Normal 7.0-18.[address] [facility] Comment on above: Performed By: #### B MP, ALT, LIPID #### [facility] [address] [address] [address] Henry Marin Urea nitrogen/Creatinine [Mass ratio] 12.9 mg/mg Normal [facility] Comment on above: Performed By: #### B MP, ALT, LIPID #### [facility] [address] [address] [address] Henry Marin SGPTon 12-31-2022 ALT [Catalytic activity/Vol] 23 U/L Normal 16-[address] [facility] Comment on above: Performed By: #### B MP, ALT, LIPID #### [facility] [address] [address] [address] Henry Marin Blood Urea Nitrogenon 2021 Urea nitrogen [Mass/Vol] 10 mg/dL Normal 9-23 [facility] Comment on above: Order Comment: STAT FOR MRI Performed By: #### C PEPE BUN #### [facility] [address] [place] [address] [place] Creatinineon 11-20-2021 Creatinine [Mass/Vol] 1.00 mg/dL Normal 0.64-1.27 [facility] Comment on above: Order Comment: STAT FOR MRI Performed By: #### C PEPE BUN #### [facility] [address] Creatinine Clr Calc Pharmacy 86.83 Normal [facility] Comment on above: Order Comment: STAT FOR MRI Result Comment: PERF ORMED BY: [place] [address] PATHOLOGIST CRATE OPENER GUSTAVO CHANDLER M.D. Performed By: #### C REAT, BUN #### [facility] [address] [place] [address] Estimated GFR ( Arielle > 60 Normal [facility] Comment on above: Order Comment: STAT FOR MRI Result Comment: GFR estimated reference range: According to KDOQI guidelines, <60 ml/min/1.73m2 is sufficient to diagnose a patient with chronic kidney disease. Performed By: #### C REAT, BUN #### [address] Estimated GFR (Non- Am > 60 Normal [facility] Comment on above: Order Comment: STAT FOR MRI Performed By: #### C REAT, BUN #### [address] MR prostate wo/w conon 11-20 MR prostate wo/w con [facility] [place] [address] [place] [address] MRI Report Signed Patient: Monet Bustillos MR#: [id number] : 1950 Acct:[id number] Age/Sex: 70 / M ADM Date: 11/20/21 [...] Dinero Jr., D.OPeggy11/20/2021 3:11 PM Dictation Location: [address] [place] [address] Transcribed By: [facility] 11/20/21 1511 Dictated By: Kolby Dinero Jr, DO 11/20/21 1454 Signed By: 11/20/21 1511 [facility] Vital Signs Date Time Vital Sign Value Performing Clinician Facility 09-09-2024 10:38-0500 Blood Pressure Location Lexa CHRISTIANSEN [facility] 09-09-2024 10:38-0500 Body temperature 98.6 [degF] Lexa CHRISTIANSEN [facility] 09-09-2024 10:38-0500 Diastolic blood pressure 80 mm[Hg] Lexa CHRISTIANSEN [facility] 09-09-2024 10:38-0500 Heart rate 56 /min Lexa CHRISTIANSEN [facility] 09-09-2024 10:38-0500 Respiratory rate 18 /min Lexa CHRISTIANSEN [facility] 09-09-2024 10:38-0500 Systolic blood pressure 129 mm[Hg] Lexa CHRISTAINSEN [facility] 09-06-2024 10:07-0500 Body height 182.9 cm Barbara FONTENOT Work Phone: [facility] 09-06-2024 10:07-0500 Body mass index (BMI) [Ratio] 25.77 kg/m2 Barbara FONTENOT Work Phone: [facility] 09-06-2024 10:07-0500 Body weight 86.18 kg Barbara FONTENOT Work Phone: [facility] 08-30-2024 09:26-0500 Body height 182.9 cm P[facility] 2 [facility] 08-30-2024 09:26-0500 Body mass index (BMI) [Ratio] 25.9 kg/m2 Pm 2 [facility] 08-30-2024 09:26-0500 Body weight 86.64 kg Pm 2 [facility] 07-21-2024 15:12-0400 Blood Pressure Location VALENTIN DICKERSON [facility] 07-21-2024 15:12-0400 Diastolic blood pressure 62 mm[Hg] VALENTIN DICKERSON [facility] 07-21-2024 15:12-0400 Heart rate 64 /min VALENTIN IDCKERSON [facility] 07-21-2024 15:12-0400 Systolic blood pressure 109 mm[Hg] VALENTIN DICKERSON [facility] 06-27-2024 11:40-0400 Diastolic blood pressure 70 mm[Hg] Lexa CHRISTIANSEN [facility] 06-27-2024 11:40-0400 Heart rate 70 /min Lexa CHRISTIANSEN [facility] 06-27-2024 11:40-0400 Systolic blood pressure 136 mm[Hg] Lexa CHRISTIANSEN [facility] 11-04-2023 15:45-0500 Body height 182.88 cm Giacomo Ball Other [employer] [facility] [employer] Other 11-04-2023 15:45-0500 Body mass index (BMI) [Ratio] 30.11 kg/m2 Giacomo Ball Other [employer] Other 11-04-2023 15:45-0500 Body weight 100.7 kg Giacomo Ball Other [employer] Other 11-04-2023 15:45-0500 Diastolic blood pressure 78 mm[Hg] Giacomo Ball Other [employer] Other 11-04-2023 15:45-0500 Respiratory rate 12 /min Giacomo Ball Other [employer] Other 11-04-2023 15:45-0500 Systolic blood pressure 123 mm[Hg] Giacomo Ball Other [employer] Other 11-02-2023 12:57-0500 Blood Pressure Location Lexa CHRISTIANSEN [facility] 11-02-2023 12:57-0500 Diastolic blood pressure 77 mm[Hg] Lexa CHRISTIANSEN [facility] 11-02-2023 12:57-0500 Heart rate 57 /min Lexa CHRISTIANSEN [facility] 11-02-2023 12:57-0500 Respiratory rate 16 /min Lexa CHRISTIANSEN [facility] 11-02-2023 12:57-0500 Systolic blood pressure 132 mm[Hg] Lexa CHRISTIANSEN [facility] 07-21-2023 14:00-0400 Body height 182.88 cm Giacomo Ball Other [employer] [facility] [employer] Other 07-21-2023 14:00-0400 Body mass index (BMI) [Ratio] 29.83 kg/m2 Giacomo Ball Other [employer] Other 07-21-2023 14:00-0400 Body weight 99.79 kg Gaicomo Ball Other [employer] Other 07-21-2023 14:00-0400 Diastolic blood pressure 65 mm[Hg] Giacomo Ball Other [employer] Other 07-21-2023 14:00-0400 Respiratory rate 12 /min Giacomo Ball Other [employer] Other 07-21-2023 14:00-0400 Systolic blood pressure 114 mm[Hg] Giacomo Ball Other [employer] Other 01-16-2023 12:00-0400 Body height 182.88 cm Giacomo Ball Other [employer] Other 01-16-2023 12:00-0400 Body mass index (BMI) [Ratio] 30.92 kg/m2 Giacomo Ball Other [employer] Other 01-16-2023 12:00-0400 Body weight 103.42 kg Giacomo Ball Other [employer] Other 01-16-2023 12:00-0400 Diastolic blood pressure 67 mm[Hg] Giacomo Ball Other [employer] Other 01-16-2023 12:00-0400 Respiratory rate 12 /min Giacomo Ball Other [employer] Other 01-16-2023 12:00-0400 Systolic blood pressure 115 mm[Hg] Giacomo Ball Other [employer] Other Encounters Encounter Date Encounter Type Care Provider Facility Start: 11-29-2024 End: 11-29-2024 Bamboo flowsheet Barbara FONTENOT Work Phone: [facility] Start: 11-29-2024 End: 11-29-2024 Bamboo flowsheet Barbara FONTENOT Work Phone: [facility] Start: 11-29-2024 End: 11-29-2024 Postop follow up visit related to original px Barbara FONTENOT Work Phone: [facility] Comment on above: Status post right ro tator cuff repair (Primary Dx) Start: 11-29-2024 End: 11-29-2024 ambulatory BARBARA RAMÍREZ Not Available Start: 11-01-2024 End: 11-01-2024 Bamboo flowsheet Barbara FONTENOT Work Phone: [facility] Start: 11-01-2024 End: 11-01-2024 Bamboo flowsheet Barbara Ramírez PA Work Phone: [facility] Start: 11-01-2024 End: 11-01-2024 ambulatory BARBARA RAMÍREZ Not Available Start: 11-01-2024 End: 11-01-2024 Patient encounter procedure Barbara FONTENOT Work Phone: [facility] Comment on above: Status post right ro tator cuff repair (Primary Dx) Start: 10-03-2024 End: 10-03-2024 Bamboo flowsheet Julián Stevens PIPE CUTTER Work Phone: [facility] Start: 10-03-2024 End: 10-03-2024 Bamboo flowsheet Julián Stevens PIPE CUTTER Work Phone: [facility] Start: 10-03-2024 End: 10-03-2024 Postop follow up visit related to original px Julián Stevens PIPE CUTTER Work Phone: [facility] Comment on above: Status post right ro tator cuff repair (Primary Dx) Start: 10-03-2024 End: 10-03-2024 ambulatory JULIÁN STEVENS Not Available Start: 09-20-2024 End: 09-20-2024 Evaluation and management of inpatient JESSA PRICE [facility] Start: 09-20-2024 End: 09-20-2024 Evaluation and management of inpatient MYA Aniya NAVARRO [facility] Start: 09-19-2024 End: 09-19-2024 Refill Julián Stevens PIPE CUTTER Work Phone: [facility] Comment on above: Internal derangement of right shoulder (Primary Dx) Start: 09-09-2024 ambulatory Lexa CHRISTIANSEN Facili ty:[facility] Start: 09-09-2024 End: 09-09-2024 Patient encounter procedure Lexa CHRISTIANSEN [facility] Start: 09-06-2024 End: 09-06-2024 Bamboo flowsheet Barbara FONTENOT Work Phone: [facility] Start: 09-06-2024 End: 09-06-2024 Bamboo flowsheet Barbara FONTENOT Work Phone: [facility] Start: 09-06-2024 End: 09-06-2024 Patient encounter procedure Barbara FONTENOT Work Phone: [facility] Comment on above: Pre-op examination ( Primary Dx) Start: 09-06-2024 End: 09-06-2024 Preprocedural examination done Barbara FONTENOT Work Phone: [facility] Work Phone: Start: 09-06-2024 End: 09-06-2024 ambulatory BARBARA RAMÍREZ Not Available Start: 08-30-2024 End: 08-30-2024 External Result Encounter Jr. Mya Navarro DO Work Phone: [facility] External Department Unsolicited Start: 08-30-2024 End: 08-30-2024 External Result Encounter Jr. Mya Navarro DO Work Phone: [facility] External Department Unsolicited Start: 08-30-2024 End: 08-30-2024 ambulatory MYA NAVARRO [facility] Start: 08-30-2024 Encounter for other [facility]ced[facility] Start: 08-30-2024 End: 08-30-2024 Patient encounter procedure Pm Pre-Admission Testing 2 [facility] - Pre Admit Comment on above: Preop examination (P rimary Dx); Hypertension, unspecified type; Paroxysmal atrial fibrillation ([facility]) Start: 08-30-2024 End: 08-30-2024 Preprocedural examination done Pm 2 [facility] Start: 08-22-2024 End: 08-22-2024 Bamboo flowsheet [...] Bamboo flowsheet Mya Navarro DO Work Phone: [facility] Start: 07-25-2024 End: 07-25-2024 Bamboo flowsheet Mya Kwan Stepbashir DO Work Phone: [facility] Start: 07-25-2024 End: 07-25-2024 Office outpatient visit 25 minutes Mya Aniya Ramon DO Work Phone: [facility] Comment on above: Internal derangement of right shoulder (Primary Dx) Start: 07-25-2024 End: 07-25-2024 ambulatory JR. MYA Aniya NAVARRO Not Available Start: 07-21-2024 End: 07-21-2024 ambulatory VALENTIN DICKERSON Facility:[facility] Start: 07-21-2024 End: 07-21-2024 Patient encounter procedure VALENTIN DICKERSON [facility] Start: 07-11-2024 End: 07-11-2024 Bamboo flowsheet Nely [...] Start: 07-05-2024 End: 07-05-2024 ambulatory Lexa CHRISTIANSEN Facility:[facility] Start: 07-05-2024 End: 07-05-2024 Patient encounter procedure Lexa CHRISTIANSEN [facility] Start: 06-27-2024 End: 06-27-2024 ambulatory Lexa CHRISTIANSEN Facility:[facility] Start: 06-27-2024 End: 06-27-2024 Patient encounter procedure Lexa CHRISTIANSEN [facility] Start: 06-22-2024 End: 06-22-2024 ambulatory [facility] Start: 06-22-2024 End: 06-22-2024 Encounter for other preprocedural examination [facility] Start: 05-23-2024 End: 05-23-2024 ambulatory JR., MYA [...] procedure Lexa Cain CHRISTIANSEN [facility] Start: 12-14-2023 End: 12-14-2023 ambulatory Lexa CHRISTIANSEN Facility:[facility] Start: 12-14-2023 End: 12-14-2023 Lab Drop off Lexa CHRISTIANSEN [facility] Start: 12-09-2023 ambulatory Yadiel Barlow CHAYA Facility : [facility] Start: 12-07-2023 End: 12-07-2023 ambulatory Lexa CHRISTIANSEN Facility: [facility] Start: 12-07-2023 End: 12-07-2023 Patient encounter procedure Lexa CHRISTIANSEN [facility] Start: 11-16-2023 End: 11-16-2023 ambulatory Lexa CHRISTIANSEN Facility:[facility] Start: 11-16-2023 End: 11-16-2023 Patient encounter procedure Lexa CHRISTIANSEN [facility] Start: 11-09-2023 ambulatory Lexa CHRISTIANSEN Facility :[facility] Start: 11-05-2023 End: 11-05-2023 ambulatory Giacomo Ragsdale Other [employer] Other Start: 11-05-2023 Telephone encounter Giacomo JIMENEZ G [facility] Start: 11-04-2023 End: 11-04-2023 ambulatory Giacomo Ragsdale Other [employer] Other Start: 11-04-2023 Office outpatient vi sit 15 minutes Giacomo Ragsdale [facility] Start: 11-02-2023 End: 11-02-2023 ambulatory Lexarbuce CHRISTIANSEN Facility:[facility] Start: 11-02-2023 End: 11-02-2023 Patient encounter procedure Lexa CHRISTIANSEN [facility] Start: 08-24-2023 End: 08-24-2023 ambulatory Giacomo Ragsdale Other [employer] Other Start: 08-24-2023 Telephone encounter Giacomo JIMENEZ G [facility] Start: 08-06-2023 End: 08-06-2023 ambulatory Giacomo Ragsdale Other [employer] Other Start: 08-06-2023 Telephone encounter Giacomo Ragsdale [facility] Start: 08-05-2023 End: 08-05-2023 ambulatory Giacomo Ragsdale Other [employer] Other Start: 08-05-2023 Telephone encounter Giacomo Ragsdale [facility] Start: 07-23-2023 End: 07-23-2023 ambulatory Giacomo Ragsdale Other [employer] Other Start: 07-23-2023 Telephone encounter Giacomo Ragsdale [facility] Start: 07-21-2023 End: 07-21-2023 ambulatory Giacomo Ragsdale Other [employer] Other Start: 07-21-2023 Office outpatient vi sit 25 minutes Giacomo Ragsdale [facility] Start: 04-14-2023 End: 04-14-2023 ambulatory Giacomo Ragsdale Other [employer] Other Start: 04-14-2023 Telephone encounter Giacomo Ragsdale [facility] Start: 01-19-2023 End: 01-19-2023 ambulatory Giacomo Ragsdale Other [employer] Other Start: 01-19-2023 Telephone encounter Giacomo Ragsdale [facility] Start: 01-16-2023 End: 01-16-2023 ambulatory Giacomo Ragsdale Other [employer] Other Start: 01-16-2023 Patient encounter procedure Giacomo [...] above: Performed By: #### P SAD #### [facility] [address] [place] [address] Dr. Henry Marin Start: 07-02-[address] DOCTOR MORE Comment on above: Performed By: #### P SAD #### [facility] [address] [place] [address] Dr. Henry Marin Start: 03-06-2022 Mixed beam [...] post right rotator cuff repair Julián Stevens PIPE CUTTER Work Phone: History of repair of musculotendinous cuff of shoulder Status post right rotator cuff repair Barbara Ramírez PA Work Phone: History of repair of musculotendinous cuff of shoulder Status post right rotator cuff repair Barbara FONTENOT Work Phone: Prosthetic arthropla sty of the hip Lexa CHRISTIANSEN Plan of Treatment Date Care Activity Detail Author Start: 08-30-2025 Tobacco Screening Tobacco Screening [facility] Start: 07-11-2025 End: 07-11-2025 Patient encounter procedure 07/11/2025 12:30 PM EDT Office Visit [facility] [address] [place] [address] Nely Yao PA [address] [place] [address] [facility] Start: 11-29-2024 End: 11-29-2024 Patient encounter procedure [facility] Comment on above: Status post right rotator cuff repair (P rimary Dx) Start: 10-31-2024 End: 10-31-2024 Patient encounter procedure 10/31/2024 10:45 AM EST Office Visit [facility] [address] [address] Julián Stevens, TAMELA [address] [facility] [place], [place] [phone] [facility] Start: 10-06-2024 End: 10-06-2024 Patient encounter procedure 10/06/2024 1:15 PM EST Office Visit [facility] [address] [place] [phone] Barbara Ramírez PA [address] [facility] [address] [place] [address] [facility] Start: 10-03-2024 End: 10-03-2024 Patient encounter procedure 10/03/2024 11:15 AM EST Office Visit [facility] [address] [place] [phone] Julián Stevens, PIPE CUTTER [address] [place], [place] [phone] Arrived [facility] Comment on above: Arrived Start: 09-21-2024 End: 09-21-2024 Patient encounter procedure 09/21/2024 10:00 AM EST Office Visit [facility] [address] [place] [phone] Barbara Ramírez, PA [address] [place] [address] [facility] Start: 09-20-2024 End: 09-20-2024 Admission to same day surgery center 09/20/2024 12:30 PM EST - 09/20/2024 2:30 PM EST Surgery [facility] [address] [place] [address] Mya Navarro Jr., DO [address] [facility] [address] [place] [address] ARTHROSCOPIC REPAIR ROTATOR CUFF SHOULDER [86599 (CPT )] [facility] Comment on above: ARTHROSCOPIC REPAIR ROTATOR CUFF SHOULDE R [90270 (CPT )] Start: 09-20-2024 End: 09-20-2024 Arthroscopy shoulder biceps tenodesis ARTHROSCOPIC TENODESIS BICEPS SHOULDER right shoulder internal derangement 09/20/2024 12:30 PM EST [facility] Start: 09-20-2024 End: 09-20-2024 Arthroscopy shoulder rotator cuff repair ARTHROSCOPIC REPAIR ROTATOR CUFF SHOULDER right shoulder internal derangement 09/20/2024 12:30 PM EST [facility] Start: 09-20-2024 End: 09-20-2024 Patient encounter procedure 09/20/2024 12:30 PM EST Procedure Visit [facility] Jr. Mya Navarro, DO [address] [place] [address] [facility] Start: 09-20-2024 Subsequent hospital visit by physician 09/20/2024 12:30 PM EST Hospital Encounter [facility] [address] [place] [address] Mya Navarro Jr., DO [address] [facility] [address] [place] [address] [facility] Start: 09-20-2024 End: 09-20-2024 Patient encounter procedure 09/20/2024 7:30 AM EST Procedure Visit [facility] Jr. Mya Navarro, DO [address] [facility] [address] [place] [address] [facility] Start: 09-14-2024 COVID-19 Vaccine ( season) COVID-19 Vaccine ( season) [facility] Start: 09-06-2024 End: 09-06-2024 Patient encounter procedure [facility] Comment on above: Pre-op examination (Primary Dx) Start: 08-30-2024 End: 08-30-2024 Patient encounter procedure 08/30/2024 10:00 AM EST Office Visit [facility] [address] [place] [phone] Barbara Ramírez, PA [address] [facility] [address] [place] [address] [facility] Start: 08-19-2024 End: 08-19-2024 Patient encounter procedure 08/19/2024 1:15 PM EST Office Visit [facility] [address] [place] [phone] Erika Dunn MD [address] [place] [address] [facility] Start: 07-25-2024 End: 07-25-2024 Patient encounter procedure [facility] Comment on above: Arrived Start: 06-05-2024 Influenza vaccination [facility] Start: 01-20-2023 Fall Risk Screening Fall Risk Screening [facility] Start: 2013 Abdominal aortic aneurysm screening Abdominal Aortic Aneurysm (AAA) Screen [facility] Start: 2013 Pneumococcal Vaccine: 65+ Years (1 of 1 - PCV) Pneumococcal Vaccine: 65+ Years (1 of 1 - PCV) [facility] Start: 12-27-1967 Administration of varicella zoster vaccine Zoster (Shingles) Vaccine (1 of 2) [facility] Start: 12-27-1967 DTaP,Tdap and Td Vaccines (1 - Tdap) DTaP,Tdap and Td Vaccines (1 - Tdap) [facility] Start: 1960 Depression Screening Depression Screening [facility] Start: 1948 Screening for malignant neoplasm of colon [facility] Dermatopathology exam Dermatopat hology exam Pathology and Cytology Timed Neoplasm of unspecified behavior of bone, soft tissue, and skin Release Upon Ordering for 1 Occurrences starting 07/11/2024 [facility] Work Phone: Comment on above: Release Upon Ordering for 1 Occurrences starting 07/11/2024 Immunizations Immunization Date Immunization Notes Care Provider Marquez corral 06-18-2022 COVID-19 Moderna (BIvalent) Giacomo Ragsdale Other [facility] Comment on above: Result Comment: 2022: [id number] 08-04-2021 COVID-19 Vaccine Moderna - Documentation Purposes Only Giacomo Ragsdale Other [facility] 12-19-2020 SARS-CoV-2 (COVID-19 ) Ad26 vaccine, recombinant Lexa CHRISTIANSEN [facility] 12-13-2020 COVID-19 Vaccine Moderna - Documentation Purposes Only Giacomo Ragsdale Other [facility] Comment on above: Result Comment: 2022: [id number] 11-15-2020 COVID-19 Vaccine Moderna - Documentation Purposes Only Giacomo Ragsdale Other [facility] 11-15-2020 SARS-CoV-2 (COVID-19 ) Ad26 vaccine, recombinant Lexa CHRISTIANSEN [facility] 07-17-2017 diphtheria, tetanus toxoids and acellular pertussis vaccine, unspecified formulation Giacomo Ragsdale Other [facility]24 Other Payers Date Payer Category Payer Private Health Insurance [id number] 2020 Commercial Managed C [place] [address] [id number] 2013 Medicare [id number] 1959 Medicare [id number] 1959 Private Health Insurance [id number] 1948 Unknown [id number] 2.16.840.1.239125.3.579. 2.593 1948 Unknown [id number] 2.16.840.1.428484.3.579. 2.593 1948 Unknown [id number] 2.16.840.1.511852.3.579. 2.593 1948 Unknown [id number] 2.16.840.1.996292.3.579. 2.593 1948 Unknown [id number] 2.16.840.1.326489.3.579. 2.727 1948 Unknown [id number] 2.16.840.1.383135.3.579. 2.72 1948 Unknown [id number] 2.16.840.1.149430.3.579. 2.72 1948 Unknown [id number] 2.16.840.1.334136.3.579. 2. 1948 Unknown [id number] 2.16.840.1.464108.3.579. 2. 1948 Unknown [id number] 2.16.840.1.532178.3.579. 2. 1948 Unknown [id number] 2.16.840.1.601728.3.579. 2. 1948 Unknown [id number] 2.16.840.1.603189.3.579. 2. 1948 Unknown [id number] 2.16.840.1.675503.3.579. 2. 1948 Unknown [id number] 2.16.840.1.957297.3.579. 2. 1948 Unknown [id number] 2.16.840.1.640743.3.579. 2.1285 1948 Unknown [id number] 2.16840.1.354815.3.579. 2.128 1948 Unknown [id number] 2.16.840.1.247558.3.579. 2.128 1948 Unknown [id number] 2.16.840.1.285705.3.579. 2.1285 1948 Unknown [id number] 2.16.840.1.427823.3.579. 2.1285 1948 Unknown [id number] 2.16.840.1.947745.3.579. 2.128 1948 Unknown [id number] 2.16.840.1.199356.3.579. 2.125 1948 Unknown [id number] 2.16.840.1.398122.3.579. 2.125 1948 Unknown [id number] 2.16.840.1.474909.3.579. 2.125 1948 Unknown [id number] 2.16.840.1.005521.3.579. 2.125 1948 Unknown [id number] 2.16.840.1.887870.3.579. 2.1258 1948 Unknown [id number] 2.16.840.1.524746.3.579. 2.1258 1948 Unknown [id number] 2.16.840.1.128711.3.579. 2.1258 1948 Unknown [id number] 2.16.840.1.715229.3.579. 2.125 1948 Unknown [id number] 2.16.840.1.058383.3.579. 2.1258 1948 Unknown [id number] 2.16.840.1.068572.3.579. 2.1258 1948 Unknown [id number] 2.16.840.1.476536.3.579. 2.1258 1948 Unknown [id number] 2.16.840.1.306927.3.579. 2.125 1948 Unknown [id number] 2.16.840.1.851377.3.579. 2.1258 Unknown [id number] 2.16840.1.997918.19 Social History Date Type Detail Facility Start: 05-23-2024 End: 11-01-2024 Sex Assigned At [facility] Start: 11-02-2023 End: 03-21-2024 Tobacco smoking status Ex-smoker (finding) [facility] Tobacco smoking status Never [facility] End: 05-28-2010 History of tobacco use Current smoker [facility] End: 05-28-2010 History of tobacco use Pipe Smoker [facility] Start: 03-21-2024 End: 08-30-2024 Tobacco use and exposure Smokeless tobacco non-user [facility] Start: 05-23-2024 End: 11-29-2024 Alcoholic beverage intake Current drinker of alcohol (finding) [facility] Start: 05-23-2024 End: 11-01-2024 History of Social function [facility] Start: 03-21-2024 Alcohol Comment 1/DAY [facility] Start: 1950 Sex assigned at Not on file N [facility] Start: 08-30-2024 Tobacco Comment years ago for a short period [facility] Start: 05-14-2020 Alcohol Comment 2 drinks per day tot al [facility] Start: 05-10-2015 Sex Male (finding) [facility] Medical Equipment Procedure Code Equipment Code Equipment Origin al Text Equipment Identifier Dates Shl Actb 56mm Hi p 4 Hl Fin Pps - [id number] Start: 05-28-2020 Linr Actb G7 Ntr l E1 36mm F - [id number] Start: 05-28-2020 Stm Fem 121mm 13 3d 18 Hi Os - [id number] Start: 05-28-2020 Slv Fem Opt +3mm Tpr Hip Blx D Rpl 650-1067 - [id number] Start: 05-28-2020 Hd Fem 36mm Opt Shl Actb G7 Bl Rpl 650-1057 - [id number] Start: 05-28-2020 Goals Date Patient Goal Desired Activity /State Personal health goal Comment on above: Formatting of this n ote might be different from the original. Evaluation of progress towards goal: Maximize work with PT at discharge to strengthen L hip Functional Status Date Assessment Result Facility 09-09-2024 Functional Status N/A [facility] 07-21-2024 Functional Status N/A [facility] 07-05-2024 Functional Status N/A [facility] 06-27-2024 Functional Status N/A [facility] 12-14-2023 Functional Status N/A [facility] 11-02-2023 Functional Status N/A [facility] Clinical Notes 01-16-2023 to 11-29-2024 Barbara Ramírez, [...] WKS). PHYSICAL THERAPY @ [facility] [place] CONTINUES PT OVERALL IMPROVED. 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 Would appreciate them working on his [...] requiring urgent evaluation. documented in this encounter [facility] 11-01-2024 History of Present illness Narrative Images from the original note were not included. HISTORY OF PRESENT ILLNESS: POST OP PT Monet Bustillos is an 73 y.o. @ male. (EST PT) PO (R) SHOULDER RCR, BICEP TENODESIS AND SAD 09/20/24 (6 WKS). PHYSICAL THERAPY @ [facility] [place] WEARING ULTRA SLING. NOTES SOME IMPROVEMENT. CONTINUES [...] Referral Reason: Specialty Services Required Referral Location: [facility] Centralized Scheduling Requested Specialty: Physical [...] exercises, including home exercises, wall walks, and mnnjer-lsg-nhez stretches, all of which he tolerated well. [...] requiring urgent evaluation. documented in this encounter [facility] 10-03-2024 History of Present illness [...] develop for requiring urgent evaluation. Julián Stevens APRN-[employer]MER documented in this encounter [facility] 09-19-2024 Telephone encounter Note Post op pain rx. PDMP reviewed [facility] 09-19-2024 Miscellaneous Notes Post op pain rx. PDMP reviewed documented in this encounter [facility] 09-09-2024 Hospital Discharge instructions Patient [...] and water are not available, use hand bookstore manager. 2.Clean your penis with soap and water. [...] reusable catheter in a small bathroom. Take wjrm-bip-qeaxemo and prescription medicines only as told by [...] provider. Document Revised: 05/18/2023 Document Reviewed: 05/18/2023 [employer] Patient Education 2023 [employer]onJax. Follow Up Care 07/05/2024 11:31:08 With:WALLY PERALTA, Lexa Barlow, URL Address: [address] [place], [place] [id number]- When: Unknown [facility] 09-06-2024 History of Present illness Narrative Images from the original note were not included. GENERAL HISTORY AND PHYSICAL: NAME: Monet Bustillos : 1950 HISTORY OF PRESENT ILLNESS: Monet Bustillos is an 73 y.o. @ male. Here for surgery instructions (R) SHOULDER SCOPE 09/20/24 @ [facility] PAST MEDICAL HISTORY: Past Medical [...] @ 10:00AM PAT 08/30/24 @ 9:00AM - [facility] CARDIAC CLEARANCE / ELIQUIS RECEIVED MEDICARE - NPAR ULTRASLING DISPENSED / FITTED Follow up for 10/06/24 @ 1:15PM - [place]. documented in this encounter [facility] 08-30-2024 Instructions Tiffanie Corcoran RN - 08/30/2024 9:00 AM EST Preoperative Education Checklist- General Surgery date: 09/20/24 Surgery time: 1230p Arrival time: 1030a 1. Bring a photo ID and your insurance card with you the day of surgery. You will check in at the main lobby of the [facility]- registration desk is straight ahead as soon as you walk in. Tell them you are here for surgery. 2. If you have a Living Will/Durable Power of Chromium Plater for Health Care that is not on [...] after you have bathed. 5. NO nail khmer/acrylic on at least one finger. If you are having a hand, wrist or foot surgery then all nail khmer and artificial/acrylic nails must be removed from [...] please call the Preadmission Testing office at [phone], Mon.-Fri. 7 a.m.-3 p.m. Leave a voicemail [...] with your doctor. documented in this encounter [facility] 08-22-2024 History of Present illness Narrative Images [...] limited to risks of scarring, darker or assistant vice president pigmentary changes, recurrence, infection, and incomplete removal [...] lidocaine used: 2.0 cc Previous accession number: [id number] Treatment options reviewed with patient, benefits and efficacy of Cryotherapy vs ED&C discussed. ED&C today, instructed patient to contact the office for any new lesions that bleed, grow in size, or are not healing. Next Visit: as scheduled documented in this encounter [facility] 07-25-2024 History of Present illness [...] Mya Navarro D.O. documented in this encounter [facility] 07-21-2024 Hospital Discharge instructions Patient [...] Follow these instructions at home: Medicines Take kbpf-drj-unpkfeq and prescription medicines only as told by [...] provider. Document Revised: 06/12/2021 Document Reviewed: 06/12/2021 H[employer]cal Patient Education 2023 FonJax. Follow Up Care 07/21/2024 10:59:03 With:Keep previously scheduled follow up with Dr Christiansen in September Address:Unknown When: Unknown [facility] 07-21-2024 Note Patient Education Urology Acute Urinary [...] these instructions at home: Medicines ? Take acay-xpg-powkjsh and prescription medicines only as told by [...] provider. Document Revised: 06/12/2021 Document Reviewed: 06/12/2021 Hypecal Patient Education ? 2023 FonJax. [facility] 07-11-2024 History of Present illness [...] limited to risks of scarring, darker or assistant vice president pigmentary changes, recurrence, incomplete removal and infection. [...] limited to risks of scarring, darker or assistant vice president pigmentary changes, recurrence, incomplete removal and infection. [...] bone, soft tissue, and skin Mid Chest [place] pearly patch Lesion biopsy Type of biopsy: [...] Visit: 1 year documented in this encounter [facility] 07-05-2024 Hospital Discharge instructions Patient [...] Up Care 06/28/2024 15:40:34 With:Lexa CHRISTIANSEN Address: [address] [place], [place] [id number] Business (1) When:09/04/2024 11:17:33 Comments:With PVR log [facility] 07-05-2024 Note Patient Education Custom Cystoscopy ? [...] you have a fever over 100 degrees. [facility] 06-27-2024 Hospital Discharge instructions Patient [...] Follow these instructions at home: Medicines Take blnk-ekw-vpaalwq and prescription medicines only as told by [...] provider. Document Revised: 06/12/2021 Document Reviewed: 06/12/2021 H[employer]cal Patient Education 2023 [employer]onJax. 06/27/2024 12:45:54 Cystoscopy Cystoscopy Cystoscopy is a [...] including vitamins, herbs, eye drops, creams, and yvsw-ypi-fqdtotw medicines. Any problems you or family members [...] provider tells you to take them. Taking yncp-nju-ucfawuw medicines, vitamins, herbs, and supplements. Tests You [...] Follow these instructions at home: Medicines Take ofgg-nou-kbwxpot and prescription medicines only as told by [...] provider. Document Revised: 06/04/2022 Document Reviewed: 05/03/2021 Hypecal Patient Education 2023 FonJax. Follow Up Care 11/02/2023 15:01:28 With:WALLY PERALTA, Lexa Barlow, URL Address: [facility] [address], [place] [address] [phone] When: Unknown Comments:sched cysto [facility] [place] 06-27-2024 Note Patient Education Urology Acute [...] these instructions at home: Medicines ? Take shlp-gec-rsouytb and prescription medicines only as told by [...] provider. Document Revised: 06/12/2021 Document Reviewed: 06/12/2021 ElseMoleculin Patient Education ? 2023 FonJax. Cystoscopy Cystoscopy is a procedure that is used to help diagnose and sometimes treat conditions that affect the lower urinary tract. The lower urinary tract includes the bladder and the urethra. The urethra is the tube that drains urine from the (more content not included)... [facility] 06-22-2024 Note Cardiovascular Medic [facility] SUBJECTIVE Chief Complaint Patient presents [...] coronary arteries an (more content not included)... [facility] 06-22-2024 Note Patient here for 1 [...] All other systems reviewed and are negative. [facility] 12-14-2023 Hospital Discharge instructions Patient Education 12/14/2023 [...] provider. Document Revised: 12/11/2021 Document Reviewed: 09/06/2021 Hypecal Patient Education 2021 FonJax. 12/14/2023 11:40:01 Indwelling Urinary Catheter Insertion Indwelling [...] provider. Document Revised: 05/21/2022 Document Reviewed: 05/21/2022 [employer]Mole[employer] Patient Education 2022 FonJax. Follow Up Care 12/14/2023 08:48:07 With:WALLY PERALTA, Lexa Barlow, URL Address: [facility] [address] , [place] [phone] When: Unknown Comments:pt to call w/ update [facility] 11-04-2023 Evaluation note Encounter Date Diagnosis Assessment [...] - Z79.01) May increase severity of bleeding. [facility] Other 01-29-2024 Hospital Discharge instructions Patient Education [...] and water are not available, use hand bookstore manager. 2.Clean your penis with soap and water. [...] reusable catheter in a small bathroom. Take ippd-frc-wdbjimm and prescription medicines only as told by [...] provider. Document Revised: 07/28/2022 Document Reviewed: 07/28/2022 Hypecal Patient Education 2022 FonJax. 11/02/2023 14:17:10 Acute Urinary Retention, Male Acute [...] Follow these instructions at home: Medicines Take eidk-vxd-iwnbdwd and prescription medicines only as told by [...] provider. Document Revised: 06/12/2021 Document Reviewed: 06/12/2021 Hypecal Patient Education 2022 FonJax. Follow Up Care 05/04/2023 11:36:31 With:WALLY PERALTA, Lexa Barlow, URL Address: [facility] [address] [place] [address] [phone] When: Unknown Comments:f/u in 6 mos w/ PSA [facility] [place] 11-01-2023 Evaluation note* Encounter Date Diagnosis Assessment Notes Treatment Notes Treatment Clinical Notes Aug, Paroxysmal atrial fibrillation (ICD-10 - I48.0) Aug, Syncope, unspecified syncope type (ICD-10 - R55) [facility] Other 10-19-2023 Evaluation note* Encounter Date Diagnosis Assessment Notes Treatment Notes Treatment Clinical Notes Jul, Benign prostatic hyperplasia with lower urinary tract symptoms (ICD-10 - N40.1) [facility] Other 10-17-2023 Evaluation note* Encounter Date Diagnosis [...] are maintaining regular scheduled appts with their shelter monitor. No bleeding complications Jul, Hyperlipidemia type II [...] External beam radiation No s/s recurrence, f/u [facility] Other 07-11-2023 Evaluation note* Encounter Date Diagnosis Assessment Notes Treatment Notes Treatment Clinical Notes Apr, Paroxysmal atrial fibrillation (ICD-10 - I48.0) [facility] Other 04-17-2023 Evaluation note* Encounter Date Diagnosis Assessment Notes Treatment Notes Treatment Clinical Notes Jan, Prostate cancer (ICD-10 - C61) Group 2, Sudheer 3+4, External beam radiation [facility] Other 04-14-2023 Evaluation note* Encounter Date Diagnosis [...] are maintaining regular scheduled appts with their shelter monitor. Discussed switching Xarelto to Eliquis. Jan, Hyperlipidemia [...] Colon cancer screening declined (ICD-10 - Z53.20) [facility] Other Evaluation + Plan note Future Appointments Appointment Date:05/06/2024 08:00:00 AM Scheduled Provider:Lexa CHRISTIANSEN MD Location:[facility] Appointment Type:URO Office Visit Diagnostic Tests Pending * PSA Total 11/02/23 [facility] evaluation + Plan note Future Appointments Appointment Date:12/09/2023 01:20:00 PM Scheduled Provider:Yadiel JAIN MD Location:[facility] Appointment Type:GS New 30 Appointment Date:05/06/2024 08:00:00 AM Scheduled Provider:Lexa CHRISTIANSEN MD Location:[facility] Appointment Type:URO Office Visit [facility] evaluation + Plan note Future Appointments Appointment Date:05/06/2024 08:00:00 AM Scheduled Provider:Lexa CHRISTIANSEN MD Location:[facility] Appointment Type:URO Office Visit [facility] evaluation + Plan note Future Appointments Appointment Date:05/06/2024 08:00:00 AM Scheduled Provider:Lexa CHRISTIANSEN MD Location:[facility] Appointment Type:URO Office Visit Diagnostic Tests Pending * [facility]ments Appointment Date:09/09/2024 10:15:00 AM Scheduled Provider:Lexa CHRISTIANSEN MD Location:[facility] Appointment Type:URO Office Visit [facility] Evaluation + Plan note Future Appointments Appointment Date:01/09/2025 11:45:00 AM Scheduled Provider:Lexa CHRISTIANSEN MD Location:[facility] Appointment Type:URO Office Visit Diagnostic Tests Pending * PSA Total 10/05/24 [facility] evaluation [facility] Other Evaluation note* Diagnosis Seborrheic keratosis- Primary [...] cuff repair- Primary documented in this encounter [facility] HealthcareEvaluation note* Diagnosis Preop examination- Primary Unspecified pre-operative examination Hypertension, unspecified type Paroxysmal atrial fibrillation (CMS-HCC) Atrial fibrillation Preop examination Unspecified pre-operative examination Hypertension, unspecified type Paroxysmal atrial fibrillation (CMS-HCC) Atrial fibrillation [facility] Diagnosis Status post right rotator [...] RIGHT TIB FIB FIXATION 2006 Surgical History [facility] 11/2015 Hospitalization History see surgical history Problems[facility]24 Other History general Narrative - Reported* Type [...] RIGHT TIB FIB FIXATION 2006 Surgical History [facility] 11/2015 Surgical History Cystoscopy 05/2023 Hospitalization History see surgical history Problems[facility]24 Other Hospital course Narrative No data available for this section [facility] Discharge instructions No data available for this section [facility] progress note No data available for this section [facility] reason for referral (narrative)* Reason Referral for colonos copy Diagnosis 1 Rectal bleeding (K62 .5) Referral Organization [facility] joni Referring Provider First Name Giacomo Referring Provider Last Name Joi Referring Provider Specialty Internal Me dicine Referred Organization [facility] Referred Provider Yadiel Jain Referred Address [address], [place],[address] Referred Provider Specialty Surgery Referral Priority Routine General Notes Mr. Bustillos, who is anticoagulated for atrial fibrillation with a history of pelvic radiation for prostate cancer, presents w/ rectal bleeding. He has notice blood with wiping and on his underwear. He is being referred for colonoscopy. Clinical Notes Include [employer] Other Summary Purpose Family History No Family [...] section and content) DATE CREATED AUTHOR 12/23/2021 [facility] DATE CREATED AUTHOR AUTHOR'S ORGANIZ ATION 01/03/2023 [facility] DATE CREATED AUTHOR AUTHOR'S ORGANIZ ATION 06/24/2024 [facility] DATE CREATED AUTHOR AUTHOR'S ORGANIZ ATION 09/09/2024 [facility] DATE CREATED AUTHOR AUTHOR'S ORGANIZ ATION 09/23/[address] [facility] DATE CREATED AUTHOR AUTHOR'S ORGANIZ ATION 12/01/2024 [facility] d[facility] Specialists EPIC REASON FOR VISIT (unrecogniz ed section and content) Reason Comments Skin Check Reason Comments Pain Reason Comments Follow-up Reason Comments Pre-op Exam Reason Comments Post-op Reason Comments Follow-up Patient Care team informatio n (unrecognized section and content) Warehouse Order Selector Relationship Specialty Start Date End Date Giacomo Ragsdale MD [address] [facility] [place] [phone] PCP - General Internal Medicine 03/21/24 Warehouse Order Selector Relationship Specialty Start Date End Date Giacomo Ragsdale MD [address] [facility] [phone] PCP - General Internal Medicine 03/21/24 Warehouse Order Selector Relationship Specialty Start Date End Date Giacomo Ragsdale MD [address] [facility] [place] [phone] PCP - General Internal Medicine 03/21/24 Warehouse Order Selector Relationship Specialty Start Date End Date Giacomo Ragsdale MD [address] [facility] [place] [address] PCP - General Internal Medicine 03/21/24 Warehouse Order Selector Relationship Specialty Start Date End Date Giacomo Ragsdale MD [address] [facility] [place] [address] PCP - General Internal Medicine 03/21/24 Warehouse Order Selector Relationship Specialty Start Date End Date Giacomo Ragsdale MD [address] [facility] [place] [phone] PCP - General Internal Medicine 03/21/24 Warehouse Order Selector Relationship Specialty Start Date End Date Giacomo Ragsdale MD [address] [facility] [place] [phone] PCP - General Internal Medicine 03/21/24 Warehouse Order Selector Relationship Specialty Start Date End Date Giacomo Ragsdale MD [address] [facility] [place] [address] PCP - General Internal Medicine 03/21/24 Warehouse Order Selector Relationship Specialty Start Date End Date Giacomo Ragsdale MD [address] [facility] [place] [address] PCP - General Internal Medicine 03/21/24 Warehouse Order Selector Relationship Specialty Start Date End Date Giacomo Ragsdale DO [address], [place] [id number] PCP - General Internal Medicine 03/15/20 Warehouse Order Selector Relationship Specialty Start Date End Date Giacomo Ragsdale MD [address] [facility] [place] [address] PCP - General Internal Medicine 03/21/24 Warehouse Order Selector Relationship Specialty Start Date End Date Giacomo Ragsdale MD [address] [place] [address] PCP - General Internal Medicine [...] BE BASED ON THE PRIMARY CLINICAL RECORDS. [facility] [employer] [facility]. provides no warranty or guarantee of the accuracy or completeness of information in this document.
[2025-01-04 11:35] LABS: Prostate Specific Antigen Dx <0.13 ng/mL (<=4.00)
== END 2025-01-04 09:59 | disposition home or self-care (01) ==
LOC: LAB 09:59
PROVIDERS: PCP Internal Medicine; Visit Provider Urology
DX: Z85.46 Personal history of malignant neoplasm of prostate (principal)
CPT/HCPCS: 36415; 84153

== ENCOUNTER 2025-02-09 12:15 | Outpatient (OUT) | payer MEDICARE, SELFPAY ==
--- NOTE | 2025-02-09 12:25 | MR_ITS ---
The [address] [address] Patient Name: MONET LOPEZ MRN: [id number] date: 1950 Sex: M Assigned Patient Location: LAB Current Patient Location: LAB Accession/Order Number: [id number] Exam Date: 02/09/2025 14:54 Report Date: 02/09/2025 14:55 At the request of: MARI TAMEZ DO Procedure: MR head/brain wo con EXAMINATION: MRI OF THE BRAIN WITHOUT CONTRAST CLINICAL HISTORY: mild cognitive impairment COMPARISON: None TECHNIQUE: Multiecho, multiplanar imaging of the brain was performed without enhancement. FINDINGS: No evidence of restriction diffusion is an diffusion-weighted imaging. No evidence of blood products are seen on T2 Star imaging. Cortical atrophy with moderate chronic microvascular ischemic changes. Posterior fossa appears unremarkable. Intraorbital contents appear grossly unremarkable. No significant paranasal sinus disease. Midline structures appear unremarkable. MR/MR head/brain wo con IMPRESSION: NO ACUTE INTRACRANIAL ABNORMALITY. CORTICAL ATROPHY WITH MODERATE CHRONIC MICROVASCULAR ISCHEMIC CHANGES. Impression dictated by: Kolby Dinero Jr., D.O. 02/09/2025 2:55 PM Dictation Location: [place] [address] Electronically authenticated by: [id number] Y Date: 02/09/2025 14:55
[2025-02-09 13:01] LABS: Thyroid Stimulating Hormone 1.589 uIU/mL (0.358-3.740)
[2025-02-10 07:07] LABS: Vitamin B12 241 pg/mL (232-1245)
== END 2025-02-09 12:16 | disposition home or self-care (01) ==
LOC: LAB 12:15
PROVIDERS: PCP Internal Medicine; Visit Provider Internal Medicine
DX: G31.84 Mild cognitive impairment of uncertain or unknown etiology (principal); R53.83 Other fatigue; R63.4 Abnormal weight loss; I10 Essential (primary) hypertension
CPT/HCPCS: 36415; 70551; 82607; 82746; 84443

== ENCOUNTER 2025-05-09 10:07 | Outpatient (OUT) | payer MEDICARE, SELFPAY ==
--- NOTE | 2025-05-09 10:15 | XR_ITS ---
The [address] [address] Patient Name: MONET LOPEZ MRN: [id number] date: 1950 Sex: M Assigned Patient Location: CT Current Patient Location: CT Accession/Order Number: [id number] Exam Date: 05/09/2025 12:47 Report Date: 05/09/2025 12:47 At the request of: MARI TAMEZ DO Procedure: XR chest 2V Chest 2 views CLINICAL HISTORY: Dyspnea, Cough COMPARISON: Chest 04/04/2024 FINDINGS: Heart and mediastinal structures appear unchanged. Chronic interstitial changes. No new consolidation pneumothorax pleural effusion or free air. XR/XR chest 2V IMPRESSION: NO ACUTE CARDIOPULMONARY ABNORMALITY. Impression dictated by: Kolby Dinero Jr., D.O. 05/09/2025 12:47 PM Dictation Location: [place] [address] Electronically authenticated by: [id number] Y Date: 05/09/2025 12:47
--- NOTE | 2025-05-09 10:18 | CT_ITS ---
The [address] [address] Patient Name: MONET LOPEZ MRN: [id number] date: 1950 Sex: M Assigned Patient Location: CT Current Patient Location: CT Accession/Order Number: [id number] Exam Date: 05/09/2025 12:47 Report Date: 05/09/2025 12:49 At the request of: MARI TAMEZ DO Procedure: CT sinus wo con CT PARANASAL SINUSES WITHOUT CONTRAST: CLINICAL HISTORY: Sinusitis COMPARISON: None TECHNIQUE: Contiguous axial unenhanced images were obtained through the paranasal sinuses. Coronal reconstructions were also performed. This CT exam was performed using one or more following dose reduction techniques: Automated exposure control, adjustment of the mA and/or kV according to patient size, or use of iterative reconstruction technique. FINDINGS: Frontal, ethmoid and sphenoid sinuses are clear. Right maxillary sinus is clear. Mild mucoperiosteal thickening left maxillary sinus. No air-fluid levels or bone destruction. Ostiomeatal complexes appear patent. Nasal septum is deviated towards the left. Intraorbital contents appear unremarkable. No significant soft tissue swelling. Nasopharynx appears unremarkable. CT/CT sinus wo con IMPRESSION: MILD LEFT MAXILLARY SINUS DISEASE. NO AGGRESSIVE FEATURES. Impression dictated by: Kolby Dinero Jr., D.O. 05/09/2025 12:49 PM Dictation Location: [place] [address] Electronically authenticated by: [id number] Y Date: 05/09/2025 12:49
== END 2025-05-09 10:08 | disposition home or self-care (01) ==
LOC: CT 10:07
PROVIDERS: PCP Internal Medicine; Visit Provider Internal Medicine
DX: J32.9 Chronic sinusitis, unspecified (principal); R06.00 Dyspnea, unspecified; R05.9 Cough, unspecified
CPT/HCPCS: 70486; 71046

== ENCOUNTER 2025-07-12 11:37 | Outpatient (OUT) | payer MEDICARE, SELFPAY ==
[2025-07-10 13:04] LABS: Prostate Specific Antigen Dx <0.13 ng/mL (<=4.00)
--- OUTSIDE RECORDS SUMMARY | 2025-07-12 11:47 | XMS_ITS | CCD ---
Author Organization [facility] Care Team Providers Care Apprentice Technician Name Role Phone MISC, DOCTOR Admitting Unavailable MISC, DOCTOR Attending Unavailable JOI, DR GUERRA Primary Care Unavailable MISC, DR BRADEN Consulting Unavailable MISC, DR BRADEN Admitting Unavailable MISC, DR BRADEN Attending Unavailable JOI, DR GUERRA Primary Care Unavailable JOI, DR GUERRA Admitting Unavailable BALL, DR GUERRA Attending Unavailable BALL, DR GUERRA Consulting Unavailable BALL, DR GUERRA Primary Care Unavailable MISC, DR BRADEN Consulting Unavailable MISC, DR BRADEN Admitting Unavailable MISC, DR BRADEN Attending Unavailable JOI, DR GUERRA Primary Care Unavailable Giacomo Tamez GIACOMO TAMEZ Primary Care Physician JANAE LEONARD Attending Unavailable Giacomo Tamez MD Primary Care Provider MYA NAVARRO JR Referring Unavailmirna e GIACOMO TAMEZ Primary Care Unavailable MYA NAVARRO JR Referring Unavailabl e GIACOMO TAMEZ Primary Care Unavailable MYA NAVARRO JR Referring UnavailGIACOMO Yang Primary Care Unavailable MYA NAVARRO JR Admitting Unavailabl MYA Ruiz JR Attending UnavailGIACOMO Yang Primary Care Unavailable JESSA PRICE Attending Unavailable GIACOMO TAMEZ Primary Care Unavailable Giacomo Tamez DO Primary Care Provider Lexa LO Attending Unavailable Lexa LO Admitting Unavailable Lexa LO Attending Unavailable Lexa LO Referring Unavailable Lexa LO Attending Unavailable Lexa LO Attending Unavailable VALENTIN CAMPOS Attending Unavailable Lexa LO Attending Unavailable Giacomo Tamez MD Primary Care Provider Giacomo Tamez MD Primary Care Provider Giacomo Tamez DO Primary Care Provider Giacomo Tamez DO Primary Care Provider Giacomo Tamez DO Primary Care Provider Joi DO, Giacomo Attending Provider Joi DO, Giacomo Primary Care Provider Joi DO, Giacomo Attending Provider Benny RODRIGUEZ Lata Attending Provider Will DO, Tomi Sheikh Attending Provider Lindy Lopez, Oleg Attending Provider Joi DO, Giacomo Primary Care Provider Joi DO, Giacomo Attending Provider Joi DO, Giacomo Primary Care Provider Joi DO, Giacomo Attending Provider BARBARA RAMÍREZ Attending Unavailable BARBARA RAMÍREZ Attending Unavailable JR. MIKA, MYA Kwan Attending Unavailmarshall NAVARRO JR., MYA Kwan Attending Unavaila kasia NAVARRO JR., MYA Kwan Attending Unavaila TERESE Dawkins Attending Unavailable GIACOMO TAMEZ Referring NELY Gan Attending Unavailable JR. MIKA, MYA Kwan Attending Unavaila ERIKA Hwang Attending Unavailable BARBARA RAMÍREZ Attending Unavailable JULIÁN STEVENS Attending Unavailable Joi RODRIGUEZ, Giacomo Primary Care Provider Joi RODRIGUEZ, Giacomo Attending Provider Joi RODRIGUEZ, Giacomo Primary Care Provider Joi RODRIGUEZ, Giacomo Attending Provider Terese Aguila MD Attending Provider Unavailab Terese Rosenberg Jr Attending Terese Tobin Jr Admitting Unavailable Giacomo Tamez Primary Care Unavailable Allergies Allergy Classification Reported Allergen(s) Allergy Type Date of Onset Reaction(s) Facility (13 sources) Penicillins; Translations: [penicillins] Drug allergy (disorder) 11-15-19 16 Vomiting (disorder), Moderate (severity modifier) (qualifier value) [facility] Repository (3 sources) Penicillin Drug Allergy Unknown [employer] Other (8 sources) Substance with penicillin structure and antibacterial mechanism of action (substance) Drug allergy Comment:Penici llin [employer] Other (20 sources) Penicillins Drug Intolerance 03-15-20 20 GI intolerance [facility] (1 source) Penicillins Propensity to adverse reactions to drug 03-15-20 20 Vomiting [facility] (1 source) Penicillins Drug allergy (disorder) 05-03-20 [facility] Repository (1 source) Unable to Assess Drug allergy (disorder) 05-03-20 [facility] Repository Medications Current Medications Medication Drug Class(es) Dates [...] 5 days 20 tablet 09/19/2024 09/24/2024 Active cefdinir 300 mg oral capsule (2 sources) Cephalosporin Antibacterial Start: 05-23-2025 End: 06-06-2025 take 1 capsule by mouth in the morning cefdinir (Omnicef) 300 MG capsule Indications: Chronic maxillary sinusitis Take 1 capsule (300 mg) by mouth in the morning and 1 capsule (300 mg) before bedtime. Do all this for 14 days. 28 capsule 05/23/2025 06/06/2025 Active diazePAM 5 mg oral tablet (13 sources) Benzodiazepine Start: 04-20-2024 End: 09-06-2024 diazePAM (Valium) 5 MG tablet Indications: Acute pain of right shoulder 1 tab 30-60 mins before procedure may repeat X1 if need for claustrophobia 2 tablet 04/20/2024 09/06/2024 Discontinued doxycycline hyclate 100 mg oral tablet (20 sources) Tetracycline-class Drug Start: 09-09-2024 take 1 tablet by mouth twice daily doxycycline hyclate 100 mg Tab 100 mg = 1 tab(s), Oral, BID, Start 3 days prior to surgery., # 10 tab(s), Refills(s) 0, Pharmacy: [facility] [id number], 184, cm, 09/09/24 10:43:00 EST, Height/Length Dosing, 89.6, kg, 09/09/24 10:43:00 EST, Weight Dosing Start Date: 09/09/24 Status: Ordered Start: 04-01-2024 End: 01-18-2025 take 1 capsule by mouth twice daily Doxycycline Hyclate 100 mg capsule Discontinued 100 MG PO Twice daily April 01, 2024 12:00am January 18, 2025 1:21pm Start: 12-07-2023 take 1 capsule by [facility] once daily at mealtime doxycycline hyclate 100 mg Cap 100 mg = 1 cap(s), Oral, Daily, may take with food to minimize abdominal discomfort, # 30 cap(s), Refills(s) 0, Pharmacy: [facility] [id number], 187, cm, 11/02/23 13:01:00 EST, Height/Length Dosing, 101, kg, 11/02/23 13:01:00 EST, Weight Dosing Start Date: 12/07/23 Status: Ordered Start: 11-02-2023 End: 12-02-2023 take 1 capsule by mouth once daily doxycycline hyclate 100 mg Cap 100 mg = 1 cap(s), Oral, Daily, X 30 day(s), # 30 cap(s), Refills(s) 0, Pharmacy: [facility] [id number], 187, cm, 11/02/23 13:01:00 EST, Height/Length Dosing, 101, kg, 11/02/23 13:01:00 EST, Weight Dosing Start Date: 11/02/23 Stop Date: 12/02/23 Status: Ordered famotidine 20 mg oral tablet (2 sources) Histamine-2 Receptor Antagonist Start: 05-23-2025 End: 08-21-2025 take 1 tablet by mouth at bedtime famotidine (Pepcid) 20 MG tablet Indications: LPRD (laryngopharyngeal reflux disease) Take 1 tablet (20 mg) by mouth at bedtime 90 tablet 05/23/2025 08/21/2025 Active fluticasone propionate 0.05 mg/actuat metered dose nasal spray (2 sources) Corticosteroid take 1 spray(s) nasal route once daily fluticasone (Flonase) 50 MCG/ACT nasal spray Administer 1 spray into each nostril Daily Shake gently. Before first use, prime pump. After use, clean tip and replace cap. Active ipratropium bromide 0.042 mg/actuat metered dose nasal spray (2 sources) Anticholinergic Start: 05-23-2025 End: 05-23-2026 take 2 spray(s) nasal route in the morning, then take 2 spray(s) nasal route in the evening, then take 2 spray(s) nasal route at bedtime ipratropium (Atrovent) 0.06 % nasal spray Indications: Vasomotor rhinitis Administer 2 sprays into each nostril in the morning and 2 sprays in the evening and 2 sprays before bedtime. 45 mL 3 05/23/2025 05/23/2026 Active levoFLOXacin 500 mg oral tablet (2 sources) Quinolone Antimicrobial Start: 12-14-2023 End: 12-28-2023 take 1 tablet by mouth every twenty-four hours Levaquin 500 mg Tab 500 mg = 1 tab(s), Oral, q24hr, X 14 day(s), # 14 tab(s), Refills(s) 0, Pharmacy: [facility] [id number], 187, cm, 12/14/23 10:52:00 EDT, Height/Length Dosing, 101, kg, 12/14/23 10:52:00 EDT, Weight Dosing Start Date: 12/14/23 Stop Date: 12/28/23 Status: Ordered lidocaine hydrochloride 0.02 mg/mg topical gel (7 sources) Antiarrhythmic, Amide Local Anesthetic Start: 11-30-2023 apply 0.1 g topically once lidocaine Top 2% Gel w/Appl 30 mL 0.1 gm, 5 mL, Topical, Once, 30 mL, Refill(s) 2, Apply topically prior to cathing, [facility] [id number], 187, cm, 11/02/23 13:01:00 EST, Height/Length Dosing, 101, kg, 11/02/23 13:01:00 EST, Weight Dosing Start Date: 11/30/23 Status: Ordered Multi Vitamin+ (9 sources) Start: 10-12-2019 Multi Vitamin+ Refill(s) 0 Start Date: 10/12/19 Status: Ordered NON FORMULARY (1 source) take 1 dose by mouth in the morning NON FORMULARY Take 1 each by mouth in the morning. Med Name: prevagen. Active omeprazole 40 mg delayed release oral capsule (2 sources) Proton Pump Inhibitor Start: 05-23-2025 End: 08-21-2025 take 1 capsule by mouth before mealtime omeprazole (PriLOSEC) [address] capsule Indications: LPRD (laryngopharyngeal reflux disease) Take 1 capsule (40 mg) by mouth in the morning. Take before meals. Do not crush or chew. 90 capsule 05/23/2025 08/21/2025 Active rivaroxaban (20 sources) Factor Xa Inhibitor [...] fibrillation. Resume on 06/09/20 06/09/2020 08/30/2024 Discontinued sennosides, halfway 8.6 mg oral tablet (13 sources) Start: 04-26-2025 take 1 tablet by mouth once daily tamsulosin hydrochloride 0.4 mg oral capsule (20 sources) alpha-Adrenergic Jay Start: 01-02-2025 End: 01-02-2025 take 1 capsule by mouth twice daily Start: 01-09-2024 End: 01-02-2025 take 1 capsule by mouth once daily Tamsulosin 0.4 mg capsule Discontinued 0.4 MG PO Daily 90 90 October 25, 2024 1:22pm January 02, 2025 2:07pm Start: 05-26-2023 take 1 capsule by mo ut every twenty-four hours in the morning tamsulosin (Flomax) 0.4 MG 24 hr capsule Take 1 capsule by mouth in the morning and 1 capsule in the evening. 05/26/2023 Active Start: 10-27-2022 take 1 capsule by mo ut every twenty-four hours Tamsulosin HCl 0.4 MG 1 capsule Orally Once a day Oct, Active Start: 12-11-2021 take 1 capsule by [facility] twice daily Flomax 0.4 mg Cap 0.4 mg = 1 cap(s), Oral, BID, # 180 cap(s), Refills(s) 3, Pharmacy: [facility], 187, cm, 11/02/23 13:01:00 EST, Height/Length Dosing, 101, kg, 11/02/23 13:01:00 EST, Weight Dosing Start Date: 11/02/23 Status: Ordered Completed/Discontinued Medications Medication Drug Class(es) Dates Sig (Normalized) Sig (Original) apixaban 5 mg oral tablet (20 sources) Factor Xa Inhibitor Start: 04-14-2023 End: 10-25-2024 take 1 tablet by mouth twice daily Apixaban 5 mg tablet Discontinued 5 MG PO Twice daily January 09, 2024 12:00am January 28, 2024 4:07pm atorvastatin 10 mg oral tablet (20 sources) HMG-CoA Reductase Inhibitor Start: 12-15-2019 End: 10-25-2024 take 1 tablet by mouth once daily Atorvastatin 10 mg tablet Discontinued 10 MG PO Daily January 09, 2024 12:00am February 09, 2024 10:06am azithromycin 250 mg oral tablet (13 sources) Macrolide Antimicrobial Start: 02-21-2025 End: 04-26-2025 Azithromycin 250 mg tablet Discontinued 250 MG PO .COMPLEX 6 5 February 21, 2025 12:00am April 26, 2025 1:41pm 2 tabs on first day followed by 1 tab on days 2-5 ciprofloxacin 500 mg oral tablet (3 sources) Quinolone Antimicrobial Start: 06-27-2024 take 1 tablet by mouth once daily Cipro 500 mg Tab 500 mg = 1 tab(s), Oral, Daily, take one tab day before procedure and one tab after procedure, # 2 tab(s), Refills(s) 0, Pharmacy: [facility] [id number], 184, cm, 06/27/24 11:52:00 EDT, Height/Length Dosing, 90, kg, 06/27/24 11:52:00 EDT, Weight Dosing Start Date: 06/27/24 Status: Ordered docusate sodium 50 mg / sennosides, halfway 8.6 mg oral tablet (1 source) Start: 05-29-2020 End: 08-30-2024 take 1 tablet by mouth twice daily as needed for constipation sennosides-docusa te sodium (SENOKOT-S) 8.6-50 mg Take 1 tablet by mouth 2 (two) times a day as needed for constipation. 05/29/2020 08/30/2024 Discontinued finasteride 5 mg oral tablet (20 sources) 5-alpha Reductase Inhibitor Start: 12-15-2019 End: 10-27-2024 take 1 tablet by mouth once daily Finasteride 5 mg tablet Discontinued 5 MG PO Daily January 09, 2024 12:00am October 10, 2024 9:55pm LORazepam 0.5 mg oral tablet (14 sources) Benzodiazepine Start: 02-06-2025 End: 04-26-2025 take 1 tablet by mouth once daily for anxiety Lorazepam 0.5 mg tablet Discontinued 0.5 MG PO Daily as needed for anxiety 1 February 06, 2025 12:00am April 26, 2025 1:41pm Take one hour prior to MRI, may cause sedation, don't drive after taking medication. metoprolol tartrate 25 mg oral tablet (20 sources) beta-Adrenergic Jay Start: 06-27-2024 End: 10-25-2024 Metoprolol Tartrate 25 mg tablet Discontinued 12.5 MG PO Twice daily 90 90 October 25, 2024 11:13am October 25, 2024 1:58pm Start: 11-27-2023 End: 06-27-2024 take 1 tablet by mouth twice daily Metoprolol Tartrate 25 mg tablet Discontinued 25 MG PO Twice daily January 09, 2024 12:00am June 27, 2024 6:00pm Start: 10-27-2022 take 1 tablet by tanvir [...] Refills(s) 0 Start Date: 10/12/19 Status: Ordered multivitamin/iron/folic acid (CENTRUM COMPLETE ORAL) (1 source) End: 08-30-2024 multivitamin/iron/folic acid (CENTRUM COMPLETE ORAL) Take by mouth. 08/30/2024 Discontinued telmisartan 40 mg oral tablet (20 sources) Angiotensin 2 Receptor Jay Start: 12-15-2019 End: 08-30-2024 take 1 tablet by mouth once daily Telmisartan 40 mg tablet Discontinued 40 MG PO Daily January 09, 2024 12:00am June 27, 2024 6:00pm traMADol hydrochloride 50 mg oral tablet (1 source) Opioid Agonist End: 08-30-2024 take 1 tablet by mouth every six hours as needed for pain traMADoL (ULTRAM) 50 mg tablet Take 50 mg by mouth every 6 (six) hours as needed for pain. 08/30/2024 Discontinued Problems Active Problems Problem Classification Problem Date Documented Date Episodic/Chronic Acquired foot deformities (6 sources) Right foot drop; Translations: [Foot drop, right foot] 06-01-2025 Episodic Acute bronchitis (11 sources) Acute bronchitis; Translations: [Acute bronchitis due to other specified organisms] Episodic Anal and rectal conditions (1 source) Radiation proctitis Episodic Anxiety disorders (20 sources) Generalized anxiety disorder; Translations: [Generalized anxiety disorder] Onset: 5 11-27-2023 Chronic Cancer of prostate (20 sources) Malignant neoplasm of prostate; Translations: [Carcinoma of prostate] Onset: 2 Chronic Comment on above: Dx: 11/2015,External beam radiation therapy Cancer of prostate (2 sources) Personal history of malignant neoplasm of prostate; Translations: [History of malignant neoplasm of prostate] Onset: 4 Episodic Cardiac dysrhythmias (20 sources) Paroxysmal atrial fibrillation; Translations: [Paroxysmal atrial fibrillation] Onset: 0 Chronic Comment on above: Echo: LVEF 60%, norm al RV size/function, RVSp 25, LVH, mild TR - 08/2023Stress testing: no reversible or fixed defect - 06/2024 Coagulation and hemorrhagic disorders (18 sources) Thrombocytopenic disorder; Translations: [Thrombocytopenia, unspecified] Onset: 5 01-13-2024 Chronic Disorders of lipid metabolism (20 sources) Familial hypercholesterolemia; Translations: [Pure hypercholesterolemia] Onset: 3 Chronic Esophageal disorders (5 sources) Laryngopharyngeal reflux; Translations: [Gastro-esophageal reflux disease without esophagitis] 05-23-2025 Chronic Essential hypertension (20 sources) Essential (primary) hypertension; Translations: [Essential hypertension] Onset: 0 Chronic Gastrointestinal hemorrhage (13 sources) Hemorrhage of anus and rectum; Translations: [Rectal hemorrhage] Onset: 5 Episodic Genitourinary symptoms and ill-defined conditions (20 sources) Nocturia; Translations: [Nocturia] Onset: 4 Episodic Hyperplasia of prostate (20 sources) Lower urinary tract symptoms due to benign prostatic hypertrophy; Translations: [Benign prostatic hyperplasia with lower urinary tract symptoms] Onset: 4 Chronic Inflammatory conditions of male genital organs (9 sources) Prostatitis; Translations: [Inflammatory disease of prostate, unspecified] Onset: 4 Episodic Neoplasms of unspecified nature or uncertain behavior (2 sources) Neoplastic disease; Translations: [Neoplasm of unspecified behavior of bone, soft tissue, and skin] 07-11-2024 Episodic Nutritional deficiencies (20 sources) Cobalamin deficiency; Translations: [Deficiency of other specified B group vitamins] Onset: 5 02-14-2025 Episodic Osteoarthritis (20 sources) Localized, primary osteoarthritis of the pelvic region and thigh; Translations: [Unilateral primary osteoarthritis, left hip] Onset: 0 05-28-2020 Chronic Other aftercare (1 source) Other care home (current) drug therapy; Translations: [OTH [facility] CURRENT DRUG THERAPY] Onset: 3 Episodic Other aftercare (11 sources) H/O: high risk medication; Translations: [Other manager intermediate (current) drug therapy] Episodic Other aftercare (20 sources) Long-term current use of anticoagulant; Translations: [long-term (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 of anticoagulants] Onset: 4 Episodic Other aftercare (1 source) long-term (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 of anticoagulants Episodic Other aftercare (2 sources) Drug therapy finding; Translations: [buttermaker continuous churn (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 of anticoagulants] 05-23-2025 Episodic Other connective tissue disease (11 sources) History of total replacement of left hip joint; Translations: [Presence of left artificial hip joint] Chronic Other connective tissue disease (4 sources) Adhesive capsulitis of right shoulder; Translations: [Adhesive capsulitis of right shoulder] 02-15-2025 Episodic Other gastrointestinal disorders (2 sources) Dysphagia; Translations: [Dysphagia, pharyngoesophageal phase] 05-23-2025 Episodic Other hereditary and degenerative nervous system conditions (20 sources) Impaired cognition; Translations: [Mild cognitive impairment, so stated] Onset: 5 01-18-2025 Chronic Other hereditary and degenerative nervous system conditions (3 sources) Mild cognitive impairment, so stated; Translations: [Mild cognitive impairment, so stated] 01-18-2025 Chronic Other lower respiratory disease (20 sources) Cough; Translations: [Cough] Onset: 5 02-21-2025 Episodic Other lower respiratory disease (16 sources) Dyspnea; Translations: [Dyspnea, unspecified] 05-03-2025 Episodic Other lower respiratory disease (3 sources) Spasmodic cough Episodic Other lower respiratory disease (3 sources) Chronic cough; Translations: [Chronic cough] Onset: 5 05-23-2025 Episodic Other lower respiratory disease (6 sources) Snoring; Translations: [Snoring] 06-01-2025 Episodic Other male genital disorders (13 sources) Male erectile dysfunction, unspecified; Translations: [Erectile dysfunction] Onset: Chronic Other non-epithelial cancer of skin (2 sources) Basal cell carcinoma of chest wall; Translations: [Basal cell carcinoma of skin of other part of trunk] 08-22-2024 Episodic Other non-traumatic joint disorders (7 sources) Derangement of right shoulder joint; Translations: [Other specific joint derangements of right shoulder, not elsewhere classified] 07-25-2024 Chronic Other nutritional; endocrine; and metabolic disorders (11 sources) Obese class I; Translations: [Obesity, unspecified] Chronic Other nutritional; endocrine; and metabolic disorders (1 source) Obesity, unspecified Chronic Other nutritional; endocrine; and metabolic disorders (7 sources) Obesity 11-27-2023 Chronic Other nutritional; endocrine; and metabolic disorders (18 sources) Overweight; Translations: [Overweight] Onset: 5 01-13-2024 Episodic Other nutritional; endocrine; and metabolic disorders (1 source) Overweight; Translations: [Overweight] 01-18-2025 Episodic Other nutritional; endocrine; and metabolic disorders (12 sources) Weight decreased; Translations: [Abnormal weight loss] Onset: 5 05-01-2025 Episodic Other screening for suspected conditions (not mental disorders or infectious disease) (15 sources) Encounter for screening, unspecified; Translations: [Raised prostate specific antigen] Onset: 2 Episodic Other skin disorders (2 sources) Seborrheic keratosis; Translations: [Other seborrheic keratosis] 07-11-2024 Episodic Other skin disorders (2 sources) Actinic keratosis; Translations: [Actinic keratosis] 07-11-2024 Episodic Other skin disorders (2 sources) Inflamed seborrheic keratosis; Translations: [Inflamed seborrheic keratosis] 07-11-2024 Episodic Other upper respiratory disease (2 sources) Vasomotor rhinitis; Translations: [Vasomotor rhinitis] 05-23-2025 Chronic Other upper respiratory disease (3 sources) Nasal congestion Episodic Other upper respiratory disease (2 sources) Deviated nasal septum; Translations: [Deviated nasal septum] 05-23-2025 Episodic Other upper respiratory disease (2 sources) Hypertrophy of nasal turbinates; Translations: [Hypertrophy of nasal turbinates] 05-23-2025 Episodic Other upper respiratory infections (20 sources) Sinusitis; Translations: [Chronic sinusitis, unspecified] Onset: 5 05-03-2025 Chronic Other upper respiratory infections (20 sources) Acute maxillary sinusitis; Translations: [Acute maxillary sinusitis, unspecified] 02-21-2025 Episodic Residual codes; unclassified (18 sources) Obstructive sleep apnea syndrome; Translations: [Obstructive sleep apnea (adult) (pediatric)] Onset: 5 05-09-2025 Chronic Residual codes; unclassified (1 source) Procedure and treatment not carried out because of patient's decision for unspecified reasons Episodic Residual codes; unclassified (2 sources) Patient encounter status; Translations: [Encounter for procedure for purposes other than remedying health state, unspecified] 07-11-2024 Episodic Residual codes; unclassified (14 sources) Memory impairment; Translations: [Other amnesia] 02-12-2025 Episodic Residual codes; unclassified (19 sources) Transient alteration of awareness; Translations: [Transient alteration of awareness] 05-02-2025 Episodic Residual codes; unclassified (18 sources) Amnesia; Translations: [Other amnesia] Onset: 5 05-09-2025 Episodic Residual codes; unclassified (6 sources) Disturbance in sleep behavior; Translations: [Sleep disorder, unspecified] 06-01-2025 Episodic Spondylosis; intervertebral disc disorders; other back problems (20 sources) Lumbar spondylosis; Translations: [Spondylosis without myelopathy or radiculopathy, lumbar region] Onset: 5 11-27-2023 Chronic Spondylosis; intervertebral disc disorders; other back problems (20 sources) Low back pain; Translations: [Low back pain] Onset: 5 01-18-2025 Episodic Syncope (2 sources) Syncope and collapse Episodic Unclassified (9 sources) Asymptomatic microscopic hematuria 05-04-2023 Unclassified (9 sources) Drug therapy finding 10-17-2019 Unclassified (1 source) Other ventricular tachycardia; Translations: [Other ventricular tachycardia] Onset: 4 Unclassified (4 sources) Finding of sensation of bladder 06-27-2024 Unclassified (1 source) right shoulder internal derangement Onset: 4 Unclassified (3 sources) R09.81 - Nasal congestion,R05.8 - Other specified cough Past or Other Problems Problem Classification Problem Date Documented Da te Episodic/Chronic Mood disorders (1 source) Mood disorders Onset: 05-28-2020 05-28-2020 Other lower respiratory disease (3 sources) Dyspnea on exertion; Translations: [Other forms of dyspnea] Onset: 06-03-2024 05-22-2025 Episodic Other non-traumatic joint disorders (20 sources) Pain in right shoulder; Translations: [Pain in joint, shoulder region] Onset: 04-20-2024 04-20-2024 Episodic Unclassified (1 source) Other ventricular tachycardia; Translations: [Other ventricular tachycardia] Onset: 06-22-2024 Results Test Name Value Interpretation Reference Range Facility [place] esophaguson 06-12-2025 [place] esophagus [facility] Main [address] [address] Fluoroscopy Report Signed Patient: Monet Bustillos MR#: [id number] : 1950 Acct:[id number] Age/Sex: 74 / M ADM Date: 06/12/25 Loc: XD Room: Type: [facility] CLI Attending Dr: Terese Aguila Jr, MD Copies to: TERESE AGUILA MD Ordering Provider: TERESE AGUILA MD Date of Service: 06/12/25 FL/FL esophagus: R05.3, K21.9 R13.14 DOUBLE CONTRAST ESOPHAGRAM CLINICAL HISTORY: Chronic cough for 8 months. Difficulty swallowing food. COMPARISON: None TECHNIQUE: Double contrast esophagram was performed. Cumulative Air Kerma in mGy: 25.76 mGy FINDINGS: There is a mild stricture at the level of the GE junction. No mass or ulcer is seen. No gastroesophageal reflux was seen during the examination. There was pooling of contrast within the vallecula and piriform sinuses. No gastroesophageal reflux was seen during the examination. 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 CORRELATION WITH ENDOSCOPY IS SUGGESTED. Impression dictated by: Kolby Dinero Jr., D.O. 06/12/2025 10:38 AM Dictation Location: [place] [address] Transcribed By: [facility] 06/12/25 1038 Dictated By: Kolby Dinero Jr, DO 06/12/25 1033 Signed By: 06/12/25 1038 Normal [facility] Fluoroscopy reportOrdered By : Kolby Dinero on 06-12-2025 RF Unspecified body region [facility] Main [address] [address] Fluoroscopy Report Signed Patient: Monet Bustillos MR#: [id number] : 1950 Acct:[id number] Age/Sex: 74 / M ADM Date: 5 Loc: XD Room: Type: [facility] CLI Attending Dr: Terese Aguila Jr, MD Copies to: TERESE AGUILA MD~ Ordering Provider: TERESE AGUILA MD Date of Service: 06/12/25 FL/FL esophagus: R05.3, K21.9 R13.14 DOUBLE CONTRAST ESOPHAGRAM CLINICAL HISTORY: Chronic cough for 8 months. Difficulty swallowing food. COMPARISON: None TECHNIQUE: Double contrast esophagram was performed. Cumulative Air Kerma in mGy: 25.76 mGy FINDINGS: There is a mild stricture at the level of the GE junction. No mass or ulcer is seen. No gastroesophageal reflux was seen during the examination. There was pooling of contrast within the vallecula and piriform sinuses. No gastroesophageal reflux was seen during the examination. 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 CORRELATION WITH ENDOSCOPY IS SUGGESTED. Impression dictated by: Kolby Dinero Jr., Anatoly 06/12/2025 10:38 AM Dictation Location: [place] [address] Transcribed By: [facility] 06/12/25 1038 Dictated By: Kolby Dinero Jr, DO 06/12/25 1033 Signed By: 06/12/25 1038 [facility] Laboratory - Chemistry and C hemistry - challengeon 02-09-2025 Cobalamin (Vitamin B12) [Mass/Vol] 241 pg/mL 232-1245 [facility] Comment on above: Performed at: [address] Director: Marvel Chun PhD, Phone: [phone] TSH Qn 1.589 m[IU]/L 0.358-3.740 [facility] No Panel Informationon 02-09 Folate 9.90 ng/mL 8.60-58.90 [facility] Ambulatory Visit Summaryon 0 01-09-2025 Ambulatory Visit Summary Ambulatory Visit Summary MONET BUSTILLOS :1950 Visit Date:01/09/2025 Ambulatory Visit Instructions Your Diagnosis Urinary retention BPH with urinary obstruction History of prostate cancer Asymptomatic microscopic hematuria Erectile dysfunction Anticoagulated Your Care Team Attending Physician - WALLY PERALTA, Lexa Barlow Primary Care Physician - GIACOMO TAMEZ DO This Is Your Medications List tamsulosin (Flomax 0.4 mg Cap) Contact prescribing physician if questions or concerns apixaban (Eliquis 5 mg oral tablet) atorvastatin (atorvastatin 10 mg Tab) lidocaine topical (lidocaine Top 2% Gel w/Appl 30 mL) metoprolol (Metoprolol tartrate 25 mg Tab) multivitamin (Multi Vitamin+) Procedures Performed Cystoscopy (07/05/2024), Cystoscopy (05/19/2023), Mixed beam EBRT (external beam radiation therapy) (03/06/2022), MRI-US fusion guided transrectal biopsy of prostate (12/12/2021), MRI of prostate (11/20/2021), Catheterization of right heart, Closed fracture of tibia AND fibula, Hip replacement. Discharge Vitals Temperature (Oral) 37 ???C Heart Rate (Peripheral) 54 Respiratory Rate 16 Blood Pressure 118/62 Height 184 cm Height 72 in Weight 88.9 kg Weight 195.991 lb BMI 26.26 What to do next You Need to Schedule the Following Appointments Follow Up with WALLY PERALTA, CIERA Luna When: Comments: 6 mos w/ PSA Where: [facility] [address] , [place] [address]- [phone] Medications What How Much When Instructions Unchanged tamsulosin (Flomax 0.4 mg Cap) 1 [...] incomplete bladder emptying FRANCIS (generalized anxiety disorder) History of prostate cancer Hyperlipidemia Hypertension Lumbar spondylosis Nocturia Obesity Premature atrial contraction Prostate cancer Prostatitis Supraventricular tachycardia Urinary retention Patient Survey You may receive a survey via text or e-mail asking about your office visit. Please share your experience with us by completing your survey. We appreciate your feedback and thank you for choosing us for your care. Education Materials Prostate Cancer Screening Prostate cancer screening is testing that is done to check for the presence of prostate cancer in men. The prostate gland is a walnut-sized gland that is located below the bladder and in front of the rectum in males. The function of the prostate is to add fluid to semen during ejaculation. Prostate cancer is one of the most common types of cancer in men. Who should have prostate cancer screening? Screening recommendations vary based on age and other risk factors, as well as between the professional organizations who make the recommendations. In general, screening is recommended if: ??? You are age 50 to 70 and have an average risk for prostate cancer. You should talk with your health care provider about your need for screening and how often screening should be done. Because most prostate cancers are slow growing and will not cause , screening in this age group is generally reserved for men who have a 10- to 15-year life expectancy. ??? You are younger than age 50, and you have these risk factors: ? Having a father, brother, or uncle who has been diagnosed with prostate cancer. The risk is higher if your family member's cancer occurred at an early age or if you have multiple family members with prostate cancer at an early age. ? Being a male who is Black or is of [place] or sub-Saharan descent. In general, screening is not recommended if: ??? You are younger than age 40. ??? You are between the ages of 40 and 49 and you have no risk factors. ??? You are 70 years of age or older. At this age, the risks that screening can cause are greater than the benefits that it may provide. If you are at high risk for prostate cancer, your health care (more content not included)... Normal [facility] Urology Office/Clinic Noteon 01-09-2025 Urology Office/Clinic Note Urology Office/Clinic Note Chief Complaint 4 mth w/ PSA HPI Staff 4 mos w/ PSA. Previous dx: urinary retention, BPH w urinary obstruction, prostatitis, hx of pros ca, AMH, ED, anticoagulated. *Tamsulosin 0.4mg bid and Finasteride 5mg qd Rx'd Doxycycline 100mg bid x 5 days at prior OV to prevent infection given pt had upcoming shoulder surgery Pt does CIC bid with coude catheter. PSA 10/26/23 - 0.24 (Finasteride 0.48) 04/26/24 - 0.16 (Finasteride 0.32) 01/03/25 - 0.13 History of Present Illness Tests reviewed: reviewed UA, PSA I have reviewed the previous health record information and history for this patient from Dr. Lo. I have reviewed and verified the staff [...] See HPI. Physical Exam Vitals & Measurements T: 37 ???C(Oral) HR: 54(Peripheral) RR: 16 BP: 118/62 SpO2: 98% HT: 184 cm HT: 72 in WT: 88.9 kg WT: 195.991 lb BMI: 26.26 General Appearance: alert, no distress, well nourished, well developed male. Assessment/Plan Pt accompanied by today. Of note, pt states his adopted brother also CIC. 1. Urinary retention (R33.9: Retention of urine, unspecified) PVR (cc): 11/02/23 - >759, >450 after voiding again 11/16/23 - 609 12/14/23 - 575. Pt had run out of catheter supplies over the weekend for CIC. Catheter was placed. removed this 2wks later. 06/27/24 - 584 07/21/24 - 212 MICHELLE 06/10/23 [facility] - Large urinary bladder volume 839mL. No hydro. Not a candidate for operative intervention due to increased risk with hx of radiation. Office visit 06/27/24 - taught CIC 11/02/23. Was given doxycycline 100mg qd [...] urine which likely contributed to bladder damage. [1] S/p cysto 07/05/24 - prostate is unobstructed. Bladder is abnormal, severe trabeculation, open diverticuli diffusely, neg for b.t. Pt was instructed to restart CIC 2x/day. Then advised to increase to tid after completing voiding diary which showed outputs ranging 350-600ml Continues to CIC bid with coude cath. Attempts to void prior to catheterizing but often has very minimal output. Highest output ~650cc, higher volumes tend to be in the morning. Discussed catheterizing CIC tid to evaluate more volumes. Has hesitancy in trying this as he is uncomfortable doing CIC in a public setting. However states he will at least try tid x1 wk. -Cont CIC bid with coude cath, trial tid x1 wk (pt to call our office w volumes) -Void on his own if he gets the urge -Drastically increase fluids 2. BPH with urinary obstruction (N40.1: Benign prostatic hyperplasia with lower urinary tract symptoms) IPSS 20. Taking Finasteride 5mg qd and Tamsulosin 0.4mg bid. Attempts to void on own but has minimal output, does CIC. See #1. -Cont meds wo changes. Pt to call for refills. 3. History of prostate cancer (Z85.46: Personal history of malignant neoplasm of prostate) PSA 10/17/21 - 2.6 (Finasteride 5.2) 07/02/22 - 0.87 (Finasteride 1.74) 12/30/22 - 0.47 (Finasteride 0.94) 04/20/23 - 0.36 (Finasteride 0.72) 10/26/23 - 0.24 (Finasteride 0.48) 04/26/24 - 0.16 (Finasteride 0.32) 01/04/25 - <0.13 MRI fusion biopsy 12/12/21 - 80% of 4 cores POS w/[place] 7 (3+4) w/ perineural invasion. Pt saw Dr. Alanis at [facility] for radiation treatment for 4-6 weeks (pt is unsure how long) which was completed in 03/2022. PSA is undetectable. Will cont to monitor. -F/u in 6 mos w/ PSA 4. Asymptomatic microscopic hematuria (R31.21: Asymptomatic microscopic hematuria) S/p Cysto 05/19/23 - no bladder tumors. MICHELLE 06/10/23 [facility] - neg for stones. UA today negative for blood and infection. -Cont sx monitoring and routine UAs -Pt to contact our office if gross hematuria ever occurs 5. Erectile dysfunction (N52.9: Male erectile dysfunction, unspecified) Secondary to prostate radiation (more content not included)... Normal [facility] Comment on above: Result Comment: Elec tronically Signed By: Lexa LO MD\.br\Date and Time Signed: 01/09/25 12:51 EDT\.br\Electronically Co-Signed By: Colleen Souza\.br\Date and Time Co-Signed: 01/09/25 12:49 EDT Basophils Auto (Bld) [#/Vol] on 01-04-2025 Basophils (Bld) [#/Vol] Automated basophil count 0.0-0.1 [facility] Basophils/100 WBC Auto (Bld) on 01-04-2025 Basophils/100 WBC (Bld) Automated basophil % 0.2-2.0 [facility] Cholesterol in LDL Calc [Mas s/Vol]on 01-04-2025 Cholesterol in LDL [Mass/Vol] Cholesterol in LDL [Mass/volume] in Serum or Plasma by calculation [facility] Comment on above: <100 mg/dl [id number] 0-129 mg/dl NEAR OR ABOVE [id number] mg/dl BORDERLINE [id number] mg/dl HIGH>190 mg/dl VERY HIGH Cholesterol in VLDL Calc [Ma ss/Vol]on 01-04-2025 Cholesterol in VLDL [Mass/Vol] Cholesterol in VLDL [Mass/volume] in Serum or Plasma by calculation [facility] Eosinophils/100 WBC Auto (Bl d)on 01-04-2025 Eosinophils/100 WBC (Bld) Automated eosinophil % 0.9-7.0 [facility] Erythrocyte distribution wid th Auto (RBC) [Ratio]on 01-04-2025 Erythrocyte distribution width (RBC) [Ratio] Erythrocyte distribution width [Ratio] by Automated count 11.0-15.0 [facility] Estimated glomerular filtrat ion rate (GFR) non- Americanon 01-04-2025 GFR/1.73 sq M.predicted among non-blacks MDRD (S/P/Bld) [Vol rate/Area] Estimated glomerular filtration rate (GFR) non- >=60 mL/min/1.73m 2 [facility] Globulin Calc (S) [Mass/Vol] on 01-04-2025 Globulin (S) [Mass/Vol] Serum globulin measurement by calculation (mass/volume) [facility] Hematocrit Auto (Bld) [Volum e fraction]on 01-04-2025 Hematocrit (Bld) [Volume fraction] Hematocrit [Volume Fraction] of Blood by Automated count 42.0-54.0 [facility] Hemoglobin [Mass/volume] in Bloodon 01-04-2025 Hemoglobin (Bld) [Mass/Vol] Hemoglobin [Mass/volume] in Blood 14.0-18.0 [facility] Laboratory - Chemistry and C hemistry - challengeon 01-04-2025 Albumin [Mass/Vol] 3.8 g/dL 3.4-5.0 [facility] ALP [Catalytic activity/Vol] 75 U/L 46-116 [facility] ALT [Catalytic activity/Vol] 23 U/L 16-63 [facility] AST [Catalytic activity/Vol] 20 U/L 15-37 [facility] Bilirubin [Mass/Vol] 1.4 mg/dL High 0.2-1.0 [facility] Calcium [Mass/Vol] 9.1 mg/dL 8.5-10.1 [facility] Chloride [Moles/Vol] 106 mmol/L 98-107 [facility] Cholesterol [Mass/Vol] 153 mg/dL <=200 [facility] Cholesterol in HDL [Mass/Vol] 67 mg/dL High 40-60 [facility] Comment on above: > or =60 mg/dl - LOW CARDIOVASCULAR RISK<40 mg/dl - HIGH CARDIOVASCULAR RISK CO2 [Moles/Vol] 27.0 mmol/L 21.0-32.0 [facility] Creatinine [Mass/Vol] 1.02 mg/dL 0.70-1.30 [facility] GFR/1.73 sq M.predicted MDRD (S/P/Bld) [Vol rate/Area] mL/min/{1.73_m2} >=60 mL/min/1.73m 2 [facility] Glucose [Mass/Vol] 94 mg/dL 74-106 [facility] Potassium [Moles/Vol] 4.1 mmol/L 3.5-5.1 [facility] Protein [Mass/Vol] 7.0 g/dL 6.4-8.2 [facility] Sodium [Moles/Vol] 143 mmol/L 136-145 [facility] Triglyceride [Mass/Vol] 65 mg/dL <=150 [facility] Urea nitrogen [Mass/Vol] 12.0 mg/dL 7.0-18.0 [facility] Urea nitrogen/Creatinine [Mass ratio] 11.8 mg/mg [facility] Laboratory - Hematology and Cell countson 01-04-2025 Immature granulocytes/100 WBC (Bld) 0.2 % 0.0-0.5 [facility] Leukocytes [#/volume] correc mor for nucleated erythrocytes in Blood by Automated counon 01-04-2025 WBC corrected for nucl RBC Auto (Bld) [#/Vol] Leukocytes [#/volume] corrected for nucleated erythrocytes in Blood by Automated coun 4.0-11.0 [facility] Lymphocytes Auto (Bld) [#/Vo l]on 01-04-2025 Lymphocytes (Bld) [#/Vol] Lymphocytes [#/volume] in Blood by Automated count 1.2-3.8 [facility] Lymphocytes/100 WBC Auto (Bl d)on 01-04-2025 Lymphocytes/100 WBC (Bld) Lymphocytes/100 leukocytes in Blood by Automated count 20.5-60.0 [facility] MCH Auto (RBC) [Entitic mass ]on 01-04-2025 MCH (RBC) [Entitic mass] MCH [Entitic mass] by Automated count 25.9-34.0 [facility] MCHC Auto (RBC) [Mass/Vol]on 01-04-2025 MCHC (RBC) [Mass/Vol] MCHC [Mass/volume] by Automated count 29.9-35.2 [facility] MCV Auto (RBC) [Entitic vol] on 01-04-2025 MCV (RBC) [Entitic vol] MCV [Entitic volume] by Automated count High 80.0-94.0 [facility] Monocytes Auto (Bld) [#/Vol] on 01-04-2025 Monocytes (Bld) [#/Vol] Automated blood monocyte count 0.3-0.8 [facility] Monocytes/100 WBC Auto (Bld) on 01-04-2025 Monocytes/100 WBC (Bld) Automated monocyte % High 1.7-12.0 [facility] Neutrophils Auto (Bld) [#/Vo l]on 01-04-2025 Neutrophils (Bld) [#/Vol] Neutrophils [#/volume] in Blood by Automated count 1.4-6.5 [facility] Neutrophils/100 WBC Auto (Bl d)on 01-04-2025 Neutrophils/100 WBC (Bld) Automated neutrophil % 43.0-75.0 [facility] No Panel Informationon 01-04 Eosinophils # (Auto) 0.1 10 3/uL 0.0-0.7 [facility] Immature Granulocyte # (Auto) 0.01 10 3/uL 0.00-0.03 [facility] Prostate Specific Antigen Total <0.13 ng/mL <=4.00 [facility] Platelet mean volume Auto (B ld) [Entitic vol]on 01-04-2025 Platelet mean volume (Bld) [Entitic vol] Platelet mean volume [Entitic volume] in Blood by Automated count 9.5-13.5 [facility] Platelets Auto (Bld) [#/Vol] on 01-04-2025 Platelets (Bld) [#/Vol] Platelets [#/volume] in Blood by Automated count Low 150-450 [facility] RBC Auto (Bld) [#/Vol]on RBC (Bld) [#/Vol] Erythrocytes [#/volume] in Blood by Automated count 4.70-6.10 [facility] Serum or plasma albumin/glob ulin mass ratioon 01-04-2025 Albumin/Globulin [Mass ratio] Serum or plasma albumin/globulin mass ratio [facility] Serum or plasma anion gap de terminationon 01-04-2025 Anion gap [Moles/Vol] Serum or plasma anion gap determination [facility] Serum or plasma total choles terol/high density lipoprotein (HDL) cholesterol mass juaquin 01-04-2025 Cholesterol.total/Ch olesterol in HDL [Mass ratio] Serum or plasma total cholesterol/high density lipoprotein (HDL) cholesterol mass rat [facility] Comment on above: 3.3 - 4.4 LOW RISK4. 4 - 7.1 AVERAGE RISK7.1 - 11.0 MODERATE RISK>11.0 HIGH RISK Ambulatory Visit Summaryon 1 11-10-2023 Ambulatory Visit Summary Ambulatory Visit Summary MONET BUSTILLOS Paul :1950 Visit Date:09/09/2024 Ambulatory Visit Instructions Your Diagnosis Urinary retention BPH with urinary obstruction Prostatitis History of prostate cancer Asymptomatic microscopic hematuria Erectile dysfunction Anticoagulated Your Care Team Attending Physician - WALLY PERALTA, Lexa Barlow Primary Care Physician - GIACOMO TAMEZ DO This Is Your Medications List finasteride (finasteride 5 mg Tab) lidocaine topical (lidocaine Top 2% Gel w/Appl 30 mL) tamsulosin (Flomax 0.4 mg Cap) Contact prescribing physician if questions or concerns apixaban (Eliquis 5 mg oral tablet) atorvastatin (atorvastatin 10 mg Tab) metoprolol (Metoprolol tartrate 25 mg Tab) multivitamin (Multi Vitamin+) Procedures Performed Cystoscopy (07/05/2024), Cystoscopy (05/19/2023), Mixed beam EBRT (external beam radiation therapy) (03/06/2022), MRI-US fusion guided transrectal biopsy of prostate (12/12/2021), MRI of prostate (11/20/2021), Catheterization of right heart, Closed fracture of tibia AND fibula, Hip replacement. Discharge Vitals Temperature (Oral) 37 ???C Heart Rate (Peripheral) 56 Respiratory Rate 18 Blood Pressure 129/80 Height 184 cm Height 72 in Weight 89.6 kg Weight 197.534 lb BMI 26.47 What to do next Scheduled Follow-Up Appointments Thursday 11:45 AM EDT With: Lexa LO MD Where: [facility] [address] [place] [address] [place] [address]- You Need to Schedule the Following Appointments Follow Up with Lexa LO MD, URL When: Where: [facility] [place] [address]- Medications What How Much When Instructions Unchanged finasteride (finasteride 5 mg Tab) 1 Tablets By Mouth Every day Duration: 90 Days Unchanged lidocaine topical (lidocaine Top 2% Gel w/ Appl 30 mL) 5 Milliliter Topical Once Apply topically prior to cathing Unchanged tamsulosin (Flomax 0.4 mg Cap) 1 [...] incomplete bladder emptying FRANCIS (generalized anxiety disorder) History of prostate cancer Hyperlipidemia Hypertension Lumbar spondylosis Nocturia Obesity Premature atrial contraction Prostate cancer Prostatitis Supraventricular tachycardia Urinary retention Patient Survey You may receive a survey via text or e-mail asking about your office visit. Please share your experience with us by completing your survey. We appreciate your feedback and thank you for choosing us for your care. Education Materials Clean Intermittent Catheterization, Male Clean intermittent catheterization [...] the bladder. CIC may be done when: ??? You cannot completely empty your bladder on your own. This may be due to a blockage in the bladder or urethra. ??? Your bladder leaks pee. This may happen when the muscles or nerves near the bladder are not working normally, so the bladder overflows. Your health care provider will show you how to do the procedure. You will also be given the supplies you need to do the procedure. Supplies needed: ??? Germ-free (sterile), water-based lubricant. ??? A container for pee collection. You may also use the toilet to dispose of pee from the catheter. ??? A catheter. Your provider will determine the best size for you. ? Use this catheter size: ??? Clean gloves. ??? Soap and water. ??? Clean washcloth and towel. How to perform this procedure: Most people need CIC at least 4 times per day to completely empty the bladder. Your provider will tell you how often you should do CIC. ??? Number of times per day to perform CIC: (more content not included)... Normal [facility] Urology Office/Clinic Noteon 09-09-2024 Urology Office/Clinic Note Urology Office/Clinic Note Chief Complaint f/u PVR log HPI Staff 2 month f/u w/ PVR log. Concerned about color of urine, states sometimes its dark or honey colored , or brown. States his urine is not always clear. Wondering if he needs preventative ATB. Unable to give urine sample due to CIC Last OV w/ PRW 06/27/24, dx: urinary retention, feeling of DELORES, prostatitis, prostate ca (radiation tx 03/2022), AMH, ED. S/p Cysto 07/05/24. Saw JINNY for an acute visit 07/21/24 due to urinary retention, pt was advised to increase CIC to tid. Pt states he does not cath 3x per day every day, sometimes he only does it 2x. *Finasteride 5mg qd and Flomax 0.4mg bid. Dysuria: denies Incomplete bladder emptying: yes - does CIC 3x per day Hematuria: denies Frequency: CIC 2-3x per day, sometimes urinates in between Urgency: denies Nocturia: used to, but has not had too since starting CIC Stream: weak stream Leaking: denies Post void dripping: denies Wearing pads/ Depends: denies Urge incontinence:denies Stress incontinence: denies Incontinence without Sensory Awareness: denies Abdominal pain: denies Flank pain: denies History of Present Illness Tests reviewed: reviewed voiding diaries. I have reviewed the previous health record information and history for this patient from Dr. Lo I have reviewed and verified the staff [...] See HPI. Physical Exam Vitals & Measurements T: 37 ???C(Oral) HR: 56(Peripheral) RR: 18 BP: 129/80 HT: 72 in HT: 184 cm WT: 89.6 kg WT: 197.534 lb BMI: 26.47 General Appearance: alert, no distress, well nourished, well developed male. Assessment/Plan Pt accompanied by today. Of note, pt states his adopted brother also CIC. 1. Urinary retention (R33.9: Retention of urine, unspecified) PVR (cc): 11/02/23 - >759, >450 after voiding again 11/16/23 - 609 12/14/23 - 575. Pt had run out of catheter supplies over the weekend for CIC. Catheter was placed. removed this 2wks later. 06/27/24 - 584 07/21/24 - 212 MICHELLE 06/10/23 [facility] - Large urinary bladder volume 839mL. No hydro. Not a candidate for operative intervention due to increased risk with hx of radiation. Office visit 06/27/24 - taught CIC 11/02/23. Was given doxycycline 100mg qd [...] urine which likely contributed to bladder damage. S/p cysto 07/05/24 - prostate is unobstructed. Bladder is abnormal, severe trabeculation, open diverticuli diffusely, neg for b.t. Pt was instructed to restart CIC 2x/day. Last seen by Whitney Campos PA-C 07/21/24. Pt was CIC 2x/day. Brought volume diary range 350-600ml. Lots of times around 500-550ml. Pt was instructed to increase to tid. Reviewed voiding diaries. Pt reports he does not always CIC tid but always CIC bid. Mentions if he is out in public he does not cath. Occasionally experiences bladder spasms. Discussed the risks of not cathing as frequent as he should. Strongly advised pt to take catheter with him if he is out in public. Shares his urine is honey colored or dark. Strongly urged pt to drastically increase water intake. Pt also shares that he has shoulder surgery 09/20 and states his will have to cath him. Suggested indwelling Vaughn to be inserted the day of surgery at home ( can place catheter) and for Vaughn to remain in place a few days after surgery. Will provide catheter supplies today. -Cont CIC tid with coude cath, can always increase barring high volumes -Void on his own if he gets the urge -Drastically increase fluids -Start Doxycycline 100mg bid x 5 days (3 days prior to surgery to avoid infection) F/up in 4 months or sooner if issues arise. 2. BPH with urin (more content not included)... Normal [facility] Comment on above: Result Comment: Elec tronically Signed By: Lexa LO MD\.br\Date and Time Signed: 09/09/24 11:52 EST\.br\Electronically Co-Signed By: Fani Ryan\.br\Date and Time Co-Signed: 09/09/24 11:38 EST\.br\Electronically Co-Signed By: Fani Ryan\.br\Date and Time Co-Signed: 09/09/24 11:43 EST BASIC METABOLIC PANLon 08-30 Anion gap [Moles/Vol] 9 mmol/L Normal 5-15 [facility] Comment on above: Performed By: #### 7 18-7, BMP #### [facility] ([id number]) [address], [address] [place] [address] Calcium [Mass/Vol] 9.1 mg/dL Normal 8.5-10.5 [facility] Comment on above: Performed By: #### 7 18-7, BMP #### [facility] ([id number]) [address], [address] [place] [address] Chloride [Moles/Vol] 107 mmol/L Normal 98-109 [facility] Comment on above: Performed By: #### 7 18-7, BMP #### [facility] ([id number]) [address], [address] [place] [address] CO2 [Moles/Vol] 26 mmol/L Normal 22-32 [facility] Comment on above: Performed By: #### 7 18-7, BMP #### [facility] ([id number]) [address], [address] [place] [address] Creatinine [Mass/Vol] 1.00 mg/dL Normal 0.60-1.30 [facility] Comment on above: Result Comment: METH OD TRACEABLE TO IDMS STANDARD Performed By: #### 7 18-7, BMP #### [facility] ([id number]) [address] [place] [address] GFR/1.73 sq M.predicted among non-blacks MDRD (S/P/Bld) [Vol rate/Area] 78 mL/min/{1.73_m2} Normal >59 [facility] Comment on above: Result Comment: Reported eGFR is based on the CKD-EPI 2020 equation that does not use a race coefficient. Performed By: #### 7 18-7, BMP #### [facility] ([id number]) [address], [facility] [address] [place] [address] Glucose [Mass/Vol] 98 mg/dL Normal 65-99 [facility] Comment on above: Performed By: #### 7 18-7, BMP #### [facility] ([id number]) [address] [address] [place] [address] Potassium [Moles/Vol] 4.0 mmol/L Normal 3.5-5.0 [facility] Comment on above: Performed By: #### 7 18-7, BMP #### [facility] ([id number]) [address], [facility] [address] [place] [address] Sodium [Moles/Vol] 142 mmol/L Normal 134-146 [facility] Comment on above: Performed By: #### 7 18-7, BMP #### [facility] ([id number]) [address], [facility] [address] [place] [address] Urea nitrogen [Mass/Vol] 12 mg/dL Normal 5-27 [facility] Comment on above: Performed By: #### 7 18-7, BMP #### [facility] ([id number]) [address] [facility] [address] [place] [address] Basic Metabolic Panelon 11-2 Anion gap [Moles/Vol] 9 mmol/L 5 - 15 mmol/L [facility] Calcium [Mass/Vol] 9.1 mg/dL 8.5 - 10. 5 mg/dL [facility] Chloride [Moles/Vol] 107 mmol/L 98 - 10 9 mmol/L [facility] CO2 [Moles/Vol] 26 mmol/L 22 - 32 mmol/L [facility] Creatinine [Mass/Vol] 1 mg/dL 0.60 - 1.30 mg/dL [facility] Comment on above: METHOD TRACEABLE TO [facility] STANDARD eGFR (CKD-EPI)non-race dependent 78 - PINF [facility] Comment on above: Reported eGFR is based on the CKD-EPI 2021 equation that does not use a race coefficient. Glucose [Mass/Vol] 98 mg/dL 65 - 99 mg/dL [facility] Potassium [Moles/Vol] 4 mmol/L 3.5 - 5.0 mmol/L [facility] Sodium [Moles/Vol] 142 mmol/L 134 - 146 mmol/L [facility] Urea nitrogen [Mass/Vol] 12 mg/dL 5 - 27 mg/dL [facility] Basic metabolic 1998 panelon 08-30-2024 Anion gap [Moles/Vol] 9 mmol/L 5 - 15 mmol/L [facility] Calcium [Mass/Vol] 9.1 mg/dL 8.5 - 10. 5 mg/dL [facility] Chloride [Moles/Vol] 107 mmol/L 98 - 10 9 mmol/L [facility] CO2 [Moles/Vol] 26 mmol/L 22 - 32 mmol/L [facility] Creatine [Mass/Vol] 1 mg/dL 0.60 - 1 .30 mg/dL [facility] Comment on above: METHOD TRACEABLE TO [facility] STANDARD GFR/1.73 sq M.predicted among non-blacks MDRD (S/P/Bld) [Vol rate/Area] 78 mL/min/{1.73_m2} - PINF [facility] Comment on above: Reported eGFR is based on the CKD-EPI 2021 equation that does not use a race coefficient. PERFORMED AT [facility] [address],[place] [address] Glucose [Mass/Vol] 98 mg/dL 65 - 99 mg/dL [facility] Potassium [Moles/Vol] 4 mmol/L 3.5 - 5.0 mmol/L [facility] Sodium [Moles/Vol] 142 mmol/L 134 - 146 mmol/L [facility] Urea nitrogen [Mass/Vol] 12 mg/dL 5 - 27 mg/dL [facility] HEMOGLOBINon 08-30-2024 Hemoglobin (Bld) [Mass/Vol] 14.8 g/dL Normal 13.0-17.0 [facility] Comment on above: Performed By: #### 7 18-7, BMP #### [facility] ([id number]) [address] [place] [address] Hemoglobinon 08-30-2024 Hemoglobin (Bld) [Mass/Vol] 14.8 g/dL 13.0 - 17.0 g/dL [facility] Hemoglobin (Bld) [Mass/Vol]o n 08-30-2024 [facility] Hemoglobin, blood gaseson Hemoglobin (Bld) [Mass/Vol] 14.8 g/dL 13.0 - 17.0 g/dL [facility] Comment on above: PERFORMED AT [facility] [address],[place] [address] No Panel Informationon 08-30 [facility] XR CHEST 2 VWSon 08-30-2024 XR CHEST [...] Dutton MD on 08/30/2024 3:18 PM Normal [facility] XR Chest PA and Lateralon XR CHEST 2 VWS History: . Preop examination; Hypertension, unspecified type; Paroxysmal atrial fibrillation (CMS-HCC). Comparison: None Impression: Ill-defined right basilar parenchymal opacity, possibly scarring or atelectasis. Additional areas of coarsened pulmonary parenchymal opacification. CT may be helpful. No lobar consolidation. No pneumothorax or pleural effusion. Nonenlarged heart. Finalized by Rodrigo Dutton MD on 08/30/2024 3:18 PM [facility] Nato, Rodrigo Watson MD - 08/30/2024 XR CHEST 2 VWS History: . Preop examination; Hypertension, unspecified type; Paroxysmal atrial fibrillation (CMS-HCC). Comparison: None Impression: Ill-defined right basilar parenchymal opacity, possibly scarring or atelectasis. Additional areas of coarsened pulmonary parenchymal opacification. CT may be helpful. No lobar consolidation. No pneumothorax or pleural effusion. Nonenlarged heart. Finalized by Rodrigo Dutton MD on 08/30/2024 3:18 PM [facility] Study observation (narrative) [facility] XR Chest PA and LateralOrder ed By: Rodrigo Dutton on 08-30-2024 [facility] Work Phone: No Panel Informationon 08-22 Complexity: simple Destruction method: electrodesiccation and curettage Informed consent: discussed and consent obtained Informed consent comment: The risks of the procedure were discussed, including, but not limited to risks of scarring, darker or retail sales merchandiser development pigmentary changes, recurrence, infection, and incomplete removal [...] lidocaine used: 2.0 cc Previous accession number: [id number] [facility] Urology Office/Clinic Noteon 07-21-2024 Urology [...] f/u as previously planned w PRW. Ordered: 09580 Measure Post Void residual urine and/or bladder capacity by US- non-imaging Body Mass Index (BMI) documented 3008F Current tobacco non-user 1036F Depression Screening Negative 3352F E&M of Est. Patient Low 20-29 Min 30859 Influenza immunization status assessed 1030F Medication list [...] Keep previously scheduled follow up with Dr Lo in September Additional Instructions: Patient Education Acute [...] Immunizations Vaccine Date Status Comments SARS-CoV-2 (COVID-19) [id number] 06/18/2022 Recorded 2023-05-04: TPV70 influenza virus vaccine, inactivated - Not Given Temporary contraindication - reschedule SARS-CoV-2 (COVID-19) mRNA-1273 vaccine 08/04/2021 Recorded SARS-CoV-2 (COVID-19) Ad26 vaccine 12/19/2020 Recorded SARS-CoV-2 (COVID-19) mRNA-1273 vaccine 12/13/2020 Recor (more content not included)... Normal [facility] Comment on above: Result Comment: Elec tronically Signed By: VALENTIN CAMPOS PA-C\.br\Date and Time Signed: 07/21/24 15:35 EDT No [...] Photo taken Amount of lidocaine used: 1.0cc [facility] Destruction method comment: Scissors Informed consent: discussed and consent obtained Procedure prep: Patient was prepped and draped in usual sterile fashion Prep type: Isopropyl alcohol Anesthesia: the lesion was anesthetized in a standard fashion Anesthetic: 1% lidocaine w/ epinephrine 1-100,000 local infiltration Hemostasis achieved with: electrodesiccation Outcome: patient tolerated procedure well with no complications [facility] Main OR Intraoperative Recor don 07-05-2024 Main OR Intraoperative Record Main OR Intraoperative Record IntraOp Document Type FTURO Summary Primary Physician: Lexa LO MD Finalized Date/Time: 07/05/24 11:03:43 Pt. Name: TRESSAMONET/Sex: 1950 Male Med Rec #: [id number] Physician: Lexa LO MD Financial #: [id number] Pt. Type: O Room/Bed: / Admit/Disch: 07/05/24 [...] Jackelyn Weiss Role Performed Surgeon - Primary Analog Design Engineer - Primary Scrub - Primary Time In [...] CYSTOSCOPY Primary Procedure Yes Primary Surgeon Lexa LO MD Start 07/05/24 10:54:00 Stop 07/05/24 10:59:00 [...] FEELING OF INCOMPLETE EMPTYING Last Modified By: Brandi Dorantes RN 07/05/24 10:51:25 Post-Care Text: The patient is [...] Verified Availability Equipment, Medication Time Out Lexa LO MD, Verified (If Participants Jose E CEDEÑO, Brandi Applicable) Guanakito Camejo CST, Kimberly A Time Out Complete 07/05/24 10:53:00 Allergies [...] 07/05/24 11:03 Brandi Dorantes RN 07/05/24 11:03 [facility] Main OR Preoperative Recordo n 07-05-2024 Main OR Preoperative Record Main OR Preoperative Record Holding Area Document Type FTURO Summary Primary Physician: Lexa LO MD Finalized Date/Time: 07/05/24 10:36:20 Pt. Name: MONET BUSTILLOS/Sex: 1950 Male Med Rec #: [id number] Physician: Lexa LO MD Financial #: [id number] Pt. Type: O Room/Bed: / Admit/Disch: 07/05/24 [...] Signed By: Dahiana Falcon 07/05/24 10:36 Normal [facility] Operative Reporton Operative Report Operative Report Patient: MONET BUSTILLOS Age: 73 years Sex: Male : 1950 Associated Diagnoses: None Author: Lexa LO MD Procedure Operative Information Details: Date/ Time: [...] daily for PVR once again today. Normal [facility] Comment on above: Result Comment: Elec tronically Signed By: Lexa LO MD\.br\Date and Time Signed: 07/05/24 11:22 EDT Ambulatory Visit Summaryon 0 06-27-2024 Ambulatory Visit Summary Ambulatory Visit Summary MONET BUSTILLOS :1950 Visit Date:06/27/2024 Ambulatory Visit Instructions Your Diagnosis Urinary retention Feeling of incomplete bladder emptying BPH with urinary obstruction Prostatitis Prostate cancer Asymptomatic microscopic hematuria Erectile dysfunction Your Care Team Attending Physician - WALLY PERALTA, Lexa Barlow Primary Care Physician - GIACOMO TAMEZ DO This Is Your Medications List finasteride [...] Lexa Barlow, URL When: Comments: sched cysto Where: [facility] [address] , [place] [address]- [phone] Medications What How Much When Instructions Unchanged [...] ? Add (more content not included)... Normal [facility] Urology Office/Clinic Noteon 06-27-2024 Urology Office/Clinic [...] and history for this patient from Dr. Lo. I have reviewed and verified the staff [...] 12/12/21 - 80% of 4 cores POS w/[place] 3+4= 7 w/perineural invasio (more content not included)... Normal [facility] Comment on above: Result Comment: Elec tronically Signed By: Lexa LO MD\.br\Date and Time Signed: 06/27/24 13:00 EDT\.br\Electronically Co-Signed By: Colleen Souza\.br\Date and Time Co-Signed: 06/27/24 12:56 EDT Office Visiton 06-22-2024 Follow-up visit [id number] Tressa,Monet Miller II 1950 M Date Provider Department Center 06/22/2024 Wendi-JANAE LEONARD [facility] Family History Problem Relation Age of Onset Alzheimer's disease Father Family Status - Relation Status Age at Father Level of Service:35548 UT OFFICE/OUTPATIENT ESTABLISHED MOD MDM 30 MIN Reason for Visit and Comments: Pre-op Exam [100321] Atrial Fibrillation [80] Hypertension [949436] Normal [facility] CBC AUTO DIFFon 12-31-2022 BASO # 0.0 103/ul Normal 0.0-0.1 [facility] Comment on above: Performed By: #### C BC #### [facility] [address] [address] [address] Henry Marin Basophils/100 WBC (Bld) 0.8 % Normal 0.2-2.0 [facility] Comment on above: Performed By: #### C BC #### [facility] [address] [place] [address] Dr. Henry Marin EO # 0.2 103/ul Normal 0.0-0.7 [facility] Comment on above: Performed By: #### C BC #### [facility] [address] [place] [address] Dr. Henry Marin Eosinophils/100 WBC (Bld) 3.6 % Normal 0.9-7.0 [facility] Comment on above: Performed By: #### C BC #### [facility] [address] [place] [address] Dr. Henry Marin Erythrocyte distribution width (RBC) [Ratio] 13.2 % Normal 11.0-15.0 [facility] Comment on above: Performed By: #### C BC #### [facility] [address] [place] [address] Dr. Henry Marin Hematocrit (Bld) [Volume fraction] 45.3 % Normal 42.0-54.0 [facility] Comment on above: Performed By: #### C BC #### [facility] [address] [place] [address] Dr. Henry Marin Hemoglobin (Bld) [Mass/Vol] 15.7 g/dL Normal 14.0-18.0 [facility] Comment on above: Performed By: #### C BC #### [facility] [address] [place] [address] Dr. Henry Marin IG # 0.00 10e3/ul Normal 0.00-0.03 [facility] Comment on above: Performed By: #### C BC #### [facility] [address] [place] [address] Dr. Henry Marin IG % 0.0 % Normal 0.0-0.5 [facility] Comment on above: Performed By: #### C BC #### [facility] [address] [place] [address] Dr. Henry Marin LYMPH # 1.7 103/ul Normal 1.2-3.8 [facility] Comment on above: Performed By: #### C BC #### [facility] [address] [place] [address] Dr. Henry Marin Lymphocytes/100 WBC (Bld) 34.8 % Normal 20.5-60.0 [facility] Comment on above: Performed By: #### C BC #### [facility] [address] [place] [address] Dr. Henry Marin MANUAL DIFF REQ NO Normal [facility] Comment on above: Performed By: #### C BC #### [facility] [address] [place] [address] Dr. Henry Marin MCH (RBC) [Entitic mass] 32.6 pg Normal 25.9-34.0 [facility] Comment on above: Performed By: #### C BC #### [facility] [address] [place] [address] Dr. Henry Marin MCHC (RBC) [Mass/Vol] 34.7 g/dL Normal 29.9-35.2 [facility] Comment on above: Performed By: #### C BC #### [facility] [address] [place] [address] Dr. Henry Marin MCV (RBC) [Entitic vol] 94.0 fL Normal 80.0-94.0 [facility] Comment on above: Performed By: #### C BC #### [facility] [address] [place] [address] Dr. Henry Marin MONO # 0.6 103/ul Normal 0.3-0.8 [facility] Comment on above: Performed By: #### C BC #### [facility] [address] [place] [address] Dr. Henry Marin Monocytes/100 WBC (Bld) 13.0 % Critically high 1.7-12.0 [facility] Comment on above: Performed By: #### C BC #### [facility] [address] [place] [address] Dr. Henry Marin NEUT # 2.3 103/ul Normal 1.4-6.5 [facility] Comment on above: Performed By: #### C BC #### [facility] [address] [address] [address] Henry Marin Neutrophils/100 WBC (Bld) 47.8 % Normal 43.0-75.0 [facility] Comment on above: Performed By: #### C BC #### [facility] [address] [address] [address] Henry Marin Platelet mean volume (Bld) [Entitic vol] 9.7 fL Normal 9.5-13.5 [facility] Comment on above: Performed By: #### C BC #### [facility] [address] [address] [address] Henry Marin PLT 135 103/ul Critically low 150-[facility] Comment on above: Performed By: #### C BC #### [facility] [address] [place] [address] Dr. Henry Marin RBC 4.82 106/ul Normal 4.70-6.10 [facility] Comment on above: Performed By: #### C BC #### [facility] [address] [place] [address] Dr. Henry Marin WBC 4.8 103/ul Normal 4.0-11.0 [facility] Comment on above: Performed By: #### C BC #### [facility] [address] [place] [address] Dr. Henry Marin LIPID PROFILEon 12-31-2022 CHOL-HDL RATIO NORM SEE BELOW Normal [facility] Comment on above: Result Comment: 3.3 - 4.4 LOW RISK 4.4 - 7.1 AVERAGE RISK 7.1 - 11.0 MODERATE RISK >11.0 HIGH RISK Performed By: #### B MP, ALT, LIPID #### [facility] [address] [place] [address] Dr. Henry Marin Cholesterol [Mass/Vol] 169 mg/dL Normal <=200 [facility] Comment on above: Performed By: #### B MP, ALT, LIPID #### [facility] [address] [place] [address] Dr. Henry Marin Cholesterol in HDL [Mass/Vol] 59 mg/dL Normal 40-60 [facility] Comment on above: Performed By: #### B MP, ALT, LIPID #### [facility] [address] [address] [address] Henry Marin Cholesterol in LDL [Mass/Vol] 91.6 mg/dL Normal [facility] Comment on above: Performed By: #### B MP, ALT, LIPID #### [facility] [address] [address] [address] Henry Marin Cholesterol.total/Ch olesterol in HDL [Mass ratio] 2.9 {ratio} Normal [facility] Comment on above: Performed By: #### B MP, ALT, LIPID #### [facility] [address] [address] [address] Henry Marin HDL NORMAL > or = 60 mg/dl - LO W CARDIOVASCULAR RISK <40 mg/dl - HIGH CARDIOVASCULAR RISK Normal [facility] Comment on above: Performed By: #### B MP, ALT, LIPID #### [facility] [address] [address] [address] Henry Marin LDL CALC NORMAL SEE BELOW Normal [facility] Comment on above: Result Comment: <100 mg/dl OPTIMAL 100 - 129 mg/dl NEAR OR ABOVE OPTIMAL 130 - 159 mg/dl BORDERLINE HIGH 160 - 189 mg/dl HIGH >190 mg/dl VERY HIGH Performed By: #### B MP, ALT, LIPID #### [facility] [address] [address] [address] Henry Marin Triglyceride [Mass/Vol] 92 mg/dL Normal <=150 [facility] Comment on above: Performed By: #### B MP, ALT, LIPID #### [facility] [address] [address] [address] Henry Marin VLDL CALC 18.4 mg/dL Normal [facility] Comment on above: Performed By: #### B MP, ALT, LIPID #### [facility] [address] [address] [address] Henry Marin PROF CHEM 8 (BAS METB)on Anion gap [Moles/Vol] 11.8 mmol/L Normal [facility] Comment on above: Performed By: #### B MP, ALT, LIPID #### [facility] [address] [address] [address] Henry Marin Calcium [Mass/Vol] 8.6 mg/dL Normal 8.5-10.[address] [facility] Comment on above: Performed By: #### B MP, ALT, LIPID #### [facility] [address] [place] [address] Dr. Henry Marin Chloride [Moles/Vol] 106 mmol/L Normal 98-107 [facility] Comment on above: Performed By: #### B MP, ALT, LIPID #### [facility] [address] [place] [address] Dr. Henry Marin CO2 [Moles/Vol] 28.3 mmol/L Normal 21.0-32.0 [facility] Comment on above: Performed By: #### B MP, ALT, LIPID #### [facility] [address] [place] [address] Dr. Henry Marin Creatinine [Mass/Vol] 1.01 mg/dL Normal 0.70-1.30 [facility] Comment on above: Performed By: #### B MP, ALT, LIPID #### [facility] [address] [place] [address] Dr. Henry Marin EGFR-AF HUNGARIAN >60 Normal >=60 [facility] Comment on above: Performed By: #### B MP, ALT, LIPID #### [facility] [address] [place] [address] Dr. Henry Marin EGFR-NON AF HUNGARIAN >60 Normal >=60 [facility] Comment on above: Performed By: #### B MP, ALT, LIPID #### [facility] [address] [place] [address] Dr. Henry Marin Glucose [Mass/Vol] 106 mg/dL Normal 74-106 [facility] Comment on above: Performed By: #### B MP, ALT, LIPID #### [facility] [address] [place] [address] Dr. Henry Marin Potassium [Moles/Vol] 4.1 mmol/L Normal 3.5-5.1 [facility] Comment on above: Performed By: #### B MP, ALT, LIPID #### [facility] [address] [place] [address] Dr. Henry Marin Sodium [Moles/Vol] 142 mmol/L Normal 136-[address] [facility] Comment on above: Performed By: #### B MP, ALT, LIPID #### [facility] [address] [place] [address] Dr. Henry Marin Urea nitrogen [Mass/Vol] 13.0 mg/dL Normal 7.0-18.0 [facility] Comment on above: Performed By: #### B MP, ALT, LIPID #### [facility] [address] [place] [address] Dr. Henry Marin Urea nitrogen/Creatinine [Mass ratio] 12.9 mg/mg Normal [facility] Comment on above: Performed By: #### B MP, ALT, LIPID #### [facility] [address] [place] [address] Dr. Henry Marin [facility] 12-31-2022 ALT [Catalytic activity/Vol] 23 U/L Normal 16-63 [facility] Comment on above: Performed By: #### B MP, ALT, LIPID #### [facility] [address] [place] [address] Dr. Henry Marin Vital Signs Date Time Vital Sign Value Performing Clinician Facility 06-01-2025 [id number] Body height 182.88 cm Member Desk DO Work Phone: [facility] 06-01-2025 13:15-0400 Body mass index (BMI) [Ratio] 25.1 kg/m2 Giacomo Daily Dealy DO Work Phone: [facility] 06-01-2025 13:15-040 Body weight 83.97 kg Member Desk DO Work Phone: [facility] 06-01-2025 13:15-0400 Diastolic blood pressure 74 mm[Hg] Member Desk DO Work Phone: [facility] 06-01-2025 13:15-0400 Heart rate 72 /min Giacomo Ball DO Work Phone: [facility] 06-01-2025 13:15-0400 SaO2% (BldA) [Mass fraction] 99 % Giacomo Ball DO Work Phone: [facility] 06-01-2025 13:15-0400 Systolic blood pressure 108 mm[Hg] Giacomo Ball DO Work Phone: [facility] 05-23-2025 09:46-0400 Body height 182.9 cm Terese Aguila MD Work Phone: [facility] 05-23-2025 09:46-0400 Body mass index (BMI) [Ratio] 24.82 kg/m2 Terese Aguila MD Work Phone: [facility] 05-23-2025 09:46-0400 Body weight 83 kg Terese Aguila MD Work Phone: [facility] 05-23-2025 09:46-0400 Diastolic blood pressure 60 mm[Hg] Terese Aguila MD Work Phone: [facility] 05-23-2025 09:46-0400 Heart rate 52 /min Terese Aguila MD Work Phone: [facility] 05-23-2025 09:46-0400 Systolic blood pressure 104 mm[Hg] Terese Aguila MD Work Phone: [facility] 05-03-2025 14:53-0400 Body height 182.88 cm Giacomo Ball DO Work Phone: [facility] 05-03-2025 14:53-0400 Body mass index (BMI) [Ratio] 24.8 kg/m2 Giacomo Ball DO Work Phone: [facility] 05-03-2025 14:53-0400 Body weight 83.06 kg Giacomo Ball DO Work Phone: [facility] 05-03-2025 14:53-0400 Diastolic blood pressure 67 mm[Hg] Giacomo Ball DO Work Phone: [facility] 05-03-2025 14:53-0400 Heart rate 64 /min Giacomo Ball DO Work Phone: [facility] 05-03-2025 14:53-0400 Respiratory rate 12 /min Giacomo Ball DO Work Phone: [facility] 05-03-2025 14:53-0400 Systolic blood pressure 106 mm[Hg] Giacomo Ball DO Work Phone: [facility] 04-26-2025 13:35-0400 Body height 182.88 cm Giacomo Ball DO Work Phone: [facility] 04-26-2025 13:35-0400 Body mass index (BMI) [Ratio] 22.4 kg/m2 Giacomo Ball DO Work Phone: [facility] 04-26-2025 13:35-0400 Body weight 74.89 kg Giacomo Ball DO Work Phone: [facility] 04-26-2025 13:35-0400 Diastolic blood pressure 82 mm[Hg] Giacomo Ball DO Work Phone: [facility] 04-26-2025 13:35-0400 Heart rate 61 /min Giacomo Ball DO Work Phone: [facility] 04-26-2025 13:35-0400 SaO2% (BldA) [Mass fraction] 99 % Giacomo Ball DO Work Phone: [facility] 04-26-2025 13:35-0400 Systolic blood pressure 118 mm[Hg] Giacomo Ball DO Work Phone: [facility] 02-21-2025 14:23-0400 Body height 182.88 cm [facility] 02-21-2025 14:23-0400 Body mass index (BMI) [Ratio] 25.9 kg/m2 [facility] 02-21-2025 14:23-0400 Body weight 86.63 kg [facility] 02-21-2025 14:23-0400 Diastolic blood pressure 76 mm[Hg] [facility] 02-21-2025 14:23-0400 Heart rate 71 /min [facility] 02-21-2025 14:23-0400 Respiratory rate 12 /min [facility] 02-21-2025 14:23-0400 Systolic blood pressure 121 mm[Hg] [facility] 01-18-2025 13:31-0400 Body height 182.88 cm [facility] 01-18-2025 13:31-0400 Body mass index (BMI) [Ratio] 25.4 kg/m2 [facility] 01-18-2025 13:31-0400 Body weight 85.27 kg [facility] 01-18-2025 13:31-0400 Diastolic blood pressure 73 mm[Hg] [facility] 01-18-2025 13:31-0400 Heart rate 65 /min [facility] 01-18-2025 13:31-0400 Respiratory rate 12 /min [facility] 01-18-2025 13:31-0400 Systolic blood pressure 115 mm[Hg] [facility] 09-09-2024 10:38-0500 Blood Pressure Location Lexa LO [facility] 09-09-2024 10:38-0500 Body temperature 98.6 [degF] Lexa LO [facility] 09-09-2024 10:38-0500 Diastolic blood pressure 80 mm[Hg] Lexa LO [facility] 09-09-2024 10:38-0500 Heart rate 56 /min Lexa LO [facility] 09-09-2024 10:38-0500 Respiratory rate 18 /min Lexa LO [facility] 09-09-2024 10:38-0500 Systolic blood pressure 129 mm[Hg] Lexa LO [facility] 09-06-2024 10:07-0500 Body height 182.9 cm Barbara FONTENOT Work Phone: [facility] 09-06-2024 10:07-0500 Body mass index (BMI) [Ratio] 25.77 kg/m2 Barbara FONTENOT Work Phone: [facility] 09-06-2024 10:07-0500 Body weight 86.18 kg Barbara FONTENOT Work Phone: [facility] 08-30-2024 09:26-0500 Body height 182.9 cm [facility] 2 [facility] 08-30-2024 09:26-0500 Body mass index (BMI) [Ratio] 25.9 kg/m2 [facility] 2 [facility] 08-30-2024 09:26-0500 Body weight 86.[address] 07-21-2024 15:12-0400 Blood Pressure Location VALENTINARNALDO CAMPOS [facility] 07-21-2024 15:12-0400 Diastolic blood pressure 62 mm[Hg] VALENTIN JAYLA [facility] 07-21-2024 15:12-0400 Heart rate 64 /min VALENTIN JAYLA [facility] 07-21-2024 15:12-0400 Systolic blood pressure 109 mm[Hg] VALENTIN JAYLA [facility] 06-27-2024 11:40-0400 Diastolic blood pressure 70 mm[Hg] Lexa LO [facility] 06-27-2024 11:40-0400 Heart rate 70 /min Lexa LO [facility] 06-27-2024 11:40-0400 Systolic blood pressure 136 mm[Hg] Lexa LO [facility] 11-04-2023 15:45-0500 Body height 182.88 cm Giacomo Ball Other [employer] Other 11-04-2023 15:45-0500 Body mass index (BMI) [Ratio] 30.11 kg/m2 Giacomo Ball Other [employer] Other 11-04-2023 15:45-0500 Body weight 100.7 kg Giacomo Ball Other [employer] Other 11-04-2023 15:45-0500 Diastolic blood pressure 78 mm[Hg] Giacomo Ball Other [employer] Other 11-04-2023 15:45-0500 Respiratory rate 12 /min Giacomo Ball Other [employer] Other 11-04-2023 15:45-0500 Systolic blood pressure 123 mm[Hg] Giacomo Ball Other [employer] Other 11-02-2023 12:57-0500 Blood Pressure Location Lexa LO [facility] 11-02-2023 12:57-0500 Diastolic blood pressure 77 mm[Hg] Lexa LO [facility] 11-02-2023 12:57-0500 Heart rate 57 /min Lexa LO [facility] 11-02-2023 12:57-0500 Respiratory rate 16 /min Lexa LO [facility] 11-02-2023 12:57-0500 Systolic blood pressure 132 mm[Hg] Lexa LO [facility] 07-21-2023 14:00-0400 Body height 182.88 cm Giacomo Ball Other [employer] Other 07-21-2023 14:00-0400 Body mass index (BMI) [Ratio] 29.83 kg/m2 Giacomo Ball Other [employer] Other 07-21-2023 14:00-0400 Body weight 99.79 kg Giacomo Ball Other [employer] Other 07-21-2023 14:00-0400 Diastolic blood pressure 65 mm[Hg] Giacomo Ball Other [employer] Other 07-21-2023 14:00-0400 Respiratory rate 12 /min Giacomo Ball Other [employer] Other 07-21-2023 14:00-0400 Systolic blood pressure 114 mm[Hg] Giacomo Ball Other [employer] Other 01-16-2023 12:00-0400 Body height 182.88 cm Giacomo Ball Other [employer] Other 01-16-2023 12:00-0400 Body mass index (BMI) [Ratio] 30.92 kg/m2 Giacomo Ball Other [employer] Other 01-16-2023 12:00-0400 Body weight 103.42 kg Giacomo Ball Other [employer] Other 01-16-2023 12:00-0400 Diastolic blood pressure 67 mm[Hg] Giacomo Ball Other [facility] Other 01-16-2023 12:00-0400 Respiratory rate 12 /min Giacomo Tamez Other [facility] [employer] Other 01-16-2023 12:00-0400 Systolic blood pressure 115 mm[Hg] Giacomo Tamez Other [facility] [employer] Other Encounters Encounter Date Encounter Type Care Provider Facility Start: 07-17-2025 ambulatory Lexa Barlow WALLY Tejeda ty:[facility] [place] Start: 06-12-2025 End: 06-12-2025 ambulatory Giacomo Ball DO Work Phone: [facility] Work Phone: Start: 06-12-2025 End: 06-12-2025 Patient encounter procedure Giacomo Tamez DO -[facility] Work Phone: Start: 06-12-2025 End: 06-12-2025 Patient encounter procedure TERESE AGUILA MD -[facility] Work Phone: Start: 06-12-2025 End: 06-12-2025 ambulatory Giacomo Ball DO Work Phone: [facility] Work Phone: Start: 06-01-2025 End: 06-01-2025 ambulatory Giacomo Ball DO Work Phone: [facility] Work Phone: Start: 06-01-2025 End: 06-01-2025 Patient encounter procedure Lata Zapata DO -[facility] [place] Work Phone: Start: 05-23-2025 End: 05-23-2025 Carlie Aguila MD Work Phone: [facility] Start: 05-23-2025 End: 05-23-2025 Carlie Aguila MD Work Phone: [facility] Start: 05-23-2025 End: 05-23-2025 Office outpatient new 45 minutes Terese Aguila MD Work Phone: [facility] Comment on above: Chronic cough (Prima ry Dx); LPRD (laryngopharyngeal reflux disease); Chronic maxillary sinusitis; DNS (deviated nasal septum); Hypertrophy of both inferior nasal turbinates; Anticoagulated; Pharyngoesophageal dysphagia; Vasomotor rhinitis Start: 05-23-2025 End: 05-23-2025 ambulatory TERESE AGUILA Not Available Start: 05-17-2025 End: 05-17-2025 ambulatory Giacomo Tamez DO Work Phone: [facility] Work Phone: Start: 05-17-2025 End: 05-17-2025 Patient encounter procedure Oleg Weiss [facility] Work Phone: Start: 05-12-2025 End: 05-12-2025 ambulatory Giacomo Tamez DO Work Phone: [facility] Work Phone: Start: 05-12-2025 End: 05-12-2025 Patient encounter procedure Giacomo Joi -[facility] Work Phone: Start: 05-10-2025 ambulatory Giacomo Tamez DO Work Phone: [facility] Work Phone: Start: 05-10-2025 Non-patient / Non-visit Giacomo luis DO -[facility] Work Phone: Start: 05-08-2025 End: 05-08-2025 ambulatory Giacomo Tamez DO Work Phone: [facility] Work Phone: Start: 05-08-2025 End: 05-08-2025 Patient encounter procedure Oleg Weiss [facility] Work Phone: Start: 05-03-2025 End: 05-03-2025 ambulatory Giacomo Ball DO Work Phone: [facility] Work Phone: Start: 05-03-2025 End: 05-03-2025 Patient encounter procedure Giacomo Tamez DO -[facility] Work Phone: Start: 05-01-2025 End: 05-01-2025 ambulatory Giacomo Ball DO Work Phone: [facility] Work Phone: Start: 05-01-2025 End: 05-01-2025 Patient encounter procedure Tomi Sheikh -[facility] Work Phone: Start: 04-26-2025 End: 04-26-2025 ambulatory Giacomo Ball DO Work Phone: [facility] Work Phone: Start: 04-26-2025 End: 04-26-2025 Patient encounter procedure Lata Zapata [facility] Work Phone: Start: 04-10-2025 End: 04-10-2025 ambulatory Giacomo Ball DO Work Phone: [facility] Work Phone: Start: 04-10-2025 End: 04-10-2025 Patient encounter procedure Giacomo Tamez DO -[facility] Work Phone: Start: 03-21-2025 End: 03-21-2025 Carlie Kwan Stepanic DO Work Phone: [facility] Start: 03-21-2025 End: 03-21-2025 Carlie Kwan Stepanic DO Work Phone: [facility] Start: 03-21-2025 End: 03-21-2025 Office outpatient visit 15 minutes Jr. Mya Kwan Stepanic DO Work Phone: [facility] Comment on above: Adhesive capsulitis of right shoulder (Primary Dx); Acute pain of right shoulder Start: 03-21-2025 End: 03-21-2025 ambulatory MYA PAN Not Available Start: 03-08-2025 End: 03-08-2025 ambulatory [facility] Work Phone: Start: 03-08-2025 End: 03-08-2025 Patient encounter procedure [facility] Work Phone: Start: 02-28-2025 End: 02-28-2025 ambulatory [facility] Work Phone: Start: 02-28-2025 End: 02-28-2025 Patient encounter procedure [facility] Work Phone: Start: 02-21-2025 End: 02-21-2025 Patient encounter procedure [facility] Work Phone: Start: 02-14-2025 End: 02-14-2025 Carlie Navarro DO Work Phone: [facility] Start: 02-14-2025 End: 02-14-2025 Carlie Navarro DO Work Phone: [facility] Start: 02-14-2025 End: 02-14-2025 ambulatory [facility] Work Phone: Start: 02-14-2025 End: 02-14-2025 Patient encounter procedure [facility] Work Phone: Start: 02-14-2025 End: 02-14-2025 Office outpatient visit 15 minutes Jr. Mya Navarro DO Work Phone: [facility] Comment on above: Adhesive capsulitis of right shoulder (Primary Dx); Acute pain of right shoulder Start: 02-14-2025 End: 02-14-2025 ambulatory MYA PAN Not Available Start: 02-09-2025 Non-patient / Non-visit [facility] Work Phone: Start: 01-23-2025 End: 01-23-2025 Telephone encounter Jr. Mya Navarro DO Work Phone: [facility] Comment on above: Physical Therapy Start: 01-18-2025 End: 01-18-2025 ambulatory [facility] Work Phone: Start: 01-18-2025 End: 01-18-2025 Patient encounter procedure [facility] Work Phone: Start: 01-10-2025 End: 01-10-2025 Bamboo flowsheet Jr. Mya Navarro DO Work Phone: [facility] Start: 01-10-2025 End: 01-10-2025 Bamboo flowsheet Jr. Mya Navarro DO Work Phone: [facility] Start: 01-10-2025 End: 01-10-2025 Office outpatient visit 15 minutes Jr. Mya Navarro DO Work Phone: [facility] Comment on above: Status post right ro tator cuff repair; Internal derangement of right shoulder Start: 01-10-2025 End: 01-10-2025 ambulatory MYA PAN Not Available Start: 01-09-2025 End: 01-09-2025 ambulatory Lexa LO Facility:[facility] Start: 01-04-2025 Non-patient / Non-visit [facility] Work Phone: Start: 11-29-2024 End: 11-29-2024 Bamboo flowsheet Barbara FONTENOT Work Phone: [facility] Start: 11-29-2024 End: 11-29-2024 Bamboo flowsheet Barbara FONTENOT Work Phone: [facility] Start: 11-29-2024 End: 11-29-2024 Postop follow up visit related to original px Barbara FONTENOT Work Phone: [facility] Comment on above: Status post right ro tator cuff repair (Primary Dx) Start: 11-29-2024 End: 11-29-2024 ambulatory BARBARA RAMÍREZ Not Available Start: 11-01-2024 End: 11-01-2024 Bamboo flowsheet Barbara Ramírez PA Work Phone: [facility] Start: 11-01-2024 End: 11-01-2024 Bamboo flowsheet Barbara Ramírez PA Work Phone: [facility] Start: 11-01-2024 End: 11-01-2024 ambulatory BARBARA RAMÍREZ Not Available Start: 11-01-2024 End: 11-01-2024 Patient encounter procedure Barbara FONTENOT Work Phone: [facility] Comment on above: Status post right ro tator cuff repair (Primary Dx) Start: 10-03-2024 End: 10-03-2024 Bamboo flowsheet Julián Stevens C++ [employer]EL[employer] Work Phone: [facility] Start: 10-03-2024 End: 10-03-2024 Bamboo flowsheet Julián Stevens C++ [employer]EL[employer] Work Phone: [facility] Start: 10-03-2024 End: 10-03-2024 Postop follow up visit related to original px Julián Stevens C++ [employer] Work Phone: [facility] Comment on above: Status post right ro tator cuff repair (Primary Dx) Start: 10-03-2024 End: 10-03-2024 ambulatory JULIÁN STEVENS Not Available Start: 09-20-2024 End: 09-20-2024 Evaluation and management of inpatient JESSA PRICE [facility] Start: 09-20-2024 End: 09-20-2024 Evaluation and management of inpatient MYA NAVARRO [facility] Start: 09-19-2024 End: 09-19-2024 Refill Julián Stevens C++ [employer] Work Phone: [facility] Comment on above: Internal derangement of right shoulder (Primary Dx) Start: 09-09-2024 End: 09-09-2024 ambulatory Lexa LO Facility:[facility] Start: 09-09-2024 End: 09-09-2024 Patient encounter procedure Lexa LO [facility] Start: 09-06-2024 End: 09-06-2024 Bamboo flowsheet Barbara Ramírez PA Work Phone: [facility] Start: 09-06-2024 End: 09-06-2024 Bamboo flowsheet Barbara Ramírez PA Work Phone: [facility] Start: 09-06-2024 End: 09-06-2024 Patient encounter procedure Barbara FONTENOT Work Phone: [facility] Comment on above: Pre-op examination ( Primary Dx) Start: 09-06-2024 End: 09-06-2024 Preprocedural examination done Barbara FONTENOT Work Phone: [facility] Work Phone: Start: 09-06-2024 End: 09-06-2024 ambulatory BARBARA RAMÍREZ Not Available Start: 08-30-2024 End: 08-30-2024 External Result Encounter Jr. Mya Navarro DO Work Phone: [facility] External Department Unsolicited Start: 08-30-2024 End: 08-30-2024 External Result Encounter Jr. Mya Navarro DO Work Phone: [facility] External Department Unsolicited Start: 08-30-2024 End: 08-30-2024 ambulatory MYA NAVARRO JR [facility] Start: 08-30-2024 Encounter for other preprocedural examination MYA NAVARRO JR [facility] Start: 08-30-2024 End: 08-30-2024 Patient encounter procedure [facility] Pre-Admission Testing 2 [facility] - Pre Admit Comment on above: Preop examination (P rimary Dx); Hypertension, unspecified type; Paroxysmal atrial fibrillation ([facility]) Start: 08-30-2024 End: 08-30-2024 Preprocedural examination done Pm 2 [facility] Start: 08-22-2024 End: 08-22-2024 Bamboo flowsheet Erika Lockwood MD Work Phone: [facility] Start: 08-22-2024 End: 08-22-2024 Bamboo flowsheet Erika Lockwood MD Work Phone: [facility] Start: 08-22-2024 End: 08-22-2024 Patient encounter procedure Erika Lockwood MD Work Phone: [facility] Comment on above: BCC (basal cell carc inoma), chest (Primary Dx) Start: 08-22-2024 End: 08-22-2024 ambulatory ERIKA LOCKWOOD Not Available Start: 07-25-2024 End: 07-25-2024 Bamboo flowsheet Jr. Mya Navarro DO Work Phone: [facility] Start: 07-25-2024 End: 07-25-2024 Bamboo flowsheet Jr. Mya Navarro DO Work Phone: [facility] Start: 07-25-2024 End: 07-25-2024 Office outpatient visit 25 minutes Jr. Mya Navarro DO Work Phone: [facility] Comment on above: Internal derangement of right shoulder (Primary Dx) Start: 07-25-2024 End: 07-25-2024 ambulatory MYA PAN Not Available Start: 07-21-2024 End: 07-21-2024 ambulatory VALENTIN CAMPOS Facility:[facility] Start: 07-21-2024 End: 07-21-2024 Patient encounter procedure VALENTIN CAMPOS [facility] Start: 07-11-2024 End: 07-11-2024 Bamboo [...] surgery Start: 07-05-2024 End: 07-05-2024 ambulatory Lexa LO [facility] Start: 07-05-2024 End: 07-05-2024 Patient encounter procedure Lexa LO [facility] Start: 06-27-2024 End: 06-27-2024 ambulatory Lexa LO Facility:[facility] Start: 06-27-2024 End: 06-27-2024 Patient encounter procedure Lexa LO [facility] Start: 06-22-2024 End: 06-22-2024 ambulatory [facility] Start: 06-22-2024 End: 06-22-2024 Encounter for other preprocedural examination [facility] Start: 12-14-2023 End: 12-14-2023 Patient encounter procedure Lexa LO [facility] Start: 12-14-2023 End: 12-14-2023 Lab Drop off Lexa LO [facility] Start: 12-07-2023 End: 12-07-2023 Patient encounter procedure Lexa Barlow [facility] [place] Start: 11-16-2023 End: 11-16-2023 Patient encounter procedure Lexa LO [facility] [place] Start: 11-05-2023 End: 11-05-2023 ambulatory Giacomo Tamez Other [employer] Other Start: 11-05-2023 Telephone encounter Giacomo Tamez [facility] Start: 11-04-2023 End: 11-04-2023 ambulatory Giacomo Tamez Other [employer] Other Start: 11-04-2023 Office outpatient vi sit 15 minutes Giacomo Joi [facility] Start: 11-02-2023 End: 11-02-2023 Patient encounter procedure Lexa LO [facility] [place] Start: 08-24-2023 End: 08-24-2023 ambulatory Giacomo Tamez Other [employer] Other Start: 08-24-2023 Telephone encounter Giacomo Ball [facility] Start: 08-06-2023 End: 08-06-2023 ambulatory Giacomo Ball Other [employer] Other Start: 08-06-2023 Telephone encounter Giacomo Ball [facility] Start: 08-05-2023 End: 08-05-2023 ambulatory Giacomo Ball Other [employer] Other Start: 08-05-2023 Telephone encounter Giacomo Ball [facility] Start: 07-23-2023 End: 07-23-2023 ambulatory Giacomo Ball Other [employer] Other Start: 07-23-2023 Telephone encounter Giacomo JIMENEZ G [facility] Start: 07-21-2023 End: 07-21-2023 ambulatory Giacomo Tamez Other [employer] Other Start: 07-21-2023 Office outpatient vi sit 25 minutes Giacomo Tamez [facility] Start: 04-14-2023 End: 04-14-2023 ambulatory Giacomo Tamez Other [employer] Other Start: 04-14-2023 Telephone encounter Giacomo JIMENEZ G [facility] Start: 01-19-2023 End: 01-19-2023 ambulatory Giacomo Tamez Other [employer] Other Start: 01-19-2023 Telephone encounter Giacomo Joi [facility] Start: 01-16-2023 End: 01-16-2023 ambulatory Giacomo Tamez Other [employer] Other Start: 01-16-2023 Patient encounter procedure Giacomo Tamez [facility] Start: 12-31-2022 End: 01-01-[address] DOCTOR MORE Facility:[facility] Start: 07-02-2022 End: 07-03-[address] DOCTOR MORE Facility:[facility] Start: 06-23-2022 End: 06-24-[address] DOCTOR MORE Facility:[facility] Procedures Date Procedure Procedure Detail Performing Clinician Start: 08-30-2024 Basic metabolic pane l calcium total Jr. Mya Navarro DO Work Phone: Start: 08-22-2024 DESTRUCTION OF LESION Paul Lockwood MD Work Phone: Start: 07-11-2024 SKIN / NAIL BIOPSY Janie FONTENOT Work Phone: Start: 07-11-2024 DESTRUCTION OF LESION A jamie FONTENOT Work Phone: Start: 07-11-2024 End: 07-11-2024 CRYOTHERAPY SKIN LESION Nely FONTENOT Work Phone: Start: 07-05-2024 Cystoscopy Lexa SR Start: 05-19-2023 Transurethral cystoscopy Lexa LO Start: 12-31-[address] DOCTOR MORE Comment on above: Performed By: #### P SAD #### [facility] [address] [place] [address] Dr. Henry Marin Start: 07-02-[address] DOCTOR MORE Comment on above: Performed By: #### P SAD #### [facility] [address] [address] [address] Henry Marin Start: 03-06-2022 Mixed beam external beam radiation therapy Lexa LO Start: 12-12-2021 MRI-US fusion guided transrectal biopsy of prostate Lexa LO Start: 11-20-2021 MRI of prostate Lexa LO Catheterization of r ight heart Lexa LO Closed fracture of t ibia AND fibula (disorder) Lexa LO History of repair of musculotendinous cuff of shoulder Status post right rotator cuff repair Julián Stevens C++ [employer] DEVELOPER Work Phone: History of repair of musculotendinous cuff of shoulder Status post right rotator cuff repair Barbara FONTENOT Work Phone: History of repair of musculotendinous cuff of shoulder Status post right rotator cuff repair Barbara FONTENOT Work Phone: History of repair of musculotendinous cuff of shoulder Status post right rotator cuff repair Jr. Mya Navarro DO Work Phone: Prosthetic arthropla sty of the hip Lexa LO Plan of Treatment Date Care Activity Detail Author Start: 09-19-2025 End: 09-19-2025 Patient encounter procedure [facility] Start: 08-30-2025 Tobacco Screening Tobacco Screening [facility] Start: 07-11-2025 End: 07-11-2025 Patient encounter procedure [facility] Start: 06-12-2025 Fluoroscopy of esophagus [facility] Start: 06-05-2025 Influenza vaccination [facility] Start: 05-23-2025 End: 05-23-2025 Patient encounter procedure 05/23/2025 10:00 AM EDT Office Visit [facility] [address] [place] [address] Terese Aguila MD [address] [place] [address] Arrived [facility] Comment on above: Arrived Start: 05-10-2025 Patient referral [facility] Work Phone: Start: 03-21-2025 End: 03-21-2025 Patient encounter procedure [facility] Comment on above: Arrived Start: 02-14-2025 End: 02-14-2025 Patient encounter procedure [facility] Comment on above: Arrived Start: 01-10-2025 End: 01-10-2025 Patient encounter procedure 01/10/2025 11:00 AM EDT Office Visit [facility] [address] [place] [phone] Jr. Mya Navarro DO [address] [facility] [address] [place] [address] Arrived [facility] Comment on above: Arrived Start: 11-29-2024 End: 11-29-2024 Patient encounter procedure [facility] Comment on above: Status post right rotator cuff repair (P rimary Dx) Start: 10-31-2024 End: 10-31-2024 Patient encounter procedure 10/31/2024 10:45 AM EST Office Visit [facility] [address] [place] [address] Julián Stevens, C++ QUANT DEVELOPER [address] [place] [address] [facility] Start: 10-06-2024 End: 10-06-2024 Patient encounter procedure 10/06/2024 1:15 PM EST Office Visit [facility] [address] [place] [address] Barbara Ramírez, PA [address] [place] [address] [facility] Start: 10-03-2024 End: 10-03-2024 Patient encounter procedure 10/03/2024 11:15 AM EST Office Visit [facility] [address] [place] [phone] Julián Stevens, C++ QUANT DEVELOPER [address] [place] [address] Arrived [facility] Comment on above: Arrived Start: 09-21-2024 End: 09-21-2024 Patient encounter procedure 09/21/2024 10:00 AM EST Office Visit [facility] [address] [place] [phone] Barbara Ramírez, PA [address] [facility] [address] [place] [address] [facility] Start: 09-20-2024 End: 09-20-2024 Admission to same day surgery center 09/20/2024 12:30 PM EST - 09/20/2024 2:30 PM EST Surgery [facility] [address] [place] [phone] Mya Navarro Jr., DO [address] [facility] [address] [place] [address] ARTHROSCOPIC REPAIR ROTATOR CUFF SHOULDER [81159 (CPT )] [facility] Comment on above: ARTHROSCOPIC REPAIR ROTATOR CUFF SHOULDE R [67332 (CPT )] Start: 09-20-2024 End: 09-20-2024 Arthroscopy shoulder biceps tenodesis ARTHROSCOPIC TENODESIS BICEPS SHOULDER right shoulder internal derangement 09/20/2024 12:30 PM EST [facility] Start: 09-20-2024 End: 09-20-2024 Arthroscopy shoulder rotator cuff repair ARTHROSCOPIC REPAIR ROTATOR CUFF SHOULDER right shoulder internal derangement 09/20/2024 12:30 PM EST [facility] Start: 09-20-2024 End: 09-20-2024 Patient encounter procedure 09/20/2024 12:30 PM EST Procedure Visit [facility] Jr. Mya Navarro, DO [address] [place] [address] [facility] Start: 09-20-2024 Subsequent hospital visit by physician 09/20/2024 12:30 PM EST Hospital Encounter [facility] [address] [place] [phone] Mya Navarro Jr., DO [address] [place] [address] [facility] Start: 09-20-2024 End: 09-20-2024 Patient encounter procedure 09/20/2024 7:30 AM EST Procedure Visit [facility] Jr. Mya De León, DO [address] [place] [address] [facility] Start: 09-14-2024 COVID-19 Vaccine ( season) COVID-19 Vaccine ( season) [facility] Start: 09-06-2024 End: 09-06-2024 Patient encounter procedure [facility] Comment on above: Pre-op examination (Primary Dx) Start: 08-30-2024 End: 08-30-2024 Patient encounter procedure 08/30/2024 10:00 AM EST Office Visit [facility] [address] [place] [phone] Barbara Ramírez PA [address] [facility] [address] [place] [address] [facility] Start: 08-19-2024 End: 08-19-2024 Patient encounter procedure 08/19/2024 1:15 PM EST Office Visit [facility] [address] [place] [address] Erika Lockwood MD [address] [place] [address] [facility] Start: 07-25-2024 End: 07-25-2024 Patient encounter procedure [facility] Comment on above: Arrived Start: 06-05-2024 Influenza vaccination [facility] Start: 01-20-2023 Fall Risk Screening Fall Risk Screening [facility] Start: 2013 Abdominal aortic aneurysm screening Abdominal Aortic Aneurysm (AAA) Screen [facility] Start: 2013 Pneumococcal Vaccine: 65+ Years (1 of 1 - PCV) Pneumococcal Vaccine: 65+ Years (1 of 1 - PCV) [facility] Start: 1998 Pneumococcal Vaccine: 65+ Years (1 of 1 - PCV) Pneumococcal Vaccine: 65+ Years (1 of 1 - PCV) [facility] Start: 12-27-1967 Administration of varicella zoster vaccine Zoster (Shingles) Vaccine (1 of 2) [facility] Start: 12-27-1967 DTaP,Tdap and Td Vaccines (1 - Tdap) DTaP,Tdap and Td Vaccines (1 - Tdap) [facility] Start: 1960 Depression Screening Depression Screening [facility] Start: 1948 Screening for malignant neoplasm of colon [facility] CT Sinuses WO contrast [facility] Dermatopathology exam Dermatopat hology exam Pathology and Cytology Timed Neoplasm of unspecified behavior of bone, soft tissue, and skin Release Upon Ordering for 1 Occurrences starting 07/11/2024 [facility] Work Phone: Comment on above: Release Upon Ordering for 1 Occurrences starting 07/11/2024 Electromyography [facility] MR Brain WO contrast [facility] Patient Education Low back pain in adults [facility] Work Phone: Patient referral [facility] Work Phone: XR Chest 2 Views [facility] Immunizations Immunization Date Immunization Notes Care Provider Fa cility 06-18-2022 COVID-19 Moderna (BIvalent) Giacomo Tamez Other [facility] Comment on above: Result Comment: 2022: [id number] 08-04-2021 COVID-19 Vaccine Mod bud - Documentation Purposes Only Giacomo Tamez Other [facility] 12-19-2020 SARS-CoV-2 (COVID-19 ) Ad26 vaccine, recombinant Lexa LO [facility] 12-13-2020 COVID-19 Vaccine Mod bud - Documentation Purposes Only Giacomo Tamez Other [facility] Comment on above: Result Comment: 2022: [id number] 11-15-2020 COVID-19 Vaccine Mod bud - Documentation Purposes Only Giacomo Tamez Other [facility] 11-15-2020 SARS-CoV-2 (COVID-19 ) Ad26 vaccine, recombinant Lexa OL [facility] 07-17-2017 diphtheria, tetanus toxoids and acellular pertussis vaccine, unspecified formulation Giacomo Tamez Other [facility] Payers Date Payer Category Payer Self-pay 2025 Medicare [id number] 2024 Private Health Insurance [id number] 2020 Commercial Managed C are - POS [employer] [id number]. [id number] 2013 Medicare [id number]. 1.13.693. [id number] 1959 Medicare [id number] 1959 Private Health Insurance CLI [id number] 1948 Unknown [id number] 2.16.840.1.540111.3.579. 2.593 1948 Unknown [id number] 2.16.840.1.699578.3.579. 2.593 1948 Unknown [id number] 2.16.840.1.405189.3.579. 2.593 1948 Unknown [id number] 2.16.840.1.753881.3.579. 2.593 1948 Unknown [id number] 2.16.840.1.998154.3.579. 2.1286 1948 Unknown [id number] 2.16.840.1.393697.3.579. 2.1286 1948 Unknown [id number] 2.16.840.1.981437.3.579. 2.1286 1948 Unknown [id number] 2.16.840.1.195216.3.579. 2.1286 1948 Unknown [id number] 2.16.840.1.288422.3.579. 2.1286 1948 Unknown [id number] 2.16.840.1.697460.3.579. 2.1286 1948 Unknown [id number] 2.16.840.1.383011.3.579. 2.727 1948 Unknown [id number] 2.16.840.1.922105.3.579. 2.727 1948 Unknown [id number] 2.16.840.1.346459.3.579. 2.727 1948 Unknown [id number] 2.16.840.1.344823.3.579. 2.72 1948 Unknown [id number] 2.16.840.1.686222.3.579. 2.727 1948 Unknown [id number] 2.16.840.1.622902.3.579. 2.727 1948 Unknown [id number] 2.16.840.1.599652.3.579. 2.125 1948 Unknown [id number] 2.16.840.1.699138.3.579. 2.125 1948 Unknown [id number] 2.16.840.1.034427.3.579. 2.1259 1948 Unknown [id number] 2.16.840.1.532451.3.579. 2.1259 1948 Unknown [id number] 2.16.840.1.555403.3.579. 2.125 1948 Unknown [id number] 2.16.840.1.828822.3.579. 2.125 1948 Unknown [id number] 2.16.840.1.475376.3.579. 2.1259 1948 Unknown [id number] 2.16.840.1.536834.3.579. 2.1259 1948 Unknown [id number] 2.16.840.1.849232.3.579. 2.1259 1948 Unknown [id number] 2.16.840.1.316623.3.579. 2.1259 1948 Unknown [id number] 2.16.840.1.252882.3.579. 2.125 Unknown [id number] 2.16.840.1.358141.19 Unknown [id number] 2.16.840.1.548702.3.579. 2.531 Social History Date Type Detail Facility Start: 05-23-2024 End: 05-23-2025 Sex Assigned At [facility] Start: 11-02-2023 End: 04-26-2025 Tobacco smoking status Ex-smoker (finding) [facility] Tobacco smoking status Never [facility] End: 05-28-2010 History of tobacco use Current smoker [facility] End: 05-28-2010 History of tobacco use Pipe Smoker [facility] Start: 03-21-2024 End: 08-30-2024 Tobacco use and exposure Smokeless tobacco non-user [facility] Start: 05-23-2024 End: 05-23-2025 Alcoholic beverage intake Current drinker of alcohol (finding) [facility] Start: 05-23-2024 End: 05-23-2025 History of Social function [facility] Start: 03-21-2024 Alcohol Comment 1/DAY [facility] Start: 1948 Sex assigned at Not on file [facility] Start: 08-30-2024 Tobacco Comment years ago for a short period [facility] Start: 05-14-2020 Alcohol Comment 2 drinks per day tot al [facility] Start: 05-10-2015 End: 03-08-2025 Sex Male (finding) [facility] Tobacco smoking stat [facility] Unknown if ever smoked [facility] Work Phone: Start: 1950 Sex Assigned At Male [facility] Medical Equipment Procedure Code Equipment Code Equipment Origin al Text Equipment Identifier Dates Shl Actb 56mm Hi p 4 Hl Fin Pps - [id number] Start: 05-28-2020 Linr Actb G7 Ntr l E1 36mm F - [id number] Start: 05-28-2020 Stm Fem 121mm 13 3d 18 Hi Os - [id number] Start: 05-28-2020 Slv Fem Opt +3mm Tpr Hip Blx D Rpl 650-1067 - [id number] Start: 05-28-2020 Hd Fem 36mm Opt Shl Actb G7 Bl Rpl 650-1057 - [id number] Start: 05-28-2020 Goals Date Patient Goal Desired Activity /State Personal health goal Comment on above: Formatting of this n ote might be different from the original. Evaluation of progress towards goal: Maximize work with PT at discharge to strengthen L hip Functional Status Date Assessment Result Facility 09-09-2024 Functional Status N/A [facility] 07-21-2024 Functional Status N/A [facility] 07-05-2024 Functional Status N/A [facility] 06-27-2024 Functional Status N/A [facility] 12-14-2023 Functional Status N/A [facility] 11-02-2023 Functional Status N/A [facility] Clinical Notes 01-16-2023 to 05-23-2025 Terese Aguila MD - 05/23/2025 10:00 AM EDT Note Date & Type Note Facility 05-23-2025 History of Present illness Narrative Subjective Patient ID: Monet Bustillos is a 74 y.o. male who presents for Nasal Congestion (Nasal congestion CT [facility]) Pt reports a several mo h/o chronic rhinorrhea and PND. Has a frequent dry cough. Sx seem seasonal. CT sinus shows very mild gareth max dz, a DNS to the left with a large septal spur, and gareth IT hyp. Uses flonase BID every day. Flonase is helping. Pt also reports periodic difficulty swallowing. Denies heartburn. Takes Eliquis for afib. Review of Systems All other systems reviewed and are negative. Family History Problem Relation Name Age of Onset Cancer Mother Active Ambulatory Problems Diagnosis Date Noted Acute pain of right shoulder 04/20/2024 Adenocarcinoma of prostate (HCC) 01/02/2022 B12 deficiency 05/22/2025 Benign prostatic hyperplasia with lower urinary tract symptoms 05/22/2025 Chronic anticoagulation 05/22/2025 Cough 05/22/2025 Dyspnea on exertion 06/03/2024 Generalized anxiety disorder 05/22/2025 Hypercholesterolemia 05/22/2025 Low back pain 05/22/2025 Lumbar spondylosis 05/22/2025 Memory loss 05/22/2025 NSVT (nonsustained ventricular tachycardia) (HCC) 05/22/2025 KHAI (obstructive sleep apnea) 05/22/2025 Overweight 05/22/2025 PAC (premature atrial contraction) 06/10/2023 Paroxysmal atrial fibrillation (HCC) 05/14/2020 Primary hypertension 05/09/2020 Rectal bleeding 05/22/2025 Supraventricular tachycardia (HCC) 06/03/2024 Sinusitis 05/22/2025 Thrombocytopenia 05/22/2025 MCI (mild cognitive impairment) 05/22/2025 Unilateral primary osteoarthritis, left hip 03/15/2020 Weight loss 05/22/2025 Resolved Ambulatory Problems Diagnosis Date Noted No Resolved Ambulatory Problems Past Medical History: Diagnosis Date A-fib ([facility]) Actinic keratosis Basal cell carcinoma (BCC) of chest 08/2024 High cholesterol Past Surgical History: Procedure Laterality Date BASAL CELL CARCINOMA EXCISION 08/22/2024 MID CHEST SHAVING ; [facility] ORIF ANKLE FRACTURE Right 2006 SHOULDER ARTHROSCOPY W/ ROTATOR CUFF REPAIR Right 09/20/2024 W/ SAD & BICEPS TENODESIS ; DR NAVARRO TOTAL HIP ARTHROPLASTY Left 2018 DR LEIGH Allergies Allergen Reactions Penicillins GI intolerance Other Reaction(s): Vomiting Current Outpatient Medications on File Prior to Visit Medication Sig Dispense Refill atorvastatin (Lipitor) 10 MG tablet Take 10 mg by mouth Eliquis 5 MG tablet Take 1 tablet by mouth in the morning and 1 tablet in the evening. finasteride (Proscar) 5 MG tablet 5 mg fluticasone (Flonase) 50 MCG/ACT nasal spray Administer 1 spray into each nostril Daily Shake gently. Before first use, prime pump. After use, clean tip and replace cap. metoprolol tartrate (Lopressor) 25 MG tablet Take 12.5 mg by mouth in the morning and 12.5 mg in the evening. sennosides (Senokot) 8.6 MG tablet Daily tamsulosin (Flomax) 0.4 MG 24 hr capsule Take 1 capsule by mouth in the morning and 1 capsule in the evening. No current facility-administered medications on file prior to visit. Objective Last Recorded Vitals Vitals: 05/23/25 0946 BP: 104/60 Pulse: 52 ENT Physical Exam Constitutional Appearance: patient appears well-developed and well-nourished, Head and Face Appearance: head appears normal and face appears atraumatic; Ear Ear comments: Gareth ears normal Nose External Nose: nares patent bilaterally; external nose normal; Internal Nose: nasal mucosa normal; septum normal; bilateral inferior turbinates normal; Oral Cavity/Oropharynx Lips: normal; Teeth: normal; Gums: gingiva normal; Tongue: normal; Oral mucosa: normal; Hard palate: normal; Neck Neck: neck normal; neck palpation normal; Thyroid: thyroid normal; Respiratory Inspection: breathing unlabored; normal breathing rate; Auscultation: breath sounds are clear; Cardiovascular Inspection: extremities are warm and well perfused; no peripheral edema present; Auscultation: regular rate and rhythm; Assessment/Plan Diagnoses and all orders for this visit: Chronic cough LPRD (laryngopharyngeal reflux disease) - omeprazole (PriLOSEC) [address] capsule; Take 1 capsule (40 mg) by mouth in the morning. Take before meals. Do not crush or chew. - famotidine (Pepcid) 20 MG tablet; Take 1 tablet (20 mg) by mouth at bedtime Chronic maxillary sinusitis - cefdinir (Omnicef) 300 MG capsule; Take 1 capsule (300 mg) by mouth in the morning and 1 capsule (300 mg) before bedtime. Do all this for 14 days. DNS (deviated nasal septum) Hypertrophy of both inferior nasal turbinates Anticoagulated Pharyngoesophageal dysphagia Vasomotor rhinitis - ipratropium (Atrovent) 0.06 % nasal spray; Administer 2 sprays into each nostril in the morning and 2 sprays in the evening and 2 sprays before bedtime. Pt has multiple H&N c/o. I suspect the cough is due to LPRD and I will try a brief reflux regimen. His rhinorrhea is probably due to mild sinusitis and vasomotor rhinitis. Finally, to ensure there is no anatomic obstruction I will check an esophagram. There are multiple anatomic obstructions evident on CT, but pt is a poor surgical candidate due to Eliquis. documented in this encounter [facility] 05-10-2025 Hospital Discharge instructions Ambulatory OrdersReferral to ENT Time Frame: 05/10/25, Location: None Selected [facility] Work Phone: 04-26-2025 Evaluation note Diagnosis Onset Date Resolution B12 deficiency acute April 26, 2025 1:22pm MCI (mild cognitive impairment) acute April 26, 2025 1:22pm Transient alteration of awareness acute May 01, 2025 12:33pm Dyspnea acute May 03 2:46pm Elevated cholesterol acute May 03, 2025 2:46pm MCI (mild cognitive impairment) acute May 03, 2025 2:46pm NSVT (nonsustained ventricular tachycardia) acute May 03, 2025 2:46pm Paroxysmal atrial fibrillation acute May 03, 2025 2:46pm Primary hypertension acute May 03, 2025 2:46pm Sinusitis acute May 03 2:46pm Memory loss acute May 08 025 2:39pm KHAI (obstructive sleep apnea) acute May 08, 2025 2:39pm FRANCIS (generalized anxiety disorder) acute May 17 025 12:14pm Memory loss acute May 17, 2025 12:14pm KHAI (obstructive sleep apnea) acute May 17 12:14pm Transient alteration of awareness acute May 17 12:14pm B12 deficiency acute May 1:08pm MCI (mild cognitive impairment) acute June 01 1:08pm Right foot drop acute June 012024 1:08pm Sleep disturbance acute June 01, 2025 1:08pm Snoring acute June 01 025 1:08[facility] Work Phone: 1(688) 428-214106-17-2025 History of Present illness Narrative* Mya Aniya Navarro, - 03/21/2025 10:00 AM EDT Images from the original note were not included. HISTORY OF PRESENT ILLNESS: EST PT Monet Bustillos is an 74 y.o. @ male. (EST PT) PO (R) SHOULDER RCR, BICEP TENODESIS AND SAD 09/20/24 (~6MO)- S/P WALL WALK/DOOR STRETCHES PHYSICAL THERAPY @ [facility] [place] [facility] PT NOTES IMPROVEMENT. WAKES OCCASIONALLY IF HE ROLLS ON RT SIDE- CONTINUE WITH HEP AND WALL WAKES- PT NOTES IMPROVING ROM- NO LONGER TAKING TYLENOL ALLERGIES: Allergies Allergen Reactions Penicillins GI intolerance Other Reaction(s): Vomiting HOME MEDICATIONS: Current Outpatient Medications Medication Instructions atorvastatin (LIPITOR) 10 mg Eliquis 5 MG tablet 1 tablet, 2 times daily finasteride (PROSCAR) 5 mg metoprolol tartrate (LOPRESSOR) 12.5 mg, 2 times daily tamsulosin (Flomax) 0.4 MG 24 hr capsule 1 capsule, 2 times daily PHYSICAL EXAM: Shoulder Musculoskeletal Exam Inspection Right Right shoulder inspection is normal. Ecchymosis: none Peripheral edema: none Atrophy: none Deformity: none Symmetry: symmetric Masses: none Skin tenting: none Prior incision: arthroscopic portals Incision: well-healed Palpation Right Right shoulder palpation is normal. Crepitus: no crepitus Increased warmth: none Tenderness: none Range of Motion Right Active ROM: abnormal and no pain. Passive ROM: normal and no pain. Active forward elevation: 160. Passive forward elevation: 180. Shoulder active abduction: 160. Passive abduction: 170. Active external rotation at side: 100. Passive external rotation at side: 100. Internal rotation: L5. Strength Right External rotation: 5/5. Internal rotation: 5/5. Abduction: 5/5. Abduction is affected by pain. Biceps: 5/5. Biceps are affected by pain. Triceps: 5/5. Neurovascular Right Radial pulse: normal and 2+ Capillary refill: <3 sec Axillary nerve sensory distribution: normal Scapula Right Right shoulder scapula is normal. Position: normal Winging: none General Constitutional: appears stated age Labored breathing: no Neurological: alert and oriented x3 Skin: intact Lymphadenopathy: none Vitals: There is no height or weight on file to calculate BMI. Tobacco Use: Medium Risk (11/29/2024) Patient History Smoking Tobacco Use: Former Smokeless Tobacco Use: Never Passive Exposure: Not on file Alcohol Use: Not on file IMAGING: Procedures No orders of the defined types were placed in this encounter. ASSESSMENT: ICD-10-CM 1. Adhesive capsulitis of right shoulder M75.01 2. Acute pain of right shoulder M25.511 PLAN: Patient is very pleased with his progress as am I he has full strength in your full range of motiononly pain is with sleeping on his right side occasionally. We will continue him on his home exercise program 3 times a week until May and we'll see him b.ck in late May to reassess his right shoulder. Questions answered in laymen terms at the bedside. The diagnosis, home exercise plan and any ongoing restrictions/ recommendations reviewed. If unable to be reached in office, I recommend evaluation at nearest Emergency Room if any symptoms worsened or new symptoms develop for requiring urgent evaluation. [id number] Evaluation note* Diagnosis Onset Date Resolution Status Admit Date Acute sinusitis noneactive February 21, 2025 1:58pm Cough noneactive February 21, 2025 1:58pm [facility] Work Phone: 1(205) 789-132805-20-2025 Evaluation note* Diagnosis Onset Date Resolution Status Admit Date Acute sinusitis noneactive February 21, 2025 1:58pm Cough noneactive February 21, 2025 1:58pm B12 deficiency acute April 26, 2025 1:22pm MCI (mild cognitive impairment) acute April 26, 2025 1:22pm [facility] Work Phone: 1(672) 498-638505-20-2025 Evaluation note* Diagnosis Onset Date Resolution Status Admit Date Acute sinusitis noneactive February 21, 2025 1:58pm Cough noneactive February 21, 2025 1:58pm B12 deficiency acute April 26, 2025 1:22pm MCI (mild cognitive impairment) acute April 26, 2025 1:22pm Transient alteration of awareness acute May 01, 2025 12:33pm Dyspnea acute May 03 2:46pm Elevated cholesterol acute May 03, 2025 2:46pm Low back pain acute May 03, 2025 2:46pm MCI (mild cognitive impairment) acute May 03, 2025 2:46pm NSVT (nonsustained ventricul ar tachycardia) acute May 03, 2025 2:46pm Paroxysmal atrial fibrillation acute May 03, 2025 2:46pm Primary hypertension acute May 03, 2025 2:46pm Rectal bleeding acute April 2:46pm Sinusitis acute May 03 2:46pm Weight loss acute May 03 2:46pm [facility] Work Phone: 1(344) 818-903505-20-2025 Evaluation note* Diagnosis Onset Date Resolution Status Admit Date Acute sinusitis noneactive February 21, 2025 1:58pm Cough noneactive February 21, 2025 1:58pm B12 deficiency acute April 26, 2025 1:22pm MCI (mild cognitive impairment) acute April 26, 2025 1:22pm Transient alteration of awareness acute May 01, 2025 12:33pm Dyspnea acute May 03 2:46pm Elevated cholesterol acute May 03, 2025 2:46pm MCI (mild cognitive impairment) acute May 03, 2025 2:46pm NSVT (nonsustained ventricul ar tachycardia) acute May 03, 2025 2:46pm Paroxysmal atrial fibrillation acute May 03, 2025 2:46pm Primary hypertension acute May 03, 2025 2:46pm Sinusitis acute May 03 2:46pm [facility] Work Phone: 1(229) 978-314505-20-2025 Evaluation note* Diagnosis Onset Date Resolution Status Admit Date Acute sinusitis noneactive February 21, 2025 1:58pm Cough noneactive February 21, 2025 1:58pm B12 deficiency acute April 26, 2025 1:22pm MCI (mild cognitive impairment) acute April 26, 2025 1:22pm Transient alteration of awareness acute May 01, 2025 12:33pm Dyspnea acute May 03 2:46pm Elevated cholesterol acute May 03, 2025 2:46pm MCI (mild cognitive impairment) acute May 03, 2025 2:46pm NSVT (nonsustained ventricular tachycardia) acute May 032024 2:46pm Paroxysmal atrial fibrillation acute May 03, 2025 2:46pm Primary hypertension acute May 03, 2025 2:46pm Sinusitis acute May 03 2:46pm Memory loss acute May 08, 2 025 2:39pm KHAI (obstructive sleep apnea) acute May 08, 2025 2:39pm [facility] Work Phone: 1(347) 894-600405-13-2025 History of Present illness Narrative* Jr. Mya Navarro, DO - 02/14/2025 10:45 AM EDT Images from the original note were not included. HISTORY OF PRESENT ILLNESS: EST PT Monet Bustillos is an 74 y.o. @ male. (EST PT) PO (R) SHOULDER RCR, BICEP TENODESIS AND SAD 09/20/24 (~5MO) PHYSICAL THERAPY @ [facility] [place] NOTES OCCASIONAL PAIN/SORENESS - ALMOST FEELS LIKE HE WAS PUNCHED IN THE UPPER ARM-WAKES OCCASIONALLY- FINISHED PT- PT NOTES SOME LIMITATIONS WITH ROM- SOME WEAKNESS- DIFFICULTY REACHING BEHIND BACK-+TYLENOL ES PRN ALLERGIES: Allergies Allergen Reactions Penicillins GI intolerance Other Reaction(s): Vomiting HOME MEDICATIONS: Current Outpatient Medications Medication Instructions atorvastatin (LIPITOR) 10 mg Eliquis 5 MG tablet 1 tablet, 2 times daily finasteride (PROSCAR) 5 mg metoprolol tartrate (LOPRESSOR) 12.5 mg, 2 times daily tamsulosin (Flomax) 0.4 MG 24 hr capsule 1 capsule, 2 times daily PHYSICAL EXAM: Shoulder Musculoskeletal Exam Inspection Right Right shoulder inspection is normal. Ecchymosis: none Peripheral edema: none Atrophy: none Deformity: none Symmetry: symmetric Masses: none Skin tenting: none Prior incision: arthroscopic portals Incision: well-healed Palpation Right Right shoulder palpation is normal. Crepitus: no crepitus Increased warmth: none Tenderness: none Range of Motion Right Active ROM: abnormal and no pain. Passive ROM: normal and no pain. Active forward elevation: 120. Passive forward elevation: 160. Shoulder active abduction: 120. Passive abduction: 160. Active external rotation at side: 100. Passive external rotation at side: 100. Internal rotation: L5. Strength Right External rotation: 5/5. Internal rotation: 5/5. Abduction: 5/5. Abduction is affected by pain. Biceps: 5/5. Biceps are affected by pain. Triceps: 5/5. Neurovascular Right Radial pulse: normal and 2+ Capillary refill: <3 sec Axillary nerve sensory distribution: normal Scapula Right Right shoulder scapula is normal. Position: normal Winging: none General Constitutional: appears stated age Labored breathing: no Neurological: alert and oriented x3 Skin: intact Lymphadenopathy: none Vitals: There is no height or weight on file to calculate BMI. Tobacco Use: Medium Risk (11/29/2024) Patient History Smoking Tobacco Use: Former Smokeless Tobacco Use: Never Passive Exposure: Not on file Alcohol Use: Not on file IMAGING: Procedures No orders of the defined types were placed in this encounter. ASSESSMENT: ICD-10-CM 1. Adhesive capsulitis of right shoulder M75.01 2. Acute pain of right shoulder M25.511 PLAN: We have discussed his symptoms, physical exam, and home exercise program at length. We will add wall walks 3 times a day without pitting up against the door as well as doorway stretches 2 seconds 10 3 times a day we'll see him back in 5 weeks. If he has not improved his range of motion were made recommended manipulation. Questions answered in laymen terms at the bedside. The diagnosis, home exercise plan and any ongoing restrictions/ recommendations reviewed. If unable to be reached in office, I recommend evaluation at nearest Emergency Room if any symptoms worsened or new symptoms develop for requiring urgent evaluation. documented in this encounterCox Walnut [id number] Telephone encounter Note* Telephone Encounter - Angy Barahona - 01/23/2025 10:54 AM EDT Patient's notified [id number] Miscellaneous Notes* Telephone Encounter - Angy Barahona - 01/23/2025 10:54 AM EDT Patient's notified * Telephone Encounter - Angy Barahona - 01/23/2025 9:35 AM EDT Patient's called stating that today is the [place] stated that mentioned an exercise program. They would like to know is this something would give them or the physical therapist. Please advise. documented in this encounterCox Walnut [id number] Telephone encounter Note* Telephone Encounter - Angy Barahona - 01/23/2025 9:35 AM EDT Patient's called stating that today is the last [place] She stated that mentioned an exercise program. They would like to know is this something would give them or the physical therapist. Please advise. [facility] [id number] Evaluation note* Diagnosis Onset Date Resolution Status Admit Date Benign prostatic hyperplasia with lower urinary tract symptoms acute January 18, 2025 1:19pm Elevated cholesterol acute Apri l 2024 1:19pm Low back pain acute January 18, 2025 1:19pm MCI (mild cognitive impairment) acute January 18, 2025 1:19pm NSVT (nonsustained ventricul ar tachycardia) acute January 18, 2025 1:19pm Paroxysmal atrial fibrillation acute January 18, 2025 1:19pm Primary hypertension acute Apri l 2024 1:19pm Medicare annual wellness visit, subsequent noneactive January 18 1:19pm [facility] Work Phone: 1(252) 123-326904-16-2025 Evaluation note* Diagnosis Onset Date Resolution Status Admit Date Benign prostatic hyperplasia with lower urinary tract symptoms acute January 18, 2025 1:19pm Elevated cholesterol acute Apri l 2024 1:19pm Low back pain acute Sarahy 16th, 2025 1:19pm MCI (mild cognitive impairment) acute January 18, 2025 1:19pm NSVT (nonsustained ventricul ar tachycardia) acute January 18, 2025 1:19pm Paroxysmal atrial fibrillation acute January 18, 2025 1:19pm Primary hypertension acute Apri l 2024 1:19pm Medicare annual wellness visit, subsequent noneactive January 18 1:19pm Acute sinusitis noneactive February 21, 2025 1:58pm Cough noneactive February 21, 2025 1:58pm [facility] Work Phone: [phone]) 113-393804-08-2025 History of Present illness Narrative* Jr. Mya Navarro, DO - 01/10/2025 11:00 AM EDT Images from the original note were not included. HISTORY OF PRESENT ILLNESS: EST PT Monet Bustillos is an 74 y.o. @ male. (EST PT) PO (R) SHOULDER RCR, BICEP TENODESIS AND SAD 09/20/24 (16 WKS). CONTINUES WITH PT PHYSICAL THERAPY @ [facility] [place] OVERALL IMPROVED. OCCAS ACHING IN THE AM. . CONTINUES PT WITH STRENGTHENING AND HEP. TAKING TYL ES RARELY. SLEEPING IN BED. NOTES THAT HE WAKES NIGHTLY WITH RT ARM NUMB- RELIEVED IF HE CHANGES POSITION ALLERGIES: Allergies Allergen Reactions Penicillins GI intolerance Other Reaction(s): Vomiting HOME MEDICATIONS: Current Outpatient Medications Medication Instructions atorvastatin (LIPITOR) 10 mg Eliquis 5 MG tablet 1 tablet, 2 times daily finasteride (PROSCAR) 5 mg metoprolol tartrate (LOPRESSOR) 12.5 mg, 2 times daily tamsulosin (Flomax) 0.4 MG 24 hr capsule 1 capsule, 2 times daily PHYSICAL EXAM: Shoulder Musculoskeletal Exam Inspection Right Right shoulder inspection is normal. Ecchymosis: none Peripheral edema: none Atrophy: none Deformity: none Symmetry: symmetric Masses: none Skin tenting: none Prior incision: arthroscopic portals Incision: well-healed Palpation Right Right shoulder palpation is normal. Crepitus: no crepitus Increased warmth: none Tenderness: none Range of Motion Right Active ROM: abnormal and no pain. Passive ROM: normal and no pain. Active forward elevation: 150. Passive forward elevation: 180. Shoulder active abduction: 140. Passive abduction: 170. Active external rotation at side: 100. Passive external rotation at side: 100. Internal rotation: L5. Strength Right External rotation: 5/5. Internal rotation: 5/5. Abduction: 5/5. Biceps: 5/5. Triceps: 5/5. Neurovascular Right Radial pulse: normal and 2+ Capillary refill: <3 sec Axillary nerve sensory distribution: normal Scapula Right Right shoulder scapula is normal. Position: normal Winging: none General Constitutional: appears stated age Labored breathing: no Neurological: alert and oriented x3 Skin: intact Lymphadenopathy: none Vitals: There is no height or weight on file to calculate BMI. Tobacco Use: Medium Risk (11/29/2024) Patient History Smoking Tobacco Use: Former Smokeless Tobacco Use: Never Passive Exposure: Not on file Alcohol Use: Not on file IMAGING: Procedures No orders of the defined types were placed in this encounter. ASSESSMENT: No diagnosis found. PLAN: We have discussed his restrictions and home exercise program. Patient is pleased with his progress and states that he is better now than he was before surgery. We'll see him back in 6 weeks. Questions answered in laymen terms at the bedside. The diagnosis, home exercise plan and any ongoing restrictions/ recommendations reviewed. If unable to be reached in office, I recommend evaluation at nearest Emergency Room if any symptoms worsened or new symptoms develop for requiring urgent evaluation. documented in this encounterCox Walnut [id number] NotePatient Education Oncology Prostate Cancer Screening Prostate cancer screening is testing that is done to check for the presence of prostate cancer in men. The prostate gland is a walnut-sized gland that is located below the bladder and in front of therectum in males. The function of the prostate is to add fluid to semen during ejaculation. Prostatecancer is one of the most common types of cancer in men. Who should have prostate cancer screening? Screening recommendations vary based on age and other risk factors, as well as between the professional organizations who make the recommendations. In general, screening is recommended if: ??? You are age 50 to 70 and have an average risk for prostate cancer. You should talk with your health care provider about your need for screening and how often screening should be done. Because most prostate cancers are slow growing and will not cause , screening in this age group is generally reserved for men who have a 10- to 15-year life expectancy. ??? You are younger than age 50, and you have these risk factors: ? Having a father, brother, or uncle who has been diagnosed with prostate cancer. The risk is higher if your family member's cancer occurred at an early age or if you have multiple family members with prostate cancer at an early age. ? Being a male who is Black or is of [place] or sub-Saharan descent. In general, screening is not recommended if: ??? You are younger than age 40. ??? You are between the ages of 40 and 49 and you have no risk factors. ??? You are 70 years of age or older. At this age, the risks that screening can cause are greater than the benefits that it may provide. If you are at high risk for prostate cancer, your health care provider may recommend that you have screenings more often or that you start screening at a younger age. How is screening for prostate cancer done? The recommended prostate cancer screening test is a blood test called the prostate-specific antigen(PSA) test. PSA is a protein that is made in the prostate. As you age, your prostate naturally produces more PSA. Abnormally high PSA levels may be caused by: ??? Prostate cancer. ??? An enlarged prostate that is not caused by cancer (benign prostatic hyperplasia, or BPH). This condition is very common in older men. ??? A prostate gland infection (prostatitis) or urinary tract infection. ??? Certain medicines such as male hormones (like testosterone) or other medicines that raise testosterone levels. A rectal exam may be done as part of prostate cancer screening to help provide information about the size of your prostate gland. When a rectal exam is performed, it should be done after the PSA level is drawn to avoid any effect on the results. Depending on the PSA results, you may need more tests, such as: ??? A physical exam to check the size of your prostate gland, if not done as part of screening. ??? Blood and imaging tests. ??? A procedure to remove tissue samples from your prostate gland for testing (biopsy). This is theonly way to know for certain if you have prostate cancer. What are the benefits of prostate cancer screening? Screening can help to identify cancer at an early stage, before symptoms start and when the cancer can be treated more easily. ??? There is a small chance that screening may lower your risk of dying from prostate cancer. The chance is small because prostate cancer is a slow-growing cancer, and most men with prostate cancer from a different cause. What are the risks of prostate cancer screening? The main risk of prostate cancer screening is diagnosing and treating prostate cancer that would never have caused any symptoms or problems. This is called overdiagnosisand overtreatment. PSA screening cannot tell you if your PSA is high due to cancer or a different cause. A prostate biopsy is the only procedure to diagnose prostate cancer. Even the results of a biopsy may not tell you if your cancer needs to be treated. Slow-growing prostate cancer may not need any treatment other than monitoring, so diagnosing and treating it may cause unnecessary stress or other side effects. Questions to ask your health care provider ??? When should I start prostate cancer screening? What is my risk for prostate cancer? How often do I need screening? What type of screening tests do I need? How do I get my test results? What do my results mean? Do I need treatment? Where to find more information ??? The [place] [employer]: www.cancer.org ??? [place] [employer]: www.auanet.org Contact a health care provider if: ??? You have difficulty urinating. ??? You have pain when you urinate or ejaculate. ??? You have blood in your urine or semen. ??? You have pain in your back or in the area of your prostate. Summary ??? Prostate cancer is a common type of cancer in men. The prostate gland (more content not included)...[facility]02-25-2025 History of Present illness Narrative* PO Zuniga - 11/29/2024 11:00 AM EST Images from the original note were not included. HISTORY OF PRESENT ILLNESS: POST OP PT Monet Bustillos is an 73 y.o. @ male. (EST PT) PO (R) SHOULDER RCR, BICEP TENODESIS AND SAD 09/20/24 (10 WKS). PHYSICAL THERAPY @ [facility] [place] CONTINUES PT OVERALL IMPROVED. SOME PAIN IN [...] elbow wrist and fingers in all anatomic planeswith 5 out of 5 strength on the [...] against our medical advice and he was adviseto have them call with any concerns.. time will tell if this effects his care home healing.. Would appreciate them working on his [...] for requiring urgent evaluation. documented in this encounterCox Walnut [id number] History of Present illness Narrative* PO Zuniga - 11/01/2024 11:00 AM EST Images from the original note were not included. HISTORY OF PRESENT ILLNESS: POST OP PT Monet Bustillos is an 73 y.o. @ male. (EST PT) PO (R) SHOULDER RCR, BICEP TENODESIS AND SAD 09/20/24 (6 WKS). PHYSICAL THERAPY @ [facility] [place] WEARING ULTRA SLING. NOTES SOME IMPROVEMENT. CONTINUES [...] elbow wrist and fingers in all anatomic planeswith 5 out of 5 strength on the operative upper extremity. Compartments were soft to operative upper extremity. There was no evidence of infection or ascending lymphangitis to operative extremity. Procedures Orders Placed This Encounter Procedures Ambulatory referral to Physical Therapy Standing Status: Future Standing Expiration Date: 05/01/2025 Referral Priority: Routine Referral Type: Consultation Referral Reason: Specialty Services Required Referral Location: [facility] Scheduling Requested Specialty: Physical Therapy Number of [...] exercises, including home exercises, wall walks, and tlxors-jxv-sbtp stretches, all of which he tolerated well. [...] for requiring urgent evaluation. documented in this encounterCox Walnut [id number] History of Present illness Narrative* Julián Stevens NP - 10/03/2024 11:15 AM EST Images from the original note were not [...] elbow wrist and fingers in all anatomic planeswith 5 out of 5 strength on the [...] laymen terms at the bedside. If unable sera reached in office, I recommend evaluation at nearest Emergency Room if any symptoms worsened or new symptoms develop for requiring urgent evaluation. Julián Stevens, GLASS DEPOSITION TENDER-TECHNICAL AIDE documented in this [facility]12-16-2024 Telephone encounter Note* Telephone Encounter - Julián Stevens NP - 09/19/2024 12:05 PM EST Post op pain rx. PDMP reviewed [facility] [id number] Miscellaneous Notes* Telephone Encounter - Julián Stevens NP - 09/19/2024 12:05 PM EST Post op pain rx. PDMP reviewed documented in this [facility]12-06-2024 Hospital Discharge instructions Patient Education 09/09/2024 11:23:59 [...] or nerves near the bladder are not workingnormally, so the bladder overflows. Your health care [...] soap and water are not available, use handsanitizer. 2.Clean your penis with soap and water. [...] your urethra until pee flows freely. This isusually about 6 8 inches (15 20 cm). [...] reusable catheter in a small bathroom. Take jcba-mdm-paovqjn and prescription medicines only as told by [...] provider. Document Revised: 05/18/2023 Document Reviewed: 05/18/2023 [employer] Patient Education 2023 [employer]. Follow Up Care 07/05/2024 11:31:08 With:WALLY PERALTA, Lexa Barlow, URL Address: [address] [place], [place] [id number]- When: Unknown [facility] 12-06-2024 NotePatient Education Urology Clean Intermittent Catheterization, Male Clean [...] the bladder. CIC may be done when: ??? You cannot completely empty your bladder on your own. This may be due to a blockage in the bladder or urethra. ??? Your bladder leaks pee. This may happen when the muscles or nerves near the bladder are not working normally, so the bladder overflows. Your health care provider will show you how to do the procedure. You will also be given the supplies you need to do the procedure. Supplies needed: ??? Germ-free (sterile), water-based lubricant. ??? A container for pee collection. You may also use the toilet to dispose of pee from the catheter. ??? A catheter. Your provider will determine the best size for you. ? Use this catheter size: ??? Clean gloves. ??? Soap and water. ??? Clean washcloth and towel. How to perform this procedure: Most people need CIC at least 4 times per day to completely empty the bladder. Your provider will tell you how often you should do CIC. ??? Number of times per day to perform CIC: To perform CIC, follow these steps: 1. Wash your hands with soap and water for 20 seconds. If soap and water are not available, use hand bureau director. 2. Clean your penis with soap and water. Dry the tip of your penis completely. 3. Prepare the supplies that you will use during the procedure. Open the catheter package and lubricant. 4. Get in a comfortable position. Possible positions include: ??? Sitting on a toilet, a chair, or the edge of a bed. ??? Standing near a toilet. ??? Lying down with your head raised on pillows and your knees pointing to the ceiling. You may wish to place a waterproof mat or pad under you. 5. If you are using a pee collection container, position it between your legs. 6. Pee, if you are able. 7. Put on [...] sterile swabs as told by your provider. 11. Hold your penis upward at a 45?60 degree angle. This helps to straighten the urethra. 12. Slowly insert the lubricated catheter straight into your urethra until pee flows freely. This is usually about 6?8 inches (15?20 cm). 13. When pee starts to flow freely, insert the catheter 1 inch (3 cm) more. Allow pee to drain intothe toilet or the pee collection container. 14. When pee stops flowing, slowly remove the catheter. 15. Note the color, amount, and odor of the pee. 16. Measure your pee and note the amount, if told by your provider. 17. Discard the pee in the toilet. 18. Clean your penis [...] as often as told by your provider. ??? If you have symptoms of too much pee in your bladder (overdistension) and you are not able to pee, perform CIC. Symptoms of overdistension may include: ? Restlessness. ? Sweating or chills. ? Headache. ? Flushed or pale skin. ? Bloated lower abdomen. What are the risks? The provider will talk with you about the risks. These may include: ??? Infection. ??? Injury to the urethra. ??? Irritation of the urethra. Follow these instructions at home General instructions ??? Drink enough fluid to keep your pee pale yellow. ??? Throw away a catheter when it becomes dry, brittle, or cloudy. This usually happens after you use the catheter for 1 week. ??? Avoid caffeine. Caffeine may make you need to pee more frequently and more urgently. ??? When traveling, bring extra supplies with you in case of delays. Keep supplies with you in a place that you can access easily. If traveling by plane: ? Make sure that the lubricant in your carry-on bag is less than 3.4 ounces (100 mL). ? Use a single-use catheter. It may be difficult to clean a reusable catheter in a small bathroom. ??? Take zkoo-cre-rckhacs and prescription medicines only as told by your provider. Contact a health care provider if: ??? You have difficulty doing CIC. (more content not included)...[facility]12-03-2024 History of Present illness Narrative* PO Zuniga - 09/06/2024 10:00 AM EST Images from the original note were not included. GENERAL HISTORY AND PHYSICAL: NAME: Monet Bustillos : 1950 HISTORY OF PRESENT ILLNESS: Monet Bustillos is an 73 y.o. @ male. Here for surgery instructions (R) SHOULDER SCOPE 09/20/24 @[facility] PAST MEDICAL HISTORY: Past Medical History: Diagnosis [...] and increase stability of the shoulder joint toallow for full and complete healing. Fitting and adjustments were done under physician order and supervision. Patient was placed in the brace and all straps were adjusted for proper fit. Brace was dispensed to the patient and [employer] Patient Agreement was completed and signed. Warranty informationwas given and explained to the patient with [...] surgery received. All questions answered and proposed surgeryscheduled. SX INSTRUCTIONS, 09/06/24 @ 10:00AM PAT 08/30/24 @ 9:00AM - [facility] CARDIAC CLEARANCE / ELIQUIS RECEIVED MEDICARE - NPAR ULTRASLING DISPENSED / FITTED Follow up for 10/06/24 @ 1:15PM - [place]. documented in this encounterCox Walnut [id number] Instructions* Patient Instructions* Tiffanie Corcoran RN - 08/30/2024 9:00 AM EST Preoperative Education Checklist- General Surgery date: 09/20/24 Surgery time: 1230p Arrival time: 1030a 1. Bring a photo ID and your insurance card with you the day of surgery. You will check in at the main lobby of the [facility]- registration desk is straight ahead as soon as you walk in. Tell them you are here for surgery. 2. If you have a Living Will/Durable Power of Cardiology Nurse Practitioner for Health Care that is not on [...] after you have bathed. 5. NO nail wallisian/acrylic on at least one finger. If you are having a hand, wrist or foot surgery then all nail wallisian and artificial/acrylic nails must be removed from [...] WITH YOU ANY DEVICES YOU MAY NEED: MOR hose, ice machine, sling/swath, brace or special [...] least 8 hours and marijuana for 24 hoursprior to arrival for your surgery. 16. If [...] please call the Preadmission Testing office at [phone], Mon.-Fri. 7 a.m.-3 p.m. Leave a voicemail [...] after surgery- do not stop unless directed man your physician. You may also be given [...] is normal. Call your doctor if you noticeany of the following: -Increased redness or hardening [...] water and pat the area dry with aclean towel. -No re-using wash cloths or towels; [...] appointment with your doctor. [facility] History of Present illness Narrative* Erika Lockwood MD - 08/22/2024 10:05 AM EST Images from the original note were not [...] limited to risks of scarring, darker or retail sales merchandiser development pigmentary changes, recurrence, infection, and incomplete removal [...] instructions were given verbally and in writing. Theoffice will be contacted if the lesion fails to resolve despite treatment, or if a side effect develops such as abnormal crusting, scabbing, reddness, discharge, or tenderness. Additional details: Amount of lidocaine used: 2.0 cc Previous accession number: [id number] Treatment options reviewed with patient, benefits and efficacy of Cryotherapy vs ED&C discussed. ED&C today, instructed patient to contact the office for any new lesions that bleed, grow in size, or are not healing. Next Visit: as scheduled documented in this encounterCox Walnut [id number] History of Present illness Narrative* Daniela Wylielin, ARRT - 07/25/2024 10:15 AM EDT Images from the original note were not [...] MRI results. After examination of his right todaywe have discussed both surgical and nonsurgical intervention, [...] intervention. Mya Navarro D.O. documented in this encounterCox Walnut [id number] Hospital Discharge instructions Patient Education 07/21/2024 15:34:03 [...] Follow these instructions at home: Medicines Take yjeo-fxd-tokvcpg and prescription medicines only as told by [...] provider. Document Revised: 06/12/2021 Document Reviewed: 06/12/2021 Elsevier Patient Education 2023 [employer]. Follow Up Care 07/21/2024 10:59:03 With:Keep previously scheduled follow up with Dr Lo in September Address:Unknown When: Unknown [facility] NotePatient Education Urology Acute Urinary Retention, Male Acute [...] these instructions at home: Medicines ? Take fcvv-qcv-auymhlh and prescription medicines only as told by your health care provider. Avoidcertain medicines, such as decongestants, antihistamines, and some [...] unable to pass urine or can only passa little urine. If left untreated, this condition can result in kidney damage or other serious complications. ? An enlarged prostate may cause this condition. As men age, their prostate gland may become largerand may press or squeeze on the bladder [...] provider. Document Revised: 06/12/2021 Document Reviewed: 06/12/2021 [employer]ix Patient Education ? 2023 [employer].[facility] 07-11-2024 History of Present illness Narrative* PO Garcia - 07/11/2024 8:40 AM EDT error * PO Garcia - 07/11/2024 8:40 AM EDT Images from the original note were not [...] lesions that fail to resolve should be re- evaluated. Cryotherapy performed today; see procedure note Diagnosis: Actinic keratosis Indication: Precancerous Location: see skin exam Consent: Verbal consent was obtained and risks were discussed, including, but not limited to risks of scarring, darker or retail sales merchandiser development pigmentary changes, recurrence, incomplete removal and infection. [...] office if abnormal redness or tenderness develops atthe treatment site. Cryotherapy today, see procedure note. Diagnosis: Inflamed seborrheic keratosis Indication: Inflamed Consent: Verbal consent was obtained and risks were discussed, including, but not limited to risks of scarring, darker or retail sales merchandiser development pigmentary changes, recurrence, incomplete removal and infection. [...] bone, soft tissue, and skin Mid Chest Deloit pearly patch Lesion biopsy Type of biopsy: [...] Lesions can be removed if patient desires. Explainedto patient that due to insurance, removal is [...] Next Visit: 1 year documented in this encounterCox Walnut [id number] Hospital Discharge instructions Patient Education 07/05/2024 11:19:37 [...] degrees. Follow Up Care 06/28/2024 15:40:34 With:Lexa LO Address: [address] [place] [address] [place] [address]- Business (1) When:09/04/2024 11:17:33 Comments:With PVR log [facility] 10-01-2024 NotePatient Education Custom Cystoscopy ? Voiding after the procedure: there may be some pain, burning, urgency, frequency and blood tingedurine following the procedure. These symptoms usually resolve [...] if you have a fever over 100 degrees.[facility] 06-27-2024 Hospital Discharge instructions Patient Education 06/27/2024 [...] Follow these instructions at home: Medicines Take cisc-xkw-ilvkxdh and prescription medicines only as told by [...] provider. Document Revised: 06/12/2021 Document Reviewed: 06/12/2021 [employer]ix Patient Education 2023 [employer]. 06/27/2024 12:45:54 Cystoscopy Cystoscopy Cystoscopy is a [...] including vitamins, herbs, eye drops, creams, and enza-hio-kdwxitp medicines. Any problems you or family members [...] provider tells you to take them. Taking yzzg-vir-poysidq medicines, vitamins, herbs, and supplements. Tests You [...] Follow these instructions at home: Medicines Take kmwz-wff-knzhccu and prescription medicines only as told by your health care provider. If you were prescribed an antibiotic medicine, take it as told by your health care provider. Do notstop taking the antibiotic even if you start [...] blood in your urine increases, call your healthcare provider. Follow instructions from your health care provider about eating or drinking restrictions. If a tissue sample was removed for testing (biopsy) during your procedure, it is up to you to get your test results. Ask your health care provider, or the department that is doing the test, when yourresults will be ready. Drink enough fluid to [...] blood in your urine increases, call your healthcare provider. If you were prescribed an antibiotic medicine, take it as told by your health care provider. Do notstop taking the antibiotic even if you start to feel better. This information is not intended to replace advice given to you by your health care provider. Make sure you discuss any questions you have with your health care provider. Document Revised: 06/04/2022 Document Reviewed: 05/03/2021 Ebix Patient Education 2023 [employer]. Follow Up Care 11/02/2023 15:01:28 With:WALLY PERALTA, Lexa Barlow, URL Address: [facility] [address], [place] [address] [phone] When: Unknown Comments:sched cysto [facility] 09-23-2024 NotePatient Education Urology Acute Urinary Retention, Male Acute [...] these instructions at home: Medicines ? Take wbuw-uiv-ajsvcvy and prescription medicines only as told by your health care provider. Avoidcertain medicines, such as decongestants, antihistamines, and some [...] unable to pass urine or can only passa little urine. If left untreated, this condition can result in kidney damage or other serious complications. ? An enlarged prostate may cause this condition. As men age, their prostate gland may become largerand may press or squeeze on the bladder [...] provider. Document Revised: 06/12/2021 Document Reviewed: 06/12/2021 Elseitembase Patient Education ? 2023 [employer] Cystoscopy Cystoscopy is a procedure that is used to help diagnose and sometimes treat conditions that affect the lower urinary tract. The lower urinary tract includes the bladder and the urethra. The urethra is the tube that drains urine from the (more content not included)...[facility]09-18-2024 Note Cardiovascular Medicine [facility] SUBJECTIVE Chief Complaint Patient presents with [...] not included)... [facility]09-18-2024 NotePatient here for 1 year follow up PAF, PAC's, and hypertension. He's [...] pain. All other systems reviewed and are negative.[facility] 12-14-2023 Hospital Discharge instructions Patient Education 12/14/2023 [...] health care provider. Follow instructions from your healthcare provider about when and how to remove [...] Let your health care provider know that youare not able to remove the catheter. 10.Throw [...] provider. Document Revised: 12/11/2021 Document Reviewed: 09/06/2021 Ebix Patient Education 2021 [employer] 12/14/2023 11:40:01 Indwelling Urinary Catheter Insertion Indwelling [...] provider. Document Revised: 05/21/2022 Document Reviewed: 05/21/2022 [employer]ix Patient Education 2022 [employer]. Follow Up Care 12/14/2023 08:48:07 With:WALLY PERALTA, Lxea Barlow, URL Address: [facility] [address] , [place] [address]- [phone] When: Unknown Comments:pt to call w/ update [facility] 01-31-2024 Evaluation note* Encounter Date Diagnosis Assessment Notes Treatment Notes Treatment Clinical Notes Oct, Rectal bleeding (ICD-10 - K62.5) Continue Xarelto but if bleeding increases, notify the office immediately. CBC to exclude severe anemia. Oct, Radiation proctitis (ICD-10 - K62.7) Avoid straining, increase fluids and fiber. Oct, Prostate cancer (ICD-10 - C61) Group 2, [place] 3+4, External beam radiation No s/s recurrence Oct, Chronic anticoagulation (ICD-10 - Z79.01) May increase severity of bleeding. [employer] Other 01-29-2024 Hospital Discharge instructions Patient Education [...] and water are not available, use hand bureau director. 2.Clean your penis with soap and water. [...] reusable catheter in a small bathroom. Take sahl-azy-vzjqrnr and prescription medicines only as told by [...] provider. Document Revised: 07/28/2022 Document Reviewed: 07/28/2022 Ebix Patient Education 2022 [employer]. 11/02/2023 14:17:10 Acute Urinary Retention, Male Acute [...] Follow these instructions at home: Medicines Take kyng-blk-zrjkctq and prescription medicines only as told by [...] provider. Document Revised: 06/12/2021 Document Reviewed: 06/12/2021 Ebix Patient Education 2022 [employer]. Follow Up Care 05/04/2023 11:36:31 With:WALLY PERALTA, Lexa Barlow, URL Address: [facility] [address], [place] [address] [phone] When: Unknown Comments:f/u in 6 mos w/ PSA [facility] 11-01-2023 Evaluation note* Encounter Date Diagnosis Assessment Notes Treatment Notes Treatment Clinical Notes Aug, Paroxysmal atrial fibrillation (ICD-10 - I48.0) Aug, Syncope, unspecified syncope type (ICD-10 - R55) [employer] Other 10-19-2023 Evaluation note* Encounter Date Diagnosis Assessment Notes Treatment Notes Treatment Clinical Notes Jul, Benign prostatic hyperplasia with lower urinary tract symptoms (ICD-10 - N40.1) [employer] Other 10-17-2023 Evaluation note* Encounter Date Diagnosis [...] are maintaining regular scheduled appts with their registered dietician. No bleeding complications Jul, Hyperlipidemia type II [...] External beam radiation No s/s recurrence, f/u [employer] Other 07-11-2023 Evaluation note* Encounter Date Diagnosis Assessment Notes Treatment Notes Treatment Clinical Notes Apr, Paroxysmal atrial fibrillation (ICD-10 - I48.0) [employer] Other 04-17-2023 Evaluation note* Encounter Date Diagnosis Assessment Notes Treatment Notes Treatment Clinical Notes Jan, Prostate cancer (ICD-10 - C61) Group 2, [place] 3+4, External beam radiation [employer] Other 04-14-2023 Evaluation note* Encounter Date Diagnosis [...] are maintaining regular scheduled appts with their registered dietician. Discussed switching Xarelto to Eliquis. Jan, Hyperlipidemia type II (ICD-10 - E78.01) Diet and exercise with continued statin therapy. Jan, Prostate cancer (ICD-10 - C61) Group 2, [place] 3+4, External beam radiation No s/s recurrence. [...] Colon cancer screening declined (ICD-10 - Z53.20) [employer] Other Evaluation + Plan note Future Appointments Appointment Date:05/06/2024 08:00:00 AM Scheduled Provider:Lexa LO MD Location:[facility] Appointment Type:URO Office Visit Diagnostic Tests Pending * PSA Total 11/02/23 [facility] evaluation + Plan note Future Appointments Appointment Date:12/09/2023 01:20:00 PM Scheduled Provider:Yadiel LARKIN MD Location:[facility] Appointment Type:[place] [address] Appointment Date:05/06/2024 08:00:00 AM Scheduled Provider:Lexa LO MD Location:[facility] Appointment Type:URO Office Visit [facility] evaluation + Plan note Future Appointments Appointment Date:05/06/2024 08:00:00 AM Scheduled Provider:Lexa LO MD Location:[facility] Appointment Type:URO Office Visit [facility] evaluation + Plan note Future Appointments Appointment Date:05/06/2024 08:00:00 AM Scheduled Provider:Lexa LO MD Location:[facility] Appointment Type:URO Office Visit Diagnostic Tests Pending * [facility] Appointment Date:09/09/2024 10:15:00 AM Scheduled Provider:Lexa LO MD Location:[facility] Appointment Type:URO Office Visit [facility] Evaluation + Plan note Future Appointments Appointment Date:01/09/2025 11:45:00 AM Scheduled Provider:Lexa LO MD Location:[facility] Appointment Type:URO Office Visit Diagnostic Tests Pending * PSA Total 10/05/24 [facility] evaluation noteNo [place] [employer] Other Evaluation note* Diagnosis Seborrheic keratosis- Primary Actinic keratosis Inflamed seborrheic keratosis Neoplasm of unspecified behavior of bone, soft tissue, and skin Elective surgery documented in this encounter [facility]* Diagnosis Internal derangement of right shoulder- Primary documented in this encounter [facility] HealthcareEvaluation note* Diagnosis BCC (basal cell carcinoma), chest- Primary documented in this encounter [facility]Evaluation note* Diagnosis Pre-op examination- Primary documented in this encounter [facility] Healthcare[facility]* Diagnosis Internal derangement of right shoulder- Primary documented in this encounter [facility]* Diagnosis Status post right rotator cuff repair- Primary documented in this encounter [facility] HealthcareEvaluation note* Diagnosis Preop examination- Primary Unspecified pre-operative examination Hypertension, unspecified type Paroxysmal atrial fibrillation (CMS-HCC) Atrial fibrillation Preop examination Unspecified pre-operative examination Hypertension, unspecified type Paroxysmal atrial fibrillation (CMS-HCC) Atrial fibrillation [facility] Diagnosis Status post right rotator cuff repair- Primary documented in this encounter [facility] HealthcareEvaluation note* Diagnosis Status post right rotator cuff repair Internal derangement of right shoulder documented in this encounter [facility] HealthcareEvaluation note* Diagnosis Onset Date Resolution Status Admit Date Benign prostatic hyperplasia with lower urinary tract symptoms acute January 18, 2025 1:19pm Elevated cholesterol acute Apri l 2024 1:19pm NSVT (nonsustained ventricul ar tachycardia) acute January 18, 2025 1:19pm Overweight acute January 18 1:19pm Paroxysmal atrial fibrillation acute January 18, 2025 1:19pm Primary hypertension acute Apri l 2024 1:19pm Primary localized osteoarthritis of left hip acute January 18, 2025 1:19pm Medicare annual wellness vis it, subsequent noneactive January 18, 2025 1:19pm [facility] Work Phone: Evaluation note* Diagnosis Adhesive capsulitis of right shoulder- Primary Acute pain of right shoulder documented in this encounter [facility] HealthcareEvaluation note* Diagnosis Chronic cough- Primary Cough LPRD (laryngopharyngeal reflux disease) Acute laryngitis, without mention of obstruction Chronic maxillary sinusitis DNS (deviated nasal septum) Deviated nasal septum Hypertrophy of both inferior nasal turbinates Anticoagulated Encounter for long-term (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 of anticoagulants Pharyngoesophageal dysphagia Dysphagia, pharyngoesophageal phase Vasomotor rhinitis Allergic rhinitis, cause unspecified documented in this encounter [facility] HealthcareHistory general Narrative - Reported* Type Description [...] RIGHT TIB FIB FIXATION 2006 Surgical History [facility] 11/2015 Hospitalization History see surgical history [employer] Other History general Narrative - Reported* Type [...] RIGHT TIB FIB FIXATION 2006 Surgical History [facility] 11/2015 Surgical History Cystoscopy 05/2023 Hospitalization History see surgical history [employer] Other Hospital course Narrative No data available for this section [facility] Hospital Discharge instructions No data available for this section [facility] progress note No data available for this section [facility] reason for referral (narrative)* Reason Referral for colonos copy Diagnosis 1 Rectal bleeding (K62 .5) [facility] Referring Provider First Name Giacomo Referring Provider Last Name Joi Referring Provider Specialty Internal Me dicine Referred Organization [facility] Referred Provider Yadiel Larkin Referred Address [address], [place],[address] Referred Provider Specialty Surgery Referral Priority Routine General Notes Mr. Bustillos, who is anticoagulated for atrial fibrillation with a history of pelvic radiation for prostate cancer, presents w/ rectal bleeding. He has notice blood with wiping and on his underwear. He is being referred for colonoscopy. Clinical Notes Include [employer] Other Reason for referral (narrative)No reason for referral information availableMercy Health Work Phone: Summary Purpose Family History No Family History Records Found Relationship Condition Age at Onset Recorded Date/T crispin father Alzheimer's dementia Unknown mother Malignant neoplasm Unknown family member Alzheimer's dementia Unknown paternal grandmother Alzheimer's dementia Unknown Advance Directives No Advanced Directives Records Found Date Activated Date Inactivated Comments 05/28/2020 3:59 PM 05/29/2020 3:06 PM Advance Directive Response Recorded Date/ Time Advance Directives No November 12, 2021 12:41pm Chief Complaint and Reason for Visit Chief Complaint Admit Date Wellness January 18, 2025 1:1 9pm Reason for Visit Admit Date Benign prostatic hyperplasia with lower urinary tract symptoms January 18, 2025 1:19pm Elevated cholesterol January 18, 2025 1: 19pm NSVT (nonsustained ventricular tachycard ia) January 18, 2025 1:19pm Overweight January 18, 2025 1:1 9pm Paroxysmal atrial fibrillation January 1:19pm Primary hypertension January 18, 2025 1: 19pm Primary localized osteoarthritis of left hip January 18, 2025 1:19pm Medicare annual wellness visit, subseque nt January 18, 2025 1:19pm Chief Complaint Admit Date Wellness January 18, 2025 1:1 9pm B12 Shot February 14, 2025 12:14 pm Reason for Visit Admit Date Benign prostatic hyperplasia with lower urinary tract symptoms January 18, 2025 1:19pm Elevated cholesterol January 18, 2025 1: 19pm Low back pain January 18, 2025 1:1 9pm MCI (mild cognitive impairment) January 182024 1:19pm NSVT (nonsustained ventricular tachycard ia) January 18, 2025 1:19pm Paroxysmal atrial fibrillation January 1:19pm Primary hypertension January 18, 2025 1: 19pm [place] [facility] [place] January 18, 2025 1:19pm Chief Complaint Admit Date Wellness January 18, 2025 1:1 9pm B12 Shot February 14, 2025 12:14 pm URI February 21, 2025 1:58p m b12 shot February 28, 2025 11:23 am Reason for Visit Admit Date Benign prostatic hyperplasia with lower urinary tract symptoms January 18, 2025 1:19pm Elevated cholesterol January 18, 2025 1: 19pm Low back pain January 18, 2025 1:1 9pm MCI (mild cognitive impairment) January 182024 1:19pm NSVT (nonsustained ventricular tachycard ia) January 18, 2025 1:19pm Paroxysmal atrial fibrillation January 1:19pm Primary hypertension January 18, 2025 1: 19pm [place] [facility] [place] January 18, 2025 1:19pm Acute sinusitis February 21, 2025 1:58p m Cough February 21, 2025 1:58p m Chief Complaint Admit Date Wellness January 18, 2025 1:1 9pm B12 Shot February 14, 2025 12:14 pm URI February 21, 2025 1:58p m b12 shot February 28, 2025 11:23 am b12 shot March 08, 2025 11:33 am Chief Complaint Admit Date Wellness January 18, 2025 1:1 9pm B12 Shot February 14, 2025 12:14 pm URI February 21, 2025 1:58p m b12 shot February 28, 2025 11:23 am b12 shot March 08, 2025 11:33 am B12 shot April 10, 2025 9:36a m Chief Complaint Admit Date B12 Shot February 14, 2025 12:14 pm URI February 21, 2025 1:58p m b12 shot February 28, 2025 11:23 am b12 shot March 08, 2025 11:33 am B12 shot April 10, 2025 9:36a m Reason for Visit Admit Date Acute sinusitis February 21, 2025 1:58p m Cough February 21, 2025 1:58p m Reason for Visit Admit Date Acute sinusitis February 21, 2025 1:58p m Cough February 21, 2025 1:58p m B12 deficiency April 26, 2025 1:22 pm MCI (mild cognitive impairment) April 1:22pm Chief Complaint Admit Date B12 Shot February 14, 2025 12:14 pm URI February 21, 2025 1:58p m b12 shot February 28, 2025 11:23 am b12 shot March 08, 2025 11:33 am B12 shot April 10, 2025 9:36a m fatigue, SOB, not feeling well April 2:46pm Reason for Visit Admit Date Acute sinusitis February 21, 2025 1:58p m Cough February 21, 2025 1:58p m B12 deficiency April 26, 2025 1:22 pm MCI (mild cognitive impairment) April 1:22pm Transient alteration of awareness April 052024 12:33pm Dyspnea May 03, 2025 2:46 pm Elevated cholesterol May 03, 2025 2:4 6pm Low back pain May 03, 2025 2:46 pm MCI (mild cognitive impairment) April 2:46pm NSVT (nonsustained ventricular tachycard ia) May 03, 2025 2:46pm Paroxysmal atrial fibrillation April 2:46pm Primary hypertension May 03, 2025 2:4 6pm Rectal bleeding May 03, 2025 2:46 pm Sinusitis May 03, 2025 2:46 pm Weight loss May 03, 2025 2:46 pm Chief Complaint Admit Date B12 Shot February 14, 2025 12:14 pm URI February 21, 2025 1:58p m b12 shot February 28, 2025 11:23 am b12 shot March 08, 2025 11:33 am B12 shot April 10, 2025 9:36a m fatigue, SOB, not feeling well April 2:46pm NPCR PER TRAD MCR/SUPP; PER Anisa mares 2024 2:39pm Reason for Visit Admit Date Acute sinusitis February 21, 2025 1:58p m Cough February 21, 2025 1:58p m B12 deficiency April 26, 2025 1:22 pm MCI (mild cognitive impairment) April 1:22pm Transient alteration of awareness April 052024 12:33pm Dyspnea May 03, 2025 2:46 pm Elevated cholesterol May 03, 2025 2:4 6pm MCI (mild cognitive impairment) April 2:46pm NSVT (nonsustained ventricular tachycard ia) May 03, 2025 2:46pm Paroxysmal atrial fibrillation April 2:46pm Primary hypertension May 03, 2025 2:4 6pm Sinusitis May 03, 2025 2:46 pm Chief Complaint Admit Date B12 Shot February 14, 2025 12:14 pm URI February 21, 2025 1:58p m b12 shot February 28, 2025 11:23 am b12 shot March 08, 2025 11:33 am B12 shot April 10, 2025 9:36a m fatigue, SOB, not feeling well April 2:46pm NPCR PER TRAD MCR/SUPP; PER Anisa mares 2024 2:39pm Referral Order May 10, 2025 5:5 7pm Reason for Visit Admit Date Acute sinusitis February 21, 2025 1:58p m Cough February 21, 2025 1:58p m B12 deficiency April 26, 2025 1:22 pm MCI (mild cognitive impairment) April 1:22pm Transient alteration of awareness April 052024 12:33pm Dyspnea May 03, 2025 2:46 pm Elevated cholesterol May 03, 2025 2:4 6pm MCI (mild cognitive impairment) April 2:46pm NSVT (nonsustained ventricular tachycard ia) May 03, 2025 2:46pm Paroxysmal atrial fibrillation April 2:46pm Primary hypertension May 03, 2025 2:4 6pm Sinusitis May 03, 2025 2:46 pm Memory loss May 08, 2025 2:3 9pm KHAI (obstructive sleep apnea) May 2:39pm Chief Complaint Admit Date B12 Shot February 14, 2025 12:14 pm URI February 21, 2025 1:58p m b12 shot February 28, 2025 11:23 am b12 shot March 08, 2025 11:33 am B12 shot April 10, 2025 9:36a m fatigue, SOB, not feeling well April 2:46pm NPCR PER TRAD MCR/SUPP; PER Anisa [facility]varez [facility] 2024 2:39pm Referral Order May 10, 2025 5:5 7pm B12 Shot May 12, 2025 9:5 4am Chief Complaint Admit Date URI February 21, 2025 1:58p m b12 shot February 28, 2025 11:23 am b12 shot March 08, 2025 11:33 am B12 shot April 10, 2025 9:36a m fatigue, SOB, not feeling well April 2:46pm NPCR PER TRAD MCR/SUPP; PER Anisa Alvarez [facility] 2024 2:39pm Referral Order May 10, 2025 5:5 7pm B12 Shot May 12, 2025 9:5 4am NPCR PER TRAD MCR/SUPP; PER Anisa Alvarez [facility] 2024 12:14pm Chief Complaint Admit Date b12 shot March 08, 2025 11:33 am B12 shot April 10, 2025 9:36a m fatigue, SOB, not feeling well April 2:46pm NPCR PER TRAD MCR/SUPP; PER Anisa Alvarez [facility] 2024 2:39pm Referral Order May 10, 2025 5:5 7pm B12 Shot May 12, 2025 9:5 4am NPCR PER TRAD MCR/SUPP; PER Anisa Alvarez [facility] 2024 12:14pm follow up June 01, 2025 1: 08pm Reason for Visit Admit Date B12 deficiency April 26, 2025 1:22 pm MCI (mild cognitive impairment) April 1:22pm Transient alteration of awareness April 052024 12:33pm Dyspnea May 03, 2025 2:46 pm Elevated cholesterol May 03, 2025 2:4 6pm MCI (mild cognitive impairment) April 2:46pm NSVT (nonsustained ventricular tachycard ia) May 03, 2025 2:46pm Paroxysmal atrial fibrillation April 2:46pm Primary hypertension May 03, 2025 2:4 6pm Sinusitis May 03, 2025 2:46 pm Memory loss May 08, 2025 2:3 9pm KHAI (obstructive sleep apnea) May 2:39pm FRANCIS (generalized anxiety disorder) Aug2024 12:14pm Memory loss May 17, 2025 12 :14pm KHAI (obstructive sleep apnea) May 12:14pm Transient alteration of awareness May 17, 2025 12:14pm B12 deficiency June 01, 2025 1: 08pm MCI (mild cognitive impairment) May 062024 1:08pm Right foot drop June 01, 2025 1: 08pm Sleep disturbance June 01, 2025 1: 08pm Snoring June 01, 2025 1: 08pm Chief Complaint Admit Date B12 shot April 10, 2025 9:36a m fatigue, SOB, not feeling well April 2:46pm NPCR PER TRAD MCR/SUPP; PER Anisa mares 2024 2:39pm Referral Order May 10, 2025 5:5 7pm B12 Shot May 12, 2025 9:5 4am NPCR PER TRAD MCR/SUPP; PER Anisa mares 2024 12:14pm follow up June 01, 2025 1: 08pm R05.3 K21.9 R13.14 June 12, 2025 7:18am B12 Shot June 12, 2025 9:41am Additional Source Comments (unrecognized sect ion and content) No Status Records FoundNo Status Records FoundNo Status Records FoundNo Status Records FoundNo Status Records FoundNo Status Records Found INFORMATION SOURCE (unrecogn ized section and content) DATE CREATED AUTHOR 01/03/2023 [facility] DATE CREATED AUTHOR AUTHOR'S ORGANIZ ATION 06/24/2024 [facility] DATE CREATED AUTHOR AUTHOR'S ORGANIZ ATION 09/23/2024 [facility] DATE CREATED AUTHOR AUTHOR'S ORGANIZ ATION 01/10/2025 Jason Wing [facility] DATE CREATED AUTHOR AUTHOR'S ORGANIZ ATION 05/24/2025 [facility] DATE CREATED AUTHOR AUTHOR'S ORGANIZ ATION 06/29/2025 [facility] REASON FOR VISIT (unrecogniz ed section and content) Reason Comments Skin Check Reason Comments Pain Reason Comments Follow-up Reason Comments Pre-op Exam Reason Comments Post-op Reason Comments Follow-up Reason Onset Date Comments Physical Therapy 01/23/2025 Reason Comments Nasal Congestion Nasal congestion CT TB Specialty Diagnoses / Procedures Referred By Contac t Referred To Contact Otolaryngology Diagnoses Nasal congestion Other specified cough Procedures [facility] Giacomo Tamez DO [address] [place] [address] Phone: tel: fax: Terese Aguila MD [address] [address] Phone: tel: fax: Referral ID Status Reason Start Date Expiration Date Visits Re quested Visits Authorized [id number] Closed 05/11/2025 11/07/2025 1 1 Patient Care team informatio n (unrecognized section and content) Team Status: Active Member Role Status Ambrocio Tamez DO Primary Care Provider Active Team Status: Inactive Member Role Status Dates Giacomo Tamez DO Primary Care Provider Active Start: February 14, 2025 End: February 14, 2025 Giacomo Tamez DO Attending Provider Active Sta rt: February 14, 2025 End: February 14, 2025 Team Status: Inactive Member Role Status Dates Giacomo Tamez DO Primary Care Provider Active Start: February 21, 2025 End: February 21, 2025 Giacomo Tamez DO Attending Provider Active Sta rt: February 21, 2025 End: February 21, 2025 Team Status: Inactive Member Role Status Ambrocio Tamez DO Primary Care Provider Active Start: February 28, 2025 End: February 28, 2025 Giacomo Tamez DO Attending Provider Active Sta rt: February 28, 2025 End: February 28, 2025 Team Status: Inactive Member Role Status Ambrocio Tamez DO Primary Care Provider Active Start: March 08, 2025 End: March 08, 2025 Giacomo Tamez , Attending Provider Active Sta rt: March 08, 2025 End: March 08, 2025 Team Status: Inactive Member Role Status Dates Giacomo Tamez DO Primary Care Provider Active Start: April 10, 2025 End: April 10, 2025 Giacomo Tamez , DO Attending Provider Active Sta rt: April 10, 2025 End: April 10, 2025 Team Status: Inactive Member Role Status Dates Giacomo Tamez DO Primary Care Provider Active Start: April 26, 2025 End: April 26, 2025 Lata Zapata DO Attending Provider Active Sta rt: April 26, 2025 End: April 26, 2025 Team Status: Inactive Member Role Status Dates Giacomo Tamez DO Primary Care Provider Active Start: May 01, 2025 End: May 01, 2025 Tomi Solis DO Attending Provider Active Start: May 01, 2025 End: May 01, 2025 Team Status: Inactive Member Role Status Dates Giacomo Tamez DO Primary Care Provider Active Start: May 03, 2025 End: May 03, 2025 Giacomo Tamez DO Attending Provider Active Sta rt: May 03, 2025 End: May 03, 2025 Team Status: Inactive Member Role Status Dates Giacomo Tamez DO Primary Care Provider Active Start: May 08, 2025 End: May 08, 2025 Oleg Israel , PhD Attending Provider Active Start: May 08, 2025 End: May 08, 2025 Team Status: Active Member Role Status Dates Giacomo Tamez DO Primary Care Provider Active Start: May 10, 2025 Giacomo Tamez , Attending Provider Active Sta rt: May 10, 2025 Team Status: Inactive Member Role Status Dates Giacomo Tamez DO Primary Care Provider Active Start: May 12, 2025 End: May 12, 2025 Giacomo Tamez , Attending Provider Active Sta rt: May 12, 2025 End: May 12, 2025 Team Status: Active Member Role Status Dates Giacomo Tamez DO Primary Care Provider Active Start: February 09, 2025 Giacomo Tamez DO Attending Provider Active Sta rt: February 09, 2025 Team Status: Inactive Member Role Status Dates Giacomo Tamez DO Primary Care Provider Active Start: January 18, 2025 End: January 18, 2025 Giacomo Tamez DO Attending Provider Active Sta rt: January 18, 2025 End: January 18, 2025 Apprentice Technician Relationship Specialty Start Date End Date Giacomo Tamez MD [address] [place] [facility] [place] [phone] PCP - General Internal Medicine 03/21/24 Apprentice Technician Relationship Specialty Start Date End Date Giacomo Tamez MD [address] [place] [facility] [address] PCP - General Internal Medicine 03/21/24 Apprentice Technician Relationship Specialty Start Date End Date Giacomo Tamez MD [address] [place] [facility] [address] PCP - General Internal Medicine 03/21/24 Apprentice Technician Relationship Specialty Start Date End Date Giacomo Tamez MD [address] [place] [facility] [address] PCP - General Internal Medicine 03/21/24 Apprentice Technician Relationship Specialty Start Date End Date Giacomo Tamez MD [address] [place] [facility] [place] [address] PCP - General Internal Medicine 03/21/24 Apprentice Technician Relationship Specialty Start Date End Date Giacomo Tamez MD [address] [place] [facility] [id number] PCP - General Internal Medicine 03/21/24 Apprentice Technician Relationship Specialty Start Date End Date Giacomo Tamez MD [address] [place] [facility] [place] [phone] PCP - General Internal Medicine 03/21/24 Apprentice Technician Relationship Specialty Start Date End Date Giacomo Tamez MD [address] [place] [facility] [place] [address] PCP - General Internal Medicine 03/21/24 Apprentice Technician Relationship Specialty Start Date End Date Giacomo Tamez MD [address] [place] [facility] [address] PCP - General Internal Medicine 03/21/24 Apprentice Technician Relationship Specialty Start Date End Date Giacomo Tamez DO [address] [facility], [place] [id number] PCP - General Internal Medicine 03/15/20 Apprentice Technician Relationship Specialty Start Date End Date Giacomo Tamez MD [address] [place] [facility] [address] PCP - General Internal Medicine 03/21/24 Apprentice Technician Relationship Specialty Start Date End Date Giacomo Tamez MD [address] [place] [facility] [address] PCP - General Internal Medicine 03/21/24 Apprentice Technician Relationship Specialty Start Date End Date Giacomo Tamez MD [address] [place] [facility] [address] PCP - General Internal Medicine 03/21/24 Apprentice Technician Relationship Specialty Start Date End Date Giacomo Tamez MD PCP - General Internal Medicine 03/21/24 Team Status: Active Member Role Status Dates Giacomo Tamez DO Primary Care Provide r, Attending Provider Active Start: January 04, 2025 Team Status: Inactive Member Role Status Dates Giacomo Tamez DO Primary Care Provide r, Attending Provider Active Start: January 18, 2025 End: January 18, 2025 Apprentice Technician Relationship Specialty Start Date End Date Giacomo Tamez MD PCP - General Internal Medicine 03/21/24 Apprentice Technician Relationship Specialty Start Date End Date Giacomo Tamez DO PCP - General Internal Medicine 03/21/24 Apprentice Technician Relationship Specialty Start Date End Date Giacomo Tamez DO PCP - General Internal Medicine 03/21/24 Team Status: Active Member Role Status Dates Giacomo Tamez DO Primary Care Provide r, Attending Provider Active Start: February 09, 2025 Team Status: Inactive Member Role Status Dates Giacomo Tamez DO Primary Care Provide r, Attending Provider Active Start: February 14, 2025 End: February 14, 2025 Team Status: Inactive Member Role Status Dates Giacomo Tamez DO Primary Care Provide r, Attending Provider Active Start: February 21, 2025 End: February 21, 2025 Team Status: Inactive Member Role Status Dates Giacomo Tamez DO Primary Care Provide r, Attending Provider Active Start: February 28, 2025 End: February 28, 2025 Team Status: Inactive Member Role Status Dates Giacomo Tamez DO Primary Care Provide r, Attending Provider Active Start: March 08, 2025 End: March 08, 2025 Apprentice Technician Relationship Specialty Start Date End Date Giacomo Tamez DO [address] [place] [address] PCP - General Internal Medicine 03/21/25 Apprentice Technician Relationship Specialty Start Date End Date Giacomo Tamez DO [address] [place] [address] PCP - General Internal Medicine 03/21/25 Team Status: Inactive Member Role Status Dates Giacomo Tamez DO Primary Care Provider Active Start: May 17, 2025 End: May 17, 2025 Oleg Israel , PhD Attending Provider Active Start: May 17, 2025 End: May 17, 2025 Apprentice Technician Relationship Specialty Start Date End Date Giacomo Tamez DO [address] [facility] [place] [address] PCP - General Internal Medicine 03/21/25 Apprentice Technician Relationship Specialty Start Date End Date Giacomo Tamez DO [address] [facility] [place] [phone] PCP - General Internal Medicine 03/21/25 Team Status: Inactive Member Role Status Dates Giacomo Tamez Primary Care Provider Active Start: June 01, 2025 End: June 01, 2025 Lata Zapata DO Attending Provider Active Sta rt: June 01, 2025 End: June 01, 2025 Team Status: Active Member Role Status Dates Giacomo Tamez DO Primary Care Provider Active Start: June 12, 2025 Terese Aguila Jr, MD Attending Provider Active Start: June 12, 2025 Team Status: Inactive Member Role Status Dates Giacomo Tamez DO Primary Care Provider Active Start: June 12, 2025 End: June 12, 2025 Giacomo Tamez DO Attending Provider Active Sta rt: June 12, 2025 End: June 12, 2025 Team Status: Inactive Member Role Status Dates Giacomo Tamez DO Primary Care Provider Active Start: June 12, 2025 End: June 12, 2025 Terese Aguila Jr, MD Attending Provider Active Start: June 12, 2025 End: June 12, 2025 Goals (unrecognized section and content) Goals may be documented in a n alternate section FOR RECORDS PERTAINING TO PATIENTS WHO ARE [...] PRIMARY CLINICAL RECORDS. [facility] [employer] [facility] provides no warranty or guarantee of the accuracy or completeness of information in this document.
== END 2025-07-12 11:38 | disposition home or self-care (01) ==
LOC: LAB 11:41
PROVIDERS: PCP Internal Medicine; Visit Provider Urology
DX: Z85.46 Personal history of malignant neoplasm of prostate (principal)
CPT/HCPCS: 36415; 84153